=== PATIENT | female | born 1960 | race Caucasian/White ===

== ENCOUNTER → 2020-07-31 16:27 | Outpatient (CLI) | payer OTHER, SELFPAY ==
[2020-07-31 15:33] VITALS: BMI 44.4
--- NOTE | 2020-07-31 16:35 | RAD_ITS ---
INDICATION: chest pain EXAMINATION/TECHNIQUE: X-RAY - XR Chest 2 Views COMPARISON: None. FINDINGS: The lungs are clear. 2.8 cm tubular metallic density projects over the right ventricle. Heart is borderline enlarged. No pleural effusion or pneumothorax. No acute osseous abnormalities. RAD/Chest PA and Lateral IMPRESSION: No acute radiographic abnormalities. 2.8 cm tubular metallic density projects over the right ventricle and is of unknown significance. Borderline cardiomegaly. Electronically Signed: Fermin Stockton MD at 21:47 EDT Tel , Service support ,
== END ==
PROVIDERS: PCP Family Medicine; Referring Provider Physician Assistant Medical; Visit Provider Physician Assistant Medical
DX: R07.89 Other chest pain (principal)
CPT/HCPCS: 71046

== ENCOUNTER 2020-08-03 08:06 | Inpatient (IN) | payer OTHER, SELFPAY ==
[2020-07-31 15:33] VITALS: BMI 44.4
[2020-08-03] VITALS (26 sets, daily range): BP systolic 86–141; BP diastolic 69–112; PULSE 91–95; RESP 12–39; TEMP 35.5–36.8; O2SAT 70–100; BMI 43.4; BMI 41.1
--- NOTE | 2020-08-03 08:10 | EKG12_ITS ---
Test Reason : SOB Blood Pressure : / mmHG Vent. Rate : 096 BPM Atrial Rate : 141 BPM P-R Int : 000 ms QRS Dur : 176 ms QT Int : 412 ms P-R-T Axes : 074 -78 086 degrees QTc Int : 520 ms Ventricular-paced rhythm with occasional Premature ventricular complexes Abnormal ECG Confirmed by SHREIF SALGADO, FELTON ([id number]), associate entertainment editor DORYS YUAN ([id number]) on 08/07/2020 12:33:41 PM Referred By: RIGOBERTO Confirmed By:FELTON GORMAN MD
--- NOTE | 2020-08-03 08:20 | EKG12_ITS ---
Test Reason : SOB Blood Pressure : / mmHG Vent. Rate : 141 BPM Atrial Rate : 072 BPM P-R Int : 144 ms QRS Dur : 154 ms QT Int : 342 ms P-R-T Axes : 000 -88 083 degrees QTc Int : 523 ms Sinus rhythm with Premature supraventricular complexes and with frequent Premature ventricular comple xes Right bundle branch block Left anterior fascicular block Bifascicular block Abnormal ECG Confirmed by SHERIF SALGADO, FELTON ([id number]), legal editor DORYS YUAN ([id number]) on 08/07/2020 12:34:02 PM Referred By: RIGOBERTO Confirmed By:FELTON GORMAN MD
[2020-08-03 08:41] LABS: Allen Test Positive; Base Excess -17 mmol/L (-2 to +2); Bicarbonate 9.7 mmol/L (22-26); Blood Gas Specimen Type ART; FI02 100; Mode NIV; O2 Delivery Device BiPAP; PEEP 10; PO2 199 mmHG (75-100); PS 20; SITE L Radial; SO2 100 % (95-99); Total Carbon Dioxide 10 mmol/L; pCO2 21.7 mmHg (35-45); pH 7.26 (7.35-7.45)
[2020-08-03 08:45] LABS: Absolute Lymphocyte Count 4.01 X10^3/uL (0.83-4.51); Basophil# 0.11 X10^3/uL; Eosinophil# 0.26 X10^3/uL; Eosinophils% 2.2 % (0-5); Hematocrit 48.8 % (37-47); Hemoglobin 13.5 g/dL (12.0-15.0); Lymphocyte # 4.01 X10^3/ul (0.83-4.51); Lymphocyte % 34.7 % (19-41); Mean Corp Hgb Conc 27.7 g/dL (32-36); Mean Corpuscular Hgb 25.2 pg (27.0-32.0); Mean Corpuscular Volume 91.2 fL (81-99); Mean Platelet Vol. 10.6 fl (6.2-12.0); Monocyte# 1.05 X10^3/uL; Monocyte% 9.1 % (0-10); NRBC Flagged by Analyzer 0 % (0-5); Neutrophil # 6.01 X10^3/uL (2.7-7.7); Neutrophil % 51.9 % (47-70); Platelet Count 343 K/mm3 (150-450); RBC Distribution Width CV 14.7 % (11.6-14.6); RBC Distribution Width SD 49.4 fl (35.1-43.9); Red Blood Count 5.35 M/mm3 (4.2-5.4); White Blood Count 11.6 K/mm3 (4.4-11.0)
--- NOTE | 2020-08-03 08:46 | RAD_ITS ---
STUDY: X-RAY CHEST REASON FOR EXAM: Female, 59 years old. Sob TECHNIQUE: Single AP portable view of the chest. COMPARISON: Comparison is made with prior study dated 07/31/2020. FINDINGS: EKG electrodes are seen. There is evidence of vascular congestion and mild degree of CHF. Hyperinflation. There is no demonstrated pleural abnormality. There is mild cardiac enlargement. A loop recording device is seen overlying the left side of the heart. Normal mediastinum and carroll. Normal visualized pulmonary arteries. Normal visualized aortic arch and descending thoracic aorta. There are diffuse degenerative changes of the visualized thoracic spine. Normal visualized ribs, clavicles, and shoulders. There is no demonstrated abnormality of the visualized soft tissue structures of the upper abdomen. RAD/Chest 1 View (Portable) IMPRESSION: Findings in keeping with a mild degree of CHF. Cardiomegaly. Electronically Signed: Sadi Ellis MD at 9:07 EDT , Service support ,
[2020-08-03 08:55] LABS: D-Dimer Quantitative (DVT/PE) 0.29 FEU/ug/m (0.27-0.49)
[2020-08-03 08:58] LABS: ALB/GLOB Ratio 0.9 RATIO (0.9-2.4); AST(SGOT) 20 U/L (15-37); Alanine Aminotransfer ALT/SGPT 34 U/L (13-56); Albumin, Serum 3.7 g/dL (3.2-5.0); Alkaline Phosphatase 122 U/L (45-117); Anion Gap 17 (5-15); BUN 16 mg/dL (7-18); Calcium,Total 9.4 mg/dL (8.5-10.1); Chloride 101 mmol/L (98-107); Creatinine, Serum 1.46 mg/dL (0.55-1.02); EST Glomerular Filtration Rate 39 mL/min (>60); Est Glom Filt Rate - Afr Amer 47 mL/min (>60); Estimated Creatinine Clearance 36.87 ml/min; Globulin 4.1 g/dL (2.2-4.2); Glucose 336 mg/dL (74-106); Potassium 3.5 mmol/L (3.5-5.1); Protein, Total 7.8 g/dL (6.4-8.2); Sodium Level 139 mmol/L (136-145)
[2020-08-03 09:00] LABS: Lactic Acid 11.3 mmol/L (0.4-1.9)
--- NOTE | 2020-08-03 09:07 | EDS_ITS ---
HPI History of Present Illness Chief Complaint: Shortness of Breath Informant: patient and EMS Onset/Context/Timing Onset: Today Current Severity: Severe Maximum Severity: Severe Narrative Narrative: 59-year-old female brought in by EMS for respiratory distress. Patient was found in her car with shortness of breath, chest tightness, lethargy. Her pulse ox was 65% on room air. She was started on CPAP in route to the hospital. Patient was put on BiPAP on arrival to the emergency department. She is now improving and able to give history. She states that she walked into work up a hill and became short of breath. She went back to her car and became more short of breath and EMS was called. She states she was recently seen by cardiology and has a stress test ordered for tomorrow. She states her chest tightness has resolved. She states she had a pacemaker placed October 2019 for complete heart block. Prior similar symptoms: Yes Recent Illness/Hospitalization: No PFSH PFS Medical History (Updated 08/03/20 @ 10:[address] Puja Alexandre MD) Complete heart block Essential (primary) hypertension History of deep venous thrombosis (2012) Hyperlipidemia Hypothyroidism Iron deficiency anemia Obesity Obstructive sleep apnea Type 2 diabetes mellitus Home Medications atorvastatin 10 mg tablet 10 mg PO QPM 05/10/20 [History Last Taken Unknown] losartan 50 mg tablet 50 mg PO DAILY 05/10/20 [History Last Taken Unknown] metformin 500 mg tablet,extended release 24hr 1,000 mg PO BID tab 05/10/20 [History Last Taken Unknown] metoprolol succinate 25 mg tablet,extended release 24 hr 25 mg PO DAILY 05/10/20 [History Last Taken Unknown] multivitamin 1 tab PO DAILY 05/10/20 [History Last Taken Unknown] rivaroxaban 20 mg tablet 20 mg PO QPM 05/10/20 [History Last Taken Unknown] venlafaxine 75 mg capsule,extended release 24 hr 75 mg PO DAILY 05/10/20 [History Last Taken Unknown] coenzyme Q10 100 mg tablet 100 mg PO DAILY 07/31/20 [History Last Taken Unknown] levothyroxine 88 mcg tablet 88 mcg PO DAILY tab 07/31/20 [History Last Taken Unknown] Allergy/AdvReac Type Severity Reaction Status Date / Time Sulfa (Sulfonamide Allergy hives Verified 08/03/20 08:26 Antibiotics) aspirin AdvReac GI Upset Verified 08/03/20 08:26 red dye AdvReac migraine Verified 08/03/20 08:26 Family History Father Heart disease CAD (coronary artery disease) Mother Hypertension Surgical History History of permanent cardiac pacemaker placement (12/08/19) Social History Smoking Status: Never smoker alcohol intake: never substance use type: does not use caffeine: Yes Type: tea ROS ROS ED Constitutional Constitutional ED: Denies fever(s) Eyes Eyes: Denies change in vision ENT ENT ED: Denies rhinorrhea or sore throat Cardiovascular Cardiovascular: Reports chest pain; Denies palpitations Respiratory/Chest Respiratory/Chest: Reports dyspnea and dyspnea on exertion; Denies cough Gastrointestinal Gastrointestinal: Denies abdominal pain, diarrhea, nausea or vomiting Genitourinary Genitourinary ED: Denies dysuria Musculoskeletal Musculoskeletal: Denies myalgias Integumentary Denies rash Neurologic Neurologic: Denies headache(s) Psychiatric Psychiatric: Denies suicidal thoughts EXAM Physical Exam Const Vital Signs: 08/03/20 08:07 08/03/20 08:13 08/03/20 08:14 Temperature 96.7 F L 96.7 F L Temperature Source Temporal Temporal Pulse Rate 94 95 Respiratory Rate 39 H 16 Respiratory Effort Respiratory Pattern Blood Pressure 141/112 H 141/112 H Blood Pressure Mean 121 121 Pulse Ox 100 100 100 Oxygen Delivery Method Bi-pap Bi-pap Bi-pap Fraction of Inspired Oxygen (FIO2) 100 100 08/03/20 08:15 08/03/20 08:26 08/03/20 08:35 Temperature Temperature Source Pulse Rate 93 Respiratory Rate 34 H Respiratory Effort Short of Breath Labored Respiratory Pattern Grunting Blood Pressure Blood Pressure Mean Pulse Ox 100 99 Oxygen Delivery Method Bi-pap Bi-pap Fraction of Inspired Oxygen (FIO2) 100 100 60 08/03/20 09:00 08/03/20 09:30 Temperature 98.3 F Temperature Source Axillary Pulse Rate 93 91 Respiratory Rate 30 H 30 H Respiratory Effort Respiratory Pattern Blood Pressure 141/88 H 127/88 H Blood Pressure Mean 105 101 Pulse Ox 98 99 Oxygen Delivery Method Bi-pap Bi-pap Fraction of Inspired Oxygen (FIO2) 60 60 Positive well nourished and well developed General Appearance ED: well developed HEENT Reports normocephalic and head/scalp atraumatic Eyes PERRL and EOMs intact bilaterally Neck supple General: Negative for tenderness Chest Wall inspection of chest normal Resp Effort and Inspection: retractions Auscultation: rhonchi and diminished lung sounds Cardio regular rhythm Rate: tachycardic GI non-tender and non-distended Palpation: soft; Negative for guarding or rebound tenderness present no CVA tenderness Extremity General Extremety ED: Yes edema General Extremity: edema Neuro oriented x3 Sensorium / Orientation: alert Psych mental status grossly normal Skin no rashes or lesions noted MDM MDM MDM Narrative Medical decision making narrative: Patient was started on BiPAP on arrival to the ED with improvement. Patient is much improved on reevaluation. She was given Lasix IV and insulin subcutaneously. Urine culture was sent and she was given Rocephin IV. Discussed with hospitalist for admission. Lab Data Attestation: I reviewed the patient's lab results. Labs: Laboratory Results - last 24 hr 08/03/20 08/03/20 08/03/20 08:10 08:10 08:10 WBC 11.6 H RBC 5.35 Hgb 13.5 Hct 48.8 H MCV 91.2 MCH 25.2 L MCHC 27.7 L RDW Std Deviation 49.4 H RDW Coeff of Dedrick 14.7 H Plt Count 343 MPV 10.6 Immature Gran % (Auto) 1.100 H Neut % (Auto) 51.9 Lymph % (Auto) 34.7 Barber % (Auto) 9.1 Eos % (Auto) 2.2 Baso % (Auto) 1.0 Absolute Neuts (auto) 6.0 Absolute Lymphs (auto) 4.01 Nucleated RBC % 0 PT 30.0 H INR 3.0 D-Dimer Quant (PE/DVT) 0.29 Sodium 139 Potassium 3.5 Chloride 101 Carbon Dioxide 21.0 Anion Gap 17 H BUN 16 Creatinine 1.46 H Estim Creat Clear Calc 36.87 Est GFR (MDRD) Af Amer 47 L Est GFR (MDRD) Non-Af 39 L BUN/Creatinine Ratio 11.0 Glucose 336 H Lactic Acid Calcium 9.4 Total Bilirubin 0.70 AST 20 ALT 34 Alkaline Phosphatase 122 H Troponin I < 0.015 B-Natriuretic Peptide Total Protein 7.8 Albumin 3.7 Globulin 4.1 Albumin/Globulin Ratio 0.9 Urine Color Urine Clarity Urine pH Ur Specific [place] Urine Protein Urine Glucose (UA) Urine Ketones Urine Occult Blood Urine Nitrite Urine Bilirubin Urine Urobilinogen Ur Leukocyte Esterase Urine RBC Urine WBC Ur Squamous Epith Cells Urine Bacteria Urine Mucus 08/03/20 08/03/20 08/03/20 08:10 08:20 09:27 WBC RBC Hgb Hct MCV MCH MCHC RDW Std Deviation RDW Coeff of Dedrick Plt Count MPV Immature Gran % (Auto) Neut % (Auto) Lymph % (Auto) Barber % (Auto) Eos % (Auto) Baso % (Auto) Absolute Neuts (auto) Absolute Lymphs (auto) Nucleated RBC % PT INR D-Dimer Quant (PE/DVT) Sodium Potassium Chloride Carbon Dioxide Anion Gap BUN Creatinine Estim Creat Clear Calc Est GFR (MDRD) Af Amer Est GFR (MDRD) Non-Af BUN/Creatinine Ratio Glucose Lactic Acid 11.3 H* Calcium Total Bilirubin AST ALT Alkaline Phosphatase Troponin I B-Natriuretic Peptide 1620.7 H Total Protein Albumin Globulin Albumin/Globulin Ratio Urine Color Yellow Urine Clarity Sl. Cloudy Urine pH 6.0 Ur Specific [place] 1.025 Urine Protein 100 H Urine Glucose (UA) 250 H Urine Ketones Negative Urine Occult Blood 25 H Urine Nitrite Positive H Urine Bilirubin Negative Urine Urobilinogen Normal Ur Leukocyte Esterase 25 H Urine RBC 0-5 SEEN Urine WBC 0-5 SEEN Ur Squamous Epith Cells 0-5 SEEN Urine Bacteria 2+ Urine Mucus 0 SEEN ABG Data ABG results: ABG 08/03/20 08:34 Specimen Type ART Sample Site L Radial pH 7.26 L Bicarbonate Actual 9.7 L Total CO2 10 Base Excess -17 L O2 Saturation 100 H O2 % 100 ABG pCO2 21.7 L ABG pO2 199 H Ezra Test Positive O2 Delivery Device BiPAP Vent Mode NIV POC PEEP 10 POC Pressure Suppt 20 Radiography Diagnostic Testing: Radiology Impression Chest X-Ray 08/03/20 08:46 IMPRESSION: Findings in keeping with a mild degree of CHF. Cardiomegaly. Electronically Signed: Sadi Ellis MD at 9:07 EDT , Service support , EKG Initial EKG: Attestation: I personally reviewed and interpreted this EKG as follows: Interpretation: Paced Comments: Ventricular paced rhythm with PVCs, rate of 96. Critical Care Time Critical Care Time: Yes Critical care time (excluding procedures): 30-74 minutes Discharge Plan Dx/Rx/DC Orders Clinical Impression: Respiratory failure, CHF (congestive heart failure), Hypoxia Disposition Disposition: Acute Care Hospital [facility]
[2020-08-03 09:33] LABS: Mucous, Urine 0 SEEN /hpf (<or=2+)
[2020-08-03 09:41] LABS: Color, Urine Yellow (Yellow); Glucose, Dipstick 250 mg/dl (Normal); Ketone-Dipstick Negative (Negative); Leukocyte Esterase-Dipstick 25 /ul (Negative); Nitrite-Dipstick Positive (Negative); Occult Blood-Urine 25 /ul (Negative); Protein-Dipstick 100 mg/dl (Negative); Specific Gravity, Urine 1.025 (1.002-1.030); Urine Bilirubin Dipstick Negative (Negative); Urine Clarity Sl. Cloudy (Clear); Urine Urobilinogen Normal (Normal)
[2020-08-03 09:48] LABS: Red Blood Cells-Urine 0-5 SEEN /hpf (0-5); Squamous Epithelial Cells - UA 0-5 SEEN /hpf (5-10); White Blood Cells 0-5 SEEN /hpf (0-5)
[2020-08-03 09:49] LABS: Bacteria 2+ /hpf (None Seen)
[2020-08-03 09:51] LABS: BNP,B-Type NATRIURETIC PEPTIDE 1620.7 pg/mL (0-100)
--- NOTE | 2020-08-03 10:09 | HP.PCM.HOS_ITS ---
HPI - General General Date of Admission: 08/03/20 HPI Narrative The patient is a 59 y/o F w/ PMHx: Diabetes mellitus type II, Morbid Obesity, HTN, HLD, Hx DVT on coumadin, Hx complete heart block s/p pacemaker placement, Anxiety and Depression, Hypothyroidism who presents to the [facility] ED on 08/03/20 per EMS, found in her car lethargic, hypoxic with oxygenation 65% prompting EMS to place her on CPAP and bring her to the hospital with transition to BiPAP with some mental status improvement reporting that she was walking up a hill and became significantly dyspneic with associated midsternal chest tightness without radiation. 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 She notes chest pressure sensation has been occurring and had recent cardiology evaluation the day prior with planned outpatient stress testing. She noted on day of presentation this pressure like sensation was far worse 01/07. Work-up in the ED included T 96.7 temporally, heart rate 95, BP 141/112, respiratory rate 39, and a percent on CPAP per EMS transition to BiPAP with most recent vital signs T 98.3 axillary, heart rate 91, BP 127/88, respiratory rate 30, 99% on BiPAP 60% FiO2, CBC with WC 11.6, hemoglobin 13.5, platelet 343 with increased immature granulocytes otherwise no marked shift, coags with PT 30, INR 3.0 on Xarelto regimen, D-dimer 0.29, ABG with pH 7.26, bicarb 9.7, weight base excess -17, PCO2 21.7, PO2 199 on BiPAP, CMP with anion gap 17, BUN/creatinine 16/1.46, glucose 336, lactic acid 11.3, alk phos 122, BNP 1620.7, troponin less than 0.015 initially, urinalysis with specific raphe 1.025, urine protein 100, urine glucose 250, negative ketone, positive nitrite, leukocyte Estrace 25, no urine WBCs however 2+ urine bacteria, EKG with paced rhythm with no acute evidence of ischemia, chest x-ray with findings consistent with CHF, cardiomegaly, CTPA with diffuse bilateral pulmonary infiltrates worse at the bases consistent with pulmonary edema or diffuse bilateral pneumonia, urine culture pending per ED, blood culture x2 pending per ED, rapid Covid antigen negative. In the ED patient administered 10 unit insulin, Rocephin and 40 mg IV Lasix x1. Upon patient presentation given the severity of her presentation she was discussed with pulmonary/critical care who at that time had recommended CTPA prior to admission. Additionally cardiology was notified about patient status and plan admission. [facility] Medical History (Updated 08/03/20 @ 14:[address] Jaclyn Thakur MD) Complete heart block Essential (primary) hypertension History of deep venous thrombosis (2012) Hyperlipidemia Hypothyroidism Iron deficiency anemia Obesity Obstructive sleep apnea Type 2 diabetes mellitus Home Medications atorvastatin 10 mg tablet 10 mg PO QPM 05/10/20 [History Last Taken Unknown] losartan 50 mg tablet 50 mg PO DAILY 05/10/20 [History Last Taken Unknown] metformin 500 mg tablet,extended release 24hr 1,000 mg PO BID tab 05/10/20 [History Last Taken Unknown] metoprolol succinate 25 mg tablet,extended release 24 hr 25 mg PO DAILY 05/10/20 [History Last Taken Unknown] multivitamin 1 tab PO DAILY 05/10/20 [History Last Taken Unknown] rivaroxaban 20 mg tablet 20 mg PO QPM 05/10/20 [History Last Taken Unknown] venlafaxine 75 mg capsule,extended release 24 hr 75 mg PO DAILY 05/10/20 [History Last Taken Unknown] coenzyme Q10 100 mg tablet 100 mg PO DAILY 07/31/20 [History Last Taken Unknown] levothyroxine 88 mcg tablet 88 mcg PO DAILY tab 07/31/20 [History Last Taken Unknown] Allergy/AdvReac Type Severity Reaction Status Date / Time Sulfa (Sulfonamide Allergy hives Verified 08/03/20 08:26 Antibiotics) aspirin AdvReac GI Upset Verified 08/03/20 08:26 red dye AdvReac migraine Verified 08/03/20 08:26 Family History Father Heart disease CAD (coronary artery disease) Mother Hypertension Surgical History History of permanent cardiac pacemaker placement (12/08/19) unable to obtain (Patient with a surgical history of hysterectomy, right ACL repair, pacemaker placement.) Social History (Updated 08/03/20 @ 15:[address] Jaclyn Thakur MD) household members: significant other Smoking Status: Never smoker alcohol intake: never substance use type: does not use caffeine: Yes Type: tea ROS ROS Narrative Admission Review of Systems: CONSTITUTIONAL: No weight loss, fever, chills, + weakness or fatigue. HEENT: Eyes: No visual loss, blurred vision, double vision or yellow sclerae. Ears, Nose, Throat: No hearing loss, sneezing, congestion, runny nose or sore throat. SKIN: No rash or itching, lesions, wounds. CARDIOVASCULAR: + chest pain, chest pressure, edema, No palpitations, orthopnea, syncopal events. RESPIRATORY: + shortness of breath, No cough or sputum, wheezing, hemoptysis. GASTROINTESTINAL: No anorexia, nausea, vomiting or diarrhea, abdominal pain, melena, BRBPR. GENITOURINARY: No dysuria, frequency, urgency or retention. NEUROLOGICAL: No headache, dizziness, syncope, paralysis, ataxia, numbness or tingling in the extremities, focal weakness, change in bowel or bladder control, seizure. MUSCULOSKELETAL: + muscle, back pain, joint pain or stiffness. HEMATOLOGIC: No anemia, bleeding or bruising. LYMPHATICS: No enlarged nodes. No history of splenectomy. PSYCHIATRIC: No history of depression or anxiety. ENDOCRINOLOGIC: No reports of sweating, cold or heat intolerance. No polyuria or polydipsia. ALLERGIES: No history of asthma, hives, eczema or rhinitis. Vital Signs Vital Signs Vital Signs: 08/03/20 08:07 08/03/20 08:13 08/03/20 08:14 Temperature 96.7 F L 96.7 F L Temperature Source Temporal Temporal Pulse Rate 94 95 Respiratory Rate 39 H 16 Respiratory Effort Respiratory Pattern Blood Pressure 141/112 H 141/112 H Blood Pressure Mean 121 121 Pulse Ox 100 100 100 Oxygen Delivery Method Bi-pap Bi-pap Bi-pap Fraction of Inspired Oxygen (FIO2) 100 100 08/03/20 08:15 08/03/20 08:26 08/03/20 08:35 Temperature Temperature Source Pulse Rate 93 Respiratory Rate 34 H Respiratory Effort Short of Breath Labored Respiratory Pattern Grunting Blood Pressure Blood Pressure Mean Pulse Ox 100 99 Oxygen Delivery Method Bi-pap Bi-pap Fraction of Inspired Oxygen (FIO2) 100 100 60 08/03/20 09:00 08/03/20 09:30 Temperature 98.3 F Temperature Source Axillary Pulse Rate 93 91 Respiratory Rate 30 H 30 H Respiratory Effort Respiratory Pattern Blood Pressure 141/88 H 127/88 H Blood Pressure Mean 105 101 Pulse Ox 98 99 Oxygen Delivery Method Bi-pap Bi-pap Fraction of Inspired Oxygen (FIO2) 60 60 Physical Exam Narrative Physical Examination: General: Patient now awake and alert, oriented x3 but had been very encephalopathic secondary to hypoxia, remains cooperative, patient improved since initial ED presentation, currently maintained on BiPAP, still increased work of breathing and accessory muscle usage, distress is lessening and patient is less fatigued. Skin: normal color, turgor, no icterus, cyanosis. HEENT: AT/NC, EOMI, PERRLA, dry MM, BIPAP in place, no carotid bruits, + JVD but thickened neck makes examination difficult. Lungs: Diminished breath sounds, greater bases, rales bilaterally, increased work of breathing and accessory muscle usage, BiPAP in place, evident distress although improving since initial presentation, no obvious rhonchi or wheezing Heart: Tachycardic with regular rhythm; no gallop, rub audible. Abdomen: soft, morbidly obese, NTTP, ND, distant mildly hyperactive BS, unable to discern HSM secondary to morbidly obese habitus. Extremities: no cyanosis or clubbing, bilateral ankle to distal allen nonpitting edema. Neurological: Patient now awake and alert, oriented x3 but had been very encephalopathic secondary to hypoxia; cognitive function improving, nearing baseline intact; pupils equally reactive to light and accomodation; cranial nerves II-XII grossly normal, moving all 4 extremities, no focal deficits, strength severely global decrease secondary to acute presentation. Psychiatric: affect appears fatigued, still some evidence of respiratory distress but improving, no acute evidence of depressive or anxiety feelings. Lab / Micro Data Result Diagrams: 08/03/20 08:10 08/03/20 08:10 Labs: Laboratory Results - last 24 hr 08/03/20 08/03/20 08/03/20 08:10 08:10 08:10 WBC 11.6 H RBC 5.35 Hgb 13.5 Hct 48.8 H MCV 91.2 MCH 25.2 L MCHC 27.7 L RDW Std Deviation 49.4 H RDW Coeff of Dedrick 14.7 H Plt Count 343 MPV 10.6 Immature Gran % (Auto) 1.100 H Neut % (Auto) 51.9 Lymph % (Auto) 34.7 Lagrange % (Auto) 9.1 Eos % (Auto) 2.2 Baso % (Auto) 1.0 Absolute Neuts (auto) 6.0 Absolute Lymphs (auto) 4.01 Nucleated RBC % 0 PT 30.0 H INR 3.0 D-Dimer Quant (PE/DVT) 0.29 Sodium 139 Potassium 3.5 Chloride 101 Carbon Dioxide 21.0 Anion Gap 17 H BUN 16 Creatinine 1.46 H Estim Creat Clear Calc 36.87 Est GFR (MDRD) Af Amer 47 L Est GFR (MDRD) Non-Af 39 L BUN/Creatinine Ratio 11.0 Glucose 336 H Lactic Acid Calcium 9.4 Total Bilirubin 0.70 AST 20 ALT 34 Alkaline Phosphatase 122 H Troponin I < 0.015 B-Natriuretic Peptide Total Protein 7.8 Albumin 3.7 Globulin 4.1 Albumin/Globulin Ratio 0.9 Urine Color Urine Clarity Urine pH Ur Specific [place] Urine Protein Urine Glucose (UA) Urine Ketones Urine Occult Blood Urine Nitrite Urine Bilirubin Urine Urobilinogen Ur Leukocyte Esterase Urine RBC Urine WBC Ur Squamous Epith Cells Urine Bacteria Urine Mucus 08/03/20 08/03/20 08/03/20 08:10 08:20 09:27 WBC RBC Hgb Hct MCV MCH MCHC RDW Std Deviation RDW Coeff of Dedrick Plt Count MPV Immature Gran % (Auto) Neut % (Auto) Lymph % (Auto) [place] % (Auto) Eos % (Auto) Baso % (Auto) Absolute Neuts (auto) Absolute Lymphs (auto) Nucleated RBC % PT INR D-Dimer Quant (PE/DVT) Sodium Potassium Chloride Carbon Dioxide Anion Gap BUN Creatinine Estim Creat Clear Calc Est GFR (MDRD) Af Amer Est GFR (MDRD) Non-Af BUN/Creatinine Ratio Glucose Lactic Acid 11.3 H* Calcium Total Bilirubin AST ALT Alkaline Phosphatase Troponin I B-Natriuretic Peptide 1620.7 H Total Protein Albumin Globulin Albumin/Globulin Ratio Urine Color Yellow Urine Clarity Sl. Cloudy Urine pH 6.0 Ur Specific [place] 1.025 Urine Protein 100 H Urine Glucose (UA) 250 H Urine Ketones Negative Urine Occult Blood 25 H Urine Nitrite Positive H Urine Bilirubin Negative Urine Urobilinogen Normal Ur Leukocyte Esterase 25 H Urine RBC 0-5 SEEN Urine WBC 0-5 SEEN Ur Squamous Epith Cells 0-5 SEEN Urine Bacteria 2+ Urine Mucus 0 SEEN Micro: Microbiology 08/03/20 08:46 SARS-CoV-2 Antigen (Rapid) - Final Nasal Secretion ABG Data ABG results: ABG 08/03/20 08:34 Specimen Type ART Sample Site L Radial pH 7.26 L Bicarbonate Actual 9.7 L Total CO2 10 Base Excess -17 L O2 Saturation 100 H O2 % 100 ABG pCO2 21.7 L ABG pO2 199 H Ezra Test Positive O2 Delivery Device BiPAP Vent Mode NIV POC PEEP 10 POC Pressure Suppt 20 Radiology Impression Chest X-Ray 08/03/20 08:46 IMPRESSION: Findings in keeping with a mild degree of CHF. Cardiomegaly. Electronically Signed: Sadi Ellis MD at 9:07 EDT , Service support , Assessment & Plan Assessment/Plan (1) Acute respiratory failure with hypoxia: (2) CHF (congestive heart failure): (3) Chest tightness: PLAN: The patient is a 59 y/o F w/ PMHx: Diabetes mellitus type II, Morbid Obesity, HTN, HLD, Hx DVT on coumadin, Hx complete heart block s/p pacemaker placement, Anxiety and Depression, Hypothyroidism who presents to the [facility] ED on 08/03/20 per EMS, found in her car lethargic, hypoxic with oxygenation 65% prompting EMS to place her on CPAP and bring her to the hospital with transition to BiPAP with some mental status improvement reporting that she was walking up a hill and became significantly dyspneic with associated midsternal chest tightness without radiation. 1. Acute Encephalopathy secondary to Acute Hypoxic Respiratory Failure secondary to Acute Decompensated CHF, Unclear Type, Lactic acidosis secondary to significant hypoxemia, Possibly #2: CXR obtained in the ED w/ evidence overload, congestion. Patient administered IV lasix in the ED, will admit to the ICU, continue BIPAP placement, maintain on cardiac telemetry, obtain cardiac enzyme series, obtain serial EKGs, continue IV lasix diuresis, monitor I/Os, maintain on intake restriction, continue medical therapy, obtain TSH and magnesium level, obtain ECHO. Cardiology consulted, pending. PRN morphine to decrease afterload, continue oxygen supplementation, if necessary will position w/ upright position with legs off bed to decrease preload. 2. Possible Acute Urinary Tract Infection: UA upon ED evaluation mildly remarkable, pending UCx, continue IVFs, monitor I/Os, continue IV Rocephin w/ transition as able pending sensitivities and speciation. Bld cx x 2 obtained in the ED. As noted significant lactic acidosis, felt not related to possible UTI but secondary to #1 with hypoperfusion with severe hypoxia. 3. Hyperglycemia w/ Diabetes mellitus type II, Question early DKA (+AG but li jah hypoxia mediated with lactic acidosis, hyperglycemia but no ketones in urine, awaiting ED ketones): Administered 10 u IV x 1 insulin in the ED. Awaiting ketone, suspect lactic acidosis related with #1 severe hypoxia, will hold oral home regimen, once clinically improved and able to de-escalate off BiPAP will allow ADA diet, accu checks w/ ISS, nutrition consulted for education and teaching. If ongoing hyperglycemia will obtain A1c. 4. Hypertension: Will maintain on IV lasix as noted, continue home metoprolol, losartan regimen, PRN IV hydralazine. 5. Hyperlipidemia: Will continue home statin, FLP in AM. 6. Anxiety and Depression: Will continue home venlafaxine regimen. 7. History of DVT: Will hold home xarelto regimen, transition to heparin drip. 8. History of complete heart block: Status post pacemaker placement. 9. Morbid Obesity: Weight loss and lifestyle changes encouraged, nutrition consulted. 10. LUIS FELIPE: Uses CPAP q HS, currently on BIPAP, transition once improved. 11. Chronic Kidney Disease Stage III versus MARICRUZ, unclear as no comparison: Admission BUN/Cr 16/1.46, baseline renal function unknown, given presentation planning to continue diuresis, repeat CMP in AM. 12. DVT prophylaxis: SCDs, will hold xarelto, transition to therapeutic lovenox in case of intervention cardiac needs. Last dose of note xarelto 08/02/20 evening. 13. CODE status: Patient does not have healthcare packet of attorney recruiter nor living will set up. Her significant other with whom she lives is at the bedside and although they are not she specifically states that this is the individual who would be able to make her decisions for her. Discussed CODE status at length including difference between FULL code, DNR-CCA and DNR-CC status. Following discussions about the differences in these status, requested Full Code status. Advanced Care Planning Face to Face Time: 16 minutes. Visit Charges Inpatient E&M: 57045 Init Hosp L3 Procedures Hospitalists Procedures: 68566 Advncd Care Plan 30 Min
--- NOTE | 2020-08-03 10:59 | CT_ITS ---
STUDY: CTA CHEST REASON FOR EXAM: Female, 59 years old. R/o pe RADIATION DOSAGE (If Supplied By Facility): CTDIvol = ( 16.59 ) mGy, DLP = ( 497.38 ) mGycm TECHNIQUE: The examination was performed with the intravenous administration of IV 100ML ISOVUE 370. Post-processing of the angiographic images was performed, with multiplanar reformation and 3D reconstruction. Individualized dose optimization techniques were used for this CT. COMPARISON: None. FINDINGS: Normal enhancement of the main pulmonary artery and right and left pulmonary arteries. Normal enhancement of the bilateral peripheral pulmonary arteries. There is no demonstrated pulmonary embolism. Normal thoracic aorta and visualized great vessels. There is no demonstrated aortic dissection. Normal heart and pericardium. Normal mediastinum. Normal hilar regions. Normal visualized trachea and bronchi. The lungs are well expanded. There is diffuse bilateral air space disease involving both lungs more prominent at the lung bases. This is suggestive of either pulmonary edema or diffuse pulmonary infiltrates. Normal pleura. Normal chest wall structures. There are degenerative changes of thoracic spine. Normal visualized upper abdomen. CT/CTA Chest W/WO Contrast IMPRESSION: Diffuse bilateral pulmonary infiltrates worse at the lung bases. Differential diagnosis should include either pulmonary edema or diffuse bilateral pneumonia. Electronically Signed: Sadi Ellis MD at 12:10 EDT , Service support ,
[2020-08-03] MEDS: Ceftriaxone 1 GM/50 ML BAG IV (11:08)
[2020-08-03] MEDS: Insulin Lispro 100 UNIT/ML INSULN.PEN 10 UNIT SC (11:08)
[2020-08-03] MEDS: Furosemide 40 MG/4 ML Vial IV ×2 (11:08→18:10)
[2020-08-03 11:43] LABS: Lactic Acid 4.2 mmol/L (0.4-1.9)
--- NOTE | 2020-08-03 11:50 | CPS ---
Patient taken to CT scan on BiPAP and back to ED without difficulty. Upon return, FiO2 decreased to 45%, RN aware.
[2020-08-03 12:29] LABS: Reflex Lactate? Y
[2020-08-03 13:12] LABS: Magnesium 2.4 mg/dL (1.6-2.6)
--- NOTE | 2020-08-03 13:26 | ECHOCS_ITS ---
Reason For Study: CHF Procedure This was a 2D Doppler, Color Flow transthoracic echocardiogram. The study was technically difficult. Exam performed portable in ICU/CCU. Left Ventricle Normal LV size. Mild concentric left ventricular hypertrophy. The estimated ejection fraction is 30 %. Stage 3 diastolic dysfunction. There is moderate to severe global hypokinesis of the left ventricle. Right Ventricle Normal RV size. Normal systolic function. Atria Normal left atrium. Normal right atrium. Mitral Valve Normal mitral valve. Tricuspid Valve Normal tricuspid valve. Unable to estimate RV systolic pressure due to inadequate jet, pulmonary artery pressure probably normal. Aortic Valve The aortic valve is not well visualized. Pulmonic Valve Normal pulmonic valve. Great Vessels Normal aortic root. Pericardium/Pleural No pericardial effusion. Medication Diluted definity 6ml given slow IV push to enhance endocardial definition. MMode/2D Measurements & Calculations LVIDd: 4.9 cm IVSd: 1.5 cm Ao root diam: 3.4 cm LVIDs: 4.2 cm LVPWd: 1.2 cm RVDd: 4.0 cm FS: 15.5 % LAV(MOD-bp): 55.4 ml LVAd ap4: 32.8 cm2 SV(MOD-sp4): 24.8 ml LAV(MOD-bp) Indexed: 25.0 ml/m2 LVLd ap4: 7.6 cm LAV(MOD-sp2): 53.0 ml EDV(MOD-sp4): 114.6 ml LAV(MOD-sp4): 55.6 ml EDV(sp4-el): 120.1 ml LVAs ap4: 28.5 cm2 LVLs ap4: 7.5 cm ESV(MOD-sp4): 89.9 ml ESV(sp4-el): 92.2 ml EF(MOD-sp4): 21.6 % EF(sp4-el): 23.2 % SV(sp4-el): 27.9 ml LA A4 area: 19.4 cm2 LA dimension(2D): 3.9 cm RA A4 area: 15.9 cm2 Time Measurements MV dec time: 0.16 sec Doppler Measurements & Calculations MV E max marcel: 106.7 cm/sec Lat Peak E' Marcel: 4.7 cm/sec Med Peak E' Marcel: 4.0 cm/sec MV A max marcel: 45.2 cm/sec E/E' lat: 22.9 E/E' med: 26.9 MV E/A: 2.4 Ao V2 max: 125.3 cm/sec LV V1 max: 88.1 cm/sec PA V2 max: 80.4 cm/sec Ao max P.3 mmHg LV V1 max P.1 mmHg ECHO/Echo Complete W/ Contrast Interpretation Summary Normal LV size. Mild concentric left ventricular hypertrophy. The estimated ejection fraction is 30 %. There is moderate to severe global hypokinesis of the left ventricle. Stage 3 diastolic dysfunction. Contrast injection was performed. Ordering Physician: Jaclyn Thakur Referring Physician: ANDREWS WOO Performed By: Hali Barry RDCS
[2020-08-03 13:28] LABS: Procalcitonin 0.04 ng/mL (0.00-0.09)
[2020-08-03 14:35] LABS: Bedside Glucose 136 mg/dL (70-110)
[2020-08-03 15:07] LABS: Reflex Lactate? Y
--- NOTE | 2020-08-03 15:24 | PCM.CONS.C ---
Assessment & Plan Assessment/Plan (1) CHF (congestive heart failure): QUALIFIERS: Heart failure type: unspecified Heart failure chronicity: acute Qualified Code(s): I50.9 - Heart failure, unspecified PLAN: Agree with Lasix, ruling out ME with 3 sets of cardiac enzymes. Check 2D echo. Based on clinical situation tomorrow we will decide on cardiac cath versus stress testing. Apparently patient had coronary calcium score done recently which showed a calcium score of 0. Her borderline troponin elevation could be secondary to hypoxemia from her respiratory failure secondary to CHF. (2) Acute respiratory failure with hypoxia: HPI Consult Data Date of Consult: 08/03/20 HPI Narrative Reason for Consultation: CHF HPI Narrative: RUFINO MORE, is a 59 F who presents the ER for shortness of breath. Patient has history of complete heart block and had Micra pacemaker placement in November 2019 in [place]. Her settings were apparently changed couple of months later and since then she has been having shortness of breath. She saw Dr. Smtih in the office in May of this year and her pacemaker settings were adjusted. This helped her to some extent as far as her heart rate response to exercise was concerned but she continued to have shortness of breath. Today it was particularly bad and she ended up calling EMS. She was seen in the office recently and the stress test and 2D echo were ordered. Patient was found to have elevated BNP, elevated lactic acid and borderline elevated troponin levels. She was started on Lasix and her shortness of breath has significantly improved. Review of systems: All systems reviewed. All else is negative except that in HPI. COUNT INCLUDES THE [facility] Medical History (Updated 08/03/20 @ 15:[address] Erin Cage MD) Complete heart block Essential (primary) hypertension History of deep venous thrombosis (2013) Hyperlipidemia Hypothyroidism Iron deficiency anemia Obesity Obstructive sleep apnea Type 2 diabetes mellitus Home Medications atorvastatin 10 mg tablet 10 mg PO QPM 05/10/20 [History Last Taken Unknown] losartan 50 mg tablet 50 mg PO DAILY 05/10/20 [History Last Taken Unknown] metformin 500 mg tablet,extended release 24hr 1,000 mg PO BID tab 05/10/20 [History Last Taken Unknown] metoprolol succinate 25 mg tablet,extended release 24 hr 25 mg PO DAILY 05/10/20 [History Last Taken Unknown] multivitamin 1 tab PO DAILY 05/10/20 [History Last Taken Unknown] rivaroxaban 20 mg tablet 20 mg PO QPM 05/10/20 [History Last Taken Unknown] venlafaxine 75 mg capsule,extended release 24 hr 75 mg PO DAILY 05/10/20 [History Last Taken Unknown] coenzyme Q10 100 mg tablet 100 mg PO DAILY 07/31/20 [History Last Taken Unknown] levothyroxine 88 mcg tablet 88 mcg PO DAILY tab 07/31/20 [History Last Taken Unknown] Allergy/AdvReac Type Severity Reaction Status Date / Time Sulfa (Sulfonamide Allergy hives Verified 08/03/20 08:26 Antibiotics) aspirin AdvReac GI Upset Verified 08/03/20 08:26 red dye AdvReac migraine Verified 08/03/20 08:26 Family History Father Heart disease CAD (coronary artery disease) Mother Hypertension Surgical History History of permanent cardiac pacemaker placement (12/08/19) Social History (Updated 08/03/20 @ 15:[address] Jaclyn Thakur MD) household members: significant other Smoking Status: Never smoker alcohol intake: never substance use type: does not use caffeine: Yes Type: tea Physical Exam Const alert and oriented x3 Orientation / Consciousness: awake HEENT normocephalic Neck supple Chest inspection of chest normal Resp Auscultation: crackles right Cardio regular rate Extremity General Extremity: edema bilateral (Trace) Skin no rashes or lesions noted Neuro oriented x3 Psych mental status grossly normal Charges/Coding Visit Charges Inpatient E&M: 15315 Init Hosp L2
[2020-08-03] MEDS: Atorvastatin Calcium 10 MG Tablet PO (21:57)
[2020-08-03] MEDS: Enoxaparin 120 MG/0.8 ML Syringe SC (21:59)
[2020-08-03] MEDS: Pantoprazole Sodium 20 MG Tablet PO (21:59)
[2020-08-03 22:10] LABS: Bedside Glucose 69 mg/dL (70-110)
[2020-08-03 22:40] LABS: Bedside Glucose 138 mg/dL (70-110)
[2020-08-04] VITALS (28 sets, daily range): BP systolic 77–128; BP diastolic 60–96; PULSE 90–99; RESP 14–22; TEMP 35.9–36.8; O2SAT 92–100
[2020-08-04 03:25] LABS: Bedside Glucose 133 mg/dL (70-110)
[2020-08-04 04:50] LABS: Absolute Lymphocyte Count 2.12 X10^3/uL (0.83-4.51); Absolute Neutrophil Count 5.5 X10^3/uL (2.0-7.7); Basophil# 0.05 X10^3/uL; Basophil% 0.6 % (0-1); Eosinophil# 0.16 X10^3/uL; Eosinophils% 1.9 % (0-5); Hemoglobin 12.8 g/dL (12.0-15.0); Lymphocyte # 2.12 X10^3/ul (0.83-4.51); Mean Corp Hgb Conc 30.5 g/dL (32-36); Mean Corpuscular Hgb 25.4 pg (27.0-32.0); Mean Corpuscular Volume 83.3 fL (81-99); Mean Platelet Vol. 9.6 fl (6.2-12.0); Monocyte# 0.59 X10^3/uL; NRBC Flagged by Analyzer 0 % (0-5); Neutrophil # 5.53 X10^3/uL (2.7-7.7); Neutrophil % 65.3 % (47-70); Platelet Count 270 K/mm3 (150-450); RBC Distribution Width SD 45.4 fl (35.1-43.9); Red Blood Count 5.04 M/mm3 (4.2-5.4); White Blood Count 8.5 K/mm3 (4.4-11.0)
--- NOTE | 2020-08-04 05:00 | RAD_ITS ---
STUDY: X-RAY CHEST REASON FOR EXAM: Female, 59 years old. Dyspnea TECHNIQUE: Single AP portable view of the chest. COMPARISON: 08/03/2020 FINDINGS: The lungs are clear and expanded. There is no demonstrated pleural abnormality. There is borderline cardiomegaly. There is a stable implant manuscript editor. Normal mediastinum and carroll. Normal visualized pulmonary arteries. Normal visualized aortic arch and descending thoracic aorta. Normal visualized thoracic spine. Normal visualized ribs, clavicles, and shoulders. There is no demonstrated abnormality of the visualized soft tissue structures of the upper abdomen. RAD/Chest 1 View (Portable) IMPRESSION: No change or acute chest disease. Electronically Signed: Timothy Chiu MD at 20:10 EDT , Service support ,
[2020-08-04 05:06] LABS: AST(SGOT) 31 U/L (15-37); Alanine Aminotransfer ALT/SGPT 42 U/L (13-56); Albumin, Serum 3.4 g/dL (3.2-5.0); Alkaline Phosphatase 92 U/L (45-117); Anion Gap 9 (5-15); BUN 28 mg/dL (7-18); BUN/Creat Ratio 24.6 RATIO (10-20); Calcium,Total 8.9 mg/dL (8.5-10.1); Chloride 103 mmol/L (98-107); Cholesterol 113 mg/dL (200); Creatinine, Serum 1.14 mg/dL (0.55-1.02); EST Glomerular Filtration Rate 52 mL/min (>60); Est Glom Filt Rate - Afr Amer 62 mL/min (>60); Estimated Creatinine Clearance 45.32 ml/min; Globulin 3.5 g/dL (2.2-4.2); Glucose 126 mg/dL (74-106); High Density Lipoprotein 44 mg/dL; Potassium 3.5 mmol/L (3.5-5.1); Protein, Total 6.9 g/dL (6.4-8.2); Sodium Level 142 mmol/L (136-145); Triglycerides 127 mg/dL; Very Low Density Lipoprotein 25 mg/dL (5-40)
--- NOTE | 2020-08-04 05:55 | EKG12_ITS ---
Test Reason : AM EKG Blood Pressure : / mmHG Vent. Rate : 092 BPM Atrial Rate : 080 BPM P-R Int : 000 ms QRS Dur : 174 ms QT Int : 460 ms P-R-T Axes : 043 -75 102 degrees QTc Int : 568 ms Electronic Ventricular Pacemaker Confirmed by REGINA SALGADO, SUAD ([id number]), visual effects editor DORYS YUAN ([id number]) on 08/09/2020 9:15:16 AM Referred By: CIRILO Confirmed By:SUAD TAPIA MD
--- NOTE | 2020-08-04 06:20 | PCM.PN.HOSP ---
Subjective Subjective: Patient overnight with no acute events with significant improvement since initial ED presentation. Patient quickly following ICU transition transition off of BiPAP with resolved significant dyspnea and no further chest discomfort or heaviness. Given resolution of acute CHF presentation and evidence NSTEMI patient underwent a.m. cardiac catheterization with no significant coronary disease and etiology felt secondary to likely her pacer device coupled with systolic CHF presentation. Patient denies fevers, chills, nausea, emesis, abdominal pain, recurrent or worsened chest pain or dyspnea. Objective Data Objective Data Vital Signs: Vital Signs Temp Pulse Resp BP Pulse Ox 98.1 F 90 17 88/63 L 100 08/04/20 04:00 08/04/20 06:00 08/04/20 06:00 08/04/20 06:00 08/04/20 06:00 Oxygen Flow Rate (L/min) 2 Oxygen Delivery Method CPAP Weight: 243 lb 6.245 oz Body Mass Index (BMI) 41.1 Finger Stick Blood Glucose 221 Intake & Output: Intake and Output for Last 24 Hours 08/02/20 08/03/20 08/04/20 23:59 23:59 23:59 Intake Total 1150 / 1150 0 / 0 Output Total 2200 / 2200 450 / 450 Balance -1050 / -1050 -450 / -450 Lab / Micro Data Result Diagrams: 08/04/20 04:35 08/04/20 04:35 Labs: Laboratory Results - last 24 hr 08/03/20 08/03/20 08/03/20 08:10 08:10 08:10 WBC 11.6 H RBC 5.35 Hgb 13.5 Hct 48.8 H MCV 91.2 MCH 25.2 L MCHC 27.7 L RDW Std Deviation 49.4 H RDW Coeff of Dedrick 14.7 H Plt Count 343 MPV 10.6 Immature Gran % (Auto) 1.100 H Neut % (Auto) 51.9 Lymph % (Auto) 34.7 Alexander % (Auto) 9.1 Eos % (Auto) 2.2 Baso % (Auto) 1.0 Absolute Neuts (auto) 6.0 Absolute Lymphs (auto) 4.01 Nucleated RBC % 0 PT 30.0 H INR 3.0 D-Dimer Quant (PE/DVT) 0.29 Sodium 139 Potassium 3.5 Chloride 101 Carbon Dioxide 21.0 Anion Gap 17 H BUN 16 Creatinine 1.46 H Estim Creat Clear Calc 36.87 Est GFR (MDRD) Af Amer 47 L Est GFR (MDRD) Non-Af 39 L BUN/Creatinine Ratio 11.0 Glucose 336 H Lactic Acid Calcium 9.4 Magnesium Total Bilirubin 0.70 AST 20 ALT 34 Alkaline Phosphatase 122 H Troponin I < 0.015 B-Natriuretic Peptide Total Protein 7.8 Albumin 3.7 Globulin 4.1 Albumin/Globulin Ratio 0.9 Triglycerides Cholesterol LDL Cholesterol VLDL Cholesterol HDL Cholesterol Procalcitonin Urine Color Urine Clarity Urine pH Ur Specific Warren Urine Protein Urine Glucose (UA) Urine Ketones Urine Occult Blood Urine Nitrite Urine Bilirubin Urine Urobilinogen Ur Leukocyte Esterase Urine RBC Urine WBC Ur Squamous Epith Cells Urine Bacteria Urine Mucus Acetone Level POC Glucose 08/03/20 08/03/20 08/03/20 08:10 08:10 08:10 WBC RBC Hgb Hct MCV MCH MCHC RDW Std Deviation RDW Coeff of Dedrick Plt Count MPV Immature Gran % (Auto) Neut % (Auto) Lymph % (Auto) Alexander % (Auto) Eos % (Auto) Baso % (Auto) Absolute Neuts (auto) Absolute Lymphs (auto) Nucleated RBC % PT INR D-Dimer Quant (PE/DVT) Sodium Potassium Chloride Carbon Dioxide Anion Gap BUN Creatinine Estim Creat Clear Calc Est GFR (MDRD) Af Amer Est GFR (MDRD) Non-Af BUN/Creatinine Ratio Glucose Lactic Acid Calcium Magnesium 2.4 Total Bilirubin AST ALT Alkaline Phosphatase Troponin I B-Natriuretic Peptide 1620.7 H Total Protein Albumin Globulin Albumin/Globulin Ratio Triglycerides Cholesterol LDL Cholesterol VLDL Cholesterol HDL Cholesterol Procalcitonin Urine Color Urine Clarity Urine pH Ur Specific Warren Urine Protein Urine Glucose (UA) Urine Ketones Urine Occult Blood Urine Nitrite Urine Bilirubin Urine Urobilinogen Ur Leukocyte Esterase Urine RBC Urine WBC Ur Squamous Epith Cells Urine Bacteria Urine Mucus Acetone Level NEGATIVE POC Glucose 08/03/20 08/03/20 08/03/20 08:10 08:20 09:27 WBC RBC Hgb Hct MCV MCH MCHC RDW Std Deviation RDW Coeff of Dedrick Plt Count MPV Immature Gran % (Auto) Neut % (Auto) Lymph % (Auto) Alexander % (Auto) Eos % (Auto) Baso % (Auto) Absolute Neuts (auto) Absolute Lymphs (auto) Nucleated RBC % PT INR D-Dimer Quant (PE/DVT) Sodium Potassium Chloride Carbon Dioxide Anion Gap BUN Creatinine Estim Creat Clear Calc Est GFR (MDRD) Af Amer Est GFR (MDRD) Non-Af BUN/Creatinine Ratio Glucose Lactic Acid 11.3 H* Calcium Magnesium Total Bilirubin AST ALT Alkaline Phosphatase Troponin I B-Natriuretic Peptide Total Protein Albumin Globulin Albumin/Globulin Ratio Triglycerides Cholesterol LDL Cholesterol VLDL Cholesterol HDL Cholesterol Procalcitonin 0.04 Urine Color Yellow Urine Clarity Sl. Cloudy Urine pH 6.0 Ur Specific Warren 1.025 Urine Protein 100 H Urine Glucose (UA) 250 H Urine Ketones Negative Urine Occult Blood 25 H Urine Nitrite Positive H Urine Bilirubin Negative Urine Urobilinogen Normal Ur Leukocyte Esterase 25 H Urine RBC 0-5 SEEN Urine WBC 0-5 SEEN Ur Squamous Epith Cells 0-5 SEEN Urine Bacteria 2+ Urine Mucus 0 SEEN Acetone Level POC Glucose 08/03/20 08/03/20 08/03/20 11:05 13:57 14:29 WBC RBC Hgb Hct MCV MCH MCHC RDW Std Deviation RDW Coeff of Dedrick Plt Count MPV Immature Gran % (Auto) Neut % (Auto) Lymph % (Auto) Alexander % (Auto) Eos % (Auto) Baso % (Auto) Absolute Neuts (auto) Absolute Lymphs (auto) Nucleated RBC % PT INR D-Dimer Quant (PE/DVT) Sodium Potassium Chloride Carbon Dioxide Anion Gap BUN Creatinine Estim Creat Clear Calc Est GFR (MDRD) Af Amer Est GFR (MDRD) Non-Af BUN/Creatinine Ratio Glucose Lactic Acid 4.2 H* Calcium Magnesium Total Bilirubin AST ALT Alkaline Phosphatase Troponin I 0.115 H B-Natriuretic Peptide Total Protein Albumin Globulin Albumin/Globulin Ratio Triglycerides Cholesterol LDL Cholesterol VLDL Cholesterol HDL Cholesterol Procalcitonin Urine Color Urine Clarity Urine pH Ur Specific Warren Urine Protein Urine Glucose (UA) Urine Ketones Urine Occult Blood Urine Nitrite Urine Bilirubin Urine Urobilinogen Ur Leukocyte Esterase Urine RBC Urine WBC Ur Squamous Epith Cells Urine Bacteria Urine Mucus Acetone Level POC Glucose 136 H 08/03/20 08/03/20 08/03/20 17:10 20:25 21:45 WBC RBC Hgb Hct MCV MCH MCHC RDW Std Deviation RDW Coeff of Dedrick Plt Count MPV Immature Gran % (Auto) Neut % (Auto) Lymph % (Auto) Alexander % (Auto) Eos % (Auto) Baso % (Auto) Absolute Neuts (auto) Absolute Lymphs (auto) Nucleated RBC % PT INR D-Dimer Quant (PE/DVT) Sodium Potassium Chloride Carbon Dioxide Anion Gap BUN Creatinine Estim Creat Clear Calc Est GFR (MDRD) Af Amer Est GFR (MDRD) Non-Af BUN/Creatinine Ratio Glucose Lactic Acid Calcium Magnesium Total Bilirubin AST ALT Alkaline Phosphatase Troponin I 0.160 H 0.165 H B-Natriuretic Peptide Total Protein Albumin Globulin Albumin/Globulin Ratio Triglycerides Cholesterol LDL Cholesterol VLDL Cholesterol HDL Cholesterol Procalcitonin Urine Color Urine Clarity Urine pH Ur Specific Warren Urine Protein Urine Glucose (UA) Urine Ketones Urine Occult Blood Urine Nitrite Urine Bilirubin Urine Urobilinogen Ur Leukocyte Esterase Urine RBC Urine WBC Ur Squamous Epith Cells Urine Bacteria Urine Mucus Acetone Level POC Glucose 69 L 08/03/20 08/04/20 08/04/20 22:37 03:21 04:35 WBC 8.5 RBC 5.04 Hgb 12.8 Hct 42.0 MCV 83.3 D MCH 25.4 L MCHC 30.5 L D RDW Std Deviation 45.4 H RDW Coeff of Dedrick 15.0 H Plt Count 270 MPV 9.6 Immature Gran % (Auto) 0.200 Neut % (Auto) 65.3 Lymph % (Auto) 25.0 Alexander % (Auto) 7.0 Eos % (Auto) 1.9 Baso % (Auto) 0.6 Absolute Neuts (auto) 5.5 Absolute Lymphs (auto) 2.12 Nucleated RBC % 0 PT INR D-Dimer Quant (PE/DVT) Sodium Potassium Chloride Carbon Dioxide Anion Gap BUN Creatinine Estim Creat Clear Calc Est GFR (MDRD) Af Amer Est GFR (MDRD) Non-Af BUN/Creatinine Ratio Glucose Lactic Acid Calcium Magnesium Total Bilirubin AST ALT Alkaline Phosphatase Troponin I B-Natriuretic Peptide Total Protein Albumin Globulin Albumin/Globulin Ratio Triglycerides Cholesterol LDL Cholesterol VLDL Cholesterol HDL Cholesterol Procalcitonin Urine Color Urine Clarity Urine pH Ur Specific Warren Urine Protein Urine Glucose (UA) Urine Ketones Urine Occult Blood Urine Nitrite Urine Bilirubin Urine Urobilinogen Ur Leukocyte Esterase Urine RBC Urine WBC Ur Squamous Epith Cells Urine Bacteria Urine Mucus Acetone Level POC Glucose 138 H 133 H 08/04/20 04:35 WBC RBC Hgb Hct MCV MCH MCHC RDW Std Deviation RDW Coeff of Dedrick Plt Count MPV Immature Gran % (Auto) Neut % (Auto) Lymph % (Auto) Alexander % (Auto) Eos % (Auto) Baso % (Auto) Absolute Neuts (auto) Absolute Lymphs (auto) Nucleated RBC % PT INR D-Dimer Quant (PE/DVT) Sodium 142 Potassium 3.5 Chloride 103 Carbon Dioxide 30.0 Anion Gap 9 BUN 28 H Creatinine 1.14 H Estim Creat Clear Calc 45.32 Est GFR (MDRD) Af Amer 62 Est GFR (MDRD) Non-Af 52 L BUN/Creatinine Ratio 24.6 H Glucose 126 H Lactic Acid Calcium 8.9 Magnesium Total Bilirubin 0.80 AST 31 ALT 42 Alkaline Phosphatase 92 Troponin I B-Natriuretic Peptide Total Protein 6.9 Albumin 3.4 Globulin 3.5 Albumin/Globulin Ratio 1.0 Triglycerides 127 Cholesterol 113 LDL Cholesterol 44 VLDL Cholesterol 25 HDL Cholesterol 44 Procalcitonin Urine Color Urine Clarity Urine pH Ur Specific Warren Urine Protein Urine Glucose (UA) Urine Ketones Urine Occult Blood Urine Nitrite Urine Bilirubin Urine Urobilinogen Ur Leukocyte Esterase Urine RBC Urine WBC Ur Squamous Epith Cells Urine Bacteria Urine Mucus Acetone Level POC Glucose Micro: Microbiology 08/03/20 08:46 Nasal Secretion SARS-CoV-2 Antigen (Rapid) - Final ABG Data ABG results: ABG 08/03/20 08:34 Specimen Type ART Sample Site L Radial pH 7.26 L Bicarbonate Actual 9.7 L Total CO2 10 Base Excess -17 L O2 Saturation 100 H O2 % 100 ABG pCO2 21.7 L ABG pO2 199 H Ezra Test Positive O2 Delivery Device BiPAP Vent Mode NIV POC PEEP 10 POC Pressure Suppt 20 Radiography Diagnostic Testing: Radiology Impression Chest X-Ray 08/03/20 08:46 IMPRESSION: Findings in keeping with a mild degree of CHF. Cardiomegaly. Electronically Signed: Sadi Elils MD at 9:07 EDT , Service support , Chest CTA 08/03/20 10:59 IMPRESSION: Diffuse bilateral pulmonary infiltrates worse at the lung bases. Differential diagnosis should include either pulmonary edema or diffuse bilateral pneumonia. Electronically Signed: Sadi Ellis MD at 12:10 EDT , Service support , Physical Exam Narrative Physical Examination: General: Patient now awake and alert, oriented x3 but had been very encephalopathic secondary to hypoxia, remains cooperative, patient improved since initial ED presentation, currently maintained on BiPAP, still increased work of breathing and accessory muscle usage, distress is lessening and patient is less fatigued. Skin: normal color, turgor, no icterus, cyanosis. HEENT: AT/NC, EOMI, PERRLA, dry MM, BIPAP in place, no carotid bruits, + JVD but thickened neck makes examination difficult. Lungs: Diminished breath sounds, greater bases, rales bilaterally, increased work of breathing and accessory muscle usage, BiPAP in place, evident distress although improving since initial presentation, no obvious rhonchi or wheezing Heart: Tachycardic with regular rhythm; no gallop, rub audible. Abdomen: soft, morbidly obese, NTTP, ND, distant mildly hyperactive BS, unable to discern HSM secondary to morbidly obese habitus. Extremities: no cyanosis or clubbing, bilateral ankle to distal allen nonpitting edema. Neurological: Patient now awake and alert, oriented x3 but had been very encephalopathic secondary to hypoxia; cognitive function improving, nearing baseline intact; pupils equally reactive to light and accomodation; cranial nerves II-XII grossly normal, moving all 4 extremities, no focal deficits, strength severely global decrease secondary to acute presentation. Psychiatric: affect appears fatigued, still some evidence of respiratory distress but improving, no acute evidence of depressive or anxiety feelings. Assessment & Plan Assessment/Plan (1) Acute respiratory failure with hypoxia: (2) CHF (congestive heart failure): QUALIFIERS: Heart failure type: unspecified Heart failure chronicity: acute Qualified Code(s): I50.9 - Heart failure, unspecified (3) Chest tightness: PLAN: The patient is a 59 y/o F w/ PMHx: Diabetes mellitus type II, Morbid Obesity, HTN, HLD, Hx DVT on coumadin, Hx complete heart block s/p pacemaker placement, Anxiety and Depression, Hypothyroidism who presents to the [facility] ED on 08/03/20 per EMS, found in her car lethargic, hypoxic with oxygenation 65% prompting EMS to place her on CPAP and bring her to the hospital with transition to BiPAP with some mental status improvement reporting that she was walking up a hill and became significantly dyspneic with associated midsternal chest tightness without radiation. 1. Acute Encephalopathy secondary to Acute Hypoxic Respiratory Failure secondary to Acute Decompensated Systolic CHF, Severe Lactic acidosis secondary to significant hypoxemia w/ associated NSTEMI: CXR obtained in the ED w/ evidence overload, congestion. Patient administered IV lasix in the ED, admitted to the ICU, continued BIPAP placement transiently but improved quickly with quick improvement of her lactic acidosis (11.3-->4.2) with appropriate oxygenation and diuresis. Patient maintained on cardiac telemetry, cardiac enzyme series <0.015->0.115->0.160->0.165, initiated on IV lasix with 08/04/20 oral transition, ECHO w/ normal LV size, mild concentric LVH, EF 30%, moderate to severe global hypokinesis LV, stage III diastolic dysfunction, mag 2.4, TSH pending, FLP w/ total cholesterol 113, triglycerides 127, LDL 44, VLDL 25, HDL 44. Given resolution of acute CHF presentation and evidence NSTEMI patient underwent 08/04/20 cardiac catheterization with no significant coronary disease and presentation felt likely secondary to pacer device with planned discontinuation of metoprolol, transitioned to Coreg 6.25 mg twice daily, continuation of losartan, transitioning from IV Lasix to oral Lasix with plan follow-up in cardiology office in 2 weeks. If remains clinically appropriate will plan d/c 08/05/20 with transition currently to PCU. 2. Acute E. Coli Urinary Tract Infection: UA upon ED evaluation mildly remarkable, UCx currently w/ >100,000 presumed E. Coli, awaiting species and sensitivities, although oddly procalcitonin normal level. Will continue IV Rocephin w/ transition as able pending sensitivities and speciation. 3. Hyperglycemia w/ Diabetes mellitus type II,: Administered 10 u IV x 1 insulin in the ED. Negative ketone, lactic acidosis likely related to #1 severe hypoxia, holding oral home regimen, allow ADA diet, accu checks w/ ISS, nutrition consulted for education and teaching. 4. Hypertension: Will maintain on coreg, losartan, lasix oral regimen, PRN IV hydralazine. 5. Hyperlipidemia: Will continue home statin, FLP as noted. 6. Anxiety and Depression: Will continue home venlafaxine regimen. 7. History of DVT: Xarelto held for catheterization, will resume in AM, temporarily had been transitioned to heparin drip. 8. History of complete heart block: Status post pacemaker placement, likely her pacer noted to be component of presentation, plan follow-up per discussion with Cardiology in their office in 2 weeks to further adjust. 9. Morbid Obesity: Weight loss and lifestyle changes encouraged, nutrition consulted. 10. LUIS FELIPE: CPAP q HS. 11. Chronic Kidney Disease Stage III: Admission BUN/Cr 16/1.46, baseline renal function unknown, however suspect baseline CKD stage III, repeat 08/04/20 BUN/Cr 28/1.14, continue to trend. 12. DVT prophylaxis: SCDs, will hold xarelto, transition to therapeutic lovenox in case of intervention cardiac needs. Last dose of note xarelto 08/02/20 evening. 13. CODE status: Her significant other with whom she lives although they are not she specifically states that this is the individual who would be able to make her decisions for her. Full Code status. Visit Charges Inpatient E&M: 35799 Subs Hosp L3
--- NOTE | 2020-08-04 06:23 | EX.PCM.CONCC ---
Assessment & Plan Assessment/Plan (1) Acute respiratory failure with hypoxia: (2) CHF (congestive heart failure): QUALIFIERS: Heart failure chronicity: acute Heart failure type: unspecified Qualified Code(s): I50.9 - Heart failure, unspecified PLAN: RECOMMENDATIONS: 1. Wean supplemental oxygen to maintain saturations at or above 90%. 2. Await results of echocardiogram. 3. Continue IV diuretic therapy as tolerated by hemodynamics and renal function. 4. Additional work-up per cardiology recommendations. 5. Continue nocturnal CPAP therapy per home regimen. 6. Encourage incentive spirometer use and mobilize patient as tolerated. IMPRESSIONS: 1. Acute hypoxemic respiratory failure Appears to be secondary to decompensated heart failure, as the patient responded avidly to the use of BiPAP and IV diuretic therapy. At this time, she has been weaned from noninvasive positive pressure ventilatory support and is currently maintaining appropriate oxygen saturations on 2 L/min. Will defer additional work-up to cardiology, who is currently following. Continue IV diuretic therapy as tolerated by hemodynamics and renal function. Continue to wean supplemental oxygen to maintain saturations at or above 90%. Encourage incentive spirometer use and mobilize patient as tolerated. 2. History of obstructive sleep apnea Okay to transition the patient to CPAP with a pressure support of 13 cm of water, per home regimen on a nightly basis. 3. History of DVT/complete heart block status post pacemaker placement/hypothyroidism/diabetes mellitus Complicates care, management, recovery and prognosis. Continue home medications as indicated. This note was generated with [employer] dictation software. It may contain incorrect words, spelling, and punctuation that were not noted in checking the note before signing. HPI Consult Data Date of Consult: 08/04/20 HPI Narrative Reason for Consultation: Acute hypoxemic respiratory failure HPI Narrative: The patient is a 59-year-old female, with a history as outlined below, who presented to the emergency department on August 03 via EMS after being found in her car in a lethargic state. The patient was also notably hypoxemic, saturating in the 60s at the time of her discovery. She does have a history of a DVT and complete heart block status post pacemaker placement. She also reports a history of obstructive sleep apnea, for which she is currently prescribed nocturnal CPAP therapy. The patient was recently evaluated in the cardiology clinic at the beginning of the month over concerns for increasing shortness of breath. There were tentative plans for the patient to undergo a cardiac stress test. On presentation to the emergency department, the patient was noted to be afebrile and hemodynamically stable. Initial laboratory evaluation revealed a normal white blood cell count. INR was therapeutic at 3.0. Arterial blood gas obtained on BiPAP revealed a pH of 7.26 with a corresponding PCO2 of 21 and PO2 of 199. Chemistry profile was notable for a bicarbonate of 21, anion gap of 17 and creatinine of 1.46. Lactate was elevated to 4.2. BNP was elevated to 1620. Urine analysis was positive for nitrites and leukocyte esterase. 2+ urine bacteria was noted. Serum acetone level was negative. CTA chest showed no evidence for pulmonary embolism. Diffuse bilateral airspace opacities were noted. The patient was given IV Lasix. Cultures were obtained and antimicrobials initiated. The patient was subsequently admitted to the medical intensive care unit for further management. On arrival to the intensive care unit, the patient was immediately weaned from BiPAP to nasal cannula supplemental oxygen. The patient did report significant overall improvement in her breathing quality with the use of BiPAP and IV diuretic therapy. [facility] Medical History (Updated 08/03/20 @ 15:[address] Erin Cage MD) Complete heart block Essential (primary) hypertension History of deep venous thrombosis (2012) Hyperlipidemia Hypothyroidism Iron deficiency anemia Obesity Obstructive sleep apnea Type 2 diabetes mellitus Home Medications atorvastatin 10 mg tablet 10 mg PO QPM 05/10/20 [History Last Taken Unknown] losartan 50 mg tablet 50 mg PO DAILY 05/10/20 [History Last Taken Unknown] metformin 500 mg tablet,extended release 24hr 1,000 mg PO BID tab 05/10/20 [History Last Taken Unknown] metoprolol succinate 25 mg tablet,extended release 24 hr 25 mg PO DAILY 05/10/20 [History Last Taken Unknown] multivitamin 1 tab PO DAILY 05/10/20 [History Last Taken Unknown] rivaroxaban 20 mg tablet 20 mg PO QPM 05/10/20 [History Last Taken Unknown] venlafaxine 75 mg capsule,extended release 24 hr 75 mg PO DAILY 05/10/20 [History Last Taken Unknown] coenzyme Q10 100 mg tablet 100 mg PO DAILY 07/31/20 [History Last Taken Unknown] levothyroxine 88 mcg tablet 88 mcg PO DAILY tab 07/31/20 [History Last Taken Unknown] Allergy/AdvReac Type Severity Reaction Status Date / Time Sulfa (Sulfonamide Allergy hives Verified 08/03/20 08:26 Antibiotics) aspirin AdvReac GI Upset Verified 08/03/20 08:26 red dye AdvReac migraine Verified 08/03/20 08:26 Family History Father Heart disease CAD (coronary artery disease) Mother Hypertension Surgical History History of permanent cardiac pacemaker placement (12/08/19) Social History (Updated 08/03/20 @ 15:[address] aJclyn Thakur MD) household members: significant other Smoking Status: Never smoker alcohol intake: never substance use type: does not use caffeine: Yes Type: tea ROS Constitutional Constitutional: Denies chills, fatigue or fever(s) Eyes Eyes: Denies blurry vision or change in vision ENT HEENT: Denies dizziness, headache(s), hoarseness or nasal discharge Cardiovascular Cardiovascular: Reports dyspnea; Denies chest pain Respiratory/Chest Respiratory/Chest: Reports chest tightness and shortness of breath with exertion Gastrointestinal Gastrointestinal: Denies abdominal pain or diarrhea Genitourinary Genitourinary: Denies difficulty urinating or dysuria Musculoskeletal Musculoskeletal: Denies arthralgias or back pain Integumentary Integumentary: Denies lesions, rash or skin ulcer Neurologic Neurologic: Denies abnormal gait, abnormal speech or confusion Psychiatric Psychiatric: Denies anxiety or depression Endocrine Endocrinology: Denies fatigue Hematologic/Lymphatic Hematologic/Lymphatic: Denies easy bleeding or easy bruising Physical Exam Const alert, oriented x3 and no apparent distress Constitutional Narrative: Maintaining appropriate oxygen saturations on nasal cannula supplemental O2. General Appearance: cooperative HEENT normocephalic, head/scalp atraumatic and moist oral mucous membranes Eyes PERRL and EOMs intact bilaterally Neck Neck Narrative: Large neck circumference with redundant soft tissue. Resp normal respiratory effort and no use of accessory muscles Effort and Inspection: tachypneic Auscultation: rales and diminished lung sounds; Negative for rhonchi or wheezes Cardio regular rate and regular rhythm GI normal to inspection, nondistended, normoactive bowel sounds Extremity General Extremity: edema bilateral lower extremity; Negative for clubbing Skin no rashes or lesions noted Neuro oriented x3, CN's II-XII intact bilaterally and moves all extremities Psych cooperative and affect normal Lab / Micro Data Result Diagrams: 08/04/20 04:35 08/04/20 04:35 Labs: Laboratory Results - last 24 hr 08/03/20 08/03/20 08/03/20 08:10 08:10 08:10 WBC 11.6 H RBC 5.35 Hgb 13.5 Hct 48.8 H MCV 91.2 MCH 25.2 L MCHC 27.7 L RDW Std Deviation 49.4 H RDW Coeff of Dedrick 14.7 H Plt Count 343 MPV 10.6 Immature Gran % (Auto) 1.100 H Neut % (Auto) 51.9 Lymph % (Auto) 34.7 Graves % (Auto) 9.1 Eos % (Auto) 2.2 Baso % (Auto) 1.0 Absolute Neuts (auto) 6.0 Absolute Lymphs (auto) 4.01 Nucleated RBC % 0 PT 30.0 H INR 3.0 D-Dimer Quant (PE/DVT) 0.29 Sodium 139 Potassium 3.5 Chloride 101 Carbon Dioxide 21.0 Anion Gap 17 H BUN 16 Creatinine 1.46 H Estim Creat Clear Calc 36.87 Est GFR (MDRD) Af Amer 47 L Est GFR (MDRD) Non-Af 39 L BUN/Creatinine Ratio 11.0 Glucose 336 H Lactic Acid Calcium 9.4 Magnesium Total Bilirubin 0.70 AST 20 ALT 34 Alkaline Phosphatase 122 H Troponin I < 0.015 B-Natriuretic Peptide Total Protein 7.8 Albumin 3.7 Globulin 4.1 Albumin/Globulin Ratio 0.9 Triglycerides Cholesterol LDL Cholesterol VLDL Cholesterol HDL Cholesterol Procalcitonin Urine Color Urine Clarity Urine pH Ur Specific [place] Urine Protein Urine Glucose (UA) Urine Ketones Urine Occult Blood Urine Nitrite Urine Bilirubin Urine Urobilinogen Ur Leukocyte Esterase Urine RBC Urine WBC Ur Squamous Epith Cells Urine Bacteria Urine Mucus Acetone Level POC Glucose 08/03/20 08/03/20 08/03/20 08:10 08:10 08:10 WBC RBC Hgb Hct MCV MCH MCHC RDW Std Deviation RDW Coeff of [place] Plt Count MPV Immature Gran % (Auto) Neut % (Auto) Lymph % (Auto) Graves % (Auto) Eos % (Auto) Baso % (Auto) Absolute Neuts (auto) Absolute Lymphs (auto) Nucleated RBC % PT INR D-Dimer Quant (PE/DVT) Sodium Potassium Chloride Carbon Dioxide Anion Gap BUN Creatinine Estim Creat Clear Calc Est GFR (MDRD) Af Amer Est GFR (MDRD) Non-Af BUN/Creatinine Ratio Glucose Lactic Acid Calcium Magnesium 2.4 Total Bilirubin AST ALT Alkaline Phosphatase Troponin I B-Natriuretic Peptide 1620.7 H Total Protein Albumin Globulin Albumin/Globulin Ratio Triglycerides Cholesterol LDL Cholesterol VLDL Cholesterol HDL Cholesterol Procalcitonin Urine Color Urine Clarity Urine pH Ur Specific [place] Urine Protein Urine Glucose (UA) Urine Ketones Urine Occult Blood Urine Nitrite Urine Bilirubin Urine Urobilinogen Ur Leukocyte Esterase Urine RBC Urine WBC Ur Squamous Epith Cells Urine Bacteria Urine Mucus Acetone Level NEGATIVE POC Glucose 08/03/20 08/03/20 08/03/20 08:10 08:20 09:27 WBC RBC Hgb Hct MCV MCH MCHC RDW Std Deviation RDW Coeff of [place] Plt Count MPV Immature Gran % (Auto) Neut % (Auto) Lymph % (Auto) Graves % (Auto) Eos % (Auto) Baso % (Auto) Absolute Neuts (auto) Absolute Lymphs (auto) Nucleated RBC % PT INR D-Dimer Quant (PE/DVT) Sodium Potassium Chloride Carbon Dioxide Anion Gap BUN Creatinine Estim Creat Clear Calc Est GFR (MDRD) Af Amer Est GFR (MDRD) Non-Af BUN/Creatinine Ratio Glucose Lactic Acid 11.3 H* Calcium Magnesium Total Bilirubin AST ALT Alkaline Phosphatase Troponin I B-Natriuretic Peptide Total Protein Albumin Globulin Albumin/Globulin Ratio Triglycerides Cholesterol LDL Cholesterol VLDL Cholesterol HDL Cholesterol Procalcitonin 0.04 Urine Color Yellow Urine Clarity Sl. Cloudy Urine pH 6.0 Ur Specific [place] 1.025 Urine Protein 100 H Urine Glucose (UA) 250 H Urine Ketones Negative Urine Occult Blood 25 H Urine Nitrite Positive H Urine Bilirubin Negative Urine Urobilinogen Normal Ur Leukocyte Esterase 25 H Urine RBC 0-5 SEEN Urine WBC 0-5 SEEN Ur Squamous Epith Cells 0-5 SEEN Urine Bacteria 2+ Urine Mucus 0 SEEN Acetone Level POC Glucose 08/03/20 08/03/20 08/03/20 11:05 13:57 14:29 WBC RBC Hgb Hct MCV MCH MCHC RDW Std Deviation RDW Coeff of [place] Plt Count MPV Immature Gran % (Auto) Neut % (Auto) Lymph % (Auto) Graves % (Auto) Eos % (Auto) Baso % (Auto) Absolute Neuts (auto) Absolute Lymphs (auto) Nucleated RBC % PT INR D-Dimer Quant (PE/DVT) Sodium Potassium Chloride Carbon Dioxide Anion Gap BUN Creatinine Estim Creat Clear Calc Est GFR (MDRD) Af Amer Est GFR (MDRD) Non-Af BUN/Creatinine Ratio Glucose Lactic Acid 4.2 H* Calcium Magnesium Total Bilirubin AST ALT Alkaline Phosphatase Troponin I 0.115 H B-Natriuretic Peptide Total Protein Albumin Globulin Albumin/Globulin Ratio Triglycerides Cholesterol LDL Cholesterol VLDL Cholesterol HDL Cholesterol Procalcitonin Urine Color Urine Clarity Urine pH Ur Specific [place] Urine Protein Urine Glucose (UA) Urine Ketones Urine Occult Blood Urine Nitrite Urine Bilirubin Urine Urobilinogen Ur Leukocyte Esterase Urine RBC Urine WBC Ur Squamous Epith Cells Urine Bacteria Urine Mucus Acetone Level POC Glucose 136 H 08/03/20 08/03/20 08/03/20 17:10 20:25 21:45 WBC RBC Hgb Hct MCV MCH MCHC RDW Std Deviation RDW Coeff of [place] Plt Count MPV Immature Gran % (Auto) Neut % (Auto) Lymph % (Auto) Graves % (Auto) Eos % (Auto) Baso % (Auto) Absolute Neuts (auto) Absolute Lymphs (auto) Nucleated RBC % PT INR D-Dimer Quant (PE/DVT) Sodium Potassium Chloride Carbon Dioxide Anion Gap BUN Creatinine Estim Creat Clear Calc Est GFR (MDRD) Af Amer Est GFR (MDRD) Non-Af BUN/Creatinine Ratio Glucose Lactic Acid Calcium Magnesium Total Bilirubin AST ALT Alkaline Phosphatase Troponin I 0.160 H 0.165 H B-Natriuretic Peptide Total Protein Albumin Globulin Albumin/Globulin Ratio Triglycerides Cholesterol LDL Cholesterol VLDL Cholesterol HDL Cholesterol Procalcitonin Urine Color Urine Clarity Urine pH Ur Specific [place] Urine Protein Urine Glucose (UA) Urine Ketones Urine Occult Blood Urine Nitrite Urine Bilirubin Urine Urobilinogen Ur Leukocyte Esterase Urine RBC Urine WBC Ur Squamous Epith Cells Urine Bacteria Urine Mucus Acetone Level POC Glucose 69 L 08/03/20 08/04/20 08/04/20 22:37 03:21 04:35 WBC 8.5 RBC 5.04 Hgb 12.8 Hct 42.0 MCV 83.3 D MCH 25.4 L MCHC 30.5 L D RDW Std Deviation 45.4 H RDW Coeff of Dedrick 15.0 H Plt Count 270 MPV 9.6 Immature Gran % (Auto) 0.200 Neut % (Auto) 65.3 Lymph % (Auto) 25.0 Graves % (Auto) 7.0 Eos % (Auto) 1.9 Baso % (Auto) 0.6 Absolute Neuts (auto) 5.5 Absolute Lymphs (auto) 2.12 Nucleated RBC % 0 PT INR D-Dimer Quant (PE/DVT) Sodium Potassium Chloride Carbon Dioxide Anion Gap BUN Creatinine Estim Creat Clear Calc Est GFR (MDRD) Af Amer Est GFR (MDRD) Non-Af BUN/Creatinine Ratio Glucose Lactic Acid Calcium Magnesium Total Bilirubin AST ALT Alkaline Phosphatase Troponin I B-Natriuretic Peptide Total Protein Albumin Globulin Albumin/Globulin Ratio Triglycerides Cholesterol LDL Cholesterol VLDL Cholesterol HDL Cholesterol Procalcitonin Urine Color Urine Clarity Urine pH Ur Specific [place] Urine Protein Urine Glucose (UA) Urine Ketones Urine Occult Blood Urine Nitrite Urine Bilirubin Urine Urobilinogen Ur Leukocyte Esterase Urine RBC Urine WBC Ur Squamous Epith Cells Urine Bacteria Urine Mucus Acetone Level POC Glucose 138 H 133 H 08/04/20 04:35 WBC RBC Hgb Hct MCV MCH MCHC RDW Std Deviation RDW Coeff of [place] Plt Count MPV Immature Gran % (Auto) Neut % (Auto) Lymph % (Auto) Graves % (Auto) Eos % (Auto) Baso % (Auto) Absolute Neuts (auto) Absolute Lymphs (auto) Nucleated RBC % PT INR D-Dimer Quant (PE/DVT) Sodium 142 Potassium 3.5 Chloride 103 Carbon Dioxide 30.0 Anion Gap 9 BUN 28 H Creatinine 1.14 H Estim Creat Clear Calc 45.32 Est GFR (MDRD) Af Amer 62 Est GFR (MDRD) Non-Af 52 L BUN/Creatinine Ratio 24.6 H Glucose 126 H Lactic Acid Calcium 8.9 Magnesium Total Bilirubin 0.80 AST 31 ALT 42 Alkaline Phosphatase 92 Troponin I B-Natriuretic Peptide Total Protein 6.9 Albumin 3.4 Globulin 3.5 Albumin/Globulin Ratio 1.0 Triglycerides 127 Cholesterol 113 LDL Cholesterol 44 VLDL Cholesterol 25 HDL Cholesterol 44 Procalcitonin Urine Color Urine Clarity Urine pH Ur Specific [place] Urine Protein Urine Glucose (UA) Urine Ketones Urine Occult Blood Urine Nitrite Urine Bilirubin Urine Urobilinogen Ur Leukocyte Esterase Urine RBC Urine WBC Ur Squamous Epith Cells Urine Bacteria Urine Mucus Acetone Level POC Glucose Micro: Microbiology 08/03/20 08:46 SARS-CoV-2 Antigen (Rapid) - Final Nasal Secretion ABG Data ABG results: ABG 08/03/20 08:34 Specimen Type ART Sample Site L Radial pH 7.26 L Bicarbonate Actual 9.7 L Total CO2 10 Base Excess -17 L O2 Saturation 100 H O2 % 100 ABG pCO2 21.7 L ABG pO2 199 H Ezra Test Positive O2 Delivery Device BiPAP Vent Mode NIV POC PEEP 10 POC Pressure Suppt 20 Radiology Impression Chest X-Ray 08/03/20 08:46 IMPRESSION: Findings in keeping with a mild degree of CHF. Cardiomegaly. Electronically Signed: Sadi Ellis MD at 9:07 EDT , Service support , Chest CTA 08/03/20 10:59 IMPRESSION: Diffuse bilateral pulmonary infiltrates worse at the lung bases. Differential diagnosis should include either pulmonary edema or diffuse bilateral pneumonia. Electronically Signed: Sadi Ellis MD at 12:10 EDT , Service support , Charges/Coding Visit Charges Inpatient E&M: 71682 Init Hosp L3
[2020-08-04] MEDS: Insulin Lispro 100 UNIT/ML INSULN.PEN SC ×2 (06:43→17:14)
[2020-08-04 06:46] LABS: Bedside Glucose 165 mg/dL (70-110)
[2020-08-04 09:27] LABS: International Normalized Ratio 1.3; Prothrombin Time (Protime)PT. 15.5 SECONDS (11.7-14.9)
[2020-08-04] MEDS: Ceftriaxone 1 GM/50 ML BAG IV (09:37)
--- NOTE | 2020-08-04 09:45 | CASEMGMT ---
NOELLE HOBBS assessment: Face to Face with patient for initial transition planning/care coordination assessment. NOELLE HOBBS introduced self and role at [facility], pt voices understanding and consents to assessment. Pt is sitting up in bed in no distress on 2L nc. Pt is A/Ox4 and answers all questions appropriately. Care providers, pharmacy, and demographics verified. Presentation: Sternal CP w/ SOB, pulse ox 65% Admitting dx: Resp failure, CHF PCP: Radha, but pt states she is planning on switching to Dr. Burgos Specialists: Sarah, cardio Preferred Pharmacy: [facility] in [place] Insurance: [employer] Prescription Benefit: [employer] Living Will/HPOA: Pt states has LW/HPOA and is aware that it's not on file at [facility]. Pt believes that her sig other, Marilee Diallo, is HPOA. LNOK: Marilee Diallo, sig other; Meron Laguerre, daughter Living Arrangements: Pt lives with sig other in mobile home with 2 steps in and states no concerns at home. Pt states is independent with ADL's. Transportation: Pt states drives self and states no transportation concerns. DME/HHC: Pt states has a cpap thru [facility] but buys all supplies on her own as she no longer follows with pulm in [place]. Pt states no need for any further DME but if she would need oxygen at discharge would like it thru [facility]. Pt states no hx of HHC or SNF in the past. Pt states no concerns with going home at time of discharge. Pt works information clerk. Pt states does not smoke cigarettes and rarely drinks ETOH. Pt states no further concerns/needs. CM to follow for any further discharge planning/needs. Advised pt to ask for CM if any further questions/concerns/needs arise, voices understanding. Pt Goal: Home Plan[place] NOELLE HOBBS
[2020-08-04] MEDS: Aspirin 81 MG TAB.CHEW PO (11:35)
[2020-08-04] MEDS: Venlafaxine XR 75 MG Capsule PO (11:35)
[2020-08-04] MEDS: Levothyroxine 88 MCG Tablet PO (11:35)
[2020-08-04] MEDS: Pantoprazole Sodium 20 MG Tablet PO ×2 (11:35→21:08)
[2020-08-04] MEDS: Losartan Potassium 50 MG Tablet PO (11:35)
[2020-08-04] MEDS: Metoprolol(XL)Succ 25 MG Tablet PO (11:36)
[2020-08-04 11:46] LABS: Bedside Glucose 137 mg/dL (70-110)
--- NOTE | 2020-08-04 11:58 | CASEMGMT ---
According to the [facility] website, the following are in-network tertiary facilities: [facility], [place], [facility], [facility], and . Omaira DRAKE CM
--- NOTE | 2020-08-04 13:34 | PCM.PN.CARD ---
Subjective Subjective: Patient seen and evaluated. Appears to be doing better at this time. Underwent cardiac catheterization today Objective Data Vital Signs: Vital Signs Temp Pulse Resp BP Pulse Ox 96.6 F L 94 14 103/79 97 08/04/20 08:00 08/04/20 11:36 08/04/20 10:00 08/04/20 11:36 08/04/20 10:00 Oxygen Flow Rate (L/min) 2 Oxygen Delivery Method Room Air Weight: 243 lb 6.245 oz Body Mass Index (BMI) 41.1 Finger Stick Blood Glucose 221 Intake & Output: Intake and Output for Last 24 Hours 08/02/20 08/03/20 08/04/20 23:59 23:59 23:59 Intake Total 1150 / 1150 50 / 50 Output Total 2200 / 2200 750 / 750 Balance -1050 / -1050 -700 / -700 Lab / Micro Data Result Diagrams: 08/04/20 04:35 08/04/20 04:35 Labs: Laboratory Results - last 24 hr 08/03/20 08/03/20 08/03/20 13:57 14:29 17:10 WBC RBC Hgb Hct MCV MCH MCHC RDW Std Deviation RDW Coeff of [place] Plt Count MPV Immature Gran % (Auto) Neut % (Auto) Lymph % (Auto) [place] % (Auto) Eos % (Auto) Baso % (Auto) Absolute Neuts (auto) Absolute Lymphs (auto) Nucleated RBC % PT INR Sodium Potassium Chloride Carbon Dioxide Anion Gap BUN Creatinine Estim Creat Clear Calc Est GFR (MDRD) Af Amer Est GFR (MDRD) Non-Af BUN/Creatinine Ratio Glucose Calcium Total Bilirubin AST ALT Alkaline Phosphatase Troponin I 0.115 H 0.160 H Total Protein Albumin Globulin Albumin/Globulin Ratio Triglycerides Cholesterol LDL Cholesterol VLDL Cholesterol HDL Cholesterol POC Glucose 136 H 08/03/20 08/03/20 08/03/20 20:25 21:45 22:37 WBC RBC Hgb Hct MCV MCH MCHC RDW Std Deviation RDW Coeff of [place] Plt Count MPV Immature Gran % (Auto) Neut % (Auto) Lymph % (Auto) [place] % (Auto) Eos % (Auto) Baso % (Auto) Absolute Neuts (auto) Absolute Lymphs (auto) Nucleated RBC % PT INR Sodium Potassium Chloride Carbon Dioxide Anion Gap BUN Creatinine Estim Creat Clear Calc Est GFR (MDRD) Af Amer Est GFR (MDRD) Non-Af BUN/Creatinine Ratio Glucose Calcium Total Bilirubin AST ALT Alkaline Phosphatase Troponin I 0.165 H Total Protein Albumin Globulin Albumin/Globulin Ratio Triglycerides Cholesterol LDL Cholesterol VLDL Cholesterol HDL Cholesterol POC Glucose 69 L 138 H 08/04/20 08/04/20 08/04/20 03:21 04:35 04:35 WBC 8.5 RBC 5.04 Hgb 12.8 Hct 42.0 MCV 83.3 D MCH 25.4 L MCHC 30.5 L D RDW Std Deviation 45.4 H RDW Coeff of [place]rick 15.0 H Plt Count 270 MPV 9.6 Immature Gran % (Auto) 0.200 Neut % (Auto) 65.3 Lymph % (Auto) 25.0 [place] % (Auto) 7.0 Eos % (Auto) 1.9 Baso % (Auto) 0.6 Absolute Neuts (auto) 5.5 Absolute Lymphs (auto) 2.12 Nucleated RBC % 0 PT INR Sodium 142 Potassium 3.5 Chloride 103 Carbon Dioxide 30.0 Anion Gap 9 BUN 28 H Creatinine 1.14 H Estim Creat Clear Calc 45.32 Est GFR (MDRD) Af Amer 62 Est GFR (MDRD) Non-Af 52 L BUN/Creatinine Ratio 24.6 H Glucose 126 H Calcium 8.9 Total Bilirubin 0.80 AST 31 ALT 42 Alkaline Phosphatase 92 Troponin I Total Protein 6.9 Albumin 3.4 Globulin 3.5 Albumin/Globulin Ratio 1.0 Triglycerides 127 Cholesterol 113 LDL Cholesterol 44 VLDL Cholesterol 25 HDL Cholesterol 44 POC Glucose 133 H 08/04/20 08/04/20 08/04/20 06:39 09:10 11:40 WBC RBC Hgb Hct MCV MCH MCHC RDW Std Deviation RDW Coeff of [place] Plt Count MPV Immature Gran % (Auto) Neut % (Auto) Lymph % (Auto) [place] % (Auto) Eos % (Auto) Baso % (Auto) Absolute Neuts (auto) Absolute Lymphs (auto) Nucleated RBC % PT 15.5 H INR 1.3 Sodium Potassium Chloride Carbon Dioxide Anion Gap BUN Creatinine Estim Creat Clear Calc Est GFR (MDRD) Af Amer Est GFR (MDRD) Non-Af BUN/Creatinine Ratio Glucose Calcium Total Bilirubin AST ALT Alkaline Phosphatase Troponin I Total Protein Albumin Globulin Albumin/Globulin Ratio Triglycerides Cholesterol LDL Cholesterol VLDL Cholesterol HDL Cholesterol POC Glucose 165 H 137 H Micro: Microbiology 08/03/20 09:27 Urine, Clean Catch Urine Culture - Preliminary Presumptive E. coli 08/03/20 08:46 Nasal Secretion SARS-CoV-2 Antigen (Rapid) - Final Cardiology Labs/Tests 08/03/20 13:57: Troponin I 0.115 H 08/03/20 17:10: Troponin I 0.160 H 08/03/20 20:25: Troponin I 0.165 H 08/04/20 04:35: WBC 8.5, RBC 5.04, Hgb 12.8, Hct 42.0, MCV 83.3 D, MCH 25.4 L, MCHC 30.5 L D, Plt Count 270, MPV 9.6, Immature Gran % (Auto) 0.200, Neut % (Auto) 65.3, Lymph % (Auto) 25.0, [place] % (Auto) 7.0, Eos % (Auto) 1.9, Baso % (Auto) 0.6, Absolute Neuts (auto) 5.5, Nucleated RBC % 0 08/04/20 04:35: Sodium 142, Potassium 3.5, Chloride 103, Carbon Dioxide 30.0, Anion Gap 9, BUN 28 H, Creatinine 1.14 H, Est GFR (MDRD) Af Amer 62, Est GFR (MDRD) Non-Af 52 L, BUN/Creatinine Ratio 24.6 H, Glucose 126 H, Calcium 8.9, Total Bilirubin 0.80, Triglycerides 127, Cholesterol 113, LDL Cholesterol 44, VLDL Cholesterol 25, HDL Cholesterol 44 08/04/20 09:10: PT 15.5 H, INR 1.3 Rhythm: EKG: ECHO: Stress Test: Cardiac Cath: PCI: CT Surgery: Holter monitor: EPS: PPM: CXR: Chest CT Scan: Radiography Diagnostic Testing: Radiology Impression Echocardiogram 08/03/20 13:26 Interpretation Summary Normal LV size. Mild concentric left ventricular hypertrophy. The estimated ejection fraction is 30 %. There is moderate to severe global hypokinesis of the left ventricle. Stage 3 diastolic dysfunction. Contrast injection was performed. Ordering Physician: Jaclyn Thakur Referring Physician: ANDREWS WOO Performed By: Hali Barry RDCS Physical Exam Const oriented x3 and healthy appearing Orientation / Consciousness: awake HEENT normocephalic Eyes PERRL and conjunctivae normal Neck supple, no JVD and no carotid bruits Chest inspection of chest normal Resp normal respiratory effort and clear to auscultation bilaterally Cardio Palpation: normal PMI Rate: regular rate Rhythm: regular rhythm Heart Sounds: S1 normal and S2 normal Peripheral Pulses: pulses 2+ throughout GI normal to inspection, nondistended, normoactive bowel sounds Extremity normal to inspection and no clubbing, cyanosis or edema Psych mental status grossly normal Assessment & Plan Assessment/Plan (1) CHF (congestive heart failure): QUALIFIERS: Heart failure type: unspecified Heart failure chronicity: acute Qualified Code(s): I50.9 - Heart failure, unspecified PLAN: She appears to have congestive heart failure which is systolic. This is confirmed by her echocardiogram. Would recommend continuing diuresis with IV Lasix and switching over to p.o. Lasix Continue losartan Discontinue metoprolol and start carvedilol 6.25 mg twice a day (2) History of permanent cardiac pacemaker placement: PLAN: She is status post permanent pacemaker implantation with a Micra AV device. I would recommend that she be seen in the office within 2 weeks and have her Micra device optimized. (3) Essential (primary) hypertension: PLAN: Continue beta-neftali and ARB at this time. Would recommend discharge in a.m.
--- NOTE | 2020-08-04 13:40 | CL.D_ITS ---
Patient Name: RUFINO MORE Study Date: 08/04/2020 Performing: Tyrese Smith MD Ht: 65 inches 165 cm : 1960 Wt: 242.8 lbs 110 kg Age: 59 Gender: female BSA: 2.15 PROCEDURE(S) PERFORMED [id number]/LV CLINICAL PROFILE AND INDICATIONS Indications: Cardiomyopathy Heart Failure: NYHA Class: 3, Newly Diagnosed: Yes, Heart Failure Type: Systolic Stress/Imaging Stress/Image Study Performed: No CAD Presentations: Other: SOB CONCLUSIONS Non obstructive coronary arteries Cardiomyopathy: Dilated idiopathic RECOMMENDATIONS Medical therapy DESCRIPTION OF PROCEDURE The patient arrived to the procedure lab. The risks and benefits of the procedure as well as a full d escription of our services here and current unavailability of surgical backup were fully explained to the patient and/or their significant other prior to the catheterization. The Timeout was completed, verifying the correct patient and procedure. The patient's procedural site was prepped and draped in the usual fashion. Local anesthetic was given subcutaneously to right radial region with Lidocaine 2% . Using a modified Seldinger technique, arterial access was obtained via the right radial artery, a 6 Fr sheath was inserted. Left Coronary Artery selective angiography was performed in multiple views u sing a 5 Fr. 4.0 [place] catheter. Right Coronary Artery selective angiography was then performed in mu ltiple views using a 5 Fr. 4.0 [place] catheter. Left Ventriculography was performed in RAMIREZ projection using a 5 Fr. [place] catheter. LV to AO pullback pressures were then recorded.The arterial sheath was pulled and a TR Band was applied for hemostasis CORONARY ANGIOGRAPHY DOMINANCE: Right Dominant LEFT HEART ASSESSMENT Left Ventricular Ejection Fraction: by LV Gram 30 % Global Hypokinesis - Moderate Depressed Left Ventricular systolic function LEFT MAIN: Angiographically normal LEFT ANTERIOR DESCENDING ARTERY: No significant disease noted CIRCUMFLEX ARTERY: No significant disease noted RIGHT CORONARY ARTERY: Mild luminal irregularities less than 30% COMPLICATIONS No Complications PROCEDURE MEDICATIONS Versed 1 mg IV Fentanyl 50 mcg IV Versed 1 mg IV Versed 1 mg IV Oxygen: 2 L/min via nasal cannula Heparin given IA 08/04/2020 13:16:54 Verapamil 2.5mg, Ntg 100mcgs, 2000 units of Heparin given IA 08/04/2020 13:16:54 SUMMARY OF HEMODYNAMIC DATA Time AIR REST ECG 12:56:11 AO 104/85 (94) SA 13:18:46 LV 123/26, 30 13:24:38 LV 125/29, 35 13:24:45 LV 106/25, 28 13:26:02 LV 115/28, 31 13:26:09 LVp 127/98, 104 13:26:37 AOp 108/-6 (37) 13:26:42 Signed By Tyrese Smith MD On 08/04/2020 1:39:46 PM Tyrese Smith MD
[2020-08-04] MEDS: Furosemide 40 MG/4 ML Vial IV ×2 (14:05→18:54)
[2020-08-04 14:37] LABS: Thyroid Stim Hormone (TSH) 2.43 uIU/mL (0.358-3.74)
[2020-08-04 17:21] LABS: Bedside Glucose 200 mg/dL (70-110)
[2020-08-04] MEDS: 0.9% Saline Lock 10 ML Syringe IV ×2 (18:55→21:09)
[2020-08-04] MEDS: Enoxaparin 120 MG/0.8 ML Syringe SC (21:08)
[2020-08-04] MEDS: Carvedilol 6.25 MG Tablet PO (21:08)
[2020-08-04] MEDS: Atorvastatin Calcium 10 MG Tablet PO (21:08)
[2020-08-04 22:40] LABS: Bedside Glucose 143 mg/dL (70-110)
[2020-08-05] VITALS (7 sets, daily range): BP systolic 72–121; BP diastolic 53–88; PULSE 85–96; RESP 15–16; TEMP 36.4–36.9; O2SAT 94–96
[2020-08-05] MEDS: Insulin Lispro 100 UNIT/ML INSULN.PEN SC (06:31)
[2020-08-05 07:01] LABS: Bedside Glucose 158 mg/dL (70-110)
[2020-08-05 08:03] LABS: Absolute Lymphocyte Count 1.81 X10^3/uL (0.83-4.51); Absolute Neutrophil Count 3.9 X10^3/uL (2.0-7.7); Basophil# 0.07 X10^3/uL; Eosinophil# 0.34 X10^3/uL; Eosinophils% 5.1 % (0-5); Hematocrit 40.4 % (37-47); Hemoglobin 12.3 g/dL (12.0-15.0); Lymphocyte # 1.81 X10^3/ul (0.83-4.51); Lymphocyte % 26.9 % (19-41); Mean Corp Hgb Conc 30.4 g/dL (32-36); Mean Corpuscular Hgb 24.9 pg (27.0-32.0); Mean Corpuscular Volume 81.8 fL (81-99); Mean Platelet Vol. 9.7 fl (6.2-12.0); Monocyte# 0.58 X10^3/uL; Monocyte% 8.6 % (0-10); NRBC Flagged by Analyzer 0 % (0-5); Neutrophil % 58.1 % (47-70); Platelet Count 263 K/mm3 (150-450); RBC Distribution Width SD 44.9 fl (35.1-43.9); Red Blood Count 4.94 M/mm3 (4.2-5.4); White Blood Count 6.7 K/mm3 (4.4-11.0)
[2020-08-05 08:15] LABS: ALB/GLOB Ratio 0.9 RATIO (0.9-2.4); AST(SGOT) 33 U/L (15-37); Alanine Aminotransfer ALT/SGPT 47 U/L (13-56); Albumin, Serum 3.6 g/dL (3.2-5.0); Alkaline Phosphatase 89 U/L (45-117); Anion Gap 7 (5-15); BUN 37 mg/dL (7-18); BUN/Creat Ratio 30.3 RATIO (10-20); Calcium,Total 9.8 mg/dL (8.5-10.1); Chloride 102 mmol/L (98-107); Creatinine, Serum 1.22 mg/dL (0.55-1.02); EST Glomerular Filtration Rate 48 mL/min (>60); Est Glom Filt Rate - Afr Amer 58 mL/min (>60); Estimated Creatinine Clearance 42.35 ml/min; Globulin 3.8 g/dL (2.2-4.2); Glucose 161 mg/dL (74-106); Potassium 3.5 mmol/L (3.5-5.1); Protein, Total 7.4 g/dL (6.4-8.2); Sodium Level 138 mmol/L (136-145)
[2020-08-05] MEDS: Furosemide 40 MG/4 ML Vial IV (08:41)
[2020-08-05] MEDS: Venlafaxine XR 75 MG Capsule PO (08:41)
[2020-08-05] MEDS: Aspirin 81 MG TAB.CHEW PO (08:41)
[2020-08-05] MEDS: Carvedilol 6.25 MG Tablet PO (08:41)
[2020-08-05] MEDS: Enoxaparin 120 MG/0.8 ML Syringe SC (08:42)
[2020-08-05] MEDS: Levothyroxine 88 MCG Tablet PO (08:43)
[2020-08-05] MEDS: Pantoprazole Sodium 20 MG Tablet PO (08:43)
[2020-08-05] MEDS: 0.9% Saline Lock 10 ML Syringe IV (08:44)
--- NOTE | 2020-08-05 09:08 | PCM.DC ---
Discharge Instructions Diet Discharge Diet: 1800 Calorie Control Diet (ADA 1800/cardiac diet.) Activity Discharge Activity: Return to Normal Activity May resume sexual activity in: No Restrictions Dressing / Incision Call your doctor if your incision/area has: Continuous Slow Oozing, Sudden Increased Bleeding, Increased Pain/ Swelling, Increased Redness, Foul Smelling Discharge and Swelling at the incision site Call your doctor if you observe: Fever of 101 or Higher, Shortness of breath, Dizziness, Fainting spells, Chest pain and Increased palpitations (irregular heartbeat) Follow Up Care Test Results: Test results from this visit will be discussed in further detail at your follow-up appointment, if applicable. Discharge Plan Admission Admit Date/Time: 08/03/20 12:15 Primary Reason for Your Visit: Respiratory Failure, Systolic CHF Exac/Cardiomyopathy, NSTEMI, UTI Attending Provider: Jaclyn Thakur Primary Care Provider: Andrae Burgos Consulting Providers: Erin Cage ; Felix Salazar ; Tyrese Smith Instructions Patient Instructions: Heart Failure: Warning Signs of a Flare-Up, Heart Failure: Tracking Your Weight, Heart Failure: Medications to Help Your Heart, Heart Attack, ED Bladder Infection, Female (Adult) Discharge Orders/Prescriptions Prescriptions: New furosemide 40 mg Tablet 40 mg PO DAILY 30 Days Qty: 30 RF: 0 carvedilol 6.25 mg Tablet 6.25 mg PO BID 30 Days Qty: 60 RF: 0 losartan 25 mg Tablet 25 mg PO DAILY 30 Days Qty: 30 RF: 0 aspirin 81 mg Tablet,Chewable 81 mg PO DAILY@0800 30 Days RF: 0 coenzyme Q10 [Co Q-10] 100 mg capsule 100 mg PO DAILY Qty: 30 RF: 0 cephalexin 500 mg capsule 500 mg PO Q8H 4 Days Qty: 12 RF: 0 Continued Xarelto 20 mg tablet 20 mg PO QPM RF: 0 venlafaxine 75 mg capsule,extended release 24hr 75 mg PO DAILY RF: 0 atorvastatin 10 mg tablet 10 mg PO QPM RF: 0 multivitamin Tablet 1 tab PO DAILY RF: 0 levothyroxine 88 mcg tablet 88 mcg PO DAILY RF: 0 Held metformin 500 mg tablet extended release 24hr 1,000 mg PO BID RF: 0 Hold Instructions: Resume on 08/07/20. Please hold your metformin until friday given recent cardiac catheterization and usage of contrast. May resume at that time. Discontinued metoprolol succinate 25 mg tablet extended release 24 hr 25 mg PO DAILY RF: 0 losartan 50 mg tablet 50 mg PO DAILY RF: 0 coenzyme Q10 100 mg tablet 100 mg PO DAILY RF: 0 Referrals / Follow Up: Tyrese Smith MD [STAFF PHYSICIAN] - (Please follow-up with Dr. Smith per his request in 2 weeks.) Andrae Burgos MD [Primary Care Provider] - (Please establish and follow-up with Dr. Burgos in 3-5 days to review admission. Please bring blood pressure log with you to your visit.) Disposition Disposition (needs filled in before D/C Order can be placed): Home, self care
--- NOTE | 2020-08-05 09:45 | PCM.DC.SUM ---
Providers Date of Admission: 08/03/20 Primary Care Physician: Dr. Andrae Burgos MD Consultations 08/03/20 13:26 Consult: Cardiology Routine Consulting Provider: Erin Cage Reason for Consult: Resp failure, on BIPAP, CHF new onset, exertional dyspnea/anginal equivalen EMERGENT Consult: No Notified: Yes Date Notified:: 08/03/20 Time Notified: 12:36 Method of Notification: Text Consult: Valance Cutter / Pulmonary Medicine Routine Consulting Provider: Felix Salazar Reason for Consult: Resp failure, BIPAP, CHF exac EMERGENT Consult: No Notified: Yes Date Notified:: 08/03/20 Time Notified: 12:35 Method of Notification: Verbal Method of Consult:: In-Person Reason For Visit: RESPIRATORY FAILURE, CHF Diagnosis Discharge Diagnosis (1) Acute respiratory failure with hypoxia: Status: Acute Code(s): J96.01 - Acute respiratory failure with hypoxia (2) CHF (congestive heart failure): Status: Acute Code(s): I50.9 - Heart failure, unspecified Qualifiers: Heart failure chronicity: acute Heart failure type: unspecified Qualified Code(s): I50.9 - Heart failure, unspecified (3) Chest tightness: Status: Acute Code(s): R07.89 - Other chest pain Plan: ADMISSION DIAGNOSES: 1. Acute Encephalopathy secondary to Acute Hypoxic Respiratory Failure secondary to Acute Decompensated Systolic CHF and Non-ischemic Cardiomyopathy, #2, #3 2. Severe Lactic acidosis secondary to significant hypoxemia secondary to #1 3. NSTEMI with non-obstructive coronaries with medical management decision, secondary to demand component likely #1 4. Acute Complicated E. Coli Urinary Tract Infection 5. Hyperglycemia w/ Diabetes mellitus type II 6. Hypertension 7. Hyperlipidemia 8. Anxiety and Depression: 9. History of DVT on xarelto 10. History of complete heart block, status post pacemaker placement 11. Morbid Obesity 12. LUIS FELIPE 13. Chronic Kidney Disease Stage III Medications at Discharge Home Medications atorvastatin 10 mg tablet 10 mg PO QPM 05/10/20 metformin 500 mg tablet,extended release 24hr 1,000 mg PO BID tab 05/10/20 multivitamin 1 tab PO DAILY 05/10/20 rivaroxaban 20 mg tablet 20 mg PO QPM 05/10/20 venlafaxine 75 mg capsule,extended release 24 hr 75 mg PO DAILY 05/10/20 levothyroxine 88 mcg tablet 88 mcg PO DAILY tab 07/31/20 aspirin 81 mg PO DAILY@0800 30 Days tab 08/05/20 carvedilol 6.25 mg PO BID 30 Days #60 tab 08/05/20 cephalexin 500 mg PO Q8H 4 Days #12 cap 08/05/20 coenzyme Q10 [Co Q-10] 100 mg PO DAILY #30 cap 08/05/20 furosemide 40 mg PO DAILY 30 Days #30 tab 08/05/20 losartan 25 mg PO DAILY 30 Days #30 tab 08/05/20 Hospital Course Operations None Procedures 2-D Echocardiogram, Cardiac catheterization, EKG and - (BIPAP placement with ICU admission initially.) Summary of Care Provided Minutes Spent on Discharge: 35 Hospital Course: The patient is a 59 y/o F w/ PMHx: Diabetes mellitus type II, Morbid Obesity, HTN, HLD, Hx DVT on coumadin, Hx complete heart block s/p pacemaker placement, Anxiety and Depression, Hypothyroidism who presented to the [facility] ED on 08/03/20 per EMS, found in her car lethargic, hypoxic with oxygenation 65% prompting EMS to place her on CPAP and bring her to the hospital with transition to BiPAP with some mental status improvement reporting that she was walking up a hill and became significantly dyspneic with associated midsternal chest tightness without radiation. CXR obtained in the ED w/ evidence overload, congestion. Patient administered IV lasix in the ED, admitted to the ICU initially and transitioned given improvement to PCU 08/04/20 without issue, initially required BIPAP placement but improved quickly with quick improvement of her lactic acidosis (11.3-->4.2) with appropriate oxygenation and diuresis. Patient maintained on cardiac telemetry, cardiac enzyme series <0.015->0.115->0.160->0.165, initiated on IV lasix with 08/04/20 oral transition, ECHO w/ normal LV size, mild concentric LVH, EF 30%, moderate to severe global hypokinesis LV, stage III diastolic dysfunction, mag 2.4, TSH pending, FLP w/ total cholesterol 113, triglycerides 127, LDL 44, VLDL 25, HDL 44. Given resolution of acute CHF presentation and evidence NSTEMI patient underwent 08/04/20 cardiac catheterization with no significant coronary disease and presentation felt likely secondary to pacer device with planned discontinuation of metoprolol, transitioned to Coreg 6.25 mg twice daily, continuation of losartan although given lower BP decreased to 25 mg daily, transitioning from IV Lasix to oral Lasix 40 mg daily only with plan follow-up in cardiology office in 2 weeks. UA upon ED evaluation mildly remarkable, UCx w/ >100,000 presumed E. Coli, transitioned to oral keflex at discharge. Given patient improvement clinically and clearance per Cardiology, discharged to home with PCP close early follow-up, Cardiology visit in 2 weeks with medication changes as noted. Patient with continued planned pacer assessment and intervention at follow-up as felt associated with her presentation. DAY OF DISCHARGE PROGRESS NOTE: Subjective: Patient without acute event overnight per self and nursing report. She denies any recurrent chest heaviness or dyspnea. Patient denies fever, chills, nausea, emesis, abdominal pain. Patient agreeable to discharge to home given improvement. Patient will be discharged with follow-up with primary care physician within 3-5 days in addition to Cardiology follow-up in 2 weeks. Prior to patient discharge patient's hypertensive regimen was adjusted and decreased given low BPs through the night although patient had remained asymptomatic. Objective: T 97.5, heart rate 93, BP 99/76, respiratory rate 16, 95% on room air. Physical Examination: General: Patient awake and alert, oriented x3, seated upright in the PCU bedside chair, NAD, eager for discharge. Skin: normal color, turgor, no icterus, cyanosis. HEENT: AT/NC, EOMI, PERRLA, MMM. Lungs: Improved, still mildly diminished bases, resolved rales, no evidence of distress, on room air, no obvious rhonchi or wheezing Heart: Regular rate and regular rhythm; no gallop, rub audible. Abdomen: soft, morbidly obese, NTTP, ND, noralized BS. Extremities: no cyanosis or clubbing, resolved edema BL LE. Neurological: Patient now awake and alert, oriented x3, cognitive function resolved, now baseline intact; pupils equally reactive to light and accomodation; cranial nerves II-XII grossly normal, moving all 4 extremities, no focal deficits, strength resolved, preserved. Psychiatric: affect appears improved, normal, no acute evidence of depressive or anxiety feelings. Assessment and Plan: Please see hospital summary above. ABG / Lab / Microbiology Data Result Diagrams: 08/05/20 07:39 08/05/20 07:39 Laboratory: Laboratory Results - last 24 hr 08/04/20 08/04/20 08/04/20 04:35 11:40 17:12 WBC RBC Hgb Hct MCV MCH MCHC RDW Std Deviation RDW Coeff of Dedrick Plt Count MPV Immature Gran % (Auto) Neut % (Auto) Lymph % (Auto) Evangeline % (Auto) Eos % (Auto) Baso % (Auto) Absolute Neuts (auto) Absolute Lymphs (auto) Nucleated RBC % Sodium Potassium Chloride Carbon Dioxide Anion Gap BUN Creatinine Estim Creat Clear Calc Est GFR (MDRD) Af Amer Est GFR (MDRD) Non-Af BUN/Creatinine Ratio Glucose Calcium Total Bilirubin AST ALT Alkaline Phosphatase Total Protein Albumin Globulin Albumin/Globulin Ratio TSH 2.43 POC Glucose 137 H 200 H 08/04/20 08/05/20 08/05/20 21:05 06:27 07:39 WBC 6.7 RBC 4.94 Hgb 12.3 Hct 40.4 MCV 81.8 MCH 24.9 L MCHC 30.4 L RDW Std Deviation 44.9 H RDW Coeff of Dedrick 15.0 H Plt Count 263 MPV 9.7 Immature Gran % (Auto) 0.300 Neut % (Auto) 58.1 Lymph % (Auto) 26.9 Evangeline % (Auto) 8.6 Eos % (Auto) 5.1 H Baso % (Auto) 1.0 Absolute Neuts (auto) 3.9 Absolute Lymphs (auto) 1.81 Nucleated RBC % 0 Sodium Potassium Chloride Carbon Dioxide Anion Gap BUN Creatinine Estim Creat Clear Calc Est GFR (MDRD) Af Amer Est GFR (MDRD) Non-Af BUN/Creatinine Ratio Glucose Calcium Total Bilirubin AST ALT Alkaline Phosphatase Total Protein Albumin Globulin Albumin/Globulin Ratio TSH POC Glucose 143 H 158 H 08/05/20 07:39 WBC RBC Hgb Hct MCV MCH MCHC RDW Std Deviation RDW Coeff of Dedrick Plt Count MPV Immature Gran % (Auto) Neut % (Auto) Lymph % (Auto) Evangeline % (Auto) Eos % (Auto) Baso % (Auto) Absolute Neuts (auto) Absolute Lymphs (auto) Nucleated RBC % Sodium 138 Potassium 3.5 Chloride 102 Carbon Dioxide 29.0 Anion Gap 7 BUN 37 H Creatinine 1.22 H Estim Creat Clear Calc 42.35 Est GFR (MDRD) Af Amer 58 L Est GFR (MDRD) Non-Af 48 L BUN/Creatinine Ratio 30.3 H Glucose 161 H Calcium 9.8 Total Bilirubin 1.10 H AST 33 ALT 47 Alkaline Phosphatase 89 Total Protein 7.4 Albumin 3.6 Globulin 3.8 Albumin/Globulin Ratio 0.9 TSH POC Glucose Microbiology: Microbiology 08/03/20 08:34 Blood Culture - Preliminary Blood Culture (Wb) - Anticubital Left No growth in 48 hours. 08/03/20 08:20 Blood Culture - Preliminary Blood Culture (Wb) - Anticubital Right No growth in 48 hours. 08/03/20 09:27 Urine Culture - Final Urine, Clean Catch Presumptive E. coli Microbiology 08/03/20 08:34 Blood Culture (Wb) - Anticubital Left Blood Culture - Preliminary No growth in 48 hours. 08/03/20 08:20 Blood Culture (Wb) - Anticubital Right Blood Culture - Preliminary No growth in 48 hours. 08/03/20 09:27 Urine, Clean Catch Urine Culture - Final Presumptive E. coli 08/03/20 08:46 Nasal Secretion SARS-CoV-2 Antigen (Rapid) - Final Radiography Diagnostic Testing: Radiology Impression Chest X-Ray 08/04/20 05:00 IMPRESSION: No change or acute chest disease. Electronically Signed: Timothy Chiu MD at 20:10 EDT , Service support , D/C Instructions Discharge Diet: 1800 Calorie Control Diet (ADA 1800/cardiac diet.) Discharge Activity: Return to Normal Activity May resume sexual activity in: No Restrictions Call your doctor if your incision/area has: Continuous Slow Oozing, Sudden Increased Bleeding, Increased Pain/ Swelling, Increased Redness, Foul Smelling Discharge and Swelling at the incision site Call your doctor if you observe: Fever of 101 or Higher, Shortness of breath, Dizziness, Fainting spells, Chest pain and Increased palpitations (irregular heartbeat) Meaningful Use Info Meaningful Use Diagnoses (Choose all that apply): AMI and CHF AMI/Post PCI/Angioplasty Aspirin given w/in 24hrs of arrival?: Yes ASA at discharge?: Yes Antiplatelet Therapy at Discharge:: No Reason Antiplatelet Therapy not ordered:: Only ASA Statins at discharge?: Yes Pedro/ARB at discharge?: Yes Beta Edward at discharge?: Yes Done w/ Acute MT measure.: Yes Documented LVEF (%): 30 CHF PEDRO/ARB ordered at discharge?: Yes Documented LVEF (%): 30 Discharge Plan Admission Admit Date/Time: 08/03/20 12:15 Primary Reason for Your Visit: Respiratory Failure, Systolic CHF Exac/Cardiomyopathy, NSTEMI, UTI Attending Provider: Jaclyn Thakur Primary Care Provider: Andrae Burgos Consulting Providers: Erin Cage ; Felix Salazar ; Tyrese Smith Instructions Patient Instructions: Heart Failure: Warning Signs of a Flare-Up, Heart Failure: Tracking Your Weight, Heart Failure: Medications to Help Your Heart, Heart Attack, ED Bladder Infection, Female (Adult) Discharge Orders/Prescriptions Prescriptions: New furosemide 40 mg Tablet 40 mg PO DAILY 30 Days Qty: 30 RF: 0 carvedilol 6.25 mg Tablet 6.25 mg PO BID 30 Days Qty: 60 RF: 0 losartan 25 mg Tablet 25 mg PO DAILY 30 Days Qty: 30 RF: 0 aspirin 81 mg Tablet,Chewable 81 mg PO DAILY@0800 30 Days RF: 0 coenzyme Q10 [Co Q-10] 100 mg capsule 100 mg PO DAILY Qty: 30 RF: 0 cephalexin 500 mg capsule 500 mg PO Q8H 4 Days Qty: 12 RF: 0 Continued Xarelto 20 mg tablet 20 mg PO QPM RF: 0 venlafaxine 75 mg capsule,extended release 24hr 75 mg PO DAILY RF: 0 atorvastatin 10 mg tablet 10 mg PO QPM RF: 0 multivitamin Tablet 1 tab PO DAILY RF: 0 levothyroxine 88 mcg tablet 88 mcg PO DAILY RF: 0 Held metformin 500 mg tablet extended release 24hr 1,000 mg PO BID RF: 0 Hold Instructions: Resume on 08/07/20. Please hold your metformin until friday given recent cardiac catheterization and usage of contrast. May resume at that time. Discontinued metoprolol succinate 25 mg tablet extended release 24 hr 25 mg PO DAILY RF: 0 losartan 50 mg tablet 50 mg PO DAILY RF: 0 coenzyme Q10 100 mg tablet 100 mg PO DAILY RF: 0 Referrals / Follow Up: Tyrese Smith MD [STAFF PHYSICIAN] - (Please follow-up with Dr. Smith per his request in 2 weeks.) Andrae Burgos MD [Primary Care Provider] - (Please establish and follow-up with Dr. Burgos in 3-5 days to review admission. Please bring blood pressure log with you to your visit.) Disposition Disposition (needs filled in before D/C Order can be placed): Home, self care Visit Charges Inpatient E&M: 90281 Disch Hosp
== END 2020-08-05 12:17 | disposition home or self-care (01) | DRG 280 ==
LOC: ED 11:07 → ICU 12:18 → PCU 08-04 15:08
PROVIDERS: Internal Medicine Cardiovascular Disease; Admitting Provider Family Medicine; Emergency Provider Emergency Medicine; PCP Internal Medicine; Visit Provider Family Medicine
DX: I13.0 Hypertensive heart and chronic kidney disease with heart failure and stage 1 through stage 4 chronic kidney disease, or unspecified chronic kidney disease (principal); J96.01 Acute respiratory failure with hypoxia; I21.4 Non-ST elevation (NSTEMI) myocardial infarction; I50.21 Acute systolic (congestive) heart failure; E87.2 Acidosis; N39.0 Urinary tract infection, site not specified; Z68.41 Body mass index [BMI] 40.0-44.9, adult; I44.2 Atrioventricular block, complete; G93.49 Other encephalopathy; I42.0 Dilated cardiomyopathy; E11.22 Type 2 diabetes mellitus with diabetic chronic kidney disease; N18.31 Chronic kidney disease, stage 3a; I25.10 Atherosclerotic heart disease of native coronary artery without angina pectoris; I25.2 Old myocardial infarction; B96.20 Unspecified Escherichia coli [E. coli] as the cause of diseases classified elsewhere; E78.5 Hyperlipidemia, unspecified; E03.9 Hypothyroidism, unspecified; E11.65 Type 2 diabetes mellitus with hyperglycemia; F32.9 Major depressive disorder, single episode, unspecified; F41.9 Anxiety disorder, unspecified; E66.01 Morbid (severe) obesity due to excess calories; G47.33 Obstructive sleep apnea (adult) (pediatric); Z95.0 Presence of cardiac pacemaker; Z79.01 Long term (current) use of anticoagulants; Z79.84 Long term (current) use of oral hypoglycemic drugs; Z79.899 Other long term (current) drug therapy; Z86.718 Personal history of other venous thrombosis and embolism
CPT/HCPCS: 36415; 36600; 71045; 71275; 80053; 80061; 81001; 82009; 82803; 82962; 83605; 83735; 83880; 84145; 84443; 84484; 85025; 85379; 85610; 87040; 87086; 87088; 87186; 87426; 93005; 93306; 93458; 94002; 94003; 94660; 97802; 99152; 99153; 99251; 99285; J7050; Q9957; Q9967; A4216; C1769; C1894; C8929; G0463; J1940

== ENCOUNTER → 2020-08-22 10:45 | Outpatient (CLI) | payer OTHER, SELFPAY ==
[2020-08-22 10:07] VITALS: BMI 44.4
[2020-08-22 12:17] LABS: Anion Gap 7 (5-15); BUN 22 mg/dL (7-18); BUN/Creat Ratio 20.4 RATIO (10-20); Calcium,Total 9.8 mg/dL (8.5-10.1); Chloride 101 mmol/L (98-107); Creatinine, Serum 1.08 mg/dL (0.55-1.02); EST Glomerular Filtration Rate 55 mL/min (>60); Est Glom Filt Rate - Afr Amer 66 mL/min (>60); Glucose 108 mg/dL (74-106); Potassium 4.3 mmol/L (3.5-5.1); Sodium Level 141 mmol/L (136-145)
== END ==
PROVIDERS: PCP Internal Medicine; Referring Provider Internal Medicine; Visit Provider Internal Medicine
DX: I50.9 Heart failure, unspecified (principal)
CPT/HCPCS: 36415; 80048

== ENCOUNTER → 2020-11-24 15:43 | Outpatient (CLI) | payer OTHER, SELFPAY ==
[2020-11-24 17:19] LABS: Anion Gap 7 (5-15); BUN 24 mg/dL (7-18); Calcium,Total 9.3 mg/dL (8.5-10.1); Chloride 102 mmol/L (98-107); Creatinine, Serum 0.89 mg/dL (0.55-1.02); EST Glomerular Filtration Rate 69 mL/min (>60); Est Glom Filt Rate - Afr Amer 83 mL/min (>60); Glucose 86 mg/dL (74-106); Potassium 3.8 mmol/L (3.5-5.1); Sodium Level 139 mmol/L (136-145)
== END ==
PROVIDERS: PCP Internal Medicine; Referring Provider Internal Medicine; Visit Provider Internal Medicine
DX: I50.9 Heart failure, unspecified (principal)
CPT/HCPCS: 36415; 80048

== ENCOUNTER 2021-05-28 15:23 | Outpatient (CLI) | payer OTHER, SELFPAY ==
[2021-05-28 16:38] LABS: Hematocrit 37.9 % (37-47); Hemoglobin 11.9 g/dL (12.0-15.0); Red Blood Count 4.57 M/mm3 (4.2-5.4); White Blood Count 7.9 K/mm3 (4.4-11.0)
[2021-05-28 16:39] LABS: Absolute Lymphocyte Count 1.86 X10^3/uL (0.83-4.51); Basophil# 0.07 X10^3/uL; Basophil% 0.9 % (0-1); Eosinophils% 5.1 % (0-5); Lymphocyte # 1.86 X10^3/ul (0.83-4.51); Lymphocyte % 23.6 % (19-41); Mean Corp Hgb Conc 31.4 g/dL (32-36); Mean Corpuscular Volume 82.9 fL (81-99); Mean Platelet Vol. 9.7 fl (6.2-12.0); Monocyte# 0.51 X10^3/uL; Monocyte% 6.5 % (0-10); NRBC Flagged by Analyzer 0 % (0-5); Neutrophil # 5.01 X10^3/uL (2.7-7.7); Neutrophil % 63.4 % (47-70); Platelet Count 286 K/mm3 (150-450); RBC Distribution Width CV 15.1 % (11.6-14.6)
[2021-05-28 17:19] LABS: AST(SGOT) 16 U/L (15-37); Alanine Aminotransfer ALT/SGPT 29 U/L (13-56); Albumin, Serum 3.8 g/dL (3.2-5.0); Alkaline Phosphatase 96 U/L (45-117); Anion Gap 8 (5-15); BUN 27 mg/dL (7-18); BUN/Creat Ratio 26.7 RATIO (10-20); Calcium,Total 9.4 mg/dL (8.5-10.1); Chloride 103 mmol/L (98-107); Cholesterol 130 mg/dL (200); Creatinine, Serum 1.01 mg/dL (0.55-1.02); EST Glomerular Filtration Rate 59 mL/min (>60); Est Glom Filt Rate - Afr Amer 72 mL/min (>60); Glucose 118 mg/dL (74-106); High Density Lipoprotein 46 mg/dL; Potassium 3.7 mmol/L (3.5-5.1); Protein, Total 7.8 g/dL (6.4-8.2); Sodium Level 140 mmol/L (136-145); Triglycerides 176 mg/dL; Very Low Density Lipoprotein 35 mg/dL (5-40)
== END 2021-05-28 23:59 | disposition home or self-care (01) ==
LOC: BIMLAB 15:24
PROVIDERS: PCP Internal Medicine; Visit Provider Internal Medicine
DX: E11.9 Type 2 diabetes mellitus without complications (principal)
CPT/HCPCS: 36415; 80053; 80061; 85025

== ENCOUNTER 2021-07-18 14:50 | Outpatient (CLI) | payer OTHER, SELFPAY ==
--- NOTE | 2021-07-18 14:52 | BI_ITS ---
MAMMOGRAPHY - BILATERAL SCREENING 3-D TOMOSYNTHESIS REASON FOR EXAM: Female, 60 years old. Breast cancer screening PERTINENT HISTORY: No significant family history. TECHNIQUE: 2-D mammograms and 3-D Tomosynthesis of the breast (s) were performed. CAD was performed. COMPARISON: 09/04/2020 FINDINGS: The breast composition is heterogeneously dense that can obscure small breast masses. Scattered benign calcifications are seen. No dense spiculated masses or suspicious microcalcifications are identified. No architectural distortion is identified. There is no skin thickening or retraction. There has been no significant change since the prior study. Bilateral benign rodlike calcifications. BI/SCRN MAMM (CAD)W/CORY BILAT IMPRESSION: No mammographic signs of malignancy. Routine yearly mammograms recommended. ASSESSMENT CATEGORY: BIRADS Category 2: Benign. A letter regarding these results will be sent to the patient by the facility within 30 days. FOLLOW UP RECOMMENDATION: Yearly follow up mammogram recommended. (A) Approximately 10% of breast cancers are not detected by mammography. A normal mammogram should not delay biopsy of a clinically suspicious abnormality. Electronically Signed: Tyrone Jewell MD at 15:41 EDT ,
== END 2021-07-18 23:59 | disposition home or self-care (01) ==
LOC: OPBI 14:51
PROVIDERS: PCP Internal Medicine; Visit Provider Internal Medicine
DX: Z12.31 Encounter for screening mammogram for malignant neoplasm of breast (principal)
CPT/HCPCS: 77063; 77067

== ENCOUNTER → 2021-08-09 | Outpatient (CLI) | payer OTHER, SELFPAY ==
--- NOTE | 2021-08-09 15:43 | ECHOCS_ITS ---
Reason For Study: DYSPNEA/SOB Procedure This was a 2D Doppler, Color Flow transthoracic echocardiogram. The study was technically difficult. Exam performed in department. Left Ventricle Normal LV size. The estimated ejection fraction is 25 %. Moderately severe global left ventricular systolic dysfunction. There is moderate to severe global hypokinesis of the left ventricle. Right Ventricle Normal RV size. Normal systolic function. Atria Normal left atrium. Normal right atrium. Mitral Valve Bileaflet diffuse mitral valve thickening. Mild (1+) eccentric mitral valve insufficiency. Tricuspid Valve Normal tricuspid valve. Mild (1+) tricuspid valve insufficiency. Pulmonary artery systolic pressure is 37 mmHg. Aortic Valve Trisinus/trileaflet aortic valve. Pulmonic Valve Normal pulmonic valve. Great Vessels Normal aortic root. The pulmonary artery is normal size. Normal inferior vena cava. Pericardium/Pleural No pericardial effusion. Medication 22 gauge I.V. with prn adaptor inserted into right arm. Diluted definity 4ml given slow IV push to enhance endocardial definition. MMode/2D Measurements & Calculations LVIDd: 5.7 cm IVSd: 1.0 cm Ao root diam: 3.3 cm LVIDs: 4.6 cm LVPWd: 1.1 cm RVDd: 3.7 cm FS: 19.9 % LAV(MOD-bp): 54.4 ml LVAd ap4: 37.5 cm2 SV(MOD-sp4): 49.9 ml LAV(MOD-bp) Indexed: 26.2 ml/m2 LVLd ap4: 7.5 cm LAV(MOD-sp2): 50.7 ml EDV(MOD-sp4): 152.9 ml LAV(MOD-sp4): 52.3 ml EDV(sp4-el): 159.9 ml LVAs ap4: 31.4 cm2 LVLs ap4: 7.7 cm ESV(MOD-sp4): 103.0 ml ESV(sp4-el): 108.0 ml EF(MOD-sp4): 32.6 % EF(sp4-el): 32.5 % SV(sp4-el): 51.9 ml LA A4 area: 18.0 cm2 LA dimension(2D): 3.8 cm RA A4 area: 14.8 cm2 Doppler Measurements & Calculations MV E max ai: 110.9 cm/sec Ao V2 max: 146.2 cm/sec LV V1 max: 108.9 cm/sec Ao max P.6 mmHg LV V1 max P.8 mmHg PA V2 max: 98.6 cm/sec TR max ai: 286.1 cm/sec TR max P.7 mmHg ECHO/Echo Complete W/ Contrast Interpretation Summary Normal LV size. The estimated ejection fraction is 25 %. Moderately severe global left ventricular systolic dysfunction. There is moderate to severe global hypokinesis of the left ventricle. Pulmonary artery systolic pressure is 37 mmHg. Contrast injection was performed. Compared to previous study, the left ventricu lar systolic function has worsened.. Ordering Physician: Tyrese Smith Referring Physician: REESE HARGROVE Performed By: Hali Barry RDCS
== END | disposition home or self-care (01) ==
PROVIDERS: PCP Internal Medicine; Visit Provider Internal Medicine Cardiovascular Disease
DX: I50.9 Heart failure, unspecified (principal); R06.02 Shortness of breath
CPT/HCPCS: 93306; Q9957; A4216; C8929

== ENCOUNTER → 2021-10-02 | Outpatient (CLI) | payer OTHER, SELFPAY ==
--- NOTE | 2021-10-02 15:31 | CT_ITS ---
STUDY: CT RIGHT EXTREMITY WITHOUT CONTRAST REASON FOR EXAM: Right knee osteoarthritis, surgical planning. TECHNIQUE: Transaxial CT imaging of the lower extremity was performed. Coronal and sagittal images were reformatted. Individualized dose optimization techniques were used for this CT. COMPARISON: Radiographs 09/13/2021. FINDINGS: Knee: There are postoperative changes of the distal femur and proximal tibia from anterior cruciate ligament reconstruction. There are marginal osteophytes with preservation of joint space of the medial femorotibial compartment. There is arthrosis of the lateral femorotibial compartment with marginal osteophytes and joint space narrowing (coronal reconstruction 33). There is patellofemoral arthrosis with marginal osteophytes and chondral thinning (axial image 299). There are intra-articular bodies at the posterior lateral aspect of the knee (axial images 289-304). There is chondrocalcinosis in the menisc[place]. Hip: There are small marginal osteophytes of the acetabulum with preservation of joint space. Ankle: There is arthrosis with joint space narrowing of the posterior subtalar articulation (sagittal reconstruction 52). There is preservation of joint space of the tibiotalar and talonavicular articulations. There is thickening of the Achilles tendon with intratendinous ossifications (sagittal reconstructions 54-57) consistent with chronic tendinosis. CT/Extremity Lower without Contra IMPRESSION: Right knee osteoarthritis. Electronically Signed: Trav Burton MD at 14:55 EDT ,
== END | disposition home or self-care (01) ==
LOC: CT 15:30
PROVIDERS: PCP Internal Medicine; Referring Provider Orthopaedic Surgery; Visit Provider Orthopaedic Surgery
DX: M17.11 Unilateral primary osteoarthritis, right knee (principal)
CPT/HCPCS: 73700

== ENCOUNTER 2021-10-09 08:11 | Inpatient (IN) | payer OTHER, SELFPAY ==
--- NOTE | 2021-09-26 12:14 | EKG12_ITS ---
Test Reason : PREOP Blood Pressure : / mmHG Vent. Rate : 092 BPM Atrial Rate : 063 BPM P-R Int : 000 ms QRS Dur : 176 ms QT Int : 442 ms P-R-T Axes : 000 -72 070 degrees QTc Int : 546 ms Ventricular-paced rhythm Abnormal ECG Confirmed by REGINA SALGADO, SUAD ([id number]), editor in chief DORYS YUAN ([id number]) on 09/27/2021 11:07:16 AM Referred By: Steffen Almanzar Confirmed By:SUAD TAPIA MD
[2021-09-26 12:52] LABS: Absolute Lymphocyte Count 1.28 X10^3/uL (0.83-4.51); Basophil# 0.04 X10^3/uL; Basophil% 0.8 % (0-1); Eosinophil# 0.29 X10^3/uL; Eosinophils% 5.9 % (0-5); Hematocrit 36.6 % (37-47); Hemoglobin 11.2 g/dL (12.0-15.0); Lymphocyte # 1.28 X10^3/ul (0.83-4.51); Lymphocyte % 25.9 % (19-41); Mean Corp Hgb Conc 30.6 g/dL (32-36); Mean Corpuscular Hgb 25.6 pg (27.0-32.0); Mean Corpuscular Volume 83.6 fL (81-99); Mean Platelet Vol. 9.5 fl (6.2-12.0); Monocyte# 0.28 X10^3/uL; Monocyte% 5.7 % (0-10); NRBC Flagged by Analyzer 0 % (0-5); Neutrophil # 3.03 X10^3/uL (2.7-7.7); Neutrophil % 61.3 % (47-70); Platelet Count 221 K/mm3 (150-450); RBC Distribution Width CV 15.3 % (11.6-14.6); RBC Distribution Width SD 46.6 fl (35.1-43.9); Red Blood Count 4.38 M/mm3 (4.2-5.4); White Blood Count 4.9 K/mm3 (4.4-11.0)
[2021-09-26 12:56] LABS: International Normalized Ratio 2.2; Partial Thromboplast Time 40.1 Seconds (24.1-36.2); Prothrombin Time (Protime)PT. 23.9 SECONDS (11.7-14.9)
[2021-09-26 13:08] LABS: Hemoglobin A1c 6.2 % (3.8-5.6)
[2021-09-26 13:23] LABS: Anion Gap 7 (5-15); BUN 21 mg/dL (7-18); BUN/Creat Ratio 20.8 RATIO (10-20); Calcium,Total 9.1 mg/dL (8.5-10.1); Chloride 105 mmol/L (98-107); Creatinine, Serum 1.01 mg/dL (0.55-1.02); EST Glomerular Filtration Rate 59 mL/min (>60); Est Glom Filt Rate - Afr Amer 71 mL/min (>60); Glucose 152 mg/dL (74-106); Potassium 3.9 mmol/L (3.5-5.1); Sodium Level 141 mmol/L (136-145)
[2021-09-26 13:39] LABS: Magnesium 1.8 mg/dL (1.6-2.6); Thyroid Stim Hormone (TSH) 1.95 uIU/mL (0.358-3.74)
[2021-09-27 11:23] LABS: Fructosamine 222 umol/L (0-285)
[2021-10-09] VITALS (12 sets, daily range): BP systolic 96–126; BP diastolic 54–89; PULSE 61–92; RESP 16–20; TEMP 36.5–37; O2SAT 93–100; BMI 40.6
--- NOTE | 2021-10-09 07:52 | PCM.HP.BLA ---
History and Physical Date of Admission: 10/09/21 [facility] [address] [place] [address] OFFICE VISIT Date of Service:? 09/26/21 MR#: [id number] Acct: [id number] Name:RUFINO MA Rep #: [id number] : 1960 ? ? Provider: Dr. Steffen Almanzar, DO Age/Sex:? 61/F ? ? Location: [facility] Status: Signed Intake Intake Visit Reasons:?right knee Chief Complaint: 3 month f/u Allergies Sulfa (Sulfonamide Antibiotics) Allergy (Verified 09/21/21 14:47) hivesaspirin Adverse Reaction (Verified 09/21/21 14:47) GI Upsetred dye Adverse Reaction (Verified 09/21/21 14:47) migraine Medications multivitamin 1 tab PO DAILY SUPPLEMENT 05/10/20 [History Confirmed 09/26/21] aspirin 81 mg chewable tablet 81 mg PO DAILY@0800 HEART HEALTH 09/21/21 [History Confirmed 09/26/21] atorvastatin 10 mg tablet 10 mg PO QPM CHOLESTEROL 09/21/21 [History Confirmed 09/26/21] carvedilol 25 mg tablet (Coreg) 25 mg PO BID HEART 09/21/21 [History Confirmed 09/26/21] coenzyme Q10 100 mg capsule (Co Q-10) 100 mg PO DAILY SUPPLEMENT 09/21/21 [History Confirmed 09/26/21] furosemide 40 mg tablet 40 mg PO DAILY WATER PILL 09/21/21 [History Confirmed 09/26/21] glipizide 5 mg tablet, extended release 24 hr 5 mg PO DAILY DIABETES 09/21/21 [History Confirmed 09/26/21] levothyroxine 88 mcg tablet 88 mcg PO DAILY THYROID 09/21/21 [History Confirmed 09/26/21] losartan 25 mg tablet 25 mg PO DAILY BP 09/21/21 [History Confirmed 09/26/21] metformin 500 mg tablet,extended release 24hr 1,000 mg PO BID DIABETES 09/21/21 [History Confirmed 09/26/21] rivaroxaban 20 mg tablet (Xarelto) 20 mg PO QPM BLOOD THINNER 09/21/21 [History Confirmed 09/26/21] venlafaxine 75 mg capsule,extended release 24 hr 75 mg PO DAILY DEPRESSION 09/21/21 [History Confirmed 09/26/21] PFSH Medical History?(Updated 09/26/21 @ 15:[address] Steffen Almanzar DO) Acute respiratory failure with hypoxia (08/03/20) Anemia Anxiety and depression Back pain Bilateral lower extremity edema Cardiology follow-up encounter CHF (congestive heart failure), NYHA class III Chronic combined systolic and diastolic CHF (congestive heart failure) Complete heart block CPAP (continuous positive airway pressure) dependence Diabetes Dietary restriction Edema Essential (primary) hypertension Headache, migraine Health care maintenance History of deep venous thrombosis (2012) History of non-ST elevation myocardial infarction (NSTEMI) (08/03/20) Hx of echocardiogram Hyperlipidemia Hypertension Hypothyroidism Left hip pain Leg cramps Non-ischemic cardiomyopathy Non-smoker Obesity LUIS FELIPE (obstructive sleep apnea) Osteoarthritis Pain aggravated by walking Scratch Seasonal allergies Type 2 diabetes mellitus Wears glasses Surgical History?(Updated 09/21/21 @ 15:12 by Debora Conrad) History of hysterectomy History of left heart catheterization (08/04/20) History of permanent cardiac pacemaker placement (12/08/19) History of right knee surgery Hx of arthroscopy of right knee Hx of colonoscopy Family History? Father Heart disease CAD (coronary artery disease) Alcoholism Angina pectoris Myocardial infarctionMother Hypertension Alcoholism Melanoma COPD (chronic obstructive pulmonary disease)Brother Alcoholism Anxiety Depression Diabetes Hyperlipidemia Bipolar disorderGrandfather Alcoholism Melanoma COPD (chronic obstructive pulmonary disease) Social History? household members:? significant other Smoking Status:? Never smoker alcohol intake:? current alcohol intake frequency: holidays/special occasions only substance use type:? does not use caffeine:? Yes Type: tea what type of physical activity do you participate in:? bicycling and swimming HPI right knee Details: Parts of this documentation were recorded by a scribe, this documentation accurately reflects the service provided and the decisions made by , Dr. Steffen Almanzar DO 09/26/21 0802. RUFINO MORE is a 61 year old F here today for? right knee IOVERA treatment. SHe is scheduled for a right TKA on 10/09/21. She continues to have the right knee pain. Denies numbness, tingling or other associated symptoms. Denies any changes in medications or health hx. She states that she had her PAT labs and EKG today. Ortho Exam General General: Yes no acute distress Neurologic: Yes alert Psychologic: Yes reasonable and appropriate Right Knee Skin/Wound: No erythema, No ecchymosis and Yes swelling Knee ROM: No ROM-Extension -20 to 0 (lacking 14 ) and No ROM-Flexion 0-140 (70) Examination: Yes Med jt line tenderness and Yes Lat jt line tenderness Stability: NML: Anterior Drawer, NML: Posterior Drawer, NML: Valgus 0, NML: Valgus 30, NML: Varus 0 and NML: Varus 30 KNEE: prominent varicose veins fixed valgus deformity sensation intact to lower extremity early ronny stasis dermatitis She does have edema present in the legPalpable pedal pulses faint symmetrically Significant flexion contracture and valgus deformity Office Procedures Iovera Procedure Details:: Preoperative diagnosis : right knee pain Postoperative diagnosis: Same Procedure: Cryotherapy with Iovera device to anterior femoral cutaneous nerve and 2 branches of the infrapatellar saphenous nerve III nerves in total Description of procedure: Patient was brought back to the procedure room the operative extremity was identified by both patient and physician.? The PIP flexion crease was measured to the midpoint of the patella and this distance was divided in 3 resulting in 10 cm location proximal to the midpoint of the patella.? This line was extended medial and lateral to the extent of the edges of the patella.? This was our treatment line for the anterior femoral cutaneous nerve.? A second treatment line was made 5 cm medial to the inferior pole of the patella and 5 cm distally.? The leg was prepped with alcohol and Betadine.? Lidocaine with epi was used along the treatment lines.? Using the Iovera device treatment lines were treated with 1 minute cycles.? Reproduction of paresthesias was monitored in the area of nerve distribution.? Once all 3 nerves were treated across the 2 treatment lines patient was cleaned and a light dressing with 4 x 4 and Pedro wrap was applied.? Patient tolerated the procedure without complication. Supplemental Info 09/12/2021 x-ray right knee:Advanced knee arthrosis worse in the lateral compartment on flexion view there isRetained hardware from her previous ACL reconstruction Coding Level of Care Code Off vis,est,level 3 Diagnoses Right knee pain? M25.561 Assessment and Plan Assessment and Plan (1) Right knee pain: ?Status:?Acute ? ? ? Orders: Orders Iovera Today M25.569 - Pain in unspecified knee ? Plan Details Additional Comments: Patient aware of the risks and benefits of the IOVERA treatment and she wishes to proceed with the treatment today. We will need the patient to stop the Xarelto prior to surgery last dose before surgery. which we have already sent the clearance to Dr. Smith, awaiting on response. Follow up 2 weeks post op or sooner if pain, swelling, numbness or associated symptoms, or concerns develop.? All questions answered. Patient in agreement of plan. 09/26/21 1501 <Electronically signed by Steffen Almanzar DO> Date Steffen Almanzar DO Cosigner Signature: Date (if applicable) ?I have re-examined the patient. There are no clinical changes since date of exam
[2021-10-09] MEDS: Lactated Ringers 1,000 ML 125 ML IV ×2 (08:30→13:41)
[2021-10-09] MEDS: Gabapentin 600 MG Tablet PO (09:44)
[2021-10-09] MEDS: Magnesium 2 GM IV (09:44)
[2021-10-09] MEDS: Scopolamine 1mg/72hr Patch 1 PATCH TD (09:45)
[2021-10-09] MEDS: Acetaminophen 500 MG Tablet 1000 MG PO ×2 (09:45→21:30)
[2021-10-09] MEDS: Cefazolin 2 GM in 0.9% Normal Saline 100 ML IV (09:49)
[2021-10-09] MEDS: TXA 1000mg in NS100 100ml (IVPB at Incision) 660 MG IV (10:00)
[2021-10-09] MEDS: dexAMETHasone 10 MG/ML Vial IV (10:04)
[2021-10-09 10:10] LABS: Bedside Glucose 159 mg/dL (74-106)
--- NOTE | 2021-10-09 10:45 | KNEE_PTH ---
PATIENT: RUFINO MORE LOC: MS3 U#:[id number] AGE/SX: 61/F ROOM: MS319 RE10/09/[address]: Dr. Steffen Almanzar DO : 1960 BED: 1 DIS: 10/10/2021 SPEC #: [id number] RECD: 10/09/21 13:05 STATUS: ALENA CASEY #: [id number] ZULEIKA: 10/09/21 10:[address]: Steffen Almanzar DEPT: SURGICAL PATHOLOGY RECD BY: Columba Villavicencio ENTERED: 10/10/21 08:40 SP TYPE: TOTAL KNEE OTHR DR: Dr. Andrae Burgos MD Tissues: Knee, NOS Procedures: Decalcification bone/plaque Surgery Specimen Level IV HEADER OPERATION: Right knee removal of hardware and ERAS, total knee replacement PRE-OP DIAGNOSIS: Right knee pain TISSUE SUBMITTED: Right knee bone and tissue MICROSCOPIC DIAGNOSIS Bone and tissue of right knee, total knee replacement: Consistent with severe degenerative joint disease. Polarizable crystals consistent with pseudogout. AM:joaquina 10/12/2021 MICROSCOPIC DESCRIPTION Slides are reviewed. GROSS DESCRIPTION Received is one container designated bone and soft tissue right knee. The specimen consists of multiple fragments of zavala-yellow bone measuring in aggregate 11 x 9 x 3 cm. Also in the specimen container are multiple fragments of cartilaginous tissue measuring in aggregate 8 x 1.5 x 0.7 cm. A number of bony fragments contain articular surfaces consistent with tibial plateau and femoral condyle and displaying prominent osteophyte formation, eburnation, and bone erosion. Carrier Washer sections are submitted in two cassettes as follows: 1 - soft tissue, 2 - bone after decalcification. / SJ:joaquina 10/10/2021 TC:5 [facility]: [id number], [id number]
--- NOTE | 2021-10-09 10:50 | RAD_ITS ---
STUDY: X-RAY - RIGHT KNEE REASON FOR EXAM: Female, 61 years old. HARDWARE REMOVAL, ETC TECHNIQUE: 2 view(s) of the knee. COMPARISON: None. FINDINGS: Intraoperative imaging provided for hardware removal. RAD/Knee 1 or 2 Views IMPRESSION: Intraoperative imaging provided for hardware removal. Electronically Signed: Sadi Ellis MD at 13:20 EDT ,
[2021-10-09] MEDS: TXA 1000mg in NS100 100ml (IVPB at Closure) 660 MG IV (12:19)
[2021-10-09] MEDS: Betamethasone/Betamethasone 30 MG/5 ML Vial (12:20)
[2021-10-09] MEDS: 0.9% Normal Saline (Pres. free 10 ML Vial (12:20)
[2021-10-09] MEDS: Epinephrine (1 mg/ml) 1 MG/ML VIAL (12:20)
--- NOTE | 2021-10-09 12:52 | OP.PCM_ITS ---
Operative Report Date of Procedure: 10/09/21 Preoperative diagnosis: Right knee DJD history of ACL reconstruction bone tendon bone with retained hardware, flexion contracture and stiff knee Postoperative diagnosis: Same Procedure: Right total knee arthroplasty CT guided Robotic Assisted , with removal of hardware Implant: Charli triathlon cemented, femoral component size2, tibial baseplate size 3, asymmetric patella size 32, polyethylene X3 size 9 CS Anesthesia: General with adductor canal block Tourniquet time: 50 minutes at 300 mmHg total time divided between 2 sessions Physician assistant restaurant general manager Milton Kay and Hyacinth cadet. My physician assistant restaurant general manager was a vital part of this case. He was important in appropriate retraction during the case, and protection of soft tissues during procedure. His intimate knowledge of the case and my steps aided in safe and expedient completion of the procedure as well as appropriate position of the extremity during the case. He was also vital in assisting with closure under my direct supervision. Complications: None Condition: Stable to PACU Estimated blood loss: 150 cc Indication for procedure: This is a 61-year-old female with long standing degenerative joint disease of the knee who has had prior ACL reconstruction with retained metallic screws who has failed conservative treatment and wished to proceed with elective total knee arthroplasty and removal of hardware. Risk benefits and alternatives were reviewed including; risk of bleeding, infection, nerve artery and tissue damage, continued pain, postoperative stiffness, venous thromboembolism, need for postoperative rehabilitation, mechanical feel to the knee, and expected postoperative course. The pre- operative CT and templating was performed with component sizing. Procedure: The patient was met in the preoperative holding area. The operative extremity was identified by both patient and physician and was marked. Patient was met by anesthesia. An adductor canal block was placed by anesthesia postoperatively the patient was brought back to the operating room on a wheeled cart and transferred to the operating table in the supine position. Anesthesia was started. A well-padded tourniquet was placed on the operative extremity. The patient was prepped and draped in the usual sterile fashion. A timeout was called to ensure the proper patient procedure and extremity were being contemplated. An esmarch was used to exsanguinate the extremity. The tourniquet was inflated. A 10 blade scalpel was used to make a midline incision down through the skin and subcutaneous tissue. Skin retractors placed. Bovie and Aquamantis were used to perform meticulous hemostasis. full-thickness flaps were elevated medial and lateral along the joint capsule. A deep blade scalpel was used to perform a medial parapatellar arthrotomy. Due to the previous surgery and significant stiffness of the knee quadriceps snip was performed, the knee was brought to full extension. A bovie was used to release the soft tissues off the most proximal aspect of the medial tibial plateau, a three- quarter inch curved osteotome was also used in this process. The infrapatellar fat pad was excised. The suprapatellar fat pad was excised partially anteriorolateraly and portion the anterioromedial pad was elevated from the fem ur. The femoral ACL screw was able to be palpated and was removed with ease, the tibial screw however was not easily identified as it was buried beneath the cortex, this did require the use of fluoroscopy to ensure screw location we did have to use a rongeur and a curette to remove the cortex to get to the screw which was intramedullary. at this point our intra-articular femoral array was placed at a 45 degree angle proximal and posterior to the medial epicondyle. femoral checkpoint was placed at this time. Our tibial array was placed greater than 1 hands breath below the incision at a 20 degree angle stab incisions were made with a 15 blade scalpel and pins were placed and attached to the tibial array , tibial checkpoint was placed in the proximal tibial metaphysis. Tourniquet was let down. At this point registration seaman were taken throughout the knee . Once the knee was registered we then tensioned the medial and lateral ligaments in extension and 90 degrees of flexion. The knee did have a significant valgus deformity and flexion contracture of 18 degrees we then used these numbers to adjust our components within parameters to balance the knee in both flexion and extension once this was done on our monitor we then proceeded with using the robotic arm to make our tibial plateau cut, anterior and posterior chamfer and distal femur cuts. we removed the cut fragments with the use of a bovie and More, we did use a lamina oxygen furnace operator to insure we visualized and removed all posterior osteophytes and at this time also used the Aquamantis on the posterior joint capsule. we then trialed and achieved the desired plan with a well-balanced knee. we used the green probe to beatrice the corresponding tibial rotation based on our CT template. Lug holes were drilled in the femur the tibia preparation was completed with the appropriate sized base plate pinned based on previous rotation beatrice. An appropriate sized fin punch was used on the tibia and the patella was prepared by first using a caliper to ensure sufficient bone stock and a patellar reamer to remove the desired amount of bone. lug holes drilled for an asymmetric poly. We then brought the knee through range of motion with excellent patellar tracking. We thoroughly irrigated the knee. Trial components were removed a posterior capsular injection was preformed with our standard cocktail. In addition the aqua Mantis was also used to aid in hemostasis. Betadine rinse was allowed to sit and washed out completely. Components were cemented into place excess cement was removed removed with a curette and Snyder. Aricept rinse was then used followed by several more liters of irrigation after it was allowed to sit. The joint capsule was closed with #2 FiberWire [id number] followed by Vicryl in the subcutaneous tissues with darlene in the skin. Arrays and checkpoints were removed prior to closure all counts were correct stab incisions were closed with a staple standard dressing in the form of Mepilex AG for the main incision and a small Mepilex over the pin holes. Thigh-high VU hose applied over top of dressing. Patient tolerated the procedure well and was directed to PACU in stable condition . There were no intraoperative complications.
--- NOTE | 2021-10-09 13:37 | RAD_ITS ---
STUDY: X-RAY - RIGHT KNEE REASON FOR EXAM: Female, 61 years old. Post op -- AP and Lateral xray of operative knee in PACU TECHNIQUE: 2 view(s) of the knee. COMPARISON: Comparison is made with prior examination dated 09/12/2021. FINDINGS: Normal visualized distal femur. Normal visualized proximal tibia and fibula. Normal proximal tibiofibular articulation. The patient is status post total knee replacement. There is good alignment. Postoperative soft tissue changes. RAD/Knee 1 or 2 Views IMPRESSION: Status post total knee replacement. There is good alignment. Postoperative soft tissue changes. Electronically Signed: Sadi Ellis MD at 14:02 EDT ,
[2021-10-09] MEDS: Insulin Lispro 100 UNIT/ML INSULN.PEN SC (13:51)
[2021-10-09 13:55] LABS: Bedside Glucose 216 mg/dL (74-106)
[2021-10-09] MEDS: Cefazolin 1 GM/50 ML BAG IV ×2 (13:55→21:35)
[2021-10-09] MEDS: metFORMIN (XR) 500 MG Tablet 1000 MG PO (17:10)
[2021-10-09 17:35] LABS: Bedside Glucose 187 mg/dL (74-106)
[2021-10-09] MEDS: oxyCODONE 5 MG Tablet PO ×2 (18:24→22:23)
[2021-10-09] MEDS: Senna/Docusate Sodium 1 Tablet 2 TABLET PO (21:30)
[2021-10-09] MEDS: Atorvastatin Calcium 10 MG Tablet PO (21:30)
[2021-10-09] MEDS: Carvedilol 25 MG Tablet PO (21:30)
[2021-10-09 22:06] LABS: Bedside Glucose 203 mg/dL (74-106)
[2021-10-09] MEDS: Lactated Ringers 1,000 ML 15 ML IV (22:23)
[2021-10-10 02:25] VITALS: BP 98/69; PULSE 86; RESP 16; TEMP 37; O2SAT 96
[2021-10-10 05:22] LABS: Hematocrit 29.9 % (37-47); Hemoglobin 9.2 g/dL (12.0-15.0); Mean Corp Hgb Conc 30.8 g/dL (32-36); Mean Corpuscular Hgb 25.8 pg (27.0-32.0); Mean Platelet Vol. 9.7 fl (6.2-12.0); Platelet Count 182 K/mm3 (150-450); RBC Distribution Width CV 15.2 % (11.6-14.6); RBC Distribution Width SD 46.5 fl (35.1-43.9); Red Blood Count 3.56 M/mm3 (4.2-5.4); White Blood Count 8.2 K/mm3 (4.4-11.0)
[2021-10-10 05:42] LABS: Anion Gap 6 (5-15); BUN 22 mg/dL (7-18); BUN/Creat Ratio 21.6 RATIO (10-20); Calcium,Total 8.5 mg/dL (8.5-10.1); Chloride 103 mmol/L (98-107); Creatinine, Serum 1.02 mg/dL (0.55-1.02); EST Glomerular Filtration Rate 58 mL/min (>60); Est Glom Filt Rate - Afr Amer 71 mL/min (>60); Estimated Creatinine Clearance 47.31 ml/min; Glucose 173 mg/dL (74-106); Potassium 4.5 mmol/L (3.5-5.1); Sodium Level 137 mmol/L (136-145)
[2021-10-10] MEDS: Acetaminophen 500 MG Tablet 1000 MG PO ×2 (06:11→13:03)
[2021-10-10] MEDS: Levothyroxine 88 MCG Tablet PO (06:11)
[2021-10-10] MEDS: Cefazolin 1 GM/50 ML BAG IV (06:11)
[2021-10-10] MEDS: Rivaroxaban 10 MG Tablet PO (06:11)
[2021-10-10] MEDS: oxyCODONE 5 MG Tablet PO (06:11)
[2021-10-10 06:25] VITALS: BP 103/70; PULSE 94; RESP 16; TEMP 37; O2SAT 96
[2021-10-10 06:45] LABS: Bedside Glucose 190 mg/dL (74-106)
[2021-10-10 08:00] VITALS: O2SAT 100
[2021-10-10] MEDS: metFORMIN (XR) 500 MG Tablet 1000 MG PO (08:53)
[2021-10-10] MEDS: Multivitamins,Therapeutic Tablet 1 TABLET PO (08:54)
[2021-10-10] MEDS: glipiZIDE XL 5 MG Tablet PO (08:54)
[2021-10-10] MEDS: Carvedilol 25 MG Tablet PO (08:55)
[2021-10-10] MEDS: Losartan Potassium 25 MG Tablet PO (08:55)
[2021-10-10] MEDS: Venlafaxine XR 75 MG Capsule PO (08:55)
[2021-10-10] MEDS: Furosemide 40 MG Tablet PO (08:55)
[2021-10-10] MEDS: Senna/Docusate Sodium 1 Tablet 2 TABLET PO (08:56)
[2021-10-10 09:56] VITALS: BP 110/71; PULSE 93; RESP 18; TEMP 36.6; O2SAT 100
--- NOTE | 2021-10-10 10:10 | CASEMGMT ---
RN FABY Face to Face with patient for initial transition planning/care coordination assessment. RN CM introduced self and role at [facility]. Patient sitting in chair, alert and oriented. Patient willing to participate in assessment and is able to answer all questions appropriately. Care providers, pharmacy, and demographics verified. Patient wishes to discharge home and is setup for outpatient therapy at [facility]. Patient states she has no further needs or concerns at this time. CM to follow for discharge planning needs that may arise. PCP: Loretta Specialists: Victoria Henson [place]; per Almanzar Preferred Pharmacy: [facility] Prescription Benefit: yes Living Will/HPOA: yes, significant other Marilee Diallo LNOK: significant other, daughter Living Arrangements: Patient lives with significant other in a mobile home with 3 steps and railing to enter the home. Patient states she was independent prior to surgery Transportation: self, Marilee DME/HHC: Patient states she has shower chair, BSC, grab bars, walker, Cpap, and pulse ox at home. Patient is scheduled for outpatient therapy at [facility] starting 10/12/21 at 12noon. No previous HHC or SNF Disposition Plan: Patient to discharge home with outpatient therapy, family support, and follow-up plans in place. Kajal WOODS, RN, CM
--- NOTE | 2021-10-10 12:05 | PN.ORTHO_ITS ---
Subjective Subjective Seen and examined.Doing well pain controlled no nausea vomiting shortness of breath or chest pain. She wishes to be discharged home today Objective Data Objective Data Vital Signs: Vital Signs Temp Pulse Resp BP Pulse Ox O2 Del Method O2 Flow Rate 97.8 F 93 18 110/71 100 Room Air 2 10/10/21 09:56 10/10/21 09:56 10/10/21 09:56 10/10/21 09:56 10/10/21 09:56 10/10/21 09:56 10/10/21 06:25 Oxygen Flow Rate (L/min) 2 Oxygen Delivery Method Room Air Weight: 232 lb 12.93 oz Body Mass Index (BMI) 40.6 Intake & Output: Intake and Output for Last 24 Hours 10/08/21 10/09/21 10/10/21 23:59 23:59 23:59 Intake Total 4034 / 4034 776.25 / 776.25 Balance 4034 / 4034 776.25 / 776.25 Lab / Micro Data Result Diagrams: 10/10/21 04:46 10/10/21 04:46 Labs: Laboratory Results - last 24 hr 10/09/21 13:30: POC Glucose 216 H 10/09/21 17:00: POC Glucose 187 H 10/09/21 21:35: POC Glucose 203 H 10/10/21 04:46: WBC 8.2, RBC 3.56 L, Hgb 9.2 L, Hct 29.9 L, MCV 84.0, MCH 25.8 L , MCHC 30.8 L, RDW Std Deviation 46.5 H, RDW Coeff of Dedrick 15.2 H, Plt Count 182, MPV 9.7 10/10/21 04:46: Sodium 137, Potassium 4.5, Chloride 103, Carbon Dioxide 28.0, Anion Gap 6, BUN 22 H, Creatinine 1.02, Estim Creat Clear Calc 47.31, Est GFR (MDRD) Af Amer 71, Est GFR (MDRD) Non-Af 58 L, BUN/Creatinine Ratio 21.6 H, Glu cose 173 H, Calcium 8.5 10/10/21 06:17: POC Glucose 190 H Micro: Microbiology 09/26/21 12:29 Swab (Method) Nasal Screen MRSA/MSSA - Final Radiography Diagnostic Testing: Radiology Impression Knee X-Ray 10/09/21 10:50 IMPRESSION: Intraoperative imaging provided for hardware removal. Electronically Signed: Sadi Ellis MD at 13:20 EDT , Knee X-Ray 10/09/21 13:37 IMPRESSION: Status post total knee replacement. There is good alignment. Postoperative soft tissue changes. Electronically Signed: Sadi Ellis MD at 14:02 EDT , Physical Exam Const alert, oriented x3 and no apparent distress Extremity Extremity Narrative: Dressing clean dry and intact compartments soft neurovascular intact EHL tibialis anterior gastrocsoleus intact sensation light touch palpable pedal pulses Assessment & Plan Assessment/Plan (1) Right knee DJD: PLAN: Plan Postop day #1 right total knee arthroplasty doing well PT OT weightbearing as tolerated she has been up with physical therapy and has done well DVT prophylaxis Eliquis 2.5 mg twice daily for 2 weeks VU cuellar Patient wishes to be discharged home today, We will do so after she works with her physical therapist this afternoon and does stairs Start outpatient physical therapy immediately Follow-up in the office 2 weeks
--- NOTE | 2021-10-10 12:08 | DCINST_ITS ---
Discharge Instructions Diet Discharge Diet: Carb Control Diet (High blood sugars increased risk of infection avoid sweets) Activity Weight Bearing Status: Weight bearing as tolerated Keep extremity elevated above heart level: Operative Extremity Dressing / Incision Call your doctor if you observe: Shortness of breath and Chest pain Additional Dressing/Incision Instructions:: Ice and elevate lower extremities 2 weeks while not ambulating. Ambulation is encouraged. Weight bearing as tolerated. Use assistive devise for stability. Encourage FULL knee extension and flexion 1 time EVERY time you get up and down and MULTIPLE times per day. No showering 72 hours after surgery. Begin showering postop day #3. Remove the dressing prior to shower and gently wash with warm water and antibacterial soap then pat dry and place abdominal pad (or plain gauze) and VU hose over top. This is to be done daily. Do not submerge for 3 weeks. If not showering daily after the initial 72 hours then you must clean incision and change dressing daily. Do not allow animals near the incision area. Keep clean. Follow anti- coagulation recommendations as prescribed. May resume home dose of Xarelto. Do not take any NSAIDs while on blood thinner. Do not take any additional narcotic pain medication other than what was prescribed on your surgery day without discussing with physician. Narcotic medication can be addictive. Do not drink alcohol while taking narcotics. Supplement narcotic prescription with acetaminophen 1000 mg 4 times a day. Start physical therapy. If you are not c urrently scheduled for physical therapy or you are unsure of appointment time please call office [facility] to arrange. Call Dr. Almanzar with any concerns. Follow Up Care Please Follow Up With: Steffen Almanzar DO When: 2 weeks Test Results: Test results from this visit will be discussed in further detail at your follow- up appointment, if applicable. Discharge Plan Admission Admit Date/Time: 10/09/21 08:11 Attending Provider: Steffen Almanzar Primary Care Provider: Andrae Burgos Discharge Orders/Prescriptions Prescriptions: New oxycodone 5 mg tablet 5 mg PO Q4H PRN (Reason: pain) 7 Days Qty: 60 0RF Continued multivitamin Tablet 1 tab PO DAILY furosemide 40 mg tablet 40 mg PO DAILY carvedilol [Coreg] 25 mg tablet 25 mg PO BID Rx Instructions: must administer with a meal/food venlafaxine 75 mg capsule,extended release 24hr 75 mg PO DAILY atorvastatin 10 mg tablet 10 mg PO QPM glipizide 5 mg tablet extended release 24hr 5 mg PO DAILY levothyroxine 88 mcg tablet 88 mcg PO DAILY losartan 25 mg tablet 25 mg PO DAILY coenzyme Q10 [Co Q-10] 100 mg capsule 100 mg PO DAILY metformin 500 mg tablet extended release 24hr 1,000 mg PO BID Xarelto 20 mg tablet 20 mg PO QPM Rx Instructions: must administer with evening meal Discontinued aspirin 81 mg tablet,chewable 81 mg PO DAILY@0800 oxycodone 5 mg tablet 5 - 10 mg PO Q4H PRN (Reason: Pain Score 6-10/10) 7 Days Qty: 60 0RF oxycodone 5 mg tablet 5 - 10 mg PO Q4H PRN (Reason: Pain Score 6-10/10) 7 Days Qty: 60 0RF Referrals / Follow Up: Andrae Burgos MD [Primary Care Provider] -
[2021-10-10 12:15] LABS: Bedside Glucose 229 mg/dL (74-106)
--- NOTE | 2021-10-10 12:29 | DS.PCM_ITS ---
Providers Date of Admission: 10/09/21 Primary Care Physician: Dr. Andrae Burgos MD Reason For Visit: RT KNEE REMOVAL HARDWARE,RT TOTAL ROBOTIC KNEE Diagnosis Discharge Diagnosis (1) Right knee DJD: Status: Acute Code(s): M17.11 - Unilateral primary osteoarthritis, right knee Plan Postop day #1 right total knee arthroplasty doing well PT OT weightbearing as tolerated she has been up with physical therapy and has done well DVT prophylaxis Eliquis 2.5 mg twice daily for 2 weeks VU polo Patient wishes to be discharged home today, We will do so after she works with her physical therapist this afternoon and does stairs Start outpatient physical therapy immediately Follow-up in the office 2 weeks Medications at Discharge Home Medications multivitamin 1 tab PO DAILY SUPPLEMENT 05/10/20 atorvastatin 10 mg tablet 10 mg PO QPM CHOLESTEROL 09/21/21 carvedilol 25 mg tablet (Coreg) 25 mg PO BID HEART 09/21/21 coenzyme Q10 100 mg capsule (Co Q-10) 100 mg PO DAILY SUPPLEMENT 09/21/21 furosemide 40 mg tablet 40 mg PO DAILY WATER PILL 09/21/21 glipizide 5 mg tablet, extended release 24 hr 5 mg PO DAILY DIABETES 09/21/21 levothyroxine 88 mcg tablet 88 mcg PO DAILY THYROID 09/21/21 losartan 25 mg tablet 25 mg PO DAILY BP 09/21/21 metformin 500 mg tablet,extended release 24hr 1,000 mg PO BID DIABETES 09/21/21 rivaroxaban 20 mg tablet (Xarelto) 20 mg PO QPM BLOOD THINNER 09/21/21 venlafaxine 75 mg capsule,extended release 24 hr 75 mg PO DAILY DEPRESSION 09/21/21 oxycodone 5 mg tablet 5 mg PO Q4H PRN pain 7 days #60 tabs 10/10/21 Hospital Course Summary of Care Provided Hospital Course: 61-year-old femaleWho has long history of degenerative joint disease to the knee who has failed conservative treatment and wished to undergo elective total knee arthroplasty. Patient did have a prior ACL reconstruction with retained hardware. Patient underwentRemoval of hardware and total knee arthroplasty right knee on the admission date without any intraoperative complications. Patient did receive pre-and postoperative antibiotics which were discontinued within 23 hours postoperatively. Patient did receive [spinal anesthesia as well as an adductor canal block postoperatively]. pain was controlled with IV and transition to p.o. pain medication Patient will be discharged home with oxycodone and will continue Tylenol as well. Patient had minimal intraoperative blood loss and 2gm tranexamic acid was administered there was no need for postoperative blood transfusion Patients vital signs remained stable. Patient was started on both mechanical and chemical DVT per prophylaxis postoperatively in the form of SCDs VU hose and [Eliquis 2.5 mg twice daily for which she will continue for 2 additional weeks post hospital discharge]. thigh high vu hose placed over top of the meplix silver dressing. This should be removed 72 hrs post operatively and showering begun daily at that time with warm water and antibacterial soap. not to submerge for 3 weeks. To change dressing daily after first dressing change. Patient will follow-up in the office in 2 weeks. No intrahospital complications. Weight / BMI Weight Weight: 232 lb 12.93 oz Body Mass Index (BMI) 40.6 ABG / Lab / Microbiology Data Result Diagrams: 10/10/21 04:46 10/10/21 04:46 Laboratory: Laboratory Results - last 24 hr 10/09/21 13:30: POC Glucose 216 H 10/09/21 17:00: POC Glucose 187 H 10/09/21 21:35: POC Glucose 203 H 10/10/21 04:46: WBC 8.2, RBC 3.56 L, Hgb 9.2 L, Hct 29.9 L, MCV 84.0, MCH 25.8 L , MCHC 30.8 L, RDW Std Deviation 46.5 H, RDW Coeff of Dedrick 15.2 H, Plt Count 182, MPV 9.7 10/10/21 04:46: Sodium 137, Potassium 4.5, Chloride 103, Carbon Dioxide 28.0, An ion Gap 6, BUN 22 H, Creatinine 1.02, Estim Creat Clear Calc 47.31, Est GFR ( MDRD) Af Amer 71, Est GFR (MDRD) Non-Af 58 L, BUN/Creatinine Ratio 21.6 H, Glucose 173 H, Calcium 8.5 10/10/21 06:17: POC Glucose 190 H 10/10/21 11:53: POC Glucose 229 H Microbiology: Microbiology 09/26/21 12:29 Swab (Method) Nasal Screen MRSA/MSSA - Final Radiography Diagnostic Testing: Radiology Impression Knee X-Ray 10/09/21 10:50 IMPRESSION: Intraoperative imaging provided for hardware removal. Electronically Signed: Sadi Ellis MD at 13:20 EDT , Knee X-Ray 10/09/21 13:37 IMPRESSION: Status post total knee replacement. There is good alignment. Postoperative soft tissue changes. Electronically Signed: Sadi Ellis MD at 14:02 EDT , D/C Instructions Discharge Diet: Carb Control Diet (High blood sugars increased risk of infection avoid sweets) Weight Bearing Status: Weight bearing as tolerated Keep extremity elevated above heart level: Operative Extremity Call your doctor if you observe: Shortness of breath and Chest pain Additional Dressing/Incision Instructions: Ice and elevate lower extremities 2 weeks while not ambulating. Ambulation is encouraged. Weight bearing as tolerated. Use assistive devise for stability. Encourage FULL knee extension and flexion 1 time EVERY time you get up and down and MULTIPLE times per day. No showering 72 hours after surgery. Begin showering postop day #3. Remove the dressing prior to shower and gently wash with warm water and antibacterial soap then pat dry and place abdominal pad (or plain gauze) and VU hose over top. Th is is to be done daily. Do not submerge for 3 weeks. If not showering daily after the initial 72 hours then you must clean incision and change dressing daily. Do not allow animals near the incision area. Keep clean. Follow anti- coagulation recommendations as prescribed. May resume home dose of Xarelto. Do not take any NSAIDs while on blood thinner. Do not take any additional narcotic pain medication other than what was prescribed on your surgery day without discussing with physician. Narcotic medication can be addictive. Do not drink alcohol while taking narcotics. Supplement narcotic prescription with acetaminophen 1000 mg 4 times a day. Start physical therapy. If you are not currently scheduled for physical therapy or you are unsure of appointment time please call office [facility] to arrange. Call Dr. Almanzar with any concerns. Please Follow Up With: Steffen Almanzar DO When: 2 weeks Meaningful Use Info Meaningful Use Diagnoses (Choose all that apply): None applicable Discharge Plan Admission Admit Date/Time: 10/09/21 08:11 Attending Provider: Steffen Almanzar Primary Care Provider: Andrae Brugos Discharge Orders/Prescriptions Prescriptions: New oxycodone 5 mg tablet 5 mg PO Q4H PRN (Reason: pain) 7 Days Qty: 60 0RF Continued multivitamin Tablet 1 tab PO DAILY furosemide 40 mg tablet 40 mg PO DAILY carvedilol [Coreg] 25 mg tablet 25 mg PO BID Rx Instructions: must administer with a meal/food venlafaxine 75 mg capsule,extended release 24hr 75 mg PO DAILY atorvastatin 10 mg tablet 10 mg PO QPM glipizide 5 mg tablet extended release 24hr 5 mg PO DAILY levothyroxine 88 mcg tablet 88 mcg PO DAILY losartan 25 mg tablet 25 mg PO DAILY coenzyme Q10 [Co Q-10] 100 mg capsule 100 mg PO DAILY metformin 500 mg tablet extended release 24hr 1,000 mg PO BID Xarelto 20 mg tablet 20 mg PO QPM Rx Instructions: must administer with evening meal Discontinued aspirin 81 mg tablet,chewable 81 mg PO DAILY@0800 oxycodone 5 mg tablet 5 - 10 mg PO Q4H PRN (Reason: Pain Score 6-10/10) 7 Days Qty: 60 0RF oxycodone 5 mg tablet 5 - 10 mg PO Q4H PRN (Reason: Pain Score 6-10/10) 7 Days Qty: 60 0RF Referrals / Follow Up: Andrae Burgos MD [Primary Care Provider] -
[2021-10-10 13:32] VITALS: BP 123/68; PULSE 92; RESP 18; TEMP 36.6; O2SAT 18
== END 2021-10-10 14:42 | disposition home or self-care (01) | DRG 470 ==
LOC: ACINP 08:13 → MS3 13:47
PROVIDERS: Anesthesiology; Admitting Provider Orthopaedic Surgery; PCP Internal Medicine; Referring Provider Orthopaedic Surgery; Visit Provider Orthopaedic Surgery
PROC: 0SRC0JZ Replacement of Right Knee Joint with Synthetic Substitute, Open Approach (ICD-10-PCS; CPT 27447; principal; 2021-10-09 10:15)
DX: M17.11 Unilateral primary osteoarthritis, right knee (principal); I44.2 Atrioventricular block, complete; I50.42 Chronic combined systolic (congestive) and diastolic (congestive) heart failure; I42.8 Other cardiomyopathies; M24.561 Contracture, right knee; I11.0 Hypertensive heart disease with heart failure; E11.9 Type 2 diabetes mellitus without complications; G47.33 Obstructive sleep apnea (adult) (pediatric); E78.5 Hyperlipidemia, unspecified; E03.9 Hypothyroidism, unspecified; I25.2 Old myocardial infarction; F41.9 Anxiety disorder, unspecified; F32.A Depression, unspecified; Z95.0 Presence of cardiac pacemaker; Z79.01 Long term (current) use of anticoagulants; Z79.82 Long term (current) use of aspirin; Z79.84 Long term (current) use of oral hypoglycemic drugs; Z79.899 Other long term (current) drug therapy; Z86.718 Personal history of other venous thrombosis and embolism
CPT/HCPCS: 36415; 73560; 76000; 80048; 82962; 82985; 83036; 83735; 84443; 85025; 85027; 85610; 85730; 86850; 86900; 86901; 87081; 88305; 88311; 93005; 97110; 97116; 97162; 97166; 99251; C1776; J7120; G0463; J0702; J2405; J3490

== ENCOUNTER 2021-12-11 15:00 | Outpatient (RCR) | payer OTHER, SELFPAY ==
--- NOTE | 2021-10-12 12:50 | HP.PTEVAL_ITS ---
Patient's Visit Information RUFINO MORE is a 61 year old F referred to Physical Therapy by Dr. Steffen Almanzar DO with a diagnosis of R TKA. Date of Evaluation: 10/12/21 Physical Therapist: Shukri Kirby PT, ATC - Visit Plan Frequency: 2-3x /Week Duration: 4-6 Weeks Plan: R knee PROM/mobs, stretching and strengthening, balance and proprio, core stab ex's, nustep, and HEP - Subjective DOS: 10/09/21. Pt had a R TKA performed at that time. Pt notes she has had a history of R knee complications since 1987 when she had a knee revision surgery performed secondary to tearing her ACL. Pt notes she was scheduled to have this surgery 3 years ago, but then COVID came about and she had to wait until now. Pt notes she had to have hardware extracted out of her R knee prior to having this surgery performed. Pt reports she is still in a lot of pain today. Pt does note that she has a lot better ROM than prior to her surgery. Pt reports she has sleep difficulty secondary to pain. Pt works as a teacher at the [employer] where she notes she walks a lot, and even has to ascend and descend inclines. Pt reports occasional tingling and numbness in her R LE. Pt reports she has 3 stairs to get into her house that she must negotiate one at a time. Pt uses a WW currently, but notes no AD prior to surgery. 2/10 pain at rest, 10/10 at worst (trying to lift her leg into bed) - Pain R knee Pain Intensity (Out of 10): 2 Pain Intensity Range: 10 - Objective Neuro: B LE sensation is WNL to light touch. Girth at joint line: R knee 50cm, L knee 54 cm. ROM: L knee 0-125, R knee 0-18-60. MMT: R knee flex= 11, ext= 0; L knee flex= 20, ext= 27. Gait: Pt is able to ambulate 140 feet until feeling fatigued and requesting a break - Balance/Special Test Scores Lower Extremity Functional Score: 9 - Goals Goal 1:: Decrease R knee pain x 50% to aid with sleep Goal Time Frame: 4-6 Weeks Goal 2:: Increase R knee ROM x 40 degrees to aid with restoring a more normalized gait pattern Goal Time Frame: 4-6 Weeks Goal 3:: Increase R knee strength x 5-10 #F to aid with return to work without limitation Goal Time Frame: 4-6 Weeks Goal 4:: I with HEP Goal Time Frame: 4-6 Weeks - Rehabilitation Potential Physical Therapy Diagnosis: Pt has R knee pain, weakness, and limited ROM secondary to having a R TKA Rehabilitation Potential: Good - Anticipated Interventions Patient/Client Instruction: Educate patient on: Condition, Plan of Care For the Purpose of:: To improve self management Therapeutic Exercise to Include: Strength training, Endurance training, Balance training, Gait and locomotor training, Passive ROM, Active ROM, Dynamic Lumbar Stabilization For the Purpose of:: To decrease pain, To increase ROM, To improve muscle performance and motor function Cryotherapy (ice pack, ice massage): Yes For the Purpose of:: To decrease pain Thank you for the opportunity to evaluate your patient. For Medicare and Medicare HMO plans, please review the plan of care and approve it. It will need to be FAXED BACK to us at [phone] for Medicare purposes. For Medicare only, by signing this I certify the plan of care. Please let me know if there are questions or concerns regarding this plan of care. Physician Signature: Date:
--- NOTE | 2021-12-11 15:48 | HP.PTDCSUM ---
It has been my pleasure to treat RUFINO MORE referred by Dr. Steffen Almanzar DO, with the diagnosis of R TKA 10/09/21 for a total of 14 visit(s). Discharge Date: Please see the following information for a summary of their discharge status. Subjective: I am ready for discharge R knee Pain Intensity (Out of 10): 0 % Improvement: 90 Objective/Function: R knee pain 0/10. Tu.5 sec. R knee ROM: 0-8-100. R knee MMT: flex= 29, ext= 37 #F. Pt is I with HEP Goal 1:: Decrease R knee pain x 50% to aid with sleep Goal Progress: Goal Met Goal 2:: Increase R knee ROM x 40 degrees to aid with restoring a more normalized gait pattern Goal Progress: Goal Met Goal 3:: Increase R knee strength x 5-10 #F to aid with return to work without limitation Goal Progress: Goal Met Goal 4:: I with HEP Goal Progress: Goal Met Plan: Discharge to HEP If there are questions or concerns regarding this patient's physical therapy, please feel free to call me at [phone]. Thank you for the referral of this patient. Sincerely, Shukri Kirby, PT, ATC Balance/Gait/Functional tests - Balance/Special Test Scores Lower Extremity Functional Score: 51
== END 2021-12-11 19:00 | disposition home or self-care (01) ==
LOC: PT 15:00
PROVIDERS: PCP Internal Medicine; Referring Provider Orthopaedic Surgery; Visit Provider Orthopaedic Surgery
DX: Z47.1 Aftercare following joint replacement surgery (principal); Z96.651 Presence of right artificial knee joint
CPT/HCPCS: 97110; 97161; 97164

== ENCOUNTER → 2022-01-23 | Outpatient (CLI) | payer OTHER, SELFPAY ==
--- NOTE | 2022-01-23 14:49 | ECHOLC_ITS ---
Reason For Study: CARDIOMYOPATHY (NON ISCHEMIC) Procedure This was a limited 2D transthoracic echocardiogram. The study was technically difficult. Contrast injection was performed. Exam performed in department. Left Ventricle Normal LV size. The estimated ejection fraction is 35 %. No regional wall motion abnormalities noted. Right Ventricle Normal RV size. ICD or pacer leads identified within the right ventricle. Normal systolic function. Atria Normal left atrium. Normal right atrium. Mitral Valve Mitral valve not well visualized. Tricuspid Valve The tricuspid valve is not well visualized. Aortic Valve Trisinus/trileaflet aortic valve. Mild focal aortic valve calcification. Pulmonic Valve The pulmonic valve is not well visualized. Great Vessels Normal aortic root. The pulmonary artery is normal size. Normal inferior vena cava. Pericardium/Pleural No pericardial effusion. Medication 22 gauge I.V. with prn adaptor inserted into right arm. Diluted definity 3.5ml given slow IV push to enhance endocardial definition. MMode/2D Measurements & Calculations LVIDd: 5.4 cm IVSd: 1.2 cm Ao root diam: 3.4 cm LVIDs: 4.5 cm LVPWd: 1.2 cm RVDd: 3.6 cm FS: 16.8 % LAV(MOD-bp): 61.6 ml LVAd ap4: 39.6 cm2 SV(MOD-sp4): 29.8 ml LAV(MOD-bp) Indexed: 30.0 ml/m2 LVLd ap4: 9.1 cm LAV(MOD-sp2): 62.0 ml EDV(MOD-sp4): 140.4 ml LAV(MOD-sp4): 62.5 ml EDV(sp4-el): 147.0 ml LVAs ap4: 34.8 cm2 LVLs ap4: 8.8 cm ESV(MOD-sp4): 110.6 ml ESV(sp4-el): 116.1 ml EF(MOD-sp4): 21.2 % EF(sp4-el): 21.0 % SV(sp4-el): 30.9 ml LA A4 area: 20.2 cm2 LA dimension(2D): 3.9 cm RA A4 area: 14.8 cm2 ECHO/Echo Limited w/Contrast Interpretation Summary Normal LV size. The estimated ejection fraction is 35 %. No regional wall motion abnormalities noted. Contrast injection was performed. Ordering Physician: Jenn Charles Referring Physician: Andrae Burgos Performed By: Lana Barrios RDCS, RVT
== END | disposition home or self-care (01) ==
PROVIDERS: PCP Internal Medicine; Visit Provider Nurse Practitioner Gerontology
DX: I42.8 Other cardiomyopathies (principal)
CPT/HCPCS: 93308; Q9957; A4216; C8924

== ENCOUNTER → 2022-02-28 | Outpatient (CLI) | payer OTHER, SELFPAY ==
[2022-02-28 16:53] LABS: Absolute Lymphocyte Count 1.52 X10^3/uL (0.83-4.51); Absolute Neutrophil Count 4.8 X10^3/uL (2.0-7.7); Basophil# 0.06 X10^3/uL; Basophil% 0.8 % (0-1); Eosinophil# 0.36 X10^3/uL; Eosinophils% 4.9 % (0-5); Hematocrit 37.3 % (37-47); Lymphocyte # 1.52 X10^3/ul (0.83-4.51); Lymphocyte % 20.7 % (19-41); Mean Corp Hgb Conc 29.5 g/dL (32-36); Mean Corpuscular Hgb 23.4 pg (27.0-32.0); Mean Corpuscular Volume 79.2 fL (81-99); Monocyte# 0.56 X10^3/uL; Monocyte% 7.6 % (0-10); NRBC Flagged by Analyzer 0 % (0-5); Neutrophil # 4.82 X10^3/uL (2.7-7.7); Neutrophil % 65.5 % (47-70); Platelet Count 317 K/mm3 (150-450); RBC Distribution Width CV 16.3 % (11.6-14.6); RBC Distribution Width SD 47.3 fl (35.1-43.9); Red Blood Count 4.71 M/mm3 (4.2-5.4); White Blood Count 7.4 K/mm3 (4.4-11.0)
[2022-02-28 17:34] LABS: ALB/GLOB Ratio 0.9 RATIO (0.9-2.4); AST(SGOT) 14 U/L (15-37); Alanine Aminotransfer ALT/SGPT 27 U/L (13-56); Albumin, Serum 3.6 g/dL (3.2-5.0); Alkaline Phosphatase 88 U/L (45-117); Anion Gap 7 (5-15); BUN 27 mg/dL (7-18); BUN/Creat Ratio 24.8 RATIO (10-20); Calcium,Total 9.9 mg/dL (8.5-10.1); Chloride 103 mmol/L (98-107); Creatinine, Serum 1.09 mg/dL (0.55-1.02); EST Glomerular Filtration Rate 54 mL/min (>60); Est Glom Filt Rate - Afr Amer 65 mL/min (>60); Globulin 4.1 g/dL (2.2-4.2); Glucose 105 mg/dL (74-106); Potassium 3.7 mmol/L (3.5-5.1); Protein, Total 7.7 g/dL (6.4-8.2); Sodium Level 138 mmol/L (136-145)
== END | disposition home or self-care (01) ==
LOC: BIMLAB 15:51
PROVIDERS: PCP Internal Medicine; Referring Provider Internal Medicine; Visit Provider Internal Medicine
DX: E11.9 Type 2 diabetes mellitus without complications (principal); I10 Essential (primary) hypertension
CPT/HCPCS: 36415; 80053; 85025

== ENCOUNTER → 2022-06-13 | Outpatient (CLI) | payer OTHER, SELFPAY ==
--- NOTE | 2022-06-13 15:25 | ECHOL_ITS ---
Reason For Study: CMP Procedure This was a limited 2D transthoracic echocardiogram. Exam performed in department. Left Ventricle Normal LV size. Moderately severe global left ventricular systolic dysfunction. The left ventricular ejection fraction is 35 %. There are regional wall motion abnormalities as specified. Right Ventricle Normal RV size. ICD or pacer leads identified within the right ventricle. Normal systolic function. Atria Normal left atrium. Normal right atrium. Mitral Valve Normal mitral valve. Tricuspid Valve Normal tricuspid valve. Aortic Valve Normal aortic valve. Trisinus/trileaflet aortic valve. Pulmonic Valve Normal pulmonic valve. Pericardium/Pleural No pericardial effusion. MMode/2D Measurements & Calculations LVIDd: 6.4 cm IVSd: 1.1 cm Ao root diam: 3.2 cm LVIDs: 5.0 cm LVPWd: 1.0 cm FS: 21.4 % LAV(MOD-bp): 70.3 ml LVAd ap4: 33.0 cm2 SV(MOD-sp4): 43.9 ml LAV(MOD-bp) Indexed: 34.5 ml/m2 LVLd ap4: 7.5 cm LAV(MOD-sp2): 82.9 ml EDV(MOD-sp4): 115.7 ml LAV(MOD-sp4): 58.1 ml EDV(sp4-el): 122.7 ml LVAs ap4: 26.0 cm2 LVLs ap4: 7.5 cm ESV(MOD-sp4): 71.9 ml ESV(sp4-el): 76.5 ml EF(MOD-sp4): 37.9 % EF(sp4-el): 37.7 % SV(sp4-el): 46.2 ml LA dimension(2D): 4.1 cm LA A4 area: 19.8 cm2 RA A4 area: 15.0 cm2 ECHO/Echo, Limited Study Interpretation Summary Moderately severe global left ventricular systolic dysfunction. The left ventricular ejection fraction is 35 %. ICD or pacer leads identified within the right ventricle. Compared to previous study, the left ventricular systolic function is the same. . Ordering Physician: Jenn Charles Referring Physician: Jenn Charles Performed By: Rosemarie Grace RCS
== END | disposition home or self-care (01) ==
LOC: CVS 15:24
PROVIDERS: PCP Internal Medicine; Referring Provider Nurse Practitioner Gerontology; Visit Provider Nurse Practitioner Gerontology
DX: I42.8 Other cardiomyopathies (principal)
CPT/HCPCS: 93308

== ENCOUNTER → 2022-09-19 | Outpatient (CLI) | payer OTHER, SELFPAY ==
[2022-09-19 16:34] LABS: Absolute Lymphocyte Count 1.33 X10^3/uL (0.83-4.51); Absolute Neutrophil Count 6.2 X10^3/uL (2.0-7.7); Basophil# 0.05 X10^3/uL; Basophil% 0.6 % (0-1); Eosinophil# 0.32 X10^3/uL; Eosinophils% 3.8 % (0-5); Hematocrit 41.2 % (37-47); Hemoglobin 12.5 g/dL (12.0-15.0); Lymphocyte # 1.33 X10^3/ul (0.83-4.51); Lymphocyte % 15.6 % (19-41); Mean Corp Hgb Conc 30.3 g/dL (32-36); Mean Corpuscular Hgb 24.2 pg (27.0-32.0); Mean Corpuscular Volume 79.7 fL (81-99); Mean Platelet Vol. 9.4 fl (6.2-12.0); Monocyte# 0.57 X10^3/uL; Monocyte% 6.7 % (0-10); NRBC Flagged by Analyzer 0 % (0-5); Neutrophil % 72.9 % (47-70); Platelet Count 300 K/mm3 (150-450); RBC Distribution Width CV 17.4 % (11.6-14.6); RBC Distribution Width SD 50.7 fl (35.1-43.9); Red Blood Count 5.17 M/mm3 (4.2-5.4); White Blood Count 8.5 K/mm3 (4.4-11.0)
[2022-09-19 17:12] LABS: Anion Gap 5 (5-15); BUN 19 mg/dL (7-18); BUN/Creat Ratio 18.8 RATIO (10-20); Calcium,Total 9.7 mg/dL (8.5-10.1); Chloride 104 mmol/L (98-107); Creatinine, Serum 1.01 mg/dL (0.55-1.02); EST Glomerular Filtration Rate 59 mL/min (>60); Est Glom Filt Rate - Afr Amer 71 mL/min (>60); Glucose 93 mg/dL (74-106); Potassium 3.4 mmol/L (3.5-5.1); Sodium Level 140 mmol/L (136-145)
== END | disposition home or self-care (01) ==
LOC: BIMLAB 16:05
PROVIDERS: PCP Internal Medicine; Referring Provider Internal Medicine; Visit Provider Internal Medicine
DX: E11.9 Type 2 diabetes mellitus without complications (principal)
CPT/HCPCS: 36415; 80048; 85025

== ENCOUNTER → 2023-01-08 | Outpatient (CLI) | payer OTHER, SELFPAY ==
[2023-01-08 16:57] LABS: Anion Gap 3 (5-15); BUN 21 mg/dL (7-18); BUN/Creat Ratio 18.9 RATIO (10-20); Chloride 104 mmol/L (98-107); Creatinine, Serum 1.11 mg/dL (0.55-1.02); EST Glomerular Filtration Rate 53 mL/min (>60); Est Glom Filt Rate - Afr Amer 64 mL/min (>60); Glucose 108 mg/dL (74-106); Sodium Level 140 mmol/L (136-145); Thyroid Stim Hormone (TSH) 0.97 uIU/mL (0.358-3.74)
== END | disposition home or self-care (01) ==
LOC: BIMLAB 14:53
PROVIDERS: PCP Internal Medicine; Visit Provider Internal Medicine
DX: E11.9 Type 2 diabetes mellitus without complications (principal); I42.8 Other cardiomyopathies; E03.9 Hypothyroidism, unspecified
CPT/HCPCS: 36415; 80048; 84443

== ENCOUNTER 2023-01-10 23:25 | Inpatient (IN) | payer OTHER, SELFPAY ==
[2023-01-10 23:26] VITALS: BP 156/126; PULSE 109; RESP 35; TEMP 36.8; O2SAT 84; BMI 42.1
[2023-01-10 23:30] VITALS: PULSE 98; RESP 12; RESP 44; O2SAT 99
[2023-01-10 23:32] VITALS: O2SAT 84
--- NOTE | 2023-01-10 23:32 | EKG12_ITS ---
Test Reason : DYSRHYTHMIA Blood Pressure : / mmHG Vent. Rate : 091 BPM Atrial Rate : 091 BPM P-R Int : 328 ms QRS Dur : 086 ms QT Int : 348 ms P-R-T Axes : 057 -36 258 degrees QTc Int : 428 ms Sinus rhythm with sinus arrhythmia with 1st degree A-V block Left axis deviation T-wave inversion from probable pacemaker Abnormal ECG Confirmed by SHERIF SALGADO, FELTON ([id number]), publishing editor ANA STEVENSON ([id number]) on 01/14/2023 7:51:24 AM Referred By: Confirmed By:FELTON GORMAN MD
[2023-01-10 23:45] LABS: Absolute Lymphocyte Count 1.99 X10^3/uL (0.83-4.51); Absolute Neutrophil Count 7.2 X10^3/uL (2.0-7.7); Basophil# 0.05 X10^3/uL; Basophil% 0.5 % (0-1); Eosinophil# 0.07 X10^3/uL; Eosinophils% 0.7 % (0-5); Hematocrit 41.9 % (37-47); Hemoglobin 11.6 g/dL (12.0-15.0); Lymphocyte # 1.99 X10^3/ul (0.83-4.51); Mean Corp Hgb Conc 27.7 g/dL (32-36); Mean Corpuscular Hgb 24.4 pg (27.0-32.0); Mean Platelet Vol. 9.8 fl (6.2-12.0); Monocyte# 0.64 X10^3/uL; Monocyte% 6.4 % (0-10); NRBC Flagged by Analyzer 0 % (0-5); Neutrophil # 7.15 X10^3/uL (2.7-7.7); Platelet Count 250 K/mm3 (150-450); RBC Distribution Width CV 17.1 % (11.6-14.6); RBC Distribution Width SD 55.4 fl (35.1-43.9); Red Blood Count 4.76 M/mm3 (4.2-5.4); White Blood Count 9.9 K/mm3 (4.4-11.0)
--- NOTE | 2023-01-10 23:55 | RAD_ITS ---
INDICATION: dyspnea EXAMINATION/TECHNIQUE: X-RAY - XR Chest 1 View AP portable. 11:56 PM COMPARISON: 08/04/2020 FINDINGS: LINES/DEVICES: None. LUNGS: Alveolar infiltrates bilaterally, predominantly perihilar and basilar. No consolidation. No pneumothorax. MEDIASTINUM: Unremarkable. CARDIAC SILHOUETTE: Not enlarged. BONES AND SOFT TISSUES: No acute abnormalities. RAD/Chest 1 View (Portable) IMPRESSION: Bilateral airspace disease pulmonary edema versus pneumonia. Electronically Signed: Magalis Stanton MD at 0:27 EDT ,
[2023-01-11] VITALS (34 sets, daily range): BP systolic 71–162; BP diastolic 38–113; PULSE 76–107; RESP 12–33; TEMP 36.6–38.3; O2SAT 92–100; BMI 41.1
[2023-01-11 00:06] LABS: Anion Gap 11 (5-15); BUN 20 mg/dL (7-18); Calcium,Total 8.6 mg/dL (8.5-10.1); Chloride 99 mmol/L (98-107); Creatinine, Serum 1.67 mg/dL (0.55-1.02); EST Glomerular Filtration Rate 33 mL/min (>60); Est Glom Filt Rate - Afr Amer 40 mL/min (>60); Estimated Creatinine Clearance 28.52 ml/min; Glucose 391 mg/dL (74-106); Magnesium 2.1 mg/dL (1.6-2.6); Potassium 5.2 mmol/L (3.5-5.1); Sodium Level 133 mmol/L (136-145); Troponin-I HS 18 pg/mL (3.0-54.0)
[2023-01-11] MEDS: Captopril 12.5 MG Tablet PO (00:21)
[2023-01-11 00:47] LABS: Color, Urine Yellow (Yellow); Glucose, Dipstick 50 mg/dl (Normal); Ketone-Dipstick Negative (Negative); Leukocyte Esterase-Dipstick 25 /ul (Negative); Nitrite-Dipstick Negative (Negative); Occult Blood-Urine 50 /ul (Negative); Protein-Dipstick 100 mg/dl (Negative); Specific Gravity, Urine 1.015 (1.002-1.030); Urine Bilirubin Dipstick Negative (Negative); Urine Clarity Clear (Clear); Urine Urobilinogen Normal (Normal)
[2023-01-11 00:48] LABS: Bacteria 0 SEEN /hpf (None Seen); Mucous, Urine 0 SEEN /hpf (<or=2+); Red Blood Cells-Urine 0 SEEN /hpf (0-5)
[2023-01-11 00:56] LABS: Squamous Epithelial Cells - UA 0-5 SEEN /hpf (5-10); White Blood Cells 0-5 SEEN /hpf (0-5)
--- NOTE | 2023-01-11 01:07 | EDS_ITS ---
HPI History of Present Illness Chief Complaint: Shortness of Breath Informant: patient, family and EMS Narrative Narrative: Patient is a 62-year-old female with past medical history of type 2 diabetes hypothyroidism complete heart block requiring pacemaker and congestive heart failure. She states she has felt under the weather/sick for the last 2 or 3 days and this evening began with increasing shortness of breath. She states that she does not smoke or have history of COPD and does wear a CPAP at night because obstructive sleep apnea but not any need for supplemental oxygen during the day. Secondary to her worsening shortness of breath EMS was called. EMS reported that the patient's pulse ox room air was in the 70s and therefore she is placed on CPAP and brought to the hospital for further evaluation [facility] Medical History Anemia Anxiety and depression Back pain Bilateral lower extremity edema CHF (congestive heart failure), NYHA class III Chronic combined systolic and diastolic CHF (congestive heart failure) Complete heart block CPAP (continuous positive airway pressure) dependence Diabetes Dietary restriction Edema Essential (primary) hypertension Flu vaccine need Folliculitis Headache, migraine History of deep venous thrombosis (2012) History of non-ST elevation myocardial infarction (NSTEMI) (08/03/20) Hx of echocardiogram Hyperlipidemia Hypothyroidism Left hip pain Leg cramps Non-ischemic cardiomyopathy Non-smoker Obesity LUIS FELIPE (obstructive sleep apnea) Osteoarthritis Pacemaker Pain aggravated by walking Preoperative evaluation to rule out surgical contraindication Scratch Seasonal allergies Type 2 diabetes mellitus Wears glasses Home Medications multivitamin 1 tab PO DAILY SUPPLEMENT 05/10/20 [History Last Taken Unknown] carvedilol 25 mg tablet See Rx Instructions .Route .COMPLEX #180 TABLETS 06/10/22 [Rx Last Taken Unknown] levothyroxine 88 mcg tablet See Rx Instructions .Route .COMPLEX #90 TABLETS 06/10/22 [Rx Last Taken Unknown] aspirin 81 mg tablet,delayed release (Adult Low Dose Aspirin) 81 mg PO DAILY 08/01/22 [History Last Taken Unknown] furosemide 40 mg tablet 40 mg PO DAILY WATER PILL #90 tabs 08/05/22 [Rx Last Taken Unknown] rivaroxaban 20 mg tablet (Xarelto) 20 mg PO QPM BLOOD THINNER #90 tabs 09/05/22 [Rx Last Taken Unknown] sacubitril 24 mg-valsartan 26 mg tablet (Entresto) 1 tab PO BID #60 tabs 09/13/22 [Rx Last Taken Unknown] venlafaxine 75 mg capsule,extended release 24 hr 75 mg PO DAILY DEPRESSION #90 caps 10/23/22 [Rx Last Taken Unknown] atorvastatin 10 mg tablet See Rx Instructions .Route .COMPLEX #90 tabs 12/17/22 [Rx Last Taken Unknown] krill oil 500 mg capsule 500 mg PO 12/25/22 [History Last Taken Unknown] glipizide 10 mg tablet, extended release 24 hr 10 mg PO DAILY DIABETES 3 months #90 tabs 01/07/23 [Rx Last Taken Unknown] Allergy/AdvReac Type Severity Reaction Status Date / Time Sulfa (Sulfonamide Allergy hives Verified 01/10/23 23:34 Antibiotics) aspirin AdvReac GI Upset Verified 01/10/23 23:34 red dye AdvReac migraine Verified 01/10/23 23:34 Family History Father Heart disease CAD (coronary artery disease) Alcoholism Angina pectoris Myocardial infarction Mother Hypertension Alcoholism Melanoma COPD (chronic obstructive pulmonary disease) Brother Alcoholism Anxiety Depression Diabetes Hyperlipidemia Bipolar disorder Grandfather Alcoholism Melanoma COPD (chronic obstructive pulmonary disease) Surgical History H/O cataract removal with insertion of prosthetic lens History of hysterectomy History of left heart catheterization (08/04/20) History of permanent cardiac pacemaker placement (12/08/19) History of right knee surgery Hx of arthroscopy of right knee Hx of colonoscopy Social History household members: significant other Smoking Status: Never smoker alcohol intake: current alcohol intake frequency: holidays/special occasions only substance use type: does not use caffeine: Yes Type: tea what type of physical activity do you participate in: bicycling and swimming ROS ROS ED Constitutional Constitutional ED: Denies chills or fever(s) ENT ENT ED: Denies sore throat Cardiovascular Cardiovascular: Denies chest pain Respiratory/Chest Respiratory/Chest: Reports dyspnea; Denies cough Gastrointestinal Gastrointestinal: Denies abdominal pain, diarrhea, nausea or vomiting Genitourinary Genitourinary ED: Reports dysuria Musculoskeletal Musculoskeletal: Reports myalgias Integumentary Denies rash Neurologic Neurologic: Reports headache(s) Hematologic/Lymphatic Hematologic/Lymphatic: Denies easy bleeding or easy bruising EXAM Physical Exam Const Vital Signs: 01/10/23 23:26 01/10/23 23:32 01/10/23 23:30 Temperature 98.2 F Temperature Source Axillary Pulse Rate 109 H 98 Respiratory Rate 35 H 44 H Respiratory Effort Short of Breath Labored Respiratory Pattern Tachypnea Tachypnea Blood Pressure 156/126 H Blood Pressure Mean 136 Pulse Ox 84 99 Oxygen Delivery Method CPAP CPAP Fraction of Inspired Oxygen (FIO2) 100 01/11/23 00:25 01/11/23 01:00 01/11/23 01:32 Temperature Temperature Source Pulse Rate 86 76 87 Respiratory Rate 32 H 33 H 29 H Respiratory Effort Respiratory Pattern Blood Pressure 162/113 H 101/81 H 105/65 Blood Pressure Mean 129 87 78 Pulse Ox 92 96 97 Oxygen Delivery Method Bi-pap Bi-pap Bi-pap Fraction of Inspired Oxygen (FIO2) 01/11/23 01:52 01/11/23 02:00 01/11/23 02:23 Temperature Temperature Source Pulse Rate 102 H 89 94 Respiratory Rate 16 21 H 25 H Respiratory Effort Respiratory Pattern Blood Pressure 83/62 L 73/45 L 83/73 L Blood Pressure Mean 69 54 76 Pulse Ox 96 98 98 Oxygen Delivery Method Room Air Bi-pap Room Air Fraction of Inspired Oxygen (FIO2) 01/11/23 02:32 01/11/23 02:37 01/11/23 02:47 Temperature Temperature Source Pulse Rate 87 96 93 Respiratory Rate 25 H 21 H 23 H Respiratory Effort Respiratory Pattern Blood Pressure 74/55 L 76/46 L 86/38 L Blood Pressure Mean 61 56 54 Pulse Ox 97 97 97 Oxygen Delivery Method Bi-pap Bi-pap Bi-pap Fraction of Inspired Oxygen (FIO2) 01/11/23 03:00 01/11/23 03:16 01/11/23 03:20 Temperature Temperature Source Pulse Rate 82 84 93 Respiratory Rate 21 H 23 H 25 H Respiratory Effort Respiratory Pattern Blood Pressure 95/81 H 71/57 L 87/52 L Blood Pressure Mean 85 61 63 Pulse Ox 98 96 98 Oxygen Delivery Method Bi-pap Bi-pap Bi-pap Fraction of Inspired Oxygen (FIO2) 01/11/23 02:24 Temperature Temperature Source Pulse Rate 100 Respiratory Rate 28 H Respiratory Effort Respiratory Pattern Tachypnea Blood Pressure Blood Pressure Mean Pulse Ox 97 Oxygen Delivery Method Fraction of Inspired Oxygen (FIO2) 40 Positive well nourished, well developed and obese General Appearance ED: well developed; Negative for pallor Nutritional Appearance: obese HEENT Reports dry mucous membranes HEENT Narrative: No tongue or lip swelling no oral lesions no airway edema or compromise Mouth ED: Yes dry mucous membranes Mouth: dry mucous membranes Eyes PERRL and EOMs intact bilaterally General Eye ED: Negative for pale conjunctiva or scleral icterus Neck supple Neck Narrative: No nuchal rigidity or meningeal signs Positive JVD noted Chest Wall palpation of chest normal Resp Resp Narrative: Patient is tachypneic with accessory muscle use. Breath sounds are diminished throughout with crackles noted in the bilateral bases. Cardio regular rate and regular rhythm Rate: other Other Details: Radial and carotid pulses are equal and symmetric GI normal to inspection, nondistended, normoactive bowel sounds, non-tender, non- distended and no masses GI Narrative: No voluntary guarding or rigidity. No pulsatile mass or fluid wave Auscultation: normoactive bowel sounds Palpation: soft Extremity Extremity Narrative: +1-2 pitting edema to the bilateral lower extremities that is equal and symmetric Negative Homans' sign bilaterally Neuro oriented x3 and CN's II-XII intact bilaterally Sensorium / Orientation: alert Psych Psych Narrative: Patient has a nervous/anxious affect Skin no rashes or lesions noted General Skin Exam: Negative for jaundice or pallor MDM MDM MDM Narrative Medical decision making narrative: Patient presented to the ER in acute respiratory distress with tachypnea and accessory muscle use and hypoxia. Differential diagnosis is for acute blood loss anemia versus pneumonia versus pneumothorax versus congestive heart failure exacerbation versus acute coronary syndrome. The patient had JVD on exam as well as pitting edema to her lower extremities and crackles in the bases most consistent with acute CHF. Secondary to this she was placed on BiPAP. Patient had already been given sublingual nitro by EMS for preload reduction and as physical exam was indicating patient was in heart failure she was given 12.5 mg of oral captopril for afterload reduction. 40 mg of IV Lasix was then given for diuresis. Patient's chest x-ray did show changes consistent with pulmonary edema and as she does not have a fever or white count I do not feel this is pneumonia but her history and exam correlates with CHF. Her troponin was in itially 18 but then did elevate to 107 and her EKG had persistent T wave inversions but despite this patient does not complain of any type of chest pain. The patient was discussed with cardiology on-call Dr. Smith and he feels that the T wave inversions and elevation to the patient's troponin are related to the congestive heart failure exacerbation and hypoxia and as she is not having chest pain does not recommend persistent nitro or IV heparin and patient can stay on her Xarelto. Prior to admission the patient's blood pressure then went from hypertensive to hypo; most likely as result of the captopril Lasix and Ativan that were given. She was given a small 250 mL IV fluid bolus of normal saline which did help improve blood pressure however did remain on the lower side. Despite this the patient was awake and alert and responding appropriately. She was watched in the ER until blood pressure improved with a systolic of approximately 90 and therefore was then transferred to the floor for further care History & Record Review Discussion w/independent historian: Patient Lab Data Attestation: I reviewed the patient's lab results. Labs: Laboratory Results - last 24 hr 01/10/23 01/11/23 01/11/23 23:30 00:30 01:25 WBC 9.9 RBC 4.76 Hgb 11.6 L Hct 41.9 MCV 88.0 MCH 24.4 L MCHC 27.7 L RDW Std Deviation 55.4 H RDW Coeff of [place]rick 17.1 H Plt Count 250 MPV 9.8 Immature Gran % (Auto) 0.400 Neut % (Auto) 72.0 H Lymph % (Auto) 20.0 [place] % (Auto) 6.4 Eos % (Auto) 0.7 Baso % (Auto) 0.5 Absolute Neuts (auto) 7.2 Absolute Lymphs (auto) 1.99 Nucleated RBC % 0 PT 36.9 H INR 3.7 APTT 56.3 H Sodium 133 L Potassium 5.2 H Chloride 99 Carbon Dioxide 23.0 Anion Gap 11 BUN 20 H Creatinine 1.67 H Estim Creat Clear Calc 28.52 Est GFR (MDRD) Af Amer 40 L Est GFR (MDRD) Non-Af 33 L BUN/Creatinine Ratio 12.0 Glucose 391 H Calcium 8.6 Magnesium 2.1 Troponin I High Sens 18 107 H B-Natriuretic Peptide 824.7 H Urine Color Yellow Urine Clarity Clear Urine pH 6.0 Ur Specific [place] 1.015 Urine Protein 100 H Urine Glucose (UA) 50 H Urine Ketones Negative Urine Occult Blood 50 H Urine Nitrite Negative Urine Bilirubin Negative Urine Urobilinogen Normal Ur Leukocyte Esterase 25 H Urine RBC 0 SEEN Urine WBC 0-5 SEEN Ur Squamous Epith Cells 0-5 SEEN Urine Bacteria 0 SEEN Urine Mucus 0 SEEN Radiography Diagnostic Testing: Clinical Impression(s) from Imaging Studies Chest X-Ray 01/10/23 23:55 IMPRESSION: Bilateral airspace disease pulmonary edema versus pneumonia. Electronically Signed: Magalis Stanton MD at 0:27 EDT , Chest x-ray as interpreted by the emergency medicine physician reveals bilateral pulmonary edema Management Discussion w/another healthcare provider: Hospitalist Critical Care Time Critical Care Time: Yes Critical care time (excluding procedures): Discussing w/Patient &/or Family/Commercial Fishing Vessel Operator, Discussing w/Consultants and - (Please note critical care time of 33 minutes) Discharge Plan Dx/Rx/DC Orders Clinical Impression: Acute exacerbation of CHF (congestive heart failure), Acute and chronic respiratory failure with hypoxia, History of permanent cardiac pacemaker placement, Type 2 diabetes mellitus, Elevated troponin Disposition Disposition: Acute Care Hospital [facility]
[2023-01-11 01:12] LABS: BNP,B-Type NATRIURETIC PEPTIDE 824.7 pg/mL (0-100)
--- NOTE | 2023-01-11 01:22 | HP.PCM.HOS_ITS ---
[facility] - General General Date of Admission: 01/11/23 Date of Service: 01/11/23 Chief Complaint: Shortness of breath [facility] Narrative RUFINO MORE, is a 62 F with a significant history of heart failure with reduced ejection fraction who presents to the emergency department with progressive worsening shortness of breath that started on the same day of presentation. Associated with symptoms is orthopnea. She denies paroxysmal nocturnal dyspnea. She denies increasing swelling above her baseline. At the emergency department patient was severely dyspneic and she had to be placed on the BiPAP. She was given Lasix 40 mg IV push and Cardizem for A-fib with RVR. However her blood pressure subsequently dropped. She reports 2 episodes of incontinence a day before presentation and on the day of presentation. [facility] Medical History Anemia Anxiety and depression Back pain Bilateral lower extremity edema CHF (congestive heart failure), NYHA class III Chronic combined systolic and diastolic CHF (congestive heart failure) Complete heart block CPAP (continuous positive airway pressure) dependence Diabetes Dietary restriction Edema Essential (primary) hypertension Flu vaccine need Folliculitis Headache, migraine History of deep venous thrombosis (2012) History of non-ST elevation myocardial infarction (NSTEMI) (08/03/20) Hx of echocardiogram Hyperlipidemia Hypothyroidism Left hip pain Leg cramps Non-ischemic cardiomyopathy Non-smoker Obesity LUIS FELIPE (obstructive sleep apnea) Osteoarthritis Pacemaker Pain aggravated by walking Preoperative evaluation to rule out surgical contraindication Scratch Seasonal allergies Type 2 diabetes mellitus Wears glasses Home Medications multivitamin 1 tab PO DAILY SUPPLEMENT 05/10/20 [History Last Taken Unknown] carvedilol 25 mg tablet See Rx Instructions .Route .COMPLEX #180 TABLETS 06/10/22 [Rx Last Taken Unknown] levothyroxine 88 mcg tablet See Rx Instructions .Route .COMPLEX #90 TABLETS 06/10/22 [Rx Last Taken Unknown] aspirin 81 mg tablet,delayed release (Adult Low Dose Aspirin) 81 mg PO DAILY 08/01/22 [History Last Taken Unknown] furosemide 40 mg tablet 40 mg PO DAILY WATER PILL #90 tabs 08/05/22 [Rx Last Taken Unknown] rivaroxaban 20 mg tablet (Xarelto) 20 mg PO QPM BLOOD THINNER #90 tabs 09/05/22 [Rx Last Taken Unknown] sacubitril 24 mg-valsartan 26 mg tablet (Entresto) 1 tab PO BID #60 tabs 09/13/22 [Rx Last Taken Unknown] venlafaxine 75 mg capsule,extended release 24 hr 75 mg PO DAILY DEPRESSION #90 caps 10/23/22 [Rx Last Taken Unknown] atorvastatin 10 mg tablet See Rx Instructions .Route .COMPLEX #90 tabs 12/17/22 [Rx Last Taken Unknown] krill oil 500 mg capsule 500 mg PO BID unknown 12/25/22 [History Last Taken Unknown] glipizide 10 mg tablet, extended release 24 hr 10 mg PO DAILY DIABETES 3 months #90 tabs 01/07/23 [Rx Last Taken Unknown] Allergy/AdvReac Type Severity Reaction Status Date / Time Sulfa (Sulfonamide Allergy hives Verified 01/10/23 23:34 Antibiotics) aspirin AdvReac GI Upset Verified 01/10/23 23:34 red dye AdvReac migraine Verified 01/10/23 23:34 Family History Father Heart disease CAD (coronary artery disease) Alcoholism Angina pectoris Myocardial infarction Mother Hypertension Alcoholism Melanoma COPD (chronic obstructive pulmonary disease) Brother Alcoholism Anxiety Depression Diabetes Hyperlipidemia Bipolar disorder Grandfather Alcoholism Melanoma COPD (chronic obstructive pulmonary disease) Surgical History H/O cataract removal with insertion of prosthetic lens History of hysterectomy History of left heart catheterization (08/04/20) History of permanent cardiac pacemaker placement (12/08/19) History of right knee surgery Hx of arthroscopy of right knee Hx of colonoscopy Social History household members: significant other Smoking Status: Never smoker alcohol intake: current alcohol intake frequency: holidays/special occasions only substance use type: does not use caffeine: Yes Type: tea what type of physical activity do you participate in: bicycling and swimming ROS ROS Narrative Pertinent positives and pertinent negatives as noted in HPI. All other systems were reviewed and are negative Vital Signs Vital Signs Vital Signs: 01/10/23 23:26 01/10/23 23:32 01/10/23 23:30 Temperature 98.2 F Temperature Source Axillary Pulse Rate 109 H 98 Respiratory Rate 35 H 44 H Respiratory Effort Short of Breath Labored Respiratory Pattern Tachypnea Tachypnea Blood Pressure 156/126 H Blood Pressure Mean 136 Pulse Ox 84 99 Oxygen Delivery Method CPAP CPAP Fraction of Inspired Oxygen (FIO2) 100 01/11/23 00:25 Temperature Temperature Source Pulse Rate 86 Respiratory Rate 32 H Respiratory Effort Respiratory Pattern Blood Pressure 162/113 H Blood Pressure Mean 129 Pulse Ox 92 Oxygen Delivery Method Bi-pap Fraction of Inspired Oxygen (FIO2) Weight Weight: 108 kg Body Mass Index (BMI) 42.1 Physical Exam Narrative Physical exam: General: Morbidly Obese Head: Normocephalic, atraumatic, no tenderness Eyes: Vision is grossly intact. EOMI ENT, no trauma, moist mucous membranes, no rhinorrhea Neck: Nontender, No thyromegaly. CVS: Regular rate and rhythm. S1-S2 present. No murmur, gallop or rub. Respiratory : On BiPAP. Diminished. Clear to auscultation bilaterally, chest wall nontender Abdomen: Soft, nontender, nondistended, normal bowel sounds, no masses : Deferred Back: Nontender, no CVA tenderness, no midline spinal tenderness, deformities, step-offs Extremities: Nontender full range of motion, no trauma Skin: Normal color, no trauma, abrasions Neuro: Alert, oriented, cranial nerves II through XII grossly intact. Psychiatry: Normal mood. Normal affect. Not depressed. Not anxious. Results Lab / Micro Data 01/10/23 23:30 01/10/23 23:30 Labs: Laboratory Results - last 24 hr 01/10/23 23:30: WBC 9.9, RBC 4.76, Hgb 11.6 L, Hct 41.9, MCV 88.0, MCH 24.4 L, MCHC 27.7 L, RDW Std Deviation 55.4 H, RDW Coeff of Dedrick 17.1 H, Plt Count 250, MPV 9.8, Immature Gran % (Auto) 0.400, Neut % (Auto) 72.0 H, Lymph % (Auto) 20.0, [place] % (Auto) 6.4, Eos % (Auto) 0.7, Baso % (Auto) 0.5, Absolute Neuts (auto) 7.2, Absolute Lymphs (auto) 1.99, Nucleated RBC % 0, Sodium 133 L, Potassium 5.2 H, Chloride 99, Carbon Dioxide 23.0, Anion Gap 11, BUN 20 H, Creatinine 1.67 H, Estim Creat Clear Calc 28.52, Est GFR (MDRD) Af Amer 40 L, Est GFR (MDRD) Non-Af 33 L, BUN/Creatinine Ratio 12.0, Glucose 391 H, Calcium 8.6, Magnesium 2.1, Troponin I High Sens 18, B-Natriuretic Peptide 824.7 H 01/11/23 00:30: Urine Color Yellow, Urine Clarity Clear, Urine pH 6.0, Ur Spec ific [place] 1.015, Urine Protein 100 H, Urine Glucose (UA) 50 H, Urine Ketones Negative, Urine Occult Blood 50 H, Urine Nitrite Negative, Urine Bilirubin Negative, Urine Urobilinogen Normal, Ur Leukocyte Esterase 25 H, Urine RBC 0 SEEN, Urine WBC 0-5 SEEN, Ur Squamous Epith Cells 0-5 SEEN, Urine Bacteria 0 SEEN, Urine Mucus 0 SEEN Micro: Microbiology 01/10/23 23:50 Nasal Secretion SARS-CoV-2 & FLU Antigen (Rapid) - Final Radiology Impression Chest X-Ray 01/10/23 23:55 IMPRESSION: Bilateral airspace disease pulmonary edema versus pneumonia. Electronically Signed: Magalis Stanton MD at 0:27 EDT , Assessment & Plan Assessment/Plan (1) Acute and chronic respiratory failure with hypoxia: (2) Acute exacerbation of CHF (congestive heart failure): QUALIFIERS: Heart failure type: systolic Qualified Code(s): I50.23 - Acute on chronic systolic (congestive) heart failure PLAN: Plan Acute on chronic respiratory failure with hypoxia secondary to acute exhibition of heart failure with reduced ejection fraction Place on monitored bed on stepdown status initially at the PCU. Weight on admission to the floor; and then daily Strict I&O's CXR independently reviewed confirms: Bilateral airspace disease pulmonary edema versus pneumonia. I agree with radiology interpretation above. There is no leukocytosis or fever. Most likely patient has heart failure. BNP was 824.7. Review of records shows that patient BNP on 08/03/2020 was 1620.7 Received Lasix 40 mg IV push at the emergency department in which unfortunately dropped her blood pressure and patient had to be given normal saline 250 p.o. at the ED. We will hold off further Lasix at this time. Hold off home blood pressure medications until patient blood pressure stabilizes. Placed on BiPAP at the emergency department and continued. Last Echocardiogram on file was on 06/13/22: Echocardiogram at the time showed estimate ejection fraction of 35%. No regional wall motion abnormalities noted. Transthoracic echocardiogram to evaluate left ventricular wall motion and systolic function. Fluid restriction of 1500 mls daily 2 g cardiac diet Hypotension Likely secondary to BiPAP use and this. Hold further Lasix. Hold home blood pressure medications until the blood pressure is stable. Trend blood pressures. Elevated troponin initially mildly elevated and trended. EKG did not show ST or T wave DVT prophylaxis Subcutaneous Lovenox ordered. Time spent in the patient's overall evaluation,decision-making process, review of diagnostic data, adjustment of management, discussion with other providers, nursing nursing and ancillary staff involved in patient's care documentation, 70 minutes. Charges/Coding Visit Charges Inpatient E&M: 33216 Init Hosp L3
[2023-01-11] MEDS: Furosemide 40 MG/4 ML Vial IV ×2 (01:23→09:12)
[2023-01-11] MEDS: LORazepam 2 MG/ML Syringe 0.5 MG IV (01:30)
[2023-01-11 01:53] LABS: Troponin-I HS 107 pg/mL (3.0-54.0)
--- NOTE | 2023-01-11 02:05 | EKG12_ITS ---
Test Reason : DYSRHYTHMIA Blood Pressure : / mmHG Vent. Rate : 081 BPM Atrial Rate : 081 BPM P-R Int : 224 ms QRS Dur : 094 ms QT Int : 420 ms P-R-T Axes : 060 004 270 degrees QTc Int : 487 ms Sinus rhythm with sinus arrhythmia with 1st degree A-V block with frequent ventricular-paced complexe s ST & Marked T wave abnormality, consider anterolateral ischemia Prolonged QT Abnormal ECG Confirmed by SHERIF SALGADO, FELTON ([id number]), brands editor ANA STEVENSON ([id number]) on 01/14/2023 7:51:46 AM Referred By: MARKY Confirmed By:FELTON GORMAN MD
[2023-01-11] MEDS: 0.9% Normal Saline (250mL Bag) 250 ML 999 ML IV (02:13)
[2023-01-11 02:37] LABS: International Normalized Ratio 3.7; Prothrombin Time (Protime)PT. 36.9 SECONDS (11.7-14.9)
[2023-01-11 02:38] LABS: Partial Thromboplast Time 56.3 Seconds (24.1-36.2)
[2023-01-11] MEDS: Levothyroxine 88 MCG Tablet PO (06:32)
[2023-01-11 07:07] LABS: Absolute Lymphocyte Count 0.78 X10^3/uL (0.83-4.51); Absolute Neutrophil Count 5.8 X10^3/uL (2.0-7.7); Basophil# 0.01 X10^3/uL; Basophil% 0.1 % (0-1); Hematocrit 37.8 % (37-47); Hemoglobin 11.4 g/dL (12.0-15.0); Lymphocyte # 0.78 X10^3/ul (0.83-4.51); Lymphocyte % 11.3 % (19-41); Mean Corp Hgb Conc 30.2 g/dL (32-36); Mean Corpuscular Hgb 25.3 pg (27.0-32.0); Mean Platelet Vol. 10.1 fl (6.2-12.0); Monocyte# 0.36 X10^3/uL; Monocyte% 5.2 % (0-10); NRBC Flagged by Analyzer 0 % (0-5); Neutrophil # 5.75 X10^3/uL (2.7-7.7); Neutrophil % 83.1 % (47-70); Platelet Count 140 K/mm3 (150-450); RBC Distribution Width SD 52.5 fl (35.1-43.9); White Blood Count 6.9 K/mm3 (4.4-11.0)
[2023-01-11 07:29] LABS: Anion Gap 7 (5-15); BUN 26 mg/dL (7-18); BUN/Creat Ratio 17.6 RATIO (10-20); Calcium,Total 8.3 mg/dL (8.5-10.1); Chloride 107 mmol/L (98-107); Creatinine, Serum 1.48 mg/dL (0.55-1.02); EST Glomerular Filtration Rate 38 mL/min (>60); Est Glom Filt Rate - Afr Amer 46 mL/min (>60); Estimated Creatinine Clearance 32.18 ml/min; Glucose 159 mg/dL (74-106); Potassium 4.3 mmol/L (3.5-5.1); Sodium Level 139 mmol/L (136-145)
[2023-01-11 07:32] LABS: Troponin-I HS 330 pg/mL (3.0-54.0)
--- NOTE | 2023-01-11 07:50 | ECHOCS_ITS ---
Reason For Study: Dyspnea/SOB Procedure This was a 2D Doppler, Color Flow transthoracic echocardiogram. Contrast injection was performed. Exam performed portable in patient room. Left Ventricle Normal LV size. Mild concentric left ventricular hypertrophy. The estimated ejection fraction is 25 %. Stage 1 diastolic dysfunction. There is severe global hypokinesis of the left ventricle. Right Ventricle Normal RV size. Normal systolic function. Atria Normal left atrium. Normal right atrium. Mitral Valve Bileaflet diffuse mitral valve thickening. Mild-Moderate (1-2+) eccentric mitral valve insufficiency. Tricuspid Valve Normal tricuspid valve. Mild tricuspid valve insufficiency. Pulmonary artery systolic pressure is 24 mmHg. Aortic Valve Trisinus/trileaflet aortic valve. Pulmonic Valve The pulmonic valve is not well visualized. Great Vessels Normal aortic root. The pulmonary artery is normal size. Normal inferior vena cava. Pericardium/Pleural No pericardial effusion. Medication Diluted definity 2.5ml given slow IV push to enhance endocardial definition. MMode/2D Measurements & Calculations LVIDd: 5.6 cm IVSd: 1.2 cm Ao root diam: 3.4 cm LVIDs: 4.7 cm LVPWd: 1.2 cm RVDd: 3.7 cm FS: 16.1 % LAV(MOD-bp): 54.6 ml LVAd ap4: 42.0 cm2 SV(MOD-sp4): 39.9 ml LAV(MOD-bp) Indexed: 26.6 ml/m2 LVLd ap4: 8.4 cm LAV(MOD-sp2): 53.9 ml EDV(MOD-sp4): 170.5 ml LAV(MOD-sp4): 51.7 ml EDV(sp4-el): 178.7 ml LVAs ap4: 35.3 cm2 LVLs ap4: 7.9 cm ESV(MOD-sp4): 130.6 ml ESV(sp4-el): 133.8 ml EF(MOD-sp4): 23.4 % EF(sp4-el): 25.1 % SV(sp4-el): 44.9 ml LA A4 area: 18.4 cm2 LA dimension(2D): 4.0 cm RA A4 area: 9.9 cm2 TAPSE: 2.2 cm Time Measurements MV dec time: 0.15 sec Doppler Measurements & Calculations MV E max marcel: 83.2 cm/sec Lat Peak E' Marcel: 6.7 cm/sec Med Peak E' Marcel: 3.9 cm/sec MV A max marcel: 112.1 cm/sec E/E' lat: 12.4 E/E' med: 21.6 MV E/A: 0.74 MV dec slope: 556.7 cm/sec2 Ao V2 max: 121.5 cm/sec LV V1 max: 95.6 cm/sec Ao max P.9 mmHg LV V1 max P.7 mmHg Ao V2 mean: 85.0 cm/sec LV V1 mean P.9 mmHg Ao mean P.2 mmHg LV V1 mean: 64.2 cm/sec Ao V2 VTI: 18.6 cm LV V1 VTI: 16.4 cm AV (velocity ratio): 0.88 PA V2 max: 62.0 cm/sec TR max marcel: 228.2 cm/sec TR max P.8 mmHg ECHO/Echo Complete W/ Contrast Interpretation Summary Normal LV size. The estimated ejection fraction is 25 %. Stage 1 diastolic dysfunction. Mild concentric left ventricular hypertrophy. Mild-Moderate (1-2+) eccentric mitral valve insufficiency. Ordering Physician: Steffen Torres Referring Physician: Andrae Burgos Performed By: Archana Hastings, YUE, RVT
[2023-01-11] MEDS: Venlafaxine XR 75 MG Capsule PO (09:11)
[2023-01-11] MEDS: Multivitamins,Therapeutic Tablet 1 TABLET PO (09:11)
[2023-01-11] MEDS: Aspirin E.C. 81 MG Tablet PO (09:11)
[2023-01-11] MEDS: 0.9% Saline Lock 10 ML Syringe IV ×2 (09:11→13:57)
--- NOTE | 2023-01-11 10:10 | CASEMGMT ---
NOELLE HOBBS Assessment: Face to Face with pt for initial transition planning/care coordination assessment. NOELLE HOBBS introduced self and role at [facility], pt voices understanding and consents to assessment. Pt is A&O x4 and answers all questions appropriately at this time. Pt sitting up in bed with oxygen on in no distress. Care providers, pharmacy, and demographics verified/updated. Admitting Dx: acute on chronic CHF PCP:Loretta Specialists:vel Menard; Sarah cardio [facility] Insurance: [employer] Prescription Benefit: yes LNOK: Marilee Diallo, sig other; Meron Laguerre, dtr Living Arrangements: Pt lives with sig other in a mobile home with 3 steps to enter. Pt reports she is typically I in ADL's and still works, denies concerns at home. Transportation: Pt drives self and denies concerns with transportation. DME:shower chair, walk in shower, rollator, CPAP, BGM with sufficient supply of strips and lancets. Pt has scale and BP cuff that is provided by her insurance. She weighs her self daily and checks blood pressure and it electronically monitored daily. HHC/SNF: Denies hx of Pt states no concerns with going home at time of dc. Pt states no further concerns/needs. CM to follow. Advised pt to ask CM if any further question/concerns/needs arise, voices understanding. Pt Goal: Home Plan: Home, follow for oxygen
[2023-01-11 11:48] LABS: Bedside Glucose 134 mg/dL (74-106)
--- NOTE | 2023-01-11 13:24 | PCM.PN.HOSP ---
Reason for Visit Reason for Visit: Shortness of breath Subjective Subjective Patient states she is feeling much better today. States she had what seems to be a viral syndrome several days ago and actually took 2 COVID test test at home were both negative. She stayed home from work for day and then went back on or Friday she was feeling a little bit better and then her shortness of breath worsened again. Breathing is much better today overall. We discussed her change in EF down to 25% again and the need for improved heart rate. Objective Data Objective Data Vital Signs: Vital Signs Temp Pulse Resp BP Pulse Ox O2 Del Method O2 Flow Rate 99.3 F H 107 H 22 H 95/70 96 CPAP 4 01/11/23 11:34 01/11/23 11:34 01/11/23 11:34 01/11/23 11:34 01/11/23 11:34 01/11/23 11:34 01/11/23 06:19 FiO2 35 01/11/23 04:40 Oxygen Flow Rate (L/min) 4 Oxygen Delivery Method CPAP Weight: 105.3 kg Body Mass Index (BMI) 41.1 Intake & Output: Intake and Output for Last 24 Hours 01/09/23 01/10/23 01/11/23 23:59 23:59 23:59 Intake Total 610 / 610 Output Total 2450 / 2450 Balance -1840 / -1840 Lab / Micro Data 01/11/23 06:53 01/11/23 06:53 Labs: Laboratory Results - last 24 hr 01/10/23 23:30: WBC 9.9, RBC 4.76, Hgb 11.6 L, Hct 41.9, MCV 88.0, MCH 24.4 L, MCHC 27.7 L, RDW Std Deviation 55.4 H, RDW Coeff of [place] 17.1 H, Plt Count 250, MPV 9.8, Immature Gran % (Auto) 0.400, Neut % (Auto) 72.0 H, Lymph % (Auto) 20.0, [place] % (Auto) 6.4, Eos % (Auto) 0.7, Baso % (Auto) 0.5, Absolute Neuts (auto) 7.2, Absolute Lymphs (auto) 1.99, Nucleated RBC % 0, PT 36.9 H, INR 3.7, APTT 56.3 H, Sodium 133 L, Potassium 5.2 H, Chloride 99, Carbon Dioxide 23.0, Anion Gap 11, BUN 20 H, Creatinine 1.67 H, Estim Creat Clear Calc 28.52, Est GFR (MDRD) Af Amer 40 L, Est GFR (MDRD) Non-Af 33 L, BUN/Creatinine Ratio 12.0, Glucose 391 H, Calcium 8.6, Magnesium 2.1, Troponin I High Sens 18, B-Natriuretic Peptide 824.7 H 01/11/23 00:30: Urine Color Yellow, Urine Clarity Clear, Urine pH 6.0, Ur Specific [place] 1.015, Urine Protein 100 H, Urine Glucose (UA) 50 H, Urine Ketones Negative, Urine Occult Blood 50 H, Urine Nitrite Negative, Urine Bilirubin Negative, Urine Urobilinogen Normal, Ur Leukocyte Esterase 25 H, Urine RBC 0 SEEN, Urine WBC 0-5 SEEN, Ur Squamous Epith Cells 0-5 SEEN, Urine Bacteria 0 SEEN, Urine Mucus 0 SEEN 01/11/23 01:25: Troponin I High Sens 107 H 01/11/23 06:53: WBC 6.9, RBC 4.50, Hgb 11.4 L, Hct 37.8, MCV 84.0, MCH 25.3 L, MCHC 30.2 L D, RDW Std Deviation 52.5 H, RDW Coeff of [place] 17.0 H, Plt Count 140 L, MPV 10.1, Immature Gran % (Auto) 0.300, Neut % (Auto) 83.1 H, Lymph % (Auto) 11.[address], [place] % (Auto) 5.2, Eos % (Auto) 0.0, Baso % (Auto) 0.1, Absolute Neuts (auto) 5.8, Absolute Lymphs (auto) 0.78 L, Nucleated RBC % 0, Sodium 139, Potassium 4.3, Chloride 107, Carbon Dioxide 25.0, Anion Gap 7, BUN 26 H, Creatinine 1.48 H, Estim Creat Clear Calc 32.18, Est GFR (MDRD) Af Amer 46 L, Est GFR (MDRD) Non-Af 38 L, BUN/Creatinine Ratio 17.6, Glucose 159 H, Calcium 8.3 L, Troponin I High Sens 330 H* 01/11/23 11:25: POC Glucose 134 H Micro: Microbiology 01/10/23 23:50 Nasal Secretion SARS-CoV-2 & FLU Antigen (Rapid) - Final Radiography Diagnostic Testing: Radiology Impression Chest X-Ray 01/10/23 23:55 IMPRESSION: Bilateral airspace disease pulmonary edema versus pneumonia. Electronically Signed: Magalis Stanton MD at 0:27 EDT , Echocardiogram 01/11/23 07:50 Interpretation Summary Normal LV size. The estimated ejection fraction is 25 %. Stage 1 diastolic dysfunction. Mild concentric left ventricular hypertrophy. Mild-Moderate (1-2+) eccentric mitral valve insufficiency. Ordering Physician: Steffen Torres Referring Physician: Andrae Burgos Performed By: Archana Hastings, YUE, RVT Physical Exam Const alert, oriented x3, no apparent distress and well nourished; Negative for average body habitus or healthy appearing Constitutional Narrative: Morbidly obese, white female, sitting up in bed, daughter and grand daughter at bedside, appears comfortable and nontoxic, currently on 2 L nasal cannula with no signs of respiratory distress HEENT head/scalp atraumatic and moist oral mucous membranes HEENT Narrative: Mallampati 4, no thrush Head and Scalp: normocephalic Eyes PERRL and EOMs intact bilaterally Neck no lymphadenopathy and supple Neck Narrative: Trachea midline, no thyroid enlargement, neck is short and thick Resp normal respiratory effort, no retractions and no use of accessory muscles Resp Narrative: Bibasilar crackles noted but no signs of respiratory distress at this time patient is currently on 2 L nasal cannula Auscultation: crackles Cardio regular rate, regular rhythm, S1 normal heart sound, S2 normal heart sound, no murmurs, no rub, no gallops and no clicks Cardio Narrative: Distant heart tones body habitus but rhythm is currently regular GI normal to inspection, nondistended, normoactive bowel sounds, soft to palpation and non-tender Extremity Extremity Narrative: Trace bilateral lower extremity edema, no signs of cyst or clubbing Skin no wounds, skin turgor normal, no jaundice, no petechiae and no mottling Neuro oriented x3, moves all extremities and no focal motor deficits Speech: speech normal Psych affect normal Psych Narrative: Sent, interacts appropriately Assessment & Plan Assessment/Plan (1) Acute and chronic respiratory failure with hypoxia: (2) Acute exacerbation of CHF (congestive heart failure): QUALIFIERS: Heart failure type: systolic Qualified Code(s): I50.23 - Acute on chronic systolic (congestive) heart failure (3) Elevated troponin: (4) MARICRUZ (acute kidney injury): (5) Paroxysmal atrial fibrillation with rapid ventricular response: (6) Acute respiratory failure with hypoxia: (7) Acute HFrEF (heart failure with reduced ejection fraction): PLAN: Plan Acute hypoxic respiratory failure-suspect multifactorial -Suspect viral syndrome plus decompensated acute on chronic -Patient has been able to be weaned to 2 L nasal cannula -She did require BiPAP in the emergency department and was on CPAP through the night -We have been able to slowly down titrate her oxygen over time -Aspiratory viral panel is pending -COVID-19 is negative -Continue incentive spirometer -Will need ambulatory pulse ox prior to discharge -Continue nocturnal CPAP Acute on chronic heart failure with reduced ejection fraction secondary to nonischemic cardiomyopathy -Change diet to sodium restricted with fluid restriction at 1750 mL -Echocardiogram shows EF of 25% which is down from 35% previously along with stage I diastolic dysfunction, mild concentric LVH and mild to moderate eccentric mitral valve insufficiency -Without mitral valve insufficiency her actual EF is probably less than 25% -Discussed starting Jardiance with the patient however she had been on this previously and had an adverse reaction -Consider outpatient trial of Farxiga after discharge -Start Lasix drip -Blood pressures have been borderline so Entresto was on hold for right now -Reports baseline blood pressures are about 90-100/60-70 -Was recent was 89/59 -Patient is on Coreg at baseline at 25 mg daily -Restart metoprolol 12.5 mg p.o. twice daily for now with lower blood pressure to help control heart rate as this may be contributing to some of her heart failure Troponin elevation -Likely related to acute heart failure along with A-fib with RVR former stress-induced ischemia/NSTEMI type II -Echo shows no wall motion abnormality -If worsening EF will have cardiology evaluate the patient tomorrow however I do not anticipate that this is related to type I NSTEMI A-fib with RVR -Heart rate control is better and patient is currently in sinus rhythm -Start low-dose metoprolol 12.5 mg p.o. twice daily -If recurs or heart rates are difficult controlled may need amiodarone -Continue home rivaroxaban and watch renal GoLytely as it is improving but if worsens may need to adjust dosing MARICRUZ -Continue to hold Entresto -Serum creatinine improves with dialysis -Repeat BMP in a.m. -Suspect elevated due to patient being off [place] curve History of complete heart block -Cardiac catheterization done in 2019 showed no obstructive coronary disease -Micra AV sequential device placed at that time for heart block -Continue outpatient cardiology follow-up -Patient is currently in normal sinus rhythm however was in A-fib on presentation Hypertension -Blood pressure with medications usually runs between 90 and 100 systolic and 60-70 diastolic -Current blood pressure is on the low side likely related to her elevated heart rates and worsened heart failure -Hold home Coreg and Entresto -We will give low-dose metoprolol to help control heart rates but if this lowers her blood pressure further may need to discontinue and place her on amiodarone versus digoxin x1 dose to help control heart rate a bit better Hyperlipidemia -Continue home atorvastatin Hypothyroidism -Continue home levothyroxine -Check a.m. TSH LUIS FELIPE -Continue nocturnal CPAP Depression -Continue home medication Morbid obesity -BMI 41.1 -Complicates treatment, prognosis, outcomes -Recommend weight loss DVT prophylaxis -Continue home rivaroxaban CODE STATUS -Full code Charges/Coding Visit Charges Inpatient E&M: 49858 [facility] Hosp L3
[2023-01-11] MEDS: Acetaminophen 325 MG Tablet 650 MG PO (13:57)
[2023-01-11] MEDS: Furosemide 500 MG in Empty Viaflex 50 mL 1 EACH CONT INF (14:01)
[2023-01-11 16:38] LABS: Bedside Glucose 89 mg/dL (74-106)
[2023-01-11] MEDS: Rivaroxaban 20 MG Tablet PO (17:26)
[2023-01-11] MEDS: Atorvastatin Calcium 10 MG Tablet PO (21:06)
[2023-01-11 21:51] LABS: Bedside Glucose 111 mg/dL (74-106)
[2023-01-12] VITALS (16 sets, daily range): BP systolic 78–108; BP diastolic 57–89; PULSE 74–96; RESP 12–20; TEMP 36.7–37; O2SAT 93–100; BMI 39.8
[2023-01-12 06:22] LABS: Absolute Lymphocyte Count 1.35 X10^3/uL (0.83-4.51); Absolute Neutrophil Count 2.4 X10^3/uL (2.0-7.7); Basophil# 0.03 X10^3/uL; Basophil% 0.7 % (0-1); Eosinophil# 0.04 X10^3/uL; Hematocrit 40.5 % (37-47); Hemoglobin 12.1 g/dL (12.0-15.0); Lymphocyte # 1.35 X10^3/ul (0.83-4.51); Lymphocyte % 32.2 % (19-41); Mean Corp Hgb Conc 29.9 g/dL (32-36); Mean Corpuscular Hgb 24.6 pg (27.0-32.0); Mean Corpuscular Volume 82.3 fL (81-99); Mean Platelet Vol. 9.9 fl (6.2-12.0); Monocyte# 0.39 X10^3/uL; Monocyte% 9.3 % (0-10); NRBC Flagged by Analyzer 0 % (0-5); Neutrophil # 2.36 X10^3/uL (2.7-7.7); Neutrophil % 56.3 % (47-70); Platelet Count 171 K/mm3 (150-450); RBC Distribution Width SD 50.8 fl (35.1-43.9); Red Blood Count 4.92 M/mm3 (4.2-5.4); White Blood Count 4.2 K/mm3 (4.4-11.0)
[2023-01-12] MEDS: Levothyroxine 88 MCG Tablet PO (06:39)
[2023-01-12 07:06] LABS: Bedside Glucose 90 mg/dL (74-106)
[2023-01-12 07:17] LABS: ALB/GLOB Ratio 0.8 RATIO (0.9-2.4); AST(SGOT) 278 U/L (15-37); Alanine Aminotransfer ALT/SGPT 271 U/L (13-56); Albumin, Serum 3.3 g/dL (3.2-5.0); Alkaline Phosphatase 125 U/L (45-117); Anion Gap 9 (5-15); BUN 26 mg/dL (7-18); BUN/Creat Ratio 21.7 RATIO (10-20); Calcium,Total 8.6 mg/dL (8.5-10.1); Chloride 104 mmol/L (98-107); EST Glomerular Filtration Rate 48 mL/min (>60); Est Glom Filt Rate - Afr Amer 58 mL/min (>60); Estimated Creatinine Clearance 39.69 ml/min; Globulin 4.3 g/dL (2.2-4.2); Glucose 95 mg/dL (74-106); Phosphorus 3.4 mg/dL (2.5-4.9); Potassium 3.1 mmol/L (3.5-5.1); Protein, Total 7.6 g/dL (6.4-8.2); Sodium Level 142 mmol/L (136-145); Thyroid Stim Hormone (TSH) 2.76 uIU/mL (0.358-3.74)
--- NOTE | 2023-01-12 07:27 | US_ITS ---
EXAM: US ABDOMEN LIMITED, RIGHT UPPER QUADRANT CLINICAL INDICATION: transaminitis TECHNIQUE: Real-time ultrasound of the right upper quadrant with image documentation. COMPARISON: No relevant prior studies available. FINDINGS: LIVER: Liver echogenicity appears increased suggesting diffuse parenchymal liver disease, likely steatosis. No intrahepatic biliary ductal dilation. GALLBLADDER: Normal. No shadowing gallstone. No gallbladder wall thickening is demonstrated. No pericholecystic fluid. Negative sonographic Gonzalez''s sign. COMMON BILE DUCT: Unremarkable as visualized. The proximal common bile duct is normal size. PANCREAS: Unremarkable as visualized. No focal abnormality is demonstrated in the pancreas. No pancreatic ductal dilatation. RIGHT KIDNEY: Normal. There is no hydronephrosis. No shadowing calculus. No focal lesion or perinephric collection is demonstrated. US/Liver IMPRESSION: Parenchymal liver disease. Electronically Signed: Humza Rodriguez MD at 16:52 EDT ,
[2023-01-12] MEDS: Aspirin E.C. 81 MG Tablet PO (08:04)
[2023-01-12] MEDS: Multivitamins,Therapeutic Tablet 1 TABLET PO (08:04)
[2023-01-12] MEDS: Potassium Chloride Oral Tablet 20 MEQ 60 MEQ PO (08:04)
[2023-01-12] MEDS: Venlafaxine XR 75 MG Capsule PO (08:04)
--- NOTE | 2023-01-12 10:11 | CON.PCM.CA_ITS ---
Assessment & Plan Assessment/Plan (1) Paroxysmal atrial fibrillation with rapid ventricular response: PLAN: She presents with atrial fibrillation with a rapid ventricular response rate. The plan is to continue with anticoagulation as well as rate reduction with the beta-neftali. Her carvedilol should be resumed. (2) Acute exacerbation of CHF (congestive heart failure): QUALIFIERS: Heart failure type: systolic Qualified Code(s): I 50.23 - Acute on chronic systolic (congestive) heart failure PLAN: She does have an exacerbation of congestive heart failure. The exact precipitating factor is unknown at this time it probably is related to the atrial fibrillation. She will continue with the diuretic therapy as well as guideline directed therapy with carvedilol, Entresto, Lasix, and spironolactone. (3) History of permanent cardiac pacemaker placement: PLAN: She does have a permanent pacemaker placed. We will continue with the current evaluation from the pacemaker clinic. (4) Non-ischemic cardiomyopathy: PLAN: She does have evidence of nonischemic cardiomyopathy. We will continue with guideline directed medical therapy. (5) CHF (congestive heart failure), NYHA class III: PLAN: she does have congestive heart failure [employer] class III. We will continue with guideline directed medical therapy and optimize her care. If her ejection fraction remains persistently below 35% within the next 3 months we should consider placement of an implantable defibrillator. (6) Essential (primary) hypertension: PLAN: She does have a history of hypertension which is well controlled at this particular time no major changes will be made. HPI Consult Data Date of Consult: 01/12/23 HPI Narrative HPI Narrative: RUFINO MORE, is a 62 F who presents with shortness of breath. She was noted to be in atrial fibrillation and had an echocardiogram done which demonstrated a slight decline in her ejection fraction. She had presented in November 2019 at [facility] for complete heart block. Her echocardiogram at that time was noted to be normal. She underwent a cardiac catheterization which demonstrated no obstructive coronary disease. She subsequently underwent placement of a Micra AV sequential device and subsequently developed shortness of breath. Her ejection fraction reduced to 30%. We optimized her medications as well as optimized her AV sequential pacemaker. She underwent an echocardiogram in July of 2021, and her ejection fraction worsened to 25%. Her echocardiogram in May of 2022, demonstrated an ejection fraction of 35%. She was started on Entresto 24-26mg twice daily, along with carvedilol 25mg twice daily, and furosemide 40mg daily. She appears to be taking these medications. [facility] Medical History Anemia Anxiety and depression Back pain Bilateral lower extremity edema CHF (congestive heart failure), NYHA class III Chronic combined systolic and diastolic CHF (congestive heart failure) Complete heart block CPAP (continuous positive airway pressure) dependence Diabetes Dietary restriction Edema Essential (primary) hypertension Flu vaccine need Folliculitis Headache, migraine History of deep venous thrombosis (2012) History of non-ST elevation myocardial infarction (NSTEMI) (08/03/20) Hx of echocardiogram Hyperlipidemia Hypothyroidism Left hip pain Leg cramps Non-ischemic cardiomyopathy Non-smoker Obesity LUIS FELIPE (obstructive sleep apnea) Osteoarthritis Pacemaker Pain aggravated by walking Preoperative evaluation to rule out surgical contraindication Scratch Seasonal allergies Type 2 diabetes mellitus Wears glasses Home Medications multivitamin 1 tab PO DAILY SUPPLEMENT 05/10/20 [History Last Taken Unknown] carvedilol 25 mg tablet See Rx Instructions .Route .COMPLEX #180 TABLETS 06/10/22 [Rx Last Taken Unknown] levothyroxine 88 mcg tablet See Rx Instructions .Route .COMPLEX #90 TABLETS 06/10/22 [Rx Last Taken Unknown] aspirin 81 mg tablet,delayed release (Adult Low Dose Aspirin) 81 mg PO DAILY 08/01/22 [History Last Taken Unknown] furosemide 40 mg tablet 40 mg PO DAILY WATER PILL #90 tabs 08/05/22 [Rx Last Taken Unknown] rivaroxaban 20 mg tablet (Xarelto) 20 mg PO QPM BLOOD THINNER #90 tabs 09/05/22 [Rx Last Taken Unknown] sacubitril 24 mg-valsartan 26 mg tablet (Entresto) 1 tab PO BID #60 tabs 09/13/22 [Rx Last Taken Unknown] venlafaxine 75 mg capsule,extended release 24 hr 75 mg PO DAILY DEPRESSION #90 caps 10/23/22 [Rx Last Taken Unknown] atorvastatin 10 mg tablet See Rx Instructions .Route .COMPLEX #90 tabs 12/17/22 [Rx Last Taken Unknown] krill oil 500 mg capsule 500 mg PO BID unknown 12/25/22 [History Last Taken Unknown] glipizide 10 mg tablet, extended release 24 hr 10 mg PO DAILY DIABETES 3 months #90 tabs 01/07/23 [Rx Last Taken Unknown] Allergy/AdvReac Type Severity Reaction Status Date / Time Sulfa (Sulfonamide Allergy hives Verified 01/10/23 23:34 Antibiotics) aspirin AdvReac GI Upset Verified 01/10/23 23:34 red dye AdvReac migraine Verified 01/10/23 23:34 Family History Father Heart disease CAD (coronary artery disease) Alcoholism Angina pectoris Myocardial infarction Mother Hypertension Alcoholism Melanoma COPD (chronic obstructive pulmonary disease) Brother Alcoholism Anxiety Depression Diabetes Hyperlipidemia Bipolar disorder Grandfather Alcoholism Melanoma COPD (chronic obstructive pulmonary disease) Surgical History H/O cataract removal with insertion of prosthetic lens History of hysterectomy History of left heart catheterization (08/04/20) History of permanent cardiac pacemaker placement (12/08/19) History of right knee surgery Hx of arthroscopy of right knee Hx of colonoscopy Social History household members: significant other Smoking Status: Never smoker alcohol intake: current alcohol intake frequency: holidays/special occasions only substance use type: does not use caffeine: Yes Type: tea what type of physical activity do you participate in: bicycling and swimming ROS Constitutional Constitutional: Denies fever(s) or weight loss Eyes Eyes: Reports systems reviewed and no addt'l complaints, except as documented ENT HEENT: Reports systems reviewed and no addt'l complaints, except as documented Cardiovascular Cardiovascular: Denies chest pain at rest, chest pain with activity, dyspnea at rest, dyspnea on exertion, edema, palpitations or paroxysmal nocturnal dyspnea Respiratory/Chest Respiratory/Chest: Reports dyspnea on exertion, shortness of breath at rest and shortness of breath with exertion; Denies productive cough Gastrointestinal Gastrointestinal: Denies change in bowel habits, nausea, vomiting or weight changes Genitourinary Genitourinary: Denies difficulty urinating Musculoskeletal Musculoskeletal: Denies joint stiffness or muscle weakness Integumentary Integumentary: Denies lesions Neurologic Neurologic: Denies dizziness or syncope Psychiatric Psychiatric: Denies anxiety Endocrine Endocrinology: Denies excessive sweating or fatigue Hematologic/Lymphatic Hematologic/Lymphatic: Denies anemia Allergic/Immunologic Allergic/Immunologic: Denies seasonal rhinorrhea Physical Exam Const alert, oriented x3 and no apparent distress General Appearance: cooperative HEENT hearing grossly normal bilaterally Head and Scalp: atraumatic Eyes EOMs intact bilaterally Neck General: normal visual inspection Chest inspection of chest normal and palpation of chest normal Resp normal respiratory effort Auscultation: clear to auscultation bilaterally Cardio regular rate, regular rhythm, S1 normal heart sound and S2 normal heart sound Jugular Venous Distention: JVD GI normal to inspection, nondistended, normoactive bowel sounds Extremity normal capillary refill and no pedal edema Peripheral Pulses: Yes pulses 2+ throughout and femoral pulses present Skin no rashes or lesions noted Neuro oriented x3 and CN's II-XII intact bilaterally Psych Appearance: grossly normal and appropriate Risk Stratification Risk Stratification Applicable: No Objective Data Vital Signs: Vital Signs Temp Pulse Resp BP Pulse Ox O2 Del Method O2 Flow Rate 98.0 F 82 18 94/70 94 Room Air 1 01/12/23 06:41 01/12/23 06:41 01/12/23 06:41 01/12/23 06:41 01/12/23 08:13 01/12/23 08:13 01/12/23 07:50 FiO2 30 01/12/23 02:10 Oxygen Flow Rate (L/min) 1 Oxygen Delivery Method Room Air Weight: 224 lb 13.944 oz Body Mass Index (BMI) 39.8 Intake & Output: Intake and Output for Last 24 Hours 01/10/23 01/11/23 01/12/23 23:59 23:59 23:59 Intake Total 853.98 / 928.98 322.33 / 322.33 Output Total 3750 / 5750 2700 / 2700 Balance -2896.02 / -4821.02 -2377.67 / -2377.67 Lab / Micro Data 01/12/23 06:00 01/12/23 06:00 Labs: Laboratory Results - last 24 hr 01/11/23 11:25: POC Glucose 134 H 01/11/23 16:17: POC Glucose 89 01/11/23 21:15: POC Glucose 111 H 01/12/23 06:00: WBC 4.2 L, RBC 4.92, Hgb 12.1, Hct 40.5, MCV 82.3, MCH 24.6 L, MCHC 29.9 L, RDW Std Deviation 50.8 H, RDW Coeff of Dedrick 17.0 H, Plt Count 171, MPV 9.9, Immature Gran % (Auto) 0.500, Neut % (Auto) 56.3, Lymph % (Auto) 32.2, [place] % (Auto) 9.3, Eos % (Auto) 1.0, Baso % (Auto) 0.7, Absolute Neuts (auto) 2.4, Absolute Lymphs (auto) 1.35, Nucleated RBC % 0, Sodium 142, Potassium 3.1 L , Chloride 104, Carbon Dioxide 29.0, Anion Gap 9, BUN 26 H, Creatinine 1.20 H, Estim Creat Clear Calc 39.69, Est GFR (MDRD) Af Amer 58 L, Est GFR (MDRD) Non-Af 48 L, BUN/Creatinine Ratio 21.7 H, Glucose 95, Calcium 8.6, Phosphorus 3.4, Total Bilirubin 0.70, AST 278 H, ALT 271 H, Alkaline Phosphatase 125 H, Total Protein 7.6, Albumin 3.3, Globulin 4.3 H, Albumin/Globulin Ratio 0.8 L, TSH 2.76 01/12/23 06:38: POC Glucose 90 Micro: Microbiology 01/11/23 11:32 Mucosa - Nasopharyngeal Respiratory Panel (PCR) - Final Cardiology Labs/Tests 01/12/23 06:00: WBC 4.2 L, RBC 4.92, Hgb 12.1, Hct 40.5, MCV 82.3, MCH 24.6 L, MCHC 29.9 L, Plt Count 171, MPV 9.9, Immature Gran % (Auto) 0.500, Neut % (Auto) 56.3, Lymph % (Auto) 32.2, [place] % (Auto) 9.3, Eos % (Auto) 1.0, Baso % (Auto) 0.7, Absolute Neuts (auto) 2.4, Nucleated RBC % 0, Sodium 142, Potassium 3.1 L, Chloride 104, Carbon Dioxide 29.0, Anion Gap 9, BUN 26 H, Creatinine 1.20 H, Est GFR (MDRD) Af Amer 58 L, Est GFR (MDRD) Non-Af 48 L, BUN/Creatinine Ratio 21.7 H , Glucose 95, Calcium 8.6, Phosphorus 3.4, Total Bilirubin 0.70 Rhythm: EKG: ECHO: Stress Test: Cardiac Cath: PCI: CT Surgery: Holter monitor: EPS: PPM: CXR: Chest CT Scan: Radiography Diagnostic Testing: Radiology Impression Echocardiogram 01/11/23 07:50 Interpretation Summary Normal LV size. The estimated ejection fraction is 25 %. Stage 1 diastolic dysfunction. Mild concentric left ventricular hypertrophy. Mild-Moderate (1-2+) eccentric mitral valve insufficiency. Ordering Physician: Steffen Torres Referring Physician: Andrae Burgos Performed By: Archana Hastings, YUE, RVT
[2023-01-12] MEDS: 0.9% Saline Lock 10 ML Syringe IV ×2 (10:24→17:28)
[2023-01-12] MEDS: Influenza Virus Vac Quad 23-24 60 MCG/0.5 ML SYRINGE IM (10:24)
[2023-01-12] MEDS: Furosemide 40 MG/4 ML Vial IV ×2 (10:24→17:28)
[2023-01-12 11:34] LABS: Bedside Glucose 143 mg/dL (74-106)
--- NOTE | 2023-01-12 11:34 | PCM.PN.HOSP ---
Reason for Visit Reason for Visit: Shortness of breath Subjective Subjective Patient states she is overall feeling much better and now on room air this morning. Would like to have her Ellison out and try to move around a bit today. She is diuresed 5.3 L over the last 24 hours and her weight is down 2.3 kg. Objective Data Objective Data Vital Signs: Vital Signs Temp Pulse Resp BP Pulse Ox O2 Del Method O2 Flow Rate 98.1 F 79 18 106/77 100 CPAP 1 01/12/23 10:00 01/12/23 10:00 01/12/23 10:00 01/12/23 10:00 01/12/23 10:00 01/12/23 10:00 01/12/23 07:50 FiO2 30 01/12/23 02:10 Oxygen Flow Rate (L/min) 1 Oxygen Delivery Method CPAP Weight: 102 kg Body Mass Index (BMI) 39.8 Intake & Output: Intake and Output for Last 24 Hours 01/10/23 01/11/23 01/12/23 23:59 23:59 23:59 Intake Total 853.98 / 928.98 322.33 / 322.33 Output Total 3750 / 5750 2700 / 2700 Balance -2896.02 / -4821.02 -2377.67 / -2377.67 Lab / Micro Data 01/12/23 06:00 01/12/23 06:00 Labs: Laboratory Results - last 24 hr 01/11/23 11:25: POC Glucose 134 H 01/11/23 16:17: POC Glucose 89 01/11/23 21:15: POC Glucose 111 H 01/12/23 06:00: WBC 4.2 L, RBC 4.92, Hgb 12.1, Hct 40.5, MCV 82.3, MCH 24.6 L, MCHC 29.9 L, RDW Std Deviation 50.8 H, RDW Coeff of Dedrick 17.0 H, Plt Count 171, MPV 9.9, Immature Gran % (Auto) 0.500, Neut % (Auto) 56.3, Lymph % (Auto) 32.2, Randall % (Auto) 9.3, Eos % (Auto) 1.0, Baso % (Auto) 0.7, Absolute Neuts (auto) 2.4, Absolute Lymphs (auto) 1.35, Nucleated RBC % 0, Sodium 142, Potassium 3.1 L, Chloride 104, Carbon Dioxide 29.0, Anion Gap 9, BUN 26 H, Creatinine 1.20 H, Estim Creat Clear Calc 39.69, Est GFR (MDRD) Af Amer 58 L, Est GFR (MDRD) Non-Af 48 L, BUN/Creatinine Ratio 21.7 H, Glucose 95, Calcium 8.6, Phosphorus 3.4, Total Bilirubin 0.70, AST 278 H, ALT 271 H, Alkaline Phosphatase 125 H, Total Protein 7.6, Albumin 3.3, Globulin 4.3 H, Albumin/Globulin Ratio 0.8 L, TSH 2.76 01/12/23 06:38: POC Glucose 90 01/12/23 10:58: POC Glucose 143 H Micro: Microbiology 01/11/23 11:32 Mucosa - Nasopharyngeal Respiratory Panel (PCR) - Final 01/10/23 23:50 Nasal Secretion SARS-CoV-2 & FLU Antigen (Rapid) - Final Physical Exam Const alert, oriented x3, no apparent distress and well nourished; Negative for average body habitus or healthy appearing Constitutional Narrative: Morbidly obese, white female, sitting up in bed on room air, watching television, appears comfortable nontoxic HEENT head/scalp atraumatic and moist oral mucous membranes HEENT Narrative: Mallampati 3-4, no thrush Head and Scalp: normocephalic Resp normal respiratory effort, no retractions, no use of accessory muscles and clear to auscultation bilaterally Resp Narrative: Distant due to body habitus but clear Auscultation: Negative for crackles, rhonchi or wheezes Cardio regular rate, regular rhythm, S1 normal heart sound, S2 normal heart sound, no murmurs, no rub, no gallops and no clicks Cardio Narrative: Distant heart tones body habitus but rhythm is currently regular GI normal to inspection, nondistended, normoactive bowel sounds, soft to palpation and non-tender Extremity no clubbing, cyanosis or edema Neuro oriented x3, moves all extremities and no focal motor deficits Speech: speech normal Psych affect normal Psych Narrative: Pleasant, interacts appropriately Assessment & Plan Assessment/Plan (1) Acute and chronic respiratory failure with hypoxia: (2) Acute exacerbation of CHF (congestive heart failure): QUALIFIERS: Heart failure type: systolic Qualified Code(s): I50.23 - Acute on chronic systolic (congestive) heart failure (3) Elevated troponin: (4) MARICRUZ (acute kidney injury): (5) Paroxysmal atrial fibrillation with rapid ventricular response: (6) Acute respiratory failure with hypoxia: (7) Acute HFrEF (heart failure with reduced ejection fraction): (8) Transaminitis: PLAN: Plan Acute hypoxic respiratory failure-suspect multifactorial -Suspect viral syndrome plus decompensated acute on chronic -Resolved -Patient is back on room air at rest -Respiratory viral panel and COVID are negative -Patient appears much more compensated with regards to her heart failure -We will need ambulatory pulse ox prior to discharge Acute on chronic heart failure with reduced ejection fraction secondary to nonischemic cardiomyopathy -Change diet to sodium restricted with fluid restriction at 1750 mL -Echocardiogram shows EF of 25% which is down from 35% previously along with stage I diastolic dysfunction, mild concentric LVH and mild to moderate eccentric mitral valve insufficiency -Without mitral valve insufficiency her actual EF is probably less than 25% -Discussed starting Jardiance with the patient however she had been on this previously and had an adverse reaction -Consider outpatient trial of Farxiga after discharge -Lasix drip was discontinued overnight due to low blood pressures. Will restart IV Lasix 40 twice daily -Blood pressures have been borderline so Entresto was on hold for right now -Reports baseline blood pressures are about 90-100/60-70 -Blood pressure seem to be improving -Patient is on Coreg at baseline at 25 mg daily -Per discussion with Dr. Smith will restart home Coreg and hold off Entresto for now -May need ICD in future depending on ejection fraction Troponin elevation -Likely related to acute heart failure along with A-fib with RVR former stress-induced ischemia/NSTEMI type II -Echo shows no wall motion abnormality -Cardiology agrees that this is likely related to her A-fib and heart failure A-fib with RVR -Heart rate control is better and patient is currently in sinus rhythm -Start home Coreg -If recurs or heart rates are difficult controlled may need amiodarone -Continue home rivaroxaban MARICRUZ -Resolving--> likely related to heart failure and patient being off the Starling curve -Continue to hold Entresto -Serum creatinine improves with dialysis -Repeat BMP in a.m. -Suspect elevated due to patient being off Starling curve Transaminitis -Suspect related to passive congestion due to heart failure -Have no comparison from admission -We will check liver ultrasound -May also have component of fatty liver History of complete heart block -Cardiac catheterization done in 2020 showed no obstructive coronary disease -Micra AV sequential device placed at that time for heart block -Continue outpatient cardiology follow-up -Patient is currently in normal sinus rhythm however was in A-fib on presentation Hypertension -Blood pressure with medications usually runs between 90 and 100 systolic and 60-70 diastolic -Current blood pressure is on the low side likely related to her elevated heart rates and worsened heart failure -Continue to hold home Entresto but restart home Coreg per discussion with cardiology Hyperlipidemia -Continue home atorvastatin Hypothyroidism -Continue home levothyroxine -TSH WNL LUIS FELIPE -Continue nocturnal CPAP Depression -Continue home medication Morbid obesity -BMI 39.8 -Complicates treatment, prognosis, outcomes -Recommend weight loss DVT prophylaxis -Continue home rivaroxaban CODE STATUS -Full code Charges/Coding Visit Charges Inpatient E&M: 79490 Subs Hosp L2
[2023-01-12] MEDS: Carvedilol 25 MG Tablet PO ×2 (13:40→21:47)
[2023-01-12] MEDS: Rivaroxaban 20 MG Tablet PO (16:10)
[2023-01-12 16:48] LABS: Bedside Glucose 114 mg/dL (74-106)
[2023-01-12] MEDS: Acetaminophen 325 MG Tablet 650 MG PO (21:47)
[2023-01-12] MEDS: Atorvastatin Calcium 10 MG Tablet PO (21:47)
[2023-01-12 21:57] LABS: Bedside Glucose 169 mg/dL (74-106)
--- NOTE | 2023-01-13 01:52 | CPS ---
pt just up to restroom
[2023-01-13 04:00] VITALS: BP 91/70; PULSE 74; RESP 12; RESP 18; TEMP 36.6; O2SAT 100
[2023-01-13 05:08] VITALS: BMI 39.6
[2023-01-13 05:58] LABS: Absolute Neutrophil Count 1.7 X10^3/uL (2.0-7.7); Basophil# 0.02 X10^3/uL; Basophil% 0.5 % (0-1); Eosinophil# 0.14 X10^3/uL; Eosinophils% 3.5 % (0-5); Hematocrit 39.6 % (37-47); Hemoglobin 11.6 g/dL (12.0-15.0); Lymphocyte % 40.2 % (19-41); Mean Corp Hgb Conc 29.3 g/dL (32-36); Mean Corpuscular Hgb 24.4 pg (27.0-32.0); Mean Corpuscular Volume 83.4 fL (81-99); Mean Platelet Vol. 10.7 fl (6.2-12.0); Monocyte# 0.47 X10^3/uL; Monocyte% 11.8 % (0-10); NRBC Flagged by Analyzer 0 % (0-5); Neutrophil # 1.73 X10^3/uL (2.7-7.7); Neutrophil % 43.5 % (47-70); Platelet Count 178 K/mm3 (150-450); RBC Distribution Width CV 16.6 % (11.6-14.6); RBC Distribution Width SD 50.4 fl (35.1-43.9); Red Blood Count 4.75 M/mm3 (4.2-5.4)
[2023-01-13] MEDS: Levothyroxine 88 MCG Tablet PO (06:22)
[2023-01-13 06:40] LABS: AST(SGOT) 129 U/L (15-37); Alanine Aminotransfer ALT/SGPT 232 U/L (13-56); Albumin, Serum 3.2 g/dL (3.2-5.0); Alkaline Phosphatase 113 U/L (45-117); Anion Gap 6 (5-15); BUN 34 mg/dL (7-18); BUN/Creat Ratio 25.8 RATIO (10-20); Bilirubin, Direct 0.21 mg/dL (0.00-0.30); Calcium,Total 8.7 mg/dL (8.5-10.1); Chloride 104 mmol/L (98-107); Creatinine, Serum 1.32 mg/dL (0.55-1.02); EST Glomerular Filtration Rate 43 mL/min (>60); Est Glom Filt Rate - Afr Amer 52 mL/min (>60); Estimated Creatinine Clearance 36.09 ml/min; Globulin 4.2 g/dL (2.2-4.2); Glucose 123 mg/dL (74-106); Potassium 3.3 mmol/L (3.5-5.1); Protein, Total 7.4 g/dL (6.4-8.2); Sodium Level 141 mmol/L (136-145)
[2023-01-13 06:44] LABS: Bedside Glucose 118 mg/dL (74-106)
[2023-01-13 07:40] VITALS: O2SAT 98
[2023-01-13 10:32] VITALS: BP 101/70; PULSE 85; RESP 16; TEMP 36.4; O2SAT 97
[2023-01-13] MEDS: Venlafaxine XR 75 MG Capsule PO (10:36)
[2023-01-13] MEDS: Multivitamins,Therapeutic Tablet 1 TABLET PO (10:37)
[2023-01-13] MEDS: Aspirin E.C. 81 MG Tablet PO (10:37)
--- NOTE | 2023-01-13 10:53 | CASEMGMT ---
Patient has a Healthcare Power of Float Tender and a Healthcare Living Will. Patient is aware documents are not on file at [facility] and to bring in copies for [facility]. Robyn ARRIAZA
[2023-01-13] MEDS: Furosemide 40 MG/4 ML Vial IV (11:02)
[2023-01-13] MEDS: Potassium Chloride Oral Tablet 20 MEQ 40 MEQ PO (11:02)
[2023-01-13 11:46] LABS: Bedside Glucose 251 mg/dL (74-106)
[2023-01-13 14:20] VITALS: BP 115/81; PULSE 97; RESP 16; TEMP 36.7; O2SAT 98
[2023-01-13 14:27] VITALS: O2SAT 93; O2SAT 96
--- NOTE | 2023-01-13 14:39 | DCINST_ITS ---
Discharge Instructions Diet Discharge Diet: Low fat / Low cholesterol Activity Discharge Activity: Return to Normal Activity Weight Bearing Status: Weight bearing as tolerated Dressing / Incision Call your doctor if you observe: Fever of 101 or Higher, Shortness of breath, Dizziness, Swelling in the ankles and Chest pain Follow Up Care Test Results: Test results from this visit will be discussed in further detail at your follow- up appointment, if applicable. Discharge Plan Admission Admit Date/Time: 01/11/23 03:28 Primary Reason for Your Visit: acute on chronic HFrEF Attending Provider: Elizabeth Duran Primary Care Provider: Andrae Burgos Consulting Providers: Steffen Torres; Tyrese Smith; Karla Sylvester Instructions Patient Instructions: Coping with Heart Failure Discharge Orders/Prescriptions Prescriptions: New furosemide 40 mg tablet 40 mg PO BID Qty: 60 2RF potassium chloride [Klor-Con M20] 20 mEq tablet,ER particles/crystals 20 meq PO BID Qty: 60 1RF Continued multivitamin Tablet 1 tab PO DAILY aspirin [Adult Low Dose Aspirin] 81 mg tablet,delayed release (DR/EC) 81 mg PO DAILY krill oil 500 mg capsule 500 mg PO BID levothyroxine 88 mcg tablet See Rx Instructions .ROUTE .COMPLEX Qty: 90 4RF Dose Instruction: TAKE 1 TABLET BY MOUTH DAILY Rx Instructions: TAKE 1 TABLET BY MOUTH DAILY carvedilol 25 mg tablet See Rx Instructions .ROUTE .COMPLEX Qty: 180 4RF Dose Instruction: TAKE 1 TABLET BY MOUTH TWICE DAILY WITH A MEAL OR FOOD Rx Instructions: TAKE 1 TABLET BY MOUTH TWICE DAILY WITH A MEAL OR FOOD Xarelto 20 mg tablet 20 mg PO QPM Qty: 90 3RF Rx Instructions: must administer with evening meal Entresto 24-26 mg tablet 1 tab PO BID Qty: 60 11RF Hold Instructions: Hypotension, shoulder pain Rx Instructions: Please stop Losartan at least 36 hours prior to taking Entresto. venlafaxine 75 mg capsule,extended release 24hr 75 mg PO DAILY Qty: 90 1RF glipizide 10 mg tablet extended release 24hr 10 mg PO DAILY 90 Days Qty: 90 3RF atorvastatin 10 mg tablet See Rx Instructions .ROUTE .COMPLEX Qty: 90 1RF Dose Instruction: TAKE ONE TABLET BY MOUTH EVERY EVENING FOR CHOLESTEROL Rx Instructions: TAKE ONE TABLET BY MOUTH EVERY EVENING FOR CHOLESTEROL Discontinued furosemide 40 mg tablet 40 mg PO DAILY Qty: 90 3RF Referrals / Follow Up: Tyrese Smith MD [Med Staff - Active Staff] - Within 2 Weeks Andrae Burgos MD [Primary Care Provider] - Yaquelin Higginbotham NP, [facility] [Med Staff - Adv Practice Prof] - Within 1 Month (call for appt to be seen for sleep apnea) Disposition Disposition (needs filled in before D/C Order can be placed): Home, Self Care
--- NOTE | 2023-01-13 14:40 | PCM.DC.SUM ---
Providers Date of Admission: 01/11/23 Date of Discharge: 01/13/23 Primary Care Physician: Dr. Andrae Burgos MD Consultations 01/11/23 12:24 Consult: Cardiology Routine Consulting Provider: Tyrese Smith Reason for Consult: worsening EF and admitted with CHF/Afib EMERGENT Consult: No MD Notified: Yes Date Notified: 01/11/23 Time Notified: 12:24 Method of Notification: Text Reason For Visit: ACUTE ON CHRONIC CHF Diagnosis Discharge Diagnosis (1) Acute and chronic respiratory failure with hypoxia: Status: Deleted Code(s): J96.21 - Acute and chronic respiratory failure with hypoxia (2) Acute exacerbation of CHF (congestive heart failure): Status: Chronic Code(s): I50.9 - Heart failure, unspecified Qualifiers: Heart failure type: systolic Qualified Code(s): I50.23 - Acute on chronic systolic (congestive) heart failure (3) Elevated troponin: Status: Acute Code(s): R79.89 - Other specified abnormal findings of blood chemistry (4) MARICRUZ (acute kidney injury): Status: Acute Code(s): N17.9 - Acute kidney failure, unspecified (5) Paroxysmal atrial fibrillation with rapid ventricular response: Status: Acute Code(s): I48.0 - Paroxysmal atrial fibrillation (6) Acute respiratory failure with hypoxia: Status: Inactive Code(s): J96.01 - Acute respiratory failure with hypoxia (7) Acute HFrEF (heart failure with reduced ejection fraction): Status: Inactive Code(s): I50.21 - Acute systolic (congestive) heart failure (8) Transaminitis: Status: Acute Code(s): R74.01 - Elevation of levels of liver transaminase levels Medications at Discharge Home Medications multivitamin 1 tab PO DAILY SUPPLEMENT 05/10/20 carvedilol 25 mg tablet See Rx Instructions .Route .COMPLEX #180 TABLETS 06/10/22 levothyroxine 88 mcg tablet See Rx Instructions .Route .COMPLEX #90 TABLETS 06/10/22 aspirin 81 mg tablet,delayed release (Adult Low Dose Aspirin) 81 mg PO DAILY 08/01/22 rivaroxaban 20 mg tablet (Xarelto) 20 mg PO QPM BLOOD THINNER #90 tabs 09/05/22 sacubitril 24 mg-valsartan 26 mg tablet (Entresto) 1 tab PO BID #60 tabs 09/13/22 venlafaxine 75 mg capsule,extended release 24 hr 75 mg PO DAILY DEPRESSION #90 caps 10/23/22 krill oil 500 mg capsule 500 mg PO BID unknown 12/25/22 glipizide 10 mg tablet, extended release 24 hr 10 mg PO DAILY DIABETES 3 months #90 tabs 01/07/23 atorvastatin 10 mg tablet See Rx Instructions .Route .COMPLEX #90 tabs 01/13/23 furosemide 40 mg tablet 40 mg PO DAILY #30 tabs 01/13/23 potassium chloride 20 mEq tablet,extended release 20 meq PO DAILY #30 tabs 01/13/23 Hospital Course Operations None Procedures 2-D Echocardiogram Summary of Care Provided Minutes Spent on Discharge: 55 Hospital Course: Patient is a 62 y/o female with a PMH as outlined including a HFrEF. She was admitted via the ED on 01/11/2023 with a complaint o shortness of breath with associated orthopnea but no PND. She required BIPAP on admission. She was found to be in afib with RVR on admission. Chest x-ray showed bilateral airspace disease likely pulmonary edema versus pneumonia. BNP was 824.7. She was admitted and managed for acute on chronic heart failure with reduced ejection fraction as well as hypoxia due to acute on chronic heart failure.. Cardiology was consulted as she also had new onset afib with RVR. Patient was diuresed significantly with lasix, and weaned down to room air. COVID and respiratory panels were negative. 2D echo showed EF of 25% with mild concentric LVH and mild to moderate eccentric mitral valve insufficiency. Patient was placed on IV Lasix 40 twice daily after her blood pressures fell whilst on IV Lasix drip. Entresto was held due to low blood pressure. Heart rate control improved and she was placed on Coreg which she was taking at home. She was also on Xarelto from home. Her MARICRUZ improved with creatinine trending downwards. Liver enzymes trended upwards and was thought to be due to hepatic congestion from heart failure. Liver enzymes started trending downwards once her shortness of breath improved. She had a walking pulse ox on 01/13/2023 which showed that she didnt require any home oxygen. She remained stable and was discharged home on 01/13/2023. 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 Her blood pressure had been running on the low side of normal so she was placed on p.o. furosemide 40 mg daily as well as p.o. potassium 20 mEq daily. She is continuing her Entresto and carvedilol. Patient seen and examined prior to discharge. She felt much better and had no complaints. She had an uneventful night. Review of systems is otherwise negative. She has remained hemodynamically stable. Physical Exam Const alert, oriented x3 and no apparent distress General Appearance: cooperative and comfortable Orientation / Consciousness: awake Exam Limitations: no limitations HEENT normocephalic, head/scalp atraumatic, hearing grossly normal bilaterally, moist oral mucous membranes and oropharynx normal Mouth: oral and palatal mucosa normal Eyes PERRL, EOMs intact bilaterally and conjunctivae normal Resp normal respiratory effort, no retractions, no use of accessory muscles and clear to auscultation bilaterally Cardio regular rate, regular rhythm, S1 normal heart sound, S2 normal heart sound and no murmurs GI normal to inspection, nondistended, normoactive bowel sounds, soft to palpation, non-tender and non-distended Extremity normal to inspection, full ROM and no clubbing, cyanosis or edema Skin no rashes or lesions noted and no wounds Neuro oriented x3, CN's II-XII intact bilaterally, moves all extremities and no focal motor deficits Sensorium / Orientation: awake and alert Motor Exam: strength 5/5 throughout Psych affect normal Weight / BMI Weight Weight: 224 lb 3.362 oz Body Mass Index (BMI) 39.6 ABG / Lab / Microbiology Data 01/13/23 04:47 01/13/23 04:47 Laboratory: Laboratory Results - last 24 hr 01/12/23 16:07: POC Glucose 114 H 01/12/23 21:38: POC Glucose 169 H 01/13/23 04:47: WBC 4.0 L, RBC 4.75, Hgb 11.6 L, Hct 39.6, MCV 83.4, MCH 24.4 L, MCHC 29.3 L, RDW Std Deviation 50.4 H, RDW Coeff of [place] 16.6 H, Plt Count 178, MPV 10.7, Immature Gran % (Auto) 0.500, Neut % (Auto) 43.5 L, Lymph % (Auto) 40.2, [place] % (Auto) 11.8 H, Eos % (Auto) 3.5, Baso % (Auto) 0.5, Absolute Neuts (auto) 1.7 L, Absolute Lymphs (auto) 1.60, Nucleated RBC % 0, Sodium 141, Potassium 3.3 L, Chloride 104, Carbon Dioxide 31.0, Anion Gap 6, BUN 34 H, Creatinine 1.32 H, Estim Creat Clear Calc 36.09, Est GFR (MDRD) Af Amer 52 L, Est GFR (MDRD) Non-Af 43 L, BUN/Creatinine Ratio 25.8 H, Glucose 123 H, Calcium 8.7, Total Bilirubin 0.70, Direct Bilirubin 0.21, AST 129 H, ALT 232 H, Alkaline Phosphatase 113, Total Protein 7.4, Albumin 3.2, Globulin 4.2 01/13/23 06:21: POC Glucose 118 H 01/13/23 11:09: POC Glucose 251 H Microbiology: Microbiology 01/11/23 11:32 Mucosa - Nasopharyngeal Respiratory Panel (PCR) - Final 01/10/23 23:50 Nasal Secretion SARS-CoV-2 & FLU Antigen (Rapid) - Final D/C Instructions Discharge Diet: Low fat / Low cholesterol Discharge Activity: Return to Normal Activity Weight Bearing Status: Weight bearing as tolerated Call your doctor if you observe: Fever of 101 or Higher, Shortness of breath, Dizziness, Swelling in the ankles and Chest pain Meaningful Use Info Meaningful Use Diagnoses (Choose all that apply): CHF CHF MELYSSA/ARB ordered at discharge?: Yes Documented LVEF (%): 25 Discharge Plan Admission Admit Date/Time: 01/11/23 03:28 Primary Reason for Your Visit: acute on chronic HFrEF Attending Provider: Elizabeth Duran Primary Care Provider: Andrae Burgos Consulting Providers: Steffen Torres; Tyrese Smith; Karla Sylvester Instructions Patient Instructions: Coping with Heart Failure Discharge Orders/Prescriptions Prescriptions: New potassium chloride 20 mEq tablet extended release 20 meq PO DAILY Qty: 30 1RF furosemide 40 mg tablet 40 mg PO DAILY Qty: 30 2RF Continued multivitamin Tablet 1 tab PO DAILY aspirin [Adult Low Dose Aspirin] 81 mg tablet,delayed release (DR/EC) 81 mg PO DAILY krill oil 500 mg capsule 500 mg PO BID levothyroxine 88 mcg tablet See Rx Instructions .ROUTE .COMPLEX Qty: 90 4RF Dose Instruction: TAKE 1 TABLET BY MOUTH DAILY Rx Instructions: TAKE 1 TABLET BY MOUTH DAILY carvedilol 25 mg tablet See Rx Instructions .ROUTE .COMPLEX Qty: 180 4RF Dose Instruction: TAKE 1 TABLET BY MOUTH TWICE DAILY WITH A MEAL OR FOOD Rx Instructions: TAKE 1 TABLET BY MOUTH TWICE DAILY WITH A MEAL OR FOOD Xarelto 20 mg tablet 20 mg PO QPM Qty: 90 3RF Rx Instructions: must administer with evening meal Entresto 24-26 mg tablet 1 tab PO BID Qty: 60 11RF Hold Instructions: Hypotension, shoulder pain Rx Instructions: Please stop Losartan at least 36 hours prior to taking Entresto. venlafaxine 75 mg capsule,extended release 24hr 75 mg PO DAILY Qty: 90 1RF glipizide 10 mg tablet extended release 24hr 10 mg PO DAILY 90 Days Qty: 90 3RF atorvastatin 10 mg tablet See Rx Instructions .ROUTE .COMPLEX Qty: 90 1RF Dose Instruction: TAKE ONE TABLET BY MOUTH EVERY EVENING FOR CHOLESTEROL Rx Instructions: TAKE ONE TABLET BY MOUTH EVERY EVENING FOR CHOLESTEROL Discontinued furosemide 40 mg tablet 40 mg PO DAILY Qty: 90 3RF Referrals / Follow Up: Tyrese Smith MD [Med Staff - Active Staff] - 02/27/23 1:00 pm (Appointment is with Jenifer Richmond) Andrae Burgos MD [Primary Care Provider] - 01/20/23 11:00 am Yaquelin Higginbotham NP, PET TRAINING INSTRUCTOR-C [Med Staff - Adv Practice Prof] - 03/03/23 10:15 am (call for appt to be seen for sleep apnea) Disposition Disposition (needs filled in before D/C Order can be placed): Home, Self Care Charges/Coding Visit Charges Inpatient E&M: 04655 Disch Hosp >30min
--- NOTE | 2023-01-13 15:07 | CASEMGMT ---
RN CM updated that patient has order for discharge. RN CM in to discuss needs at discharge. Patient denies needs at discharge. Patient had no further questions or concerns at this time.
== END 2023-01-13 16:56 | disposition home or self-care (01) | DRG 280 ==
LOC: ED 01-11 01:14 → PCU 01-11 04:49
PROVIDERS: Internal Medicine; Admitting Provider Hospitalist; Emergency Provider Emergency Medicine; PCP Internal Medicine; Visit Provider Student in an Organized Health Care Education/Training Program
DX: I11.0 Hypertensive heart disease with heart failure (principal); I21.A1 Myocardial infarction type 2; I50.23 Acute on chronic systolic (congestive) heart failure; J96.01 Acute respiratory failure with hypoxia; Z68.41 Body mass index [BMI] 40.0-44.9, adult; N17.9 Acute kidney failure, unspecified; E11.9 Type 2 diabetes mellitus without complications; I42.8 Other cardiomyopathies; I48.0 Paroxysmal atrial fibrillation; E66.01 Morbid (severe) obesity due to excess calories; E03.9 Hypothyroidism, unspecified; I34.0 Nonrheumatic mitral (valve) insufficiency; F32.A Depression, unspecified; E78.5 Hyperlipidemia, unspecified; G47.33 Obstructive sleep apnea (adult) (pediatric); K76.1 Chronic passive congestion of liver; I95.2 Hypotension due to drugs; T46.4X5A Adverse effect of angiotensin-converting-enzyme inhibitors, initial encounter; T50.1X5A Adverse effect of loop [high-ceiling] diuretics, initial encounter; T42.4X5A Adverse effect of benzodiazepines, initial encounter; Y92.239 Unspecified place in hospital as the place of occurrence of the external cause; Z11.52 Encounter for screening for COVID-19; Z79.82 Long term (current) use of aspirin; Z79.84 Long term (current) use of oral hypoglycemic drugs; Z79.899 Other long term (current) drug therapy; Z79.01 Long term (current) use of anticoagulants
CPT/HCPCS: 36415; 51702; 71045; 76705; 80048; 80053; 80076; 81001; 82962; 83735; 83880; 84100; 84443; 84484; 85025; 85610; 85730; 87428; 87633; 93005; 93306; 94002; 94003; 94668; 94762; 99285; J7050; Q9957; 90686; A4216; C8929; J1940

== ENCOUNTER → 2023-03-14 | Outpatient (CLI) | payer OTHER, SELFPAY ==
--- NOTE | 2023-03-14 14:04 | ECHOLC_ITS ---
Reason For Study: CHF Procedure This was a limited 2D transthoracic echocardiogram. Contrast injection was performed. Exam performed in department. Left Ventricle Normal left ventricle. The estimated ejection fraction is 25 %. There is severe global hypokinesis of the left ventricle. Right Ventricle Normal RV size. ICD or pacer leads identified within the right ventricle. Normal systolic function. Atria Normal left atrium. Normal right atrium. Mitral Valve There is mild mitral annular calcification. Tricuspid Valve Normal tricuspid valve. Mild tricuspid valve insufficiency. Pulmonary artery systolic pressure is 20 mmHg. Pulmonic Valve The pulmonic valve is not well visualized. Great Vessels Normal aortic root. The pulmonary artery is normal size. Normal inferior vena cava. Pericardium/Pleural No pericardial effusion. Medication Diluted definity 4ml given slow IV push to enhance endocardial definition. MMode/2D Measurements & Calculations LVIDd: 5.6 cm IVSd: 1.2 cm LVAd ap4: 28.2 cm2 LVIDs: 5.1 cm LVPWd: 0.85 cm LVLd ap4: 7.3 cm FS: 8.4 % EDV(MOD-sp4): 92.3 ml EDV(sp4-el): 92.7 ml LVAs ap4: 23.7 cm2 LVLs ap4: 7.1 cm ESV(MOD-sp4): 65.3 ml ESV(sp4-el): 67.0 ml EF(MOD-sp4): 29.3 % EF(sp4-el): 27.8 % SV(MOD-sp4): 27.0 ml SV(sp4-el): 25.7 ml Doppler Measurements & Calculations TR max ai: 197.9 cm/sec TR max P.7 mmHg ECHO/Echo Limited w/Contrast Interpretation Summary Normal left ventricle. The estimated ejection fraction is 25 %. There is severe global hypokinesis of the left ventricle. Pulmonary artery systolic pressure is 20 mmHg. Contrast injection was performed. Ordering Physician: Jenifer Richmond Referring Physician: Andrae Burgos Performed By: Archana Hastings, YUE, RVT
== END | disposition home or self-care (01) ==
LOC: CVS 14:04
PROVIDERS: PCP Internal Medicine; Referring Provider Physician Assistant Medical; Visit Provider Physician Assistant Medical
DX: I50.9 Heart failure, unspecified (principal)
CPT/HCPCS: 93308; Q9957; A4216; C8924

== ENCOUNTER → 2023-04-01 | Outpatient (CLI) | payer OTHER, SELFPAY ==
[2023-04-01 13:45] VITALS: PULSE 102; PULSE 111; PULSE 90; PULSE 91; PULSE 92; PULSE 96; PULSE 99; O2SAT 94; O2SAT 95; O2SAT 96
--- OUTSIDE RECORDS SUMMARY | 2023-04-01 14:11 | XMS RPT_ITS | CCD ---
Author Name Unknown Address [address] [facility] [address] [place] [address] Organization [facility] Care Team Providers Care Retail Marketing Coordinator Name Role Phone Andrews Garcia Primary Care Provider ANDREWS GARCIA Primary Care Unavailable URADU, GIULIANO COUCH Attending Unavailable TOMANDREWS KING Primary Care Unavailable URADU, GIULIANO COUCH Attending Unavailable ANDREWS GARCIA Primary Care Unavailable TRACEY SHAFFER Attending Unavailable TRACEY SHAFFER Attending Unavailable TOMANDREWS KING Primary Care Unavailable TOMANDREWS KING Primary Care Unavailable GEOVANNISONIA Longo Attending Unavaila [facility] PHYSICIANS, GENERIC Consulting Un available AKUSKLEVER JACKSON Admitting Unavail able KARELY KING Consulting Unavailable URADU, GIULIANO COUCH Consulting Unavailable TRACEY SHAFFER Consulting Unavailable ANDREWS GARCIA Primary Care Unavailable URADU, GIULIANO COUCH Referring Unavailable URADU, GIULIANO COUCH Attending Unavailable Andrae Burgos MD Primary Care Provider [phone] Andrae Burgos MD Primary Care Provider [phone] ANDRAE BURGOS Primary Care Unavailable ANDRAE BURGOS Primary Care Unavailable Allergies Allergy Classification Reported Allergen(s) Allergy Type Date of Onset Reaction(s) Facility (8 sources) Sulfonamides (Antibiotic); Translations: [SULFA (SULFONAMIDE ANTIBIOTICS)] Propensity to adverse reactions to drug 4 Rash, Hives [facility] (3 sources) Contrast media; Translations: [RED DYE] Drug Allergy 1 Other: See Comments, Rash [facility] (3 sources) POISON RAMONA EXTRACT; Translations: [POISON RAMONA] Drug Allergy 4 [facility] Medications Current Medications Medication Drug Class(es) Dates Sig (Normalized) Sig (Original) amoxicillin 875 mg / clavulanate 125 mg oral tablet (1 source) Penicillin-class Antibacterial Start: 07-22-2021 End: 07-27-2021 take 1 tablet by mouth twice daily amoxicillin-clav ulanic acid (AUGMENTIN) 875-125 mg per tablet Take 1 tablet by mouth twice daily for 5 days. 10 tablet 0 07/22/2021 07/27/2021 Active Completed/Discontinued Medications Medication Drug Class(es) Dates Sig (Normalized) Sig (Original) acetaminophen 325 mg oral tablet (1 source) Start: 11-30-2019 End: 12-09-2019 take 1 tablet by mouth every six hours as needed acetaminophen (TYLENOL) tablet 650 mg aspirin 81 mg delayed release oral tablet (2 sources) Platelet Aggregation Inhibitor, Nonsteroidal Anti-inflammatory Drug take 1 tablet by mouth once daily aspirin, enteric coated (ASPIRIN, ENTERIC COATED) 81 mg EC tablet Take 81 mg by mouth once daily. 0 Active Problems Active Problems Problem Classification Problem Date Documented Da te Episodic/Chronic Cardiac dysrhythmias (6 sources) Bradycardia; Translations: [Sinus bradycardia] Onset: 11-29-2019 11-29-2019 Chronic Cataract (2 sources) Nuclear senile cataract; Translations: [Age-related nuclear cataract, unspecified eye] Onset: 11-18-2013 11-18-2013 Chronic Conduction disorders (3 sources) Cardiac pacemaker in situ; Translations: [Heart block ] Onset: 10-27-2020 10-27-2020 Chronic Congestive heart failure; nonhypertensive (2 sources) Congestive heart failure; Translations: [Heart failure, unspecified] Onset: 10-27-2020 10-27-2020 Chronic Diabetes mellitus without complication (2 sources) Type 2 diabetes mellitus without complication; Translations: [Type 2 diabetes mellitus without complications] Onset: 10-27-2020 10-27-2020 Chronic Disorders of lipid metabolism (2 sources) Hyperlipidemia; Translations: [Hyperlipidemia, unspecified] Onset: 10-27-2020 10-27-2020 Chronic Essential hypertension (2 sources) Essential hypertension; Translations: [Essential (primary) hypertension] Onset: 10-27-2020 10-27-2020 Chronic Other ear and sense organ disorders (1 source) Chronic bacterial otitis externa; Translations: [Other infective otitis externa, right ear] 03-15-2023 Episodic Other eye disorders (2 sources) Bilateral vitreous floaters; Translations: [Other vitreous opacities, bilateral] Onset: 01-28-2017 01-28-2017 Chronic Other lower respiratory disease (2 sources) Cough; Translations: [Cough] Episodic Other nutritional; endocrine; and metabolic disorders (2 sources) Body mass index 40+ - severely obese; Translations: [Morbid (severe) obesity due to excess calories] Onset: 10-27-2020 10-27-2020 Chronic Residual codes; unclassified (2 sources) Obstructive sleep apnea syndrome; Translations: [Obstructive sleep apnea (adult) (pediatric)] Onset: 10-27-2020 10-27-2020 Chronic Past or Other Problems Problem Classification Problem Date Documented Da te Episodic/Chronic Blindness and vision defects (6 sources) Hypermetropia; Translations: [Hypermetropia, unspecified eye] Onset: 11-18-2013 11-18-2013 Episodic Phlebitis; thrombophlebitis and thromboembolism (2 sources) H/O: Deep vein thrombosis; Translations: [Personal history of other venous thrombosis and embolism] Onset: 10-27-2020 10-27-2020 Episodic Urinary tract infections (1 source) Acute urinary tract infection; Translations: [Acute UTI] Episodic Results Test Name Value Interpretation Reference Range Facil ity Vital Signs Date Time Vital Sign Value Performing Clinician Facility 03-15-2023 13:48-0500 Body temperature 97.39 [degF] Marilyn Carvalho PA-C Work Phone: [facility] 03-15-2023 13:48-0500 Body weight 103.69 kg Marilyn AVILA-Nelson Work Phone: [facility] 03-15-2023 13:48-0500 Diastolic blood pressure 80 mm[Hg] Marilyn AVILA-Nelson Work Phone: [facility] 03-15-2023 13:48-0500 Heart rate 93 /min Marilyn Carvalho PA-C Work Phone: [facility] 03-15-2023 13:48-0500 Respiratory rate 18 /min Marilyn Carvalho PA-C Work Phone: [facility] 03-15-2023 13:48-0500 SaO2% (BldA) [Mass fraction] 97 % Marilyn Carvalho PA-C Work Phone: [facility] 03-15-2023 13:48-0500 Systolic blood pressure 104 mm[Hg] Marilyn Carvalho PA-C Work Phone: [facility] 07-22-2021 14:16-0400 Body temperature 98.4 [degF] Emily Rosas APRN.GERIATRICIAN Work Phone: [facility] 07-22-2021 14:16-0400 Body weight 104.15 kg Emily Rosas APRN.GERIATRICIAN Work Phone: [facility] 07-22-2021 14:16-0400 Diastolic blood pressure 80 mm[Hg] Emily Rosas APRN.GERIATRICIAN Work Phone: [facility] 07-22-2021 14:16-0400 Heart rate 90 /min Emily Rosas APRN.GERIATRICIAN Work Phone: [facility] 07-22-2021 14:16-0400 Respiratory rate 18 /min Emily Rosas APRN.GERIATRICIAN Work Phone: [facility] 07-22-2021 14:16-0400 SaO2% (BldA) [Mass fraction] 98 % Emily Rosas APRN.GERIATRICIAN Work Phone: [facility] 07-22-2021 14:16-0400 Systolic blood pressure 128 mm[Hg] Emily Rosas APRN.GERIATRICIAN Work Phone: [facility] 03-09-2020 15:13-0500 Heart rate Medtronic Giulianoteri Reinoso [facility] 03-09-2020 15:13-0500 Heart rate [id number] [facility] AV [facility] 15:13-0500 Heart rate [id number] [facility] 03-09-2020 15:13-0500 Heart rate Pacemaker Giuliano Reinoso [facility] 03-09-2020 15:13-0500 Heart rate [id number] /min Giuliano Reinoso [facility] 12-09-2019 11:37-0400 Body Temperature 98.1 [degF] [facility] 12-09-2019 11:37-0400 BP Diastolic 79 mm[Hg] [facility] 12-09-2019 11:37-0400 BP Systolic 113 mm[Hg] [facility] 12-09-2019 11:37-0400 Pulse (Heart Rate) 74 /min [facility] 12-09-2019 11:37-0400 Pulse Oximetry 99 % [facility] 12-09-2019 11:37-0400 Respiratory Rate 16 /min [facility] 12-09-2019 05:53-0400 BMI (Body Mass Index) 42.76 kg/m2 [facility] 12-09-2019 05:53-0400 Body weight 109.5 kg [facility] Encounters Encounter Date Encounter Type Care Provider Facility Start: 03-15-2023 End: 03-15-2023 ambulatory ANDRAE BURGOS Facility:[facility] Start: 03-15-2023 End: 03-15-2023 Patient encounter procedure Marilyn Carvalho PA-C Work Phone: [facility] Procedures Date Procedure Procedure Detail Performing Clinician Start: 11-06-2020 Colonoscopy Emily Rosas APRN.GERIATRICIAN Work Phone: Start: 09-04-2020 Mammography Emily Rosas APRN.GERIATRICIAN Work Phone: Start: 03-09-2020 OUTPATIENT DEVICE CL INIC REFERRAL [facility] Start: 12-09-2019 Radiologic exam ches t single view Belkis Yahaira South Work Phone: Start: 12-09-2019 Glucose [Mass/volume ] in Blood Klever Mcfarland Work Phone: Start: 12-09-2019 Complete blood count with white cell differential, automated Sonia Galarza Work Phone: Start: 12-09-2019 Complete blood count with white cell differential, manual Sonia Galarza Work Phone: Start: 12-09-2019 Comprehensive metabo lic 2000 panel - Serum or Plasma Sonia Galarza Work Phone: Start: 12-09-2019 Magnesium [Mass/volu me] in Serum or Plasma Sonia Galarza Work Phone: Start: 12-09-2019 Glucose [Mass/volume ] in Blood Arinze Echezona Akusoba Work Phone: Start: 12-08-2019 Glucose [Mass/volume ] in Blood Arinze [place] [employer] Work Phone: Start: 12-08-2019 Glucose [Mass/volume ] in Blood Arinze E[place]zona [employer] Work Phone: Start: 12-08-2019 EP - DEVICE Belkis farmer [facility] Work Phone: Start: 12-08-2019 End: 12-08-2019 Glucose [Mass/volume] in Blood Arinze Echezona [place]us[employer] Work Phone: Start: 12-08-2019 Basic metabolic 2000 panel - Serum or Plasma Robby Chaudhary Work Phone: Start: 12-08-2019 Complete blood count with white cell differential, automated Belkis [facility] Work Phone: Start: 12-08-2019 Complete blood count with white cell differential, manual Belkis [facility] Work Phone: Start: 12-07-2019 Glucose [Mass/volume ] in Blood Arinze Echezona [place]us[employer] Work Phone: Start: 12-07-2019 ABORTED EP CASE Belkis Syed [facility] Work Phone: Start: 12-07-2019 Complete blood count with white cell differential, automated Belkis [facility] Work Phone: Start: 12-07-2019 Complete blood count with white cell differential, manual [employer] Work Phone: Start: 12-07-2019 Comprehensive metabo lic 2000 panel - Serum or Plasma Sonia Galarza Work Phone: Start: 12-07-2019 Magnesium [Mass/volu me] in Serum or Plasma Sonia Galarza Work Phone: Start: 12-06-2019 Basic metabolic 2000 panel - Serum or Plasma Robby Chaudhary Work Phone: Start: 12-06-2019 Complete blood count with white cell differential, automated [employer] Work Phone: Start: 12-06-2019 Complete blood count with white cell differential, manual [employer] Work Phone: Start: 12-05-2019 Basic metabolic 2000 panel - Serum or Plasma Robby Chaudhary Work Phone: Start: 12-04-2019 Basic metabolic 2000 panel - Serum or Plasma Robby Chaudhary Work Phone: Start: 12-03-2019 Glucose [Mass/volume ] in Blood Arinze E[place]zona [employer] Work Phone: Start: 12-03-2019 Glucose [Mass/volume ] in Blood Arinze Echezona [employer] Work Phone: Start: 12-03-2019 Glucose [Mass/volume ] in Blood Arinze Echezona [employer] Work Phone: Start: 12-03-2019 Glucose [Mass/volume ] in Blood Arinze Echezona [employer] Work Phone: Start: 12-03-2019 Basic metabolic 2000 panel - Serum or Plasma Robby Chaudhary Work Phone: Start: 12-02-2019 Glucose [Mass/volume ] in Blood Arinze Echezona [employer] Work Phone: Start: 12-02-2019 Glucose [Mass/volume ] in Blood Arinze Echezona [employer] Work Phone: Start: 12-02-2019 Glucose [Mass/volume ] in Blood Klever Mcfarland Work Phone: Start: 12-02-2019 Glucose [Mass/volume ] in Blood Klever Mcfarland Work Phone: Start: 12-02-2019 Basic metabolic 2000 panel - Serum or Plasma Robby Chaudhary Work Phone: Start: 12-01-2019 Basic metabolic 2000 panel - Serum or Plasma Robby Chaudhary Work Phone: Start: 11-30-2019 Glucose [Mass/volume ] in Blood Klever Mcfarland Work Phone: Start: 11-30-2019 12 lead ECG Karely King Work Phone: Start: 11-30-2019 Contrast echocardiography Robby Chaudhary Work Phone: Start: 11-30-2019 CT angiography of co ronary arteries Karely King Work Phone: Start: 11-30-2019 Cta hrt cornry art/b ypass grfts contrst 3d post Karely King Work Phone: Start: 11-30-2019 End: 11-30-2019 12 lead ECG Karely King Work Phone: Start: 11-30-2019 Glucose [Mass/volume ] in Blood Klever Mfcarland Work Phone: Start: 11-30-2019 Basic metabolic 2000 panel - Serum or Plasma Robby Chaudhary Work Phone: Start: 11-30-2019 Natriuretic peptide. B prohormone N-Terminal [Mass/volume] in Serum or Plasma Robby Chaudhary Work Phone: Start: 11-30-2019 Thyrotropin [Units/v olume] in Serum or Plasma by Detection limit <= 0.005 mIU/L Robby Chaudhary Work Phone: Start: 11-29-2019 COVID-19, MOLECULAR Robby Chaudhary Work Phone: Start: 11-29-2019 Bacteria identified in Unspecified specimen by Aerobe culture Nataliia Walton Work Phone: Start: 11-29-2019 Urinalysis Nataliia Walton Work Phone: Start: 11-29-2019 Radiologic exam ches t single view Nataliia Walton Work Phone: Start: 11-29-2019 Basic metabolic 1998 panel - Serum or Plasma Nataliia Walton Work Phone: Start: 11-29-2019 Complete blood count with white cell differential, automated Nataliia Walton Work Phone: Start: 11-29-2019 Complete blood count with white cell differential, manual Nataliia Walton Work Phone: Start: 11-29-2019 Natriuretic peptide. B prohormone N-Terminal [Mass/volume] in Serum or Plasma Nataliia Walton Work Phone: Start: 11-29-2019 Troponin measurement Michael Walton Work Phone: Start: 11-29-2019 12 lead ECG Nataliia Walton Work Phone: Plan of Treatment Date Care Activity Detail Author Start: 08-03-2031 Urine microalbumin profile DTaP,Tdap,Td Vaccine (2 - Td or Tdap) [facility] Start: 11-06-2030 Colonoscopy COLONOSCOPY [facility] Start: 11-06-2030 COLORECTAL CANCER SCREENING COLORECTAL CANCER SCREENING [facility] Start: 11-06-2030 Screening for malignant neoplasm of colon [facility] Start: 11-29-2022 Covid-19 Vaccine ( season) Covid-19 Vaccine ( season) [facility] Start: 03-31-2022 Depression Assessment Depression Assessment [facility] Start: 11-29-2021 Influenza vaccination INFLUENZA (Season Ended) [facility] Start: 09-04-2021 Mammography MAMMOGRAM [facility] Start: 09-04-2021 Screening for malignant neoplasm of breast Mammogram Screening [facility] Start: 12-05-2020 Pneumococcal vaccination Pneumococcal Vaccine (2 of 2 - PCV) [facility] Start: 10-31-2020 Glaucoma screening Dilated Retinal Exam [facility] Start: 10-31-2020 Hepatitis C antibody, confirmatory test DILATED RETINAL EXAM [facility] Start: 06-12-2020 End: 06-12-2020 Appointment 06/12/2020 Appointment Cardiology Giuliano Reinoso MD [address] [place] [address] [phone] [facility] Start: 03-09-2020 End: 03-09-2020 Appointment [facility] Start: 11-30-2019 Influenza vaccination given Sequential Influenza Vaccine (#1) [facility] Start: 2019 RSV Vaccine (1 - 1-dose 60+ series) RSV Vaccine (1 - 1-dose 60+ series) [facility] Start: 08-11-2009 Administration of herpes zoster vaccine Zoster Vaccines (1 of 2) [facility] Start: 08-11-2009 Screening for malignant neoplasm of colon [facility] Start: 08-11-2009 SHINGRIX VACCINE (1 of 2) SHINGRIX VACCINE (1 of 2) [facility] Start: 08-11-2004 COLOGUARD (FIT-DNA) COLOGUARD (FIT-DNA) [facility] Start: 08-11-[address] COLONOGRAPHY [facility] Start: 08-11-2004 FECAL OCCULT BLOOD FECAL OCCULT BLOOD [facility] Start: 08-11-2004 Screening for malignant neoplasm of colon [facility] Start: 08-11-2004 SIGMOIDOSCOPY SIGMOIDOSCOPY [facility] Start: 08-11-1989 HPV TESTING HPV TESTING [facility] Start: 08-11-1989 Screening for malignant neoplasm of cervix HPV Testing [facility] Start: 08-11-1980 PAP TESTING PAP TESTING [facility] Start: 08-11-1980 Screening for malignant neoplasm of cervix Pap Testing [facility] Start: 08-11-1978 Urine microalbumin profile DTAP,TDAP,TD (1 - Tdap) [facility] Start: 08-11-1977 ANNUAL PCP TEAM CHRONIC DISEASE VISIT ANNUAL PCP TEAM CHRONIC DISEASE VISIT [facility] Start: 08-11-1977 BP CONTROLLED (<130/80) BP CONTROLLED (<130/80) [facility] Start: 08-11-1977 Hepatitis B surface antibody level LDL CHOLESTEROL [facility] Start: 08-11-1977 Hepatitis C antibody, confirmatory test Hepatitis C Screening [facility] Start: 08-11-1977 HEPATITIS C SCREENING HEPATITIS C SCREENING [facility] Start: 08-11-1977 Hepatitis C screening Hepatitis C Screening [facility] Start: 08-11-1977 HIV SCREENING HIV SCREENING [facility] Start: 08-11-1977 HIV screening HIV Screening [facility] Start: 1975 ONE PNEUMOVAX PRIOR TO AGE 65 ONE PNEUMOVAX PRIOR TO AGE 65 [facility] Start: 08-11-1974 HIV screening HIV Screening [facility] Start: 1971 Adolescent depression screening assessment [facility] Start: 08-11-1969 3 comp foot exam completed DIABETIC FOOT EXAM [facility] Start: 08-11-1969 Albumin DL <= 20 mg/L (U) [Mass/Vol] Urine Microalbumin [facility] Start: 08-11-1969 Diabetic foot examination [facility] Start: 08-11-1969 Hepatitis B screening URINE ALBUMIN:CREATININE RATIO [facility] Start: 08-11-1969 Ophthalmic examination and evaluation Ophthalmology Exam [facility] Start: 08-11-1964 Hemoglobin A1c measurement HbA1C [facility] Start: 08-11-1964 Hemoglobin A1c/Hemoglobin.total in Blood HBA1C [facility] Start: 08-11-1962 History and physical examination, annual for health maintenance Wellness Visit [facility] Start: 1959 HbA1c (Bld) [Mass fraction] A1C [facility] Start: 1959 Screening for malignant neoplasm of cervix Pap Smear [facility] Start: 1959 Screening mammography Mammogram [facility] Start: 1959 Tetanus vaccination Tetanus: Every 10yrs [facility] End: 03-09-2020 Outpatient Device Clinic Referral [facility] Referral Cardiac Services Routine Pacemaker Once for 1 Occurrences starting 03/09/2020 until 03/09/2020 [facility] Immunizations Immunization Date Immunization Notes Care Provider Fa santosh 12-06-2019 pneumococcal polysac charide vaccine, [facility] valent [facility] 11-30-2019 pneumococcal vaccine , unspecified formulation Nataliia Anton [facility] Payers Date Payer Category Payer Unknown [id number] 2019 Unknown [employer] PPO [id number] 2019-Present [phone] [address] [facility] [place] [address] PPO [id number] 2018 Unknown COMMERCIAL COMME RCIAL MISCELLANEOUS [id number] 2018-Present [id number] 2018 Unknown [id number] 2018 Unknown [id number] 1959 Unknown [id number] 1959 Unknown [id number] 1959 Unknown [id number] 1959 Unknown [id number] 1959 Unknown [id number] 1959 Unknown [id number] Social History Date Type Detail Facility Start: 12-09-2019 End: 10-21-2022 Tobacco smoking status DCIS Never smoker [facility] Start: 12-09-2019 End: 10-21-2022 Tobacco use and exposure Never used [facility] Start: 12-09-2019 Alcohol intake Lifetime non-d home (finding) [facility] Start: 11-29-2019 History SDOH Alcohol Frequency 1 [facility] Sex Assigned At Not on file [facility] Start: 07-12-2021 End: 07-22-2021 Exposure to SARS-CoV-2 (event) Not sure [facility] Start: 07-22-2021 End: 03-15-2023 Alcohol intake Ex-drinker (finding) [facility] Start: 11-01-2019 History SDOH Alcohol Comment rarely [facility] Start: 1960 Sex Assigned At Female [facility] Start: 09-04-2020 End: 03-15-2023 History of Social function [facility] Start: 09-04-2020 End: 03-15-2023 Tobacco use panel [facility] National Score (1-10 0), lower number is lower risk Not on file [facility] Start: 10-27-2020 Gender identity Identifies as female gender (finding) [facility] Medical Equipment Procedure Code Equipment Code Equipment Origin al Text Equipment Identifier Dates Pacer Micra Av V r System - [id number] FDA Start: 12-08-2019 Mdt [id number] Micr a Av [id number] Start: 12-07-2019 Progress note 03-15-2023 Note Date & Type Note Facility 03-15-2023 Note HNO ID: [id number] Author: Marilyn Carvalho PA-C Service: ? Author Type: [facility] Assistant Type: Progress Notes Filed: 03/15/2023 2:53 PM Note Text: This note was created using [employer]. Subjective Pura Laguerre is a 62 year old female. HPI Presents with a chief complaint of cough over the past 12 days. She was seen at another urgent care through [facility] and tested negative for COVID. She was given Tessalon Perles which has helped with the cough it just has not gone away. No chest pain or shortness of breath. She does have a history of heart failure and A-fib. She also is complaining of right ear pain. She states she had a pimple on the outside of the ear and was given Cortisporin drops. She states that is not helping at all. It has gotten worse and her whole ear is red now. No fever. Review of Systems Constitutional: Negative. HENT: Positive for ear pain. Negative for congestion, ear discharge, sinus pressure, sinus pain and sore throat. Respiratory: Positive for cough. Negative for shortness of breath and wheezing. Cardiovascular: Negative. Gastrointestinal: Negative. Genitourinary: Negative. Musculoskeletal: Negative. All other systems reviewed and are negative. PAST MEDICAL HISTORY Diagnosis Date Acquired atrophy of thyroid Acute respiratory failure with hypoxia (HCC) 08/03/2020 Anxiety B12 deficiency Blood clot associated with vein wall inflammation Complete heart block (HCC) 10/2019 Depression Diabetes (HCC) History of pulmonary embolism Hypercholesterolemia Hypercoagulable state (HCC) Hypertension Hypothyroidism Iron deficiency anemia intermediate frame tender current use of anticoagulant Mixed hyperlipidemia Seasonal allergies Status cardiac pacemaker 10/2019 Thyroid activity decreased Current Outpatient Medications Medication Sig Dispense Refill JARDIANCE 10 mg tablet FUROSEMIDE ORAL Take by mouth. carvedilol (COREG) 25 mg tablet Take 25 mg by mouth twice daily with meals. coenzyme Q10 (CO Q-10) 100 mg cap capsule Take 100 mg by mouth once daily. atorvastatin (LIPITOR) 10 mg tablet glipiZIDE (GLUCOTROL XL) 5 mg 24 hr tablet two times a day. rivaroxaban (XARELTO) 20 mg tablet Take 20 mg by mouth daily with dinner. venlafaxine 75 mg tablet Take 75 mg by mouth three times daily. Levothyroxine 50 mcg cap Take by mouth. levoFLOXacin (LEVAQUIN) 750 mg tablet Take 1 tablet by mouth once daily for 7 days. 7 tablet 0 ENTRESTO 24-26 mg tablet (Patient not taking: Reported on 03/15/2023) metformin HCl (METFORMIN ORAL) Take by mouth. (Patient not taking: Reported on 03/15/2023) aspirin, enteric coated (ASPIRIN, ENTERIC COATED) 81 mg EC tablet Take 81 mg by mouth once daily. (Patient not taking: Reported on 03/15/2023) losartan (COZAAR) 25 mg tablet Take 25 mg by mouth once daily. (Patient not taking: Reported on 03/15/2023) No current facility-administered medications for this visit. PAST SURGICAL HISTORY Procedure Laterality Date ANESTH,PACEMAKER INSERTION 10/2019 COLONOSCOPY FLX DX W/COLLJ SPEC WHEN PFRMD 11/06/2020 COLONOSCOPY GEN ANES 2000 HYSTERECTOMY AND VAGINA REPAIR ENTEROCELE KNEE SURGERY HX Right 1988 ACL repair FAMILY HISTORY Problem Relation Age of Onset Blindness Mother Heart Attack Father Diabetes Maternal Aunt Social History Tobacco Use Smoking status: Never Smokeless tobacco: Never Vaping Use Vaping Use: Never used Substance Use Topics Alcohol use: Not Currently Comment: rarely Drug use: No Objective BP 104/80 Pulse 93 Temp 36.3 ?C (97.4 ?F) Resp 18 Wt 103.7 kg (228 lb 9.6 oz) SpO2 97% BMI 39.86 kg/m? Physical Exam Vitals reviewed. Constitutional: Appearance: Normal appearance. HENT: Head: Normocephalic and atraumatic. Left Ear: Tympanic membrane, ear canal and external ear normal. Ears: Comments: Patient has what appears to be a small pimple outside of the ear canal as indicated on drying. Erythema extends past this as indicated to the helix and tragus area. The external auditory canal itself is normal, no its otitis externa, TM is normal. Nose: Nose normal. Mouth/Throat: Mouth: Mucous membranes are moist. Pharynx: Oropharynx is clear. Cardiovascular: Rate and Rhythm: Normal rate and regular rhythm. Heart sounds: Normal heart sounds. Pulmonary: Effort: Pulmonary effort is normal. Breath sounds: Normal breath sounds. Musculoskeletal: Cervical back: Neck supple. Lymphadenopathy: Cervical: No cervical adenopathy. Skin: General: Skin is warm and dry. Neurological: Mental Status: She is alert. Assessment and Plan ASSESSMENT/PLAN: 1. Acute cough - ICD9: 786.2, ICD10: R05.1 (primary diagnosis) Viral URI with postviral cough. Her lungs are clear today. X-ray is not available today, she is being covered with Levaquin for the external ear infection so would cover for pneumonia if there were. I did order an x-ray if (more content not included)... [facility] History of Present illness Narrative 03-15-2023 Marilyn Carvalho PA-C - 03/15/2023 2:47 PM EST Note Date & Type Note Facility 03-15-2023 History of Presen t illness Narrative Images from the original note were not included. This note was created using [employer]. Subjective Pura Laguerre is a 62 year old female. HPI Presents with a chief complaint of cough over the past 12 days. She was seen at another urgent care through [facility] and tested negative for COVID. She was given Tessalon Perles which has helped with the cough it just has not gone away. No chest pain or shortness of breath. She does have a history of heart failure and A-fib. She also is complaining of right ear pain. She states she had a pimple on the outside of the ear and was given Cortisporin drops. She states that is not helping at all. It has gotten worse and her whole ear is red now. No fever. Review of Systems Constitutional: Negative. HENT: Positive for ear pain. Negative for congestion, ear discharge, sinus pressure, sinus pain and sore throat. Respiratory: Positive for cough. Negative for shortness of breath and wheezing. Cardiovascular: Negative. Gastrointestinal: Negative. Genitourinary: Negative. Musculoskeletal: Negative. All other systems reviewed and are negative. PAST MEDICAL HISTORY Diagnosis Date Acquired atrophy of thyroid Acute respiratory failure with hypoxia ([facility]) 08/03/2020 Anxiety B12 deficiency Blood clot associated with vein wall inflammation Complete heart block ([facility]) 10/2019 Depression Diabetes ([facility]) History of pulmonary embolism Hypercholesterolemia Hypercoagulable state ([facility]) Hypertension Hypothyroidism Iron deficiency anemia intermediate frame tender current use of anticoagulant Mixed hyperlipidemia Seasonal allergies Status cardiac pacemaker 10/2019 Thyroid activity decreased Current Outpatient Medications Medication Sig Dispense Refill JARDIANCE 10 mg tablet FUROSEMIDE ORAL Take by mouth. carvedilol (COREG) 25 mg tablet Take 25 mg by mouth twice daily with meals. coenzyme Q10 (CO Q-10) 100 mg cap capsule Take 100 mg by mouth once daily. atorvastatin (LIPITOR) 10 mg tablet glipiZIDE (GLUCOTROL XL) 5 mg 24 hr tablet two times a day. rivaroxaban (XARELTO) 20 mg tablet Take 20 mg by mouth daily with dinner. venlafaxine 75 mg tablet Take 75 mg by mouth three times daily. Levothyroxine 50 mcg cap Take by mouth. levoFLOXacin (LEVAQUIN) 750 mg tablet Take 1 tablet by mouth once daily for 7 days. 7 tablet 0 ENTRESTO 24-26 mg tablet (Patient not taking: Reported on 03/15/2023) metformin HCl (METFORMIN ORAL) Take by mouth. (Patient not taking: Reported on 03/15/2023) aspirin, enteric coated (ASPIRIN, ENTERIC COATED) 81 mg EC tablet Take 81 mg by mouth once daily. (Patient not taking: Reported on 03/15/2023) losartan (COZAAR) 25 mg tablet Take 25 mg by mouth once daily. (Patient not taking: Reported on 03/15/2023) No current facility-administered medications for this visit. PAST SURGICAL HISTORY Procedure Laterality Date ANESTH,PACEMAKER INSERTION 10/2019 COLONOSCOPY FLX DX W/COLLJ SPEC WHEN PFRMD 11/06/2020 COLONOSCOPY GEN ANES 1999 HYSTERECTOMY & VAGINA REPAIR ENTEROCELE KNEE SURGERY HX Right 1988 ACL repair FAMILY HISTORY Problem Relation Age of Onset Blindness Mother Heart Attack Father Diabetes Maternal Aunt Social History Tobacco Use Smoking status: Never Smokeless tobacco: Never Vaping Use Vaping Use: Never used Substance Use Topics Alcohol use: Not Currently Comment: rarely Drug use: No Objective BP 104/80 Pulse 93 Temp 36.3 C (97.4 F) Resp 18 Wt 103.7 kg (228 lb 9.6 oz) SpO2 97% BMI 39.86 kg/m Physical Exam Vitals reviewed. Constitutional: Appearance: Normal appearance. HENT: Head: Normocephalic and atraumatic. Left Ear: Tympanic membrane, ear canal and external ear normal. Ears: Comments: Patient has what appears to be a small pimple outside of the ear canal as indicated on drying. Erythema extends past this as indicated to the helix and tragus area. The external auditory canal itself is normal, no its otitis externa, TM is normal. Nose: Nose normal. Mouth/Throat: Mouth: Mucous membranes are moist. Pharynx: Oropharynx is clear. Cardiovascular: Rate and Rhythm: Normal rate and regular rhythm. Heart sounds: Normal heart sounds. Pulmonary: Effort: Pulmonary effort is normal. Breath sounds: Normal breath sounds. Musculoskeletal: Cervical back: Neck supple. Lymphadenopathy: Cervical: No cervical adenopathy. Skin: General: Skin is warm and dry. Neurological: Mental Status: She is alert. Assessment and Plan ASSESSMENT/PLAN: 1. Acute cough - ICD9: 786.2, ICD10: R05.1 (primary diagnosis) Viral URI with postviral cough. Her lungs are clear today. X-ray is not available today, she is being covered with Levaquin for the external ear infection so would cover for pneumonia if there were. I did order an x-ray if she is not improving on Friday. She has Tessalon which seems to be helping as well. Follow-up with PCP - XR CHEST 2V FRONTAL/LAT 2. Bacterial external ear infection, right - ICD9: 380.16, ICD10: H60.391 Will cover for possible perichondritis, will cover with Levaquin to cover for Pseudomonas. Patient's creatinine clearance was calculated from recent labs from [facility] and was 71. Discussed however if this is not improving or getting worse she really needs to be seen in the emergency department or PCP. Patient agreeable. Marilyn Carvalho PA-C documented in this encounter [facility] Progress note 10-21-2022 Note Date & Type Note Facility 10-21-2022 Note HNO ID: [id number] Author: Marilyn Carvalho PA-C Service: ? Author Type: Physician Service Center Assistant Type: Progress Notes Filed: 10/21/2022 6:21 PM Note Text: This note was created using [employer]. Subjective Pura Laguerre is a 62 year old female. HPI Patient presents with a chief complaint of sinus congestion and postnasal drip off and on over the past month. She states around October 01 she had a week to 10 days of symptoms. She states her congestion did not clear completely but had significantly improved. Over the weekend she felt like her congestion returned as well as a postnasal drip. She did try some saline spray and Mucinex. Denies a fever. 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 Home COVID test was negative. She has had a dry cough from the postnasal drip. Review of Systems Constitutional: Negative. HENT: Positive for congestion, postnasal drip, sinus pressure and sinus pain. Negative for ear pain. Respiratory: Positive for cough. Cardiovascular: Negative. Gastrointestinal: Negative. Genitourinary: Negative. Musculoskeletal: Negative. All other systems reviewed and are negative. PAST MEDICAL HISTORY Diagnosis Date Acquired atrophy of thyroid Acute respiratory failure with hypoxia (HCC) 08/03/2020 Anxiety B12 deficiency Blood clot associated with vein wall inflammation Complete heart block (HCC) 10/2019 Depression Diabetes (HCC) History of pulmonary embolism Hypercholesterolemia Hypercoagulable state (HCC) Hypertension Hypothyroidism Iron deficiency anemia group home current use of anticoagulant Mixed hyperlipidemia Seasonal allergies Status cardiac pacemaker 10/2019 Thyroid activity decreased Current Outpatient Medications Medication Sig Dispense Refill JARDIANCE 10 mg tablet ENTRESTO 24-26 mg tablet metformin HCl (METFORMIN ORAL) Take by mouth. FUROSEMIDE ORAL Take by mouth. aspirin, enteric coated (ASPIRIN, ENTERIC COATED) 81 mg EC tablet Take 81 mg by mouth once daily. carvedilol (COREG) 25 mg tablet Take 25 mg by mouth twice daily with meals. coenzyme Q10 (CO Q-10) 100 mg cap capsule Take 100 mg by mouth once daily. losartan (COZAAR) 25 mg tablet Take 25 mg by mouth once daily. atorvastatin (LIPITOR) 10 mg tablet glipiZIDE (GLUCOTROL XL) 5 mg 24 hr tablet rivaroxaban (XARELTO) 20 mg tablet Take 20 mg by mouth daily with dinner. venlafaxine 75 mg tablet Take 75 mg by mouth three times daily. Levothyroxine 50 mcg cap Take by mouth. amoxicillin-clavulanic acid (AUGMENTIN) 875-125 mg per tablet Take 1 tablet by mouth twice daily for 7 days. 14 tablet 0 No current facility-administered medications for this visit. PAST SURGICAL HISTORY Procedure Laterality Date ANESTH,PACEMAKER INSERTION 10/2019 COLONOSCOPY FLX DX W/COLLJ SPEC WHEN PFRMD 11/06/2020 COLONOSCOPY GEN ANES 1999 HYSTERECTOMY AND VAGINA REPAIR ENTEROCELE KNEE SURGERY HX Right 1987 ACL repair FAMILY HISTORY Problem Relation Age of Onset Blindness Mother Heart Attack Father Diabetes Maternal Aunt Social History Tobacco Use Smoking status: Never Smokeless tobacco: Never Vaping Use Vaping Use: Never used Substance Use Topics Alcohol use: Not Currently Comment: rarely Drug use: No Objective BP 102/72 Pulse 89 Temp 36.4 ?C (97.5 ?F) Resp 18 Wt 104.5 kg (230 lb 6.4 oz) SpO2 98% BMI 40.17 kg/m? Physical Exam Vitals reviewed. Constitutional: Appearance: Normal appearance. HENT: Head: Normocephalic and atraumatic. Right Ear: Tympanic membrane, ear canal and external ear normal. Left Ear: Tympanic membrane, ear canal and external ear normal. Nose: Congestion present. Right Sinus: No maxillary sinus tenderness or frontal sinus tenderness. Left Sinus: Maxillary sinus tenderness present. No frontal sinus tenderness. Mouth/Throat: Mouth: Mucous membranes are moist. Pharynx: Oropharynx is clear. Cardiovascular: Rate and Rhythm: Normal rate and regular rhythm. Heart sounds: Normal heart sounds. Pulmonary: Effort: Pulmonary effort is normal. Breath sounds: Normal breath sounds. Musculoskeletal: Cervical back: Neck supple. Skin: General: Skin is warm and dry. Neurological: General: No focal deficit present. Mental Status: She is alert and oriented to person, place, and time. Assessment and Plan ASSESSMENT/PLAN: 1. Sinus congestion - ICD9: 478.19, ICD10: R09.81 (primary diagnosis) Discussed with patient this is likely back to back URI. Would recommend using Flonase and can continue mucinex. If sinus pressure/pain worsens in 3-4 days can fill augmentin script printed. 2. URI, acute - ICD9: 465.9, ICD10: J06.9 - Discussed viral etiology and rationale for treatment. - Symptomatic treatment with prn analgesia - Supportive care with fluids and rest Marilyn Carvalho PA-C [facility] History of Present illness Narrative 07-22-2021 Emily Rosas APRN.GERIATRICIAN - 07/22/2021 2:41 PM EDT Note Date & Type Note Facility 07-22-2021 History of Presen t illness Narrative CC: Patient presents with: Nasal Congestion: drainage, cough and sore throat x 5 days Patient sick 6-7 days. HPI: Pura Laguerre is a 60 year old female who presents to the office with complaint of head congestion, cough, nonproductive and sinus symptoms for a week. Symptoms are worsening Associated symptoms includes facial pain/pressure. Denies nausea, vomiting and diarrhea. Treatments tried include nothing so far. with no relief of symptoms. Sick contacts: unknown. History of asthma, frequent episodes of bronchitis, chronic bronchitis, bronchiectasis or COPD: No Smoker: No Seasonal/environmental allergies: No The ROS is otherwise negative. The patient's pmh, medications, allergies, and past visits are reviewed. PHYSICAL EXAM: BP 128/80 Pulse 90 Temp 36.9 C (98.4 F) Resp 18 Wt 104.1 kg (229 lb 9.6 oz) SpO2 98% BMI 40.03 kg/m General appearance: alert, cooperative, pleasant, in no acute distress Head: Normocephalic Eyes: EOM's intact, conjunctiva pink and moist, no icterus, sclera white, non-injected Ears: Right ear: External ear/canal- Normal, TM - clear with good landmarks. Left ear: External ear/canal- Normal, TM - clear with good landmarks Oropharynx:moist without lesions, No erythema, exudates or tonsillar hypertrophy. Heart: Negative. RRR without obvious murmur, gallop, or rubs. No ectopy. Lungs: clear to auscultation, without rales or wheeze, good air exchange PAST MEDICAL HISTORY Diagnosis Date Acquired atrophy of thyroid Acute respiratory failure with hypoxia ([facility]) 08/03/2020 Anxiety B12 deficiency Blood clot associated with vein wall inflammation Complete heart block (HCC) 10/2019 Depression Diabetes (HCC) History of pulmonary embolism Hypercholesterolemia Hypercoagulable state (HCC) Hypertension Hypothyroidism Iron deficiency anemia intermediate frame tender current use of anticoagulant Mixed hyperlipidemia Seasonal allergies Status cardiac pacemaker 10/2019 Thyroid activity decreased PAST SURGICAL HISTORY Procedure Laterality Date ANESTH,PACEMAKER INSERTION 10/2019 COLONOSCOPY FLX DX W/COLLJ SPEC WHEN PFRMD 11/06/2020 COLONOSCOPY GEN ANES 1999 HYSTERECTOMY & VAGINA REPAIR ENTEROCELE KNEE SURGERY HX Right 1988 ACL repair ALLERGIES Poison Ramona, Red Dye, and Sulfa (Sulfonamide Antibiotics) MEDICATIONS metformin HCl (METFORMIN ORAL) Take by mouth. FUROSEMIDE ORAL Take by mouth. aspirin, enteric coated (ASPIRIN, ENTERIC COATED) 81 mg EC tablet Take 81 mg by mouth once daily. carvedilol (COREG) 25 mg tablet Take 25 mg by mouth twice daily with meals. coenzyme Q10 (CO Q-10) 100 mg cap capsule Take 100 mg by mouth once daily. losartan (COZAAR) 25 mg tablet Take 25 mg by mouth once daily. atorvastatin (LIPITOR) 10 mg tablet glipiZIDE (GLUCOTROL XL) 5 mg 24 hr tablet rivaroxaban (XARELTO) 20 mg tablet Take 20 mg by mouth daily with dinner. venlafaxine 75 mg tablet Take 75 mg by mouth three times daily. Levothyroxine 50 mcg cap Take by mouth. amoxicillin-clavulanic acid (AUGMENTIN) 875-125 mg per tablet Take 1 tablet by mouth twice daily for 5 days. FAMILY HISTORY Problem Relation Age of Onset Blindness Mother Heart Attack Father Diabetes Maternal Aunt Social History Tobacco Use Smoking status: Never Smoker Smokeless tobacco: Never Used Vaping Use Vaping Use: Never used Substance Use Topics Alcohol use: Not Currently Comment: rarely Drug use: No ASSESSMENT/PLAN: 1. Cough - ICD9: 786.2, ICD10: R05.9 Augmentin bid for 5 days. Prescription instructions reviewed with patient as applicable. Potential red flag symptoms discussed with the patient. Reviewed appropriate action plan to take if red flag symptoms occur. Patient agreeable to treatment plan. Emily Rosas APRN.FRE[employer]OM documented in this encounter [facility] Evaluation note Note Date & Type Note Facility documented in this encounter [facility] Evaluation note Note Date & Type Note Facility documented in this encounter [facility] Summary Purpose Family History No Family History Records FoundNo Family History Records FoundNo Family History Records FoundNo Family History Records Found Advance Directives No Advanced Directives Records FoundDocuments on File Type Date Recorded Patient Manager Engagement Expl anation Advance Directives and Livin g Will 12/15/2019 8:08 PM Latest Code Status on File Code Status Date Activated Date Inactivated Comments Full Code - Unverified 12/03/2019 4:41 PM 12/09/2019 2:44 PM Full Code - Unverified 11/29/2019 11:19 PM 12/03/2019 4:4 1 PM Documents on File Type Date Recorded Patient Manager Engagement Expl anation Advance Directives and Livin g Will 03/09/2020 8:08 PM Latest Code Status on File Code Status Date Activated Date Inactivated Comments Full Code - Unverified 12/03/2019 4:41 PM 12/09/2019 2:44 PM Full Code - Unverified 11/29/2019 11:19 PM 12/03/2019 4:4 1 PM Documents on File Type Date Recorded Patient Manager Engagement Expl anation Advance Directives and Livin g Will 11/29/2019 8:08 PM Documents on File Type Date Recorded Patient Manager Engagement Expl anation Advance Directive(s) 11/06/2020 7:01 AM Advance Directive(s) 10/10/2020 9:30 AM Reason for Referral Status Reason Specialty Diagnoses / Procedures Referred By Contact Referred To Contact Pending Review Cardiology Diagnoses Pacemaker Procedures Outpatient Device Clinic Referral Giuliano Reinoso MD [address] [place] [id number] Assessments Diagnosis Pacemaker Cardiac pacemaker in situ Diagnosis Sinus bradycardia- Primary Other specified cardiac dysrhythmias Acute UTI Urinary tract infection, site not specified Bradycardia, unspecified Hospital Course * Geovanni, Sonia Pfeiffer MD - 12/09/2019 11:35 AM EDT HOSPITALIST DISCHARGE SUMMARY Patient: Pura Laguerre Account: [id number] Admitted: 11/29/2019 Discharge Date/Time: 12/09/2019 Clinical Summary FINAL DIAGNOSIS: Third-degree AV block S/P MAIRA 12/08/19 Past Medical History: Diagnosis Date Depression Diabetes mellitus (HCC) Disease of thyroid gland DVT (deep venous thrombosis) (HCC) Hyperlipidemia Hypertension REASON FOR HOSPITALIZATION AND ADMITTING DIAGNOSIS: Fatigue and Shortness of Breath Sinus bradycardia [R00.1] Acute UTI [N39.0] Bradycardia, unspecified [R00.1] HOSPITAL COURSE: This is a 59-year-old female with past medical history of hypertension, hyperlipidemia, diabetes mellitus, DVT, admitted on 11/29/2019 with Third-degree AV block. Initially rate control medication on hold. EP consulted, status post MICRA pacemaker insertion 12/08/2019. Echocardiogram 11/30/2019 1. Left ventricular systolic function is normal with an ejection fraction by Biplane Method of Discs of 68 %. 2. The left ventricular diastolic function is normal. 3. Moderate left ventricular concentric hypertrophy. EP recommended, Continue current cardiac medications at current doses, unlimited duration. She is on Xarelto 20 mg Daily for OAC for DVT. She was on Metoprolol Suc 50 mg daily prior to admission. Ok to resume if needed. History of DVT. Continue Xarelto. We discharged patient after improvement of her general condition and pacemaker insertion. Patient to follow-up with PCP in 1 week. Follow-up with EP as noted CONDITION AT DISCHARGE: Stable Physical Examination: Blood pressure 101/69, pulse 79, temperature 98.2 F (36.8 C), temperature source Oral, resp. rate 16, height 5' 3 , weight 109.5 kg (241 lb 6.5 oz), SpO2 97 %. General appearance: alert, cooperative, in no acute distress. Head/Neck: Head- normocephalic. Neck- supple, non-tender, without lymphadenopathy Eyes: No Scleral icterus or pallor; EOMI ENT: Trachea midline. Cardiovascular: regular rate and rhythm; normal S1, S2; no murmurs, rubs, clicks or gallops; No/+ peripheral edema. Respiratory: lungs clear to auscultation; without wheezes, rales or rhonchi. Abdomen: soft, non tender, non-distended; positive bowel sounds. Neurological: alert, oriented, normal speech; no focal findings or movement disorder noted. Musculoskeletal: no significant deformity noted. Skin: normal coloration, texture and turgor; no lesions or eruptions. Procedures: No orders of the defined types were placed in this encounter. Consults: Procedures Hospitalize Patient To : Inpatient consult to Cardiology Inpatient consult to Cardiology Inpatient consult to Cardiology Inpatient consult to Sleep Lab Other Tests: Procedures Echocardiogram complete w contrast LAST LABS: Results from last 7 days Lab Units 12/09/19 0632 SODIUM mmol/L 140 POTASSIUM mmol/L 4.4 CHLORIDE mmol/L 107 BUN mg/dL 17 CREATININE mg/dL 0.91 GLUCOSE mg/dL 168* CALCIUM mg/dL 8.4 Results from last 7 days Lab Units 12/09/19 0632 ALK PHOS U/L 89 BILIRUBIN TOTAL mg/dL 0.5 TOTAL PROTEIN g/dL 6.8 ALTR U/L 54 AST U/L 26 Results from last 7 days Lab Units 12/09/19 0632 WBC K/mcL 3.99* HGB g/dL 12.0 HCT % 40.3 PLT K/mcL 172 Allergies: Sulfa (sulfonamide antibiotics) Discharge Diet: Diet Special; Cardiac Disposition: Home Discharge Medications Medication List START taking these medications loratadine 10 mg tablet Commonly known as: CLARITIN Take 1 (one) tablet (10 mg total) by mouth daily Start: 12/10/19. Start taking on: December 10, 2019 losartan 50 MG tablet Commonly known as: COZAAR Take 1 (one) tablet (50 mg total) by mouth daily with lunch . CONTINUE taking these medications atorvastatin 10 MG tablet Commonly known as: LIPITOR glipiZIDE 5 MG tablet Commonly known as: GLUCOTROL levothyroxine 88 MCG tablet Commonly known as: SYNTHROID, LEVOTHROID metFORMIN 500 MG tablet Commonly known as: GLUCOPHAGE rivaroxaban 20 mg Tab Commonly known as: XARELTO venlafaxine 75 MG 24 hr capsule Commonly known as: EFFEXOR-XR STOP taking these medications metoprolol succinate 50 MG 24 hr tablet Commonly known as: TOPROL-XL Where to Get Your Medications These medications were sent to [facility] [address] [facility] [address] [facility] [id number] loratadine 10 mg tablet losartan 50 MG tablet Physician(s) Family: Andrews Garcia MD, , Address: [address] [facility] [address] Follow Up: Andrews Garcia MD [address] [place] [phone] Follow up in 1 week(s) Tracey Shaffer MD [address] [place] [phone] Follow up in 1 week(s) Patient instructions, including activity, were given to the patient/family at discharge. Please seethe After Visit Summary in the medical record for details. Time spent on discharge: > 30 minutes Completed by: Sonia Galarza on 12/09/19, 11:35 AM documented in this encounter Discharge Instructions * Instructions* Therese Alcantar RN - 12/08/2019 Micra Leadless Pacemaker Implant: Activity Restrictions: You should not drive for 48 hours after the procedure. For at least one week you should not lift, push or pull anything heavier than 10 pounds or do any exercises that cause you to hold your breath and bear down with your abdominal muscles. One week after the procedure, you may resume your regular activities. You may also begin your exercise program at half your usual routine for the first few days, then gradually work back to your fullroutine. You should not take a tub bath or swim until the puncture sites are healed. This usually takes about a week. You may remove the bandaids over your puncture sites and shower after 48 hours. You may notice a small lump or bruises to the puncture sites. This is normal and will go away aftera few weeks. If you notice fresh bleeding, press hard on the area for 15 minutes. If it does not stop, continue to hold pressure and call the office at [phone]. Call the office if you notice pain, swelling, or redness at the puncture site or if you have a fever of 101 or greater Medications: Continue taking all of your medications unless the doctor tells you otherwise. It is important for you to continue your anti-arrhythmic medication such as Amiodarone, Flecainide,Propafenone, Sotalol, Multaq or Tikosyn. This may be stopped after your first follow-up appointment. Blood thinning medications should not be stopped. If needed, you may take acetaminophen (Tylenol) every 6 hours as needed for pain. If pain is not relieved with acetaminophen, contact your doctor. Never take more than the recommended dose of Tylenol. You will receive an updated medication list upon discharge. If there are any questions about your m edications, you should call the office immediately. When to call the doctor: Fever Malaise-General feeling of being unwell Difficulty swallowing Burning or difficulty urinating-if you had a catheter during your procedure, this may be a symptom of a urinary tract infection When to go to the Emergency Room: Increasing chest pain Severe palpitations or palpitations that persist/are causing you distress Shortness of Breath High Fever Neurological Symptoms Fainting or feeling faint Vision changes Numbness/weakness Slurred speech Follow-up care is a lopez part of your treatment and safety. Be sure to make and go to all appointments, and call your doctor if you are having problems. It's also a good idea to know your test resultsand keep a list of the medicines you take. documented in this encounter History of Present Illness * Teo Mendoza RN - 12/09/2019 8:03 AM EDT Right groin dressing removed at this time, suture removed and band-aid placed x2 over site, sites clean and dry with no redness noted. Post Micra teaching done at this time, instructions and appt placed on AVS for pt to review going home. * Sonia Galarza MD - 12/08/2019 3:55 PM EDT Hospital Medicine Inpatient Follow-up 12/08/2019 Sonia Galarza MD [facility] Patient: Pura Laguerre Date of : 1960 (59 y.o.) PCP: Andrews Garcia MD ASSESSMENT/PLAN: Pura Laguerre 59 y.o. female presented with Third-degree AV block Past Medical History: Diagnosis Date Depression Diabetes mellitus (HCC) Disease of thyroid gland DVT (deep venous thrombosis) ([facility]) Hyperlipidemia Hypertension PLAN: Third-degree AV block. Hold rate control medication. EP consulted, planning for MICRA pacemaker insertion 12/08/2019. Echocardiogram 11/30/2019 1. Left ventricular systolic function is normal with an ejection fraction by Biplane Method of Discs of 68 %. 2. The left ventricular diastolic function is normal. 3. Moderate left ventricular concentric hypertrophy. History of DVT. Continue Xarelto. Continue other home medication. PUD DVT prophylaxis SUBJECTIVE: No new complain All other systems reviewed and negative other than noted above. OBJECTIVE: Physical Examination: BP 143/71 Pulse (!) 54 Temp 98 F (36.7 C) (Oral) Resp 16 Ht 5' 3 Wt 108.5 kg (239 lb 3.2oz) Comment: standing weight SpO2 97% BMI 42.37 kg/m General Appearance: Alert, well appearing, and in no acute distress. HEENT: Head - Normocephalic, atraumatic. Eyes - CHUN bilaterally and EOMI. Ears - normal external appearance, hearing intact. Nose - normal, no erythema. Throat - mucous membranes moist, pharynx without lesions. Neck: Supple, trachea midline. Cardiovascular: S1, S2 normal. No murmurs, rubs, clicks or gallops appreciated. No pedal edema. Respiratory: Lungs clear to auscultation, no wheezes, rales or rhonchi heard. Abdomen: Soft, non-tender, normal bowel sounds, non-distended, no masses or organomegaly appreciated. Neurological: Grossly normal motor and sensory exam. No focal deficits. Musculoskeletal: No joint tenderness, deformity or swelling. Skin: Normal coloration and turgor. No rashes. Psych: Alert, oriented x 3. Normal mood and affect. CURRENT MEDICATIONS: atorvastatin 10 mg Oral Daily levothyroxine 88 mcg Oral Daily loratadine 10 mg Oral Daily losartan 50 mg Oral Daily with lunch metFORMIN 1,000 mg Oral Daily with breakfast rivaroxaban 20 mg Oral Daily vancomycin 1 g in sodium chloride 0.9% 1000 mL IRRIGATION (BTL) 1,000 mg Irrigation Once vancomycin 1,000 mg Intravenous Once venlafaxine 75 mg Oral Daily with breakfast Results/Medications Reviewed 12/08/19 3:55 PM: Results from last 7 days Lab Units 12/08/19 0457 12/07/19 0450 12/06/19 0550 SODIUM mmol/L 141 142 141 POTASSIUM mmol/L 4.1 4.2 3.8 CHLORIDE mmol/L 109* 108 109* BUN mg/dL 18 17 16 CREATININE mg/dL 0.97 0.95 0.92 GLUCOSE mg/dL 136* 131* 132* CALCIUM mg/dL 8.8 8.8 8.9 Results from last 7 days Lab Units 12/08/19 0457 12/07/19 0450 12/06/19 0550 WBC K/mcL 3.39* 5.94 3.68* HGB g/dL 12.7 13.0 12.5 HCT % 41.4 43.7 41.7 PLT K/mcL 175 208 195 Results from last 7 days Lab Units 12/07/19 0450 ALK PHOS U/L 96 BILIRUBIN TOTAL mg/dL 0.5 TOTAL PROTEIN g/dL 7.0 ALTR U/L 66* AST U/L 34 CULTURES: Reviewed 3:55 PM IMAGING: Reviewed 3:55 PM * Geovanni, Sonia Pfeiffer MD - 12/07/2019 1:53 PM EDT [facility] Medicine Inpatient Follow-up 12/07/2019 Sonia Galarza MD [facility] Patient: Pura Laguerre Date of : 1960 (59 y.o.) PCP: Andrews Garcia MD ASSESSMENT/PLAN: Pura Laguerre 59 y.o. female presented with Third-degree AV block Past Medical History: Diagnosis Date Depression Diabetes mellitus (HCC) Disease of thyroid gland DVT (deep venous thrombosis) (HCC) Hyperlipidemia Hypertension PLAN: Third-degree AV block. Hold rate control medication. EP consulted, planning for MICRA pacemaker insertion likely 12/08/2019. Echocardiogram 11/30/2019 1. Left ventricular systolic function is normal with an ejection fraction by Biplane Method of Discs of 68 %. 2. The left ventricular diastolic function is normal. 3. Moderate left ventricular concentric hypertrophy. History of DVT. Continue Xarelto. Continue other home medication. PUD DVT prophylaxis SUBJECTIVE: No new complain All other systems reviewed and negative other than noted above. OBJECTIVE: Physical Examination: BP 124/74 Pulse (!) 46 Temp 98 F (36.7 C) (Oral) Resp 16 Ht 5' 3 Wt 109 kg (240 lb 4.8 oz) Comment: standing weight SpO2 98% BMI 42.57 kg/m General Appearance: Alert, well appearing, and in no acute distress. HEENT: Head - Normocephalic, atraumatic. Eyes - CHUN bilaterally and EOMI. Ears - normal external appearance, hearing intact. Nose - normal, no erythema. Throat - mucous membranes moist, pharynx without lesions. Neck: Supple, trachea midline. Cardiovascular: S1, S2 normal. No murmurs, rubs, clicks or gallops appreciated. No pedal edema. Respiratory: Lungs clear to auscultation, no wheezes, rales or rhonchi heard. Abdomen: Soft, non-tender, normal bowel sounds, non-distended, no masses or organomegaly appreciated. Neurological: Grossly normal motor and sensory exam. No focal deficits. Musculoskeletal: No joint tenderness, deformity or swelling. Skin: Normal coloration and turgor. No rashes. Psych: Alert, oriented x 3. Normal mood and affect. CURRENT MEDICATIONS: atorvastatin 10 mg Oral Daily levothyroxine 88 mcg Oral Daily loratadine 10 mg Oral Daily losartan 50 mg Oral Daily with lunch metFORMIN 1,000 mg Oral Daily with breakfast rivaroxaban 20 mg Oral Daily venlafaxine 75 mg Oral Daily with breakfast Results/Medications Reviewed 12/07/19 1:53 PM: Results from last 7 days Lab Units 12/07/19 0450 12/06/19 0550 12/05/19 0524 SODIUM mmol/L 142 141 140 POTASSIUM mmol/L 4.2 3.8 4.3 CHLORIDE mmol/L 108 109* 109* BUN mg/dL 17 16 14 CREATININE mg/dL 0.95 0.92 1.01 GLUCOSE mg/dL 131* 132* 144* CALCIUM mg/dL 8.8 8.9 8.7 Results from last 7 days Lab Units 12/07/19 0450 12/06/19 0550 WBC K/mcL 5.94 3.68* HGB g/dL 13.0 12.5 HCT % 43.7 41.7 PLT K/mcL 208 195 Results from last 7 days Lab Units 12/07/19 0450 ALK PHOS U/L 96 BILIRUBIN TOTAL mg/dL 0.5 TOTAL PROTEIN g/dL 7.0 ALTR U/L 66* AST U/L 34 CULTURES: Reviewed 1:53 PM IMAGING: Reviewed 1:53 PM * Conchita Zapata, NOELLE - 12/07/2019 9:39 AM EDT Care Management Progress Note Care management following for LOS day 6. Admitted for bradycardia and third degree AV block. Pt having left sided dual chamber pacemaker placed today. Procedure delayed due to presence of UTI and requiring IV antibiotic treatment. Will continue to follow. * Juliet Lynn RD - 12/07/2019 8:41 AM EDT Nutrition Care Follow Up Monitoring and Evaluation: PO intake was 75% or greater at most meals Nutrition Diagnosis: Decreased nutrient needs related to decreased tolerance to exogenous sodium, cholesterol, and saturated fat intake as evidenced by complete heart block, high blood pressure, obesity. . Not Resolved Nutrition Intervention/Prescription: Continue Meal and Snacks Diet: SHAUN 60 gm/meal Nutrition Goals: PO intake > 75% most meals Start Date:12/07/2019 Expected End Date:12/13/2019 Nutrition Education: RDN reviewed diet education with patient 12/02/19 Assessment: Pertinent clinical information: Third-degree AV block. EP consulted, planning for permanent pacemaker insertion 12/07/2019 Current weight: 109 kg (240 lb 4.8 oz) Body mass index is 42.57 kg/m . Current diet order: SHAUN 60 gm/meal Recent intake: 75-100%. Current intake meets estimated needs. Patient/family comments: good appetite Difficulty Chewing/Swallowing: No Skin Integrity: Surgical incision GI Function: LBM 12/06/19 Physical Appearance: THOMAS JUNG working remotely @ this time Labs: Recent Labs 12/07/19 0450 NA 142 K 4.2 BICARB 27 CL 108 GLUCOSE 131* BUN 17 CREATININE 0.95 MG 1.7 Scheduled Meds: atorvastatin 10 mg Oral Daily levothyroxine 88 mcg Oral Daily loratadine 10 mg Oral Daily losartan 50 mg Oral Daily with lunch metFORMIN 1,000 mg Oral Daily with breakfast rivaroxaban 20 mg Oral Daily vancomycin 1 g in sodium chloride 0.9% 1000 mL IRRIGATION (BTL) 1,000 mg Irrigation Once vancomycin 1,000 mg Intravenous Once venlafaxine 75 mg Oral Daily with breakfast Continuous Infusions: Estimated Energy Needs Total Energy Estimated Needs: 7031-2417 kcal Method for Estimating Needs: MSJ Total Protein Estimated Needs: 60-70 g Method for Estimating Needs: 1.0 g/kg AdjBW Will follow-up , as needed while in-house. Juliet Lynn RDN, * Sonia Galarza MD - 12/06/2019 4:49 PM EDT [facility] Medicine Inpatient Follow-up 12/06/2019 Sonia Galarza MD [facility] Patient: Pura Laguerre Date of : 1960 (59 y.o.) PCP: Anrdews Garcia MD ASSESSMENT/PLAN: Pura Laguerre 59 y.o. female presented with Third-degree AV block Past Medical History: Diagnosis Date Depression Diabetes mellitus (HCC) Disease of thyroid gland DVT (deep venous thrombosis) (HCC) Hyperlipidemia Hypertension PLAN: Third-degree AV block. Hold rate control medication. EP consulted, planning for permanent pacemaker insertion 12/07/2019 Echocardiogram 11/30/2019 1. Left ventricular systolic function is normal with an ejection fraction by Biplane Method of Discs of 68 %. 2. The left ventricular diastolic function is normal. 3. Moderate left ventricular concentric hypertrophy. History of DVT. Continue Xarelto. Continue other home medication. PUD DVT prophylaxis SUBJECTIVE: No new complain All other systems reviewed and negative other than noted above. OBJECTIVE: Physical Examination: BP 115/77 (BP Location: Left arm, Patient Position: Sitting) Pulse (!) 49 Temp 98.4 F (36.9 C) (Oral) Resp 14 Ht 5' 3 Wt 109.5 kg (241 lb 6.5 oz) SpO2 97% BMI 42.76 kg/m General Appearance: Alert, well appearing, and in no acute distress. HEENT: Head - Normocephalic, atraumatic. Eyes - CHUN bilaterally and EOMI. Ears - normal external appearance, hearing intact. Nose - normal, no erythema. Throat - mucous membranes moist, pharynx without lesions. Neck: Supple, trachea midline. Cardiovascular: S1, S2 normal. No murmurs, rubs, clicks or gallops appreciated. No pedal edema. Respiratory: Lungs clear to auscultation, no wheezes, rales or rhonchi heard. Abdomen: Soft, non-tender, normal bowel sounds, non-distended, no masses or organomegaly appreciated. Neurological: Grossly normal motor and sensory exam. No focal deficits. Musculoskeletal: No joint tenderness, deformity or swelling. Skin: Normal coloration and turgor. No rashes. Psych: Alert, oriented x 3. Normal mood and affect. CURRENT MEDICATIONS: atorvastatin 10 mg Oral Daily levothyroxine 88 mcg Oral Daily loratadine 10 mg Oral Daily losartan 50 mg Oral Daily with lunch metFORMIN 1,000 mg Oral Daily with breakfast rivaroxaban 20 mg Oral Daily venlafaxine 75 mg Oral Daily with breakfast Results/Medications Reviewed 12/06/19 4:53 PM: Results from last 7 days Lab Units 12/06/19 0550 12/05/19 0524 12/04/19 0553 SODIUM mmol/L 141 140 140 POTASSIUM mmol/L 3.8 4.3 4.0 CHLORIDE mmol/L 109* 109* 108 BUN mg/dL 16 14 17 CREATININE mg/dL 0.92 1.01 0.97 GLUCOSE mg/dL 132* 144* 153* CALCIUM mg/dL 8.9 8.7 9.1 Results from last 7 days Lab Units 12/06/19 0550 11/29/191926 WBC K/mcL 3.68* 9.99 HGB g/dL 12.5 12.3 HCT % 41.7 40.3 PLT K/mcL 195 265 Results from last 7 days Lab Units 11/29/191926 TROPONIN I ng/L <15 Invalid input(s): LABALBU CULTURES: Reviewed 4:53 PM IMAGING: Reviewed 4:53 PM * Yael Venegas CNS - 12/06/2019 10:50 AM EDT Pulmonology/Sleep Medicine Progress Note 12/06/2019 Patient: Pura Laguerre Date of : 1960 Site: [facility] Provider: KURT Underwood ASSESSMENT/PLAN: Diabetes Hypertension Previously diagnosed, currently treated obstructive sleep apnea Bradycardia Obesity Hypothyroidism Plan Patient declined the overnight pulse ox due to wanting to wear her CPAP machine. Patient reports pacemaker to be placed tomorrow. We will follow her, on an outpatient basis. We will sign off for now. SUBJECTIVE: This patient states to have had an uneventful evening, still having bradycardia. Sitting up in the chair doing well no complaints at this time. Interpretation of Testing: I personally reviewed and agree with the interpretation(s). Review of Systems: All other systems reviewed and negative other than HPI OBJECTIVE: Physical Examination: BP 134/74 Pulse (!) 43 Temp 97.6 F (36.4 C) (Oral) Resp 14 Ht 5' 3 Wt 109.5 kg (241 lb 6.5 oz) SpO2 97% BMI 42.76 kg/m General Appearance: Alert, well appearing, and in no acute distress. HEENT: Head - Normocephalic, atraumatic. Eyes - CHUN bilaterally and EOMI. Mellampati - 4 Ears - normal external appearance, hearing intact. Nose - normal, no erythema. Throat - mucous membranes moist, pharynx without lesions. Neck: Supple, trachea midline. Cardiovascular: S1, S2 normal. No murmurs, rubs, clicks or gallops appreciated. Respiratory: Lungs clear to auscultation, no wheezes, rales or rhonchi heard. Extremeties: Edema+ plus Neurological: Grossly normal motor and sensory exam. No focal deficits. Musculoskeletal: No joint tenderness, deformity or swelling. Skin: Normal coloration and turgor. No rashes. Psych: Alert, oriented x 3. Normal mood and affect. Laboratory and Additional Data Reviewed: Reviewed 12/06/19 10:50 AM: Laboratory Vitals: Temp Readings from Last 3 Encounters: 12/06/19 97.6 F (36.4 C) (Oral) BP Readings from Last 3 Encounters: 12/06/19 134/74 Pulse Readings from Last 3 Encounters: 12/06/19 (!) 43 Medications: Current Facility-Administered Medications: acetaminophen (TYLENOL) tablet 650 mg, 650 mg, Oral, Q6H PRN, Amado Rod MD, 650 mg at 12/05/19 195 atorvastatin (LIPITOR) tablet 10 mg, 10 mg, Oral, Daily, Robby Chaudhary CNP, 10 mg at 12/06/19 1032 atropine injection 1 mg, 1 mg, Intravenous, PRN, Karely King MD levothyroxine (SYNTHROID, LEVOTHROID) tablet 88 mcg, 88 mcg, Oral, Daily, Robby Chaudhary CNP, 88 mcg at 12/06/19 0535 loratadine (CLARITIN) tablet 10 mg, 10 mg, Oral, Daily, Christine Kamara CNP, 10 mg at 12/05/200932 losartan (COZAAR) tablet 50 mg, 50 mg, Oral, Daily with lunch, Robby Chaudhary CNP, 50 mg at 12/05/19 1114 metFORMIN (GLUCOPHAGE) tablet 1,000 mg, 1,000 mg, Oral, Daily with breakfast, Robby Chaudhary CNP, 1,000 mg at 12/06/19 1032 pneumococcal vaccine (PNU-IMMUNE 23) injection 0.5 mL, 0.5 mL, Intramuscular, Prior To Discharge, Klever Mcfarland MD rivaroxaban (XARELTO) tablet 20 mg, 20 mg, Oral, Daily, Robby Chaudhary CNP, 20 mg at 12/05/19 1712 sodium chloride (OCEAN) 0.65 % nasal spray 1 spray, 1 spray, Each Nare, PRN, Amado Rod MD, 1 spray at 12/04/19 1127 venlafaxine (EFFEXOR-XR) 24 hr capsule 75 mg, 75 mg, Oral, Daily with breakfast, Amado Rod MD, 75 mg at 12/06/19 1033 Labs: Lab Results Component Value Date WBC 3.68 (L) 12/06/2019 HGB 12.5 12/06/2019 HCT 41.7 12/06/2019 MCV 87.6 12/06/2019 PLT 195 12/06/2019 RBC 4.76 12/06/2019 Results from last 7 days Lab Units 12/06/19 0550 SODIUM mmol/L 141 POTASSIUM mmol/L 3.8 CHLORIDE mmol/L 109* BUN mg/dL 16 CREATININE mg/dL 0.92 GLUCOSE mg/dL 132* CALCIUM mg/dL 8.9 Radiology: Echocardiogram complete w contrast Final Result CT CCTA Heart With And Without Contrast Final Result Degenerative disc changes of the lower thoracic spine. Otherwise unremarkable extracardiac examination. Please refer to separate report for dedicated cardiac findings. /[facility] Workstation ID: [id number] CCTA Heart (Dater Assembler read) Final Result 1. Total calcium score: 0 2. Non obstructive CAD identified with Coronary CT Angiography. There is 1-24% non calcific plaque in the proximal LCx (closer to 24%) CAD RADS (score): 1 RECOMMENDATIONS: CAD-RADS 1: (1-24% minimal stenosis). Consider non-atherosclerotic causes of chest pain. Consider preventive therapy and risk factor modification. XR Chest 1 View Final Result No acute cardiopulmonary findings. Mild cardiomegaly. Workstation ID: [id number] EP - Device (Results Pending) Associated attestation - Pito Shore MD - 12/06/2019 10:58 AM EDT I have personally seen and examined the patient. I have reviewed the pertinent lab and diagnostic data new and old if applicable. I agree with the RADHA history physical exam assessment and plan by KURT Richardson with modifications noted below. Pito Shore MD, FCCP, FASSM, [facility] Diplomate: [place] [employer] Precision Dancer: [facility] * Amado Pierre MD - 12/05/2019 1:29 PM EDT [facility] Medicine Inpatient Follow-up 12/05/2019 Amado Rod MD [facility] Patient: Pura Laguerre Date of : 1960 (59 y.o.) PCP: Andrews Garcia MD ASSESSMENT/PLAN: Pura Laguerre 59 y.o. female presented with complains of Active Problems: Bradycardia, unspecified Plan * complete heart block Patient is hemodynamically stable TSH is within normal limits Echo is consistent with diastolic congestive heart Continue to hold all blocking agents including beta-neftali and calcium channel Permanent pacemaker placement on Friday *Asymptomatic bacteriuria Finished Rocephin course SUBJECTIVE: Laying in bed comfortably, no complaints All other systems reviewed and negative other than noted above. OBJECTIVE: Physical Examination: BP (!) 100/57 (BP Location: Left arm, Patient Position: Lying) Pulse (!) 51 Temp 98.4 F (36.9 C) (Oral) Resp 16 Ht 5' 3 Wt 109.5 kg (241 lb 6.5 oz) SpO2 96% BMI 42.76 kg/m General Appearance: Alert, well appearing, and in no acute distress. HEENT: Head - Normocephalic, atraumatic. Eyes - CHUN bilaterally and EOMI. Ears - normal external appearance, hearing intact. Nose - normal, no erythema. Throat - mucous membranes moist, pharynx without lesions. Neck: Supple, trachea midline. Cardiovascular: Bradycardic/no murmurs or gallops respiratory: Lungs clear to auscultation, no wheezes, rales or rhonchi heard. Abdomen: Soft, non-tender, normal bowel sounds, non-distended, no masses or organomegaly appreciated. Neurological: Grossly normal motor and sensory exam. No focal deficits. Musculoskeletal: No joint tenderness, deformity or swelling. Skin: Normal coloration and turgor. No rashes. Psych: Alert, oriented x 3. Normal mood and affect. CURRENT MEDICATIONS: atorvastatin 10 mg Oral Daily levothyroxine 88 mcg Oral Daily loratadine 10 mg Oral Daily losartan 50 mg Oral Daily with lunch metFORMIN 1,000 mg Oral Daily with breakfast rivaroxaban 20 mg Oral Daily venlafaxine 75 mg Oral Daily with breakfast Results/Medications Reviewed 12/05/19 1:29 PM: Results from last 7 days Lab Units 12/05/19 0524 12/04/19 0553 12/03/19 0611 SODIUM mmol/L 140 140 140 POTASSIUM mmol/L 4.3 4.0 4.0 CHLORIDE mmol/L 109* 108 108 BUN mg/dL 14 17 15 CREATININE mg/dL 1.01 0.97 0.84 GLUCOSE mg/dL 144* 153* 140* CALCIUM mg/dL 8.7 9.1 9.0 Results from last 7 days Lab Units 11/29/19 192 WBC K/mcL 9.99 HGB g/dL 12.3 HCT % 40.3 PLT K/mcL 265 Results from last 7 days Lab Units 11/29/191926 TROPONIN I ng/L <15 Invalid input(s): LABALBU CULTURES: Reviewed 1:29 PM IMAGING: Reviewed 1:29 PM * Amado Pierre MD - 12/04/2019 2:42 PM EDT [facility] Medicine Inpatient Follow-up 12/04/2019 Amado Rod MD [facility] Patient: Pura Laguerre Date of : 1960 (59 y.o.) PCP: Andrews Garcia MD ASSESSMENT/PLAN: Pura Laguerre 59 y.o. female presented with complains of Active Problems: Bradycardia, unspecified Plan * complete heart block Patient is hemodynamically stable TSH is within normal limits Echo is consistent with diastolic congestive heart Continue to hold all blocking agents including beta-neftali and calcium channel Permanent pacemaker placement on Friday *Asymptomatic bacteriuria Finished Rocephin course SUBJECTIVE: Laying in bed comfortably, no complaints All other systems reviewed and negative other than noted above. OBJECTIVE: Physical Examination: BP 114/68 (BP Location: Left arm, Patient Position: Sitting) Pulse (!) 45 Temp 98.3 F (36.8 C)(Oral) Resp 16 Ht 5' 3 Wt 109.7 kg (241 lb 13.5 oz) SpO2 97% BMI 42.84 kg/m General Appearance: Alert, well appearing, and in no acute distress. HEENT: Head - Normocephalic, atraumatic. Eyes - CHUN bilaterally and EOMI. Ears - normal external appearance, hearing intact. Nose - normal, no erythema. Throat - mucous membranes moist, pharynx without lesions. Neck: Supple, trachea midline. Cardiovascular: Bradycardic/no murmurs or gallops respiratory: Lungs clear to auscultation, no wheezes, rales or rhonchi heard. Abdomen: Soft, non-tender, normal bowel sounds, non-distended, no masses or organomegaly appreciated. Neurological: Grossly normal motor and sensory exam. No focal deficits. Musculoskeletal: No joint tenderness, deformity or swelling. Skin: Normal coloration and turgor. No rashes. Psych: Alert, oriented x 3. Normal mood and affect. CURRENT MEDICATIONS: atorvastatin 10 mg Oral Daily levothyroxine 88 mcg Oral Daily loratadine 10 mg Oral Daily losartan 50 mg Oral Daily with lunch metFORMIN 1,000 mg Oral Daily with breakfast rivaroxaban 20 mg Oral Daily venlafaxine 75 mg Oral Daily with breakfast Results/Medications Reviewed 12/04/19 2:42 PM: Results from last 7 days Lab Units 12/04/19 0553 12/03/19 0611 12/02/19 0652 SODIUM mmol/L 140 140 141 POTASSIUM mmol/L 4.0 4.0 4.0 CHLORIDE mmol/L 108 108 108 BUN mg/dL 17 15 18 CREATININE mg/dL 0.97 0.84 0.95 GLUCOSE mg/dL 153* 140* 137* CALCIUM mg/dL 9.1 9.0 8.9 Results from last 7 days Lab Units 11/29/19 192 WBC K/mcL 9.99 HGB g/dL 12.3 HCT % 40.3 PLT K/mcL 265 Results from last 7 days Lab Units 11/29/191926 TROPONIN I ng/L <15 Invalid input(s): LABALBU CULTURES: Reviewed 2:42 PM IMAGING: Reviewed 2:42 PM * Belkis Ruiz CNP - 12/03/2019 4:41 PM EDT Electrophysiology Inpatient Follow-up Heart & Vascular [facility] 12/03/2019 Belkis Ruiz CNP [facility] Patient: Pura Laguerre Date of : 1960 (59 y.o.) PCP: Andrews Garcia MD Assessment/Plan: Pura Laguerre is a 59 year old female with: + High degree AV block (third degree HB alternating with second degree HB) + Last dose of Metoprolol Suc 50 mg was 11/29/2019 + normal EF 68% on echo 11/30/2019 + No significant cardiac valve disease on echo 11/30/2019 + normal LA & LV with RV& RA enlargement on echo 11/30/2019 + no known CAD: Cardiac CT 11/30/2019 shows Calcium score of 0 in coronary arteries + Hx DM type 2 on metformin and glipizide + Hx HTN on metoprolol suc + Hx DVT on Xarelto + Hx HLD on atorvastatin + Hx hypothyroidism on levothyroxine + Hx depression on Effexor + Hx LUIS FELIPE on CPAP at hs Plan: 12/01/2019 (reviewed with Dr Shaffer) - continue to hold all HR limiting meds-holding metoprolol suc 50 mg daily -Will discuss timing of the left sided dual chamber pacemaker with Dr Shaffer. She currently has a UTI on Ceftriaxone. (E Coli >100K on urine culture) -Pt must remain afebrile and no leukocytosis x 24 hours after antibiotics are complete prior to thepacmaker placement -Pt is aware of risks, benefits and alternatives of pacemaker -Continue CPAP-pt wants a consult to Bladimir Shore as needs updated CPAP/mask at home 12/03/2019 -Plan for left sided dual chamber pacemaker 12/07/2019 IF IV+/or PO ANTIBIOTICS have been STOPPED forAT LEAST 24 HOURS -check CBC 12/06/2019 -orders for PPM are under signed and held and need released by nursing on 12/05 Subjective History of Present Illness: Pura Laguerre is a 59 y.o. female presented to the emergency room by squad on 11/28 eveniong after feeling shortness of breath, especially with activity over the past couple of weeks. She has also felt some fatigue but it had not concerned her. She called EMS with some encouragement from her friends. She was bradycardic on the arrival of EMS with likely heart block on the monitor. She has been onmetoprolol succinate 50 mg daily for hypertension. Her heart rate was 42 on arrival to the emergency room and EKG showed complete heart block. She has a history of a PE and has been on Xarelto. She denies any recent chest pain, palpitations, lower extremity edema or syncope. [facility]. Today 12/03/2019 Patient is feeling well, no complaints ECG 12 Lead Final Result by Interface, Lab Results In [place] [facility] (12/01/2019 1553) Echocardiogram complete w contrast Final Result by Tammy Goode MD (11/30/2019 1653) Review of Systems: All system(s) were reviewed. Pertinent positive and negative findings are noted in the HPI. All system negative unless otherwise noted in the HPI Current Facility-Administered Medications: acetaminophen (TYLENOL) tablet 650 mg, 650 mg, Oral, Q6H PRN, Amado Rod MD, 650 mg at 11/30/19 1730 atorvastatin (LIPITOR) tablet 10 mg, 10 mg, Oral, Daily, Robby Chaudhary CNP, 10 mg at 12/03/19 0816 atropine injection 1 mg, 1 mg, Intravenous, PRN, Karely King MD cefTRIAXone (ROCEPHIN) IVPB 1 g (premix), 1,000 mg, Intravenous, Q24H LYNNETTE, Robby Chaudhary CNP, Last Rate:100 mL/hr at 12/02/19 2134, 1,000 mg at 12/02/19 2134 levothyroxine (SYNTHROID, LEVOTHROID) tablet 88 mcg, 88 mcg, Oral, Daily, Robby Chaudhary CNP, 88 mcg at 12/03/19 0528 losartan (COZAAR) tablet 50 mg, 50 mg, Oral, Daily with lunch, Robby Chaudhary CNP, 50 mg at 12/03/19 1234 metFORMIN (GLUCOPHAGE) tablet 1,000 mg, 1,000 mg, Oral, Daily with breakfast, Robby Chaudhary CNP, 1,000 mg at 12/03/19 0816 pneumococcal vaccine (PNU-IMMUNE 23) injection 0.5 mL, 0.5 mL, Intramuscular, Prior To Discharge, Klever Mcfarland MD rivaroxaban (XARELTO) tablet 20 mg, 20 mg, Oral, Daily, Robby Chaudhary CNP, 20 mg at 12/02/19 1740 venlafaxine (EFFEXOR-XR) 24 hr capsule 75 mg, 75 mg, Oral, Daily with breakfast, Amado Rod MD, 75 mg at 12/03/19 0816 Objective: Physical Examination: Blood pressure 138/84, pulse (!) 52, temperature 98.2 F (36.8 C), temperature source Oral, resp. rate 16, height 5' 3 , weight 109.8 kg (242 lb 1 oz), SpO2 96 %. Telemetry: Constitutional Alert and oriented X3 in no acute distress. Head: normocephalic. Neck: No masses noted HEENT Anicteric Heart:. Normal Intensity S1 and S2. No murmurs. Lungs: Clear to auscultation. Good air movement. No crackles noted. Abdomen is soft and nontender. . Extremities: Extremities are warm. No peripheral edema. Adequate peripheral pulses. Skin: Warm, dry and intact Neuro: nonfocal Psych pleasant and cooperative Lab Results Component Value Date GLUCOSE 140 (H) 12/03/2019 CALCIUM 9.0 12/03/2019 NA 140 12/03/2019 K 4.0 12/03/2019 CL 108 12/03/2019 BUN 15 12/03/2019 CREATININE 0.84 12/03/2019 Lab Results Component Value Date WBC 9.99 11/29/2019 HGB 12.3 11/29/2019 HCT 40.3 11/29/2019 MCV 89.0 11/29/2019 PLT 265 11/29/2019 RBC 4.53 11/29/2019 No results found for: ALT, AST, GGT, ALKPHOS, BILITOT Serum creatinine: 0.84 mg/dL 12/03/19 0611 Estimated creatinine clearance: 58.9 mL/min * Bryan Gottlieb MD - 12/03/2019 1:41 PM EDT Internal Medicine Daily Progress Note Patient Name: Pura Laguerre Day of Admission: 11/29/2019 Assessment and Plan: Patient Active Problem List Diagnosis Bradycardia, unspecified Bradycardia: Plan for permanent pacemaker placement on Friday Asymptomatic bacteriuria: Continue with Rocephin as requested per cardiology for pacemaker placement Hypothyroidism: Continue with levothyroxine Hypertension: Continue with current medication Subsjective: Patient was seen and examined at bedside, denies chest pain, shortness of breath, abdominal pain, nausea or vomiting. Objective: Vitals: 12/03/19 0700 12/03/19 0751 12/03/19 0759 12/03/19 1233 BP: 119/66 138/84 BP Location: Patient Position: Pulse: (!) 43 (!) 52 Resp: 14 16 16 Temp: 98.1 F (36.7 C) 98.2 F (36.8 C) TempSrc: Oral Oral SpO2: 100% 96% Weight: 109.8 kg (242 lb 1 oz) Height: Physical Exam: General: Well-appearing in no acute distress HEENT: Normocephalic, atraumatic, PERRLA, EOMI, normal oropharynx Neck: Supple, no lymphadenopathy Lungs: Clear to auscultation no crackles or wheezing Heart: Bradycardia, no murmurs or gallops Abdomen: Soft, nontender, no organomegaly Extremities: Normal, no deformities, no edema Skin: Warm, no suspicious rashes Neurologic: Alert, oriented 3, no focal deficits Labs: Recent Results (from the past 24 hour(s)) POC Glucose Collection Time: 12/02/19 5:13 PM Result Value Ref Range Glucose 118 (H) 65 - 99 mg/dL POC Glucose Collection Time: 12/02/19 8:58 PM Result Value Ref Range Glucose 142 (H) 65 - 99 mg/dL Basic Metabolic Panel Collection Time: 12/03/19 6:11 AM Result Value Ref Range Sodium 140 135 - 145 mmol/L Potassium 4.0 3.5 - 5.1 mmol/L Chloride 108 98 - 108 mmol/L Bicarbonate 24 21 - 32 mmol/L Anion Gap 12 10 - 20 mmol/L Glucose 140 (H) 65 - 99 mg/dL BUN 15 8 - 25 mg/dL Creatinine 0.84 0.40 - 1.10 mg/dL eGFR 76 >=60 mL/min/1.73 m2 BUN/Creatinine Ratio 17.9 10.0 - 20.0 Calcium 9.0 8.4 - 10.2 mg/dL POC Glucose Collection Time: 12/03/19 8:28 AM Result Value Ref Range Glucose 145 (H) 65 - 99 mg/dL POC Glucose Collection Time: 12/03/19 12:12 PM Result Value Ref Range Glucose 164 (H) 65 - 99 mg/dL Bryan Gottlieb 12/03/19 1:42 PM * Yael Venegas CNS - 12/03/2019 10:22 AM EDT Pulmonology/Sleep Medicine Progress Note 12/03/2019 Patient: Pura Laguerre Date of : 1960 Site: [facility] Provider: KURT Underwood ASSESSMENT/PLAN: Diabetes Hypertension Previously diagnosed, currently treated obstructive sleep apnea Bradycardia Obesity Hypothyroidism Plan We will order an overnight pulse ox and will review those results we are awaiting prior authorization for scheduling of an outpatient sleep evaluation. The patient is aware of this. She is wearing her CPAP during this hospitalization as she has for the last several years. SUBJECTIVE: This patient states to have had an uneventful evening, still having bradycardia. Sitting up in the chair doing well no complaints at this time. Interpretation of Testing: I personally reviewed and agree with the interpretation(s). Review of Systems: All other systems reviewed and negative other than HPI OBJECTIVE: Physical Examination: BP 119/66 Pulse (!) 43 Temp 98.1 F (36.7 C) (Oral) Resp 16 Ht 5' 3 Wt 109.8 kg (242 lb 1oz) Comment: standing weight SpO2 100% BMI 42.88 kg/m General Appearance: Alert, well appearing, and in no acute distress. HEENT: Head - Normocephalic, atraumatic. Eyes - CHUN bilaterally and EOMI. Mellampati - 4 Ears - normal external appearance, hearing intact. Nose - normal, no erythema. Throat - mucous membranes moist, pharynx without lesions. Neck: Supple, trachea midline. Cardiovascular: S1, S2 normal. No murmurs, rubs, clicks or gallops appreciated. Respiratory: Lungs clear to auscultation, no wheezes, rales or rhonchi heard. Extremeties: Edema+ plus Neurological: Grossly normal motor and sensory exam. No focal deficits. Musculoskeletal: No joint tenderness, deformity or swelling. Skin: Normal coloration and turgor. No rashes. Psych: Alert, oriented x 3. Normal mood and affect. Laboratory and Additional Data Reviewed: Reviewed 12/03/19 10:22 AM: Laboratory Vitals: Temp Readings from Last 3 Encounters: 12/03/19 98.1 F (36.7 C) (Oral) BP Readings from Last 3 Encounters: 12/03/19 119/66 Pulse Readings from Last 3 Encounters: 12/03/19 (!) 43 Medications: Current Facility-Administered Medications: acetaminophen (TYLENOL) tablet 650 mg, 650 mg, Oral, Q6H PRN, Amado Rod MD, 650 mg at 11/30/19 1730 atorvastatin (LIPITOR) tablet 10 mg, 10 mg, Oral, Daily, Robby Chaudhary CNP, 10 mg at 12/03/19 0816 atropine injection 1 mg, 1 mg, Intravenous, PRN, Karely King MD cefTRIAXone (ROCEPHIN) IVPB 1 g (premix), 1,000 mg, Intravenous, Q24H LYNNETTE, Robby Chaudhary CNP, Last Rate:100 mL/hr at 12/02/19 2134, 1,000 mg at 12/02/19 2134 levothyroxine (SYNTHROID, LEVOTHROID) tablet 88 mcg, 88 mcg, Oral, Daily, Robby Chaudhary CNP, 88 mcg at 12/03/19 0528 losartan (COZAAR) tablet 50 mg, 50 mg, Oral, Daily with lunch, Robby Chaudhary CNP, 50 mg at 12/02/19 1200 metFORMIN (GLUCOPHAGE) tablet 1,000 mg, 1,000 mg, Oral, Daily with breakfast, Robby Chaudhary CNP, 1,000 mg at 12/03/19 0816 pneumococcal vaccine (PNU-IMMUNE 23) injection 0.5 mL, 0.5 mL, Intramuscular, Prior To Discharge, Klever Mcfarland MD rivaroxaban (XARELTO) tablet 20 mg, 20 mg, Oral, Daily, Robby Chaudhary CNP, 20 mg at 12/02/19 1740 venlafaxine (EFFEXOR-XR) 24 hr capsule 75 mg, 75 mg, Oral, Daily with breakfast, Amado Rod MD, 75 mg at 12/03/19 0816 Labs: Lab Results Component Value Date WBC 9.99 11/29/2019 HGB 12.3 11/29/2019 HCT 40.3 11/29/2019 MCV 89.0 11/29/2019 PLT 265 11/29/2019 RBC 4.53 11/29/2019 Results from last 7 days Lab Units 12/03/19 0611 SODIUM mmol/L 140 POTASSIUM mmol/L 4.0 CHLORIDE mmol/L 108 BUN mg/dL 15 CREATININE mg/dL 0.84 GLUCOSE mg/dL 140* CALCIUM mg/dL 9.0 Radiology: Echocardiogram complete w contrast Final Result CT CCTA Heart With And Without Contrast Final Result Degenerative disc changes of the lower thoracic spine. Otherwise unremarkable extracardiac examination. Please refer to separate report for dedicated cardiac findings. ST[facility] Workstation ID: [id number] CCTA Heart (Dater Assembler read) Final Result 1. Total calcium score: 0 2. Non obstructive CAD identified with Coronary CT Angiography. There is 1-24% non calcific plaque in the proximal LCx (closer to 24%) CAD RADS (score): 1 RECOMMENDATIONS: CAD-RADS 1: (1-24% minimal stenosis). Consider non-atherosclerotic causes of chest pain. Consider preventive therapy and risk factor modification. XR Chest 1 View Final Result No acute cardiopulmonary findings. Mild cardiomegaly. Workstation ID: [id number] * Amado Pierre MD - 12/02/2019 4:51 PM EDT [facility] Medicine Inpatient Follow-up 12/02/2019 Amado Rod MD [facility] Patient: Pura Laguerre Date of : 1960 (59 y.o.) PCP: Andrews Garcia MD ASSESSMENT/PLAN: Pura Laguerre 59 y.o. female presented with complains of Active Problems: Bradycardia, unspecified Plan * complete heart block Patient is hemodynamically stable TSH is within normal limits Echo is consistent with diastolic congestive heart Beta-blockers on hold Permanent pacemaker placement on Friday *Asymptomatic bacteriuria Continue Rocephin for 1 more day SUBJECTIVE: Laying in bed comfortably, no complaints All other systems reviewed and negative other than noted above. OBJECTIVE: Physical Examination: BP (!) 175/94 (Patient Position: Sitting) Pulse (!) 48 Temp 98.1 F (36.7 C) (Oral) Resp 18 Ht 5' 3 Wt 110.1 kg (242 lb 11.6 oz) Comment: standing SpO2 96% BMI 43.00 kg/m General Appearance: Alert, well appearing, and in no acute distress. HEENT: Head - Normocephalic, atraumatic. Eyes - CHUN bilaterally and EOMI. Ears - normal external appearance, hearing intact. Nose - normal, no erythema. Throat - mucous membranes moist, pharynx without lesions. Neck: Supple, trachea midline. Cardiovascular: Bradycardic/no murmurs or gallops respiratory: Lungs clear to auscultation, no wheezes, rales or rhonchi heard. Abdomen: Soft, non-tender, normal bowel sounds, non-distended, no masses or organomegaly appreciated. Neurological: Grossly normal motor and sensory exam. No focal deficits. Musculoskeletal: No joint tenderness, deformity or swelling. Skin: Normal coloration and turgor. No rashes. Psych: Alert, oriented x 3. Normal mood and affect. CURRENT MEDICATIONS: atorvastatin 10 mg Oral Daily cefTRIAXone (ROCEPHIN) IVPB 1,000 mg Intravenous Q24H LYNNETTE levothyroxine 88 mcg Oral Daily losartan 50 mg Oral Daily with lunch metFORMIN 1,000 mg Oral Daily with breakfast rivaroxaban 20 mg Oral Daily venlafaxine 75 mg Oral Daily with breakfast Results/Medications Reviewed 12/02/19 4:51 PM: Results from last 7 days Lab Units 12/02/19 0652 12/01/19 0532 11/30/19 0128 SODIUM mmol/L 141 142 142 POTASSIUM mmol/L 4.0 4.2 3.9 CHLORIDE mmol/L 108 109* 109* BUN mg/dL 18 20 26* CREATININE mg/dL 0.95 0.88 0.96 GLUCOSE mg/dL 137* 127* 176* CALCIUM mg/dL 8.9 8.8 8.5 Results from last 7 days Lab Units 11/29/191926 WBC K/mcL 9.99 HGB g/dL 12.3 HCT % 40.3 PLT K/mcL 265 Results from last 7 days Lab Units 11/29/191926 TROPONIN I ng/L <15 Invalid input(s): LABALBU CULTURES: Reviewed 4:51 PM IMAGING: Reviewed 4:51 PM * Sabine Echevarria, RD - 12/02/2019 2:15 PM EDT Nutrition Care Initial Assessment Reason for visit: Dietitian Screen Nutrition Diagnosis: Decreased nutrient needs related to decreased tolerance to exogenous sodium, cholesterol, and saturated fat intake as evidenced by complete heart block, high blood pressure, obesity. Nutrition Intervention: Initiate Nutrition Education Nutrition Prescription: Diet: Cardiac, CCHO- 60 g/meal Oral nutrition supplement: none Tube Feeding: n/a Nutrition Goals: Able to verbalize understanding of education provided Start Date:12/02/2019 Expected End Date:12/08/2019 Nutrition Education: Learner: patient Educated on: Cardiac Diet, CCHO Diet Readiness: acceptance Method: handout Response: Pt accepted handouts to review, however, pt denied need for education as she has receiveddiet education several times in the past. Assessment: Pertinent clinical information: Complete heart block, pacemaker placed 11/29 Past Medical History: Diagnosis Date Depression Diabetes mellitus (HCC) Disease of thyroid gland DVT (deep venous thrombosis) (HCC) Hyperlipidemia Hypertension Height: 5' 3 Current weight: 110.1 kg (242 lb 11.6 oz) BMI Body mass index is 43 kg/m . Weight hx: Wt Readings from Last 5 Encounters: 12/02/19 110.1 kg (242 lb 11.6 oz) Current diet order: Cardiac, CCHO- 60 g/meal Recent intake: 75-100%. Current intake Likely meets estimated needs. Patient/family comments: Pt reports trying to follow CCHO, cardiac diet at home. Pt declined RDN offer for education but accepted handouts. Difficulty Chewing/Swallowing: No Skin Integrity: Intact GI Function: WNL Edema: non-pitting BLE Physical Appearance: no signs or symptoms of malnutrition Labs: Recent Labs 12/02/19 0652 NA 141 K 4.0 BICARB 25 CL 108 GLUCOSE 137* BUN 18 CREATININE 0.95 No A1c available Scheduled Meds: atorvastatin 10 mg Oral Daily cefTRIAXone (ROCEPHIN) IVPB 1,000 mg Intravenous Q24H LYNNETTE levothyroxine 88 mcg Oral Daily losartan 50 mg Oral Daily with lunch metFORMIN 1,000 mg Oral Daily with breakfast rivaroxaban 20 mg Oral Daily venlafaxine 75 mg Oral Daily with breakfast Continuous Infusions: none Estimated Energy Needs Total Energy Estimated Needs: 5626-6247 kcal Method for Estimating Needs: MSJ Total Protein Estimated Needs: 60-70 g Method for Estimating Needs: 1.0 g/kg AdjBW Will continue to follow while in-house. Sabine Echevarria RDN, LD Dietitian Office * Amado Pierre MD - 12/01/2019 3:11 PM EDT [facility] Medicine Inpatient Follow-up 12/01/2019 Amado Rod MD [facility] Patient: Pura Laguerre Date of : 1960 (59 y.o.) PCP: Andrews Garcia MD ASSESSMENT/PLAN: Pura Laguerre 59 y.o. female presented with complains of Active Problems: Bradycardia, unspecified Plan * complete heart block Patient is hemodynamically stable TSH is within normal limits Echo is consistent with diastolic congestive heart Beta-blockers on hold Permanent pacemaker placement on Friday *Asymptomatic bacteriuria Continue Rocephin for 1 more day SUBJECTIVE: Laying in bed comfortably, no complaints All other systems reviewed and negative other than noted above. OBJECTIVE: Physical Examination: BP (!) 123/55 (BP Location: Right arm, Patient Position: Lying) Pulse (!) 40 Temp 98.8 F (37.1 C) (Oral) Resp 16 Ht 5' 3 Wt 108.9 kg (240 lb 1.3 oz) SpO2 97% BMI 42.53 kg/m General Appearance: Alert, well appearing, and in no acute distress. HEENT: Head - Normocephalic, atraumatic. Eyes - CHUN bilaterally and EOMI. Ears - normal external appearance, hearing intact. Nose - normal, no erythema. Throat - mucous membranes moist, pharynx without lesions. Neck: Supple, trachea midline. Cardiovascular: Bradycardic/no murmurs or gallops respiratory: Lungs clear to auscultation, no wheezes, rales or rhonchi heard. Abdomen: Soft, non-tender, normal bowel sounds, non-distended, no masses or organomegaly appreciated. Neurological: Grossly normal motor and sensory exam. No focal deficits. Musculoskeletal: No joint tenderness, deformity or swelling. Skin: Normal coloration and turgor. No rashes. Psych: Alert, oriented x 3. Normal mood and affect. CURRENT MEDICATIONS: atorvastatin 10 mg Oral Daily cefTRIAXone (ROCEPHIN) IVPB 1,000 mg Intravenous Q24H LYNNETTE levothyroxine 88 mcg Oral Daily losartan 50 mg Oral Daily with lunch metFORMIN 1,000 mg Oral Daily with breakfast rivaroxaban 20 mg Oral Daily venlafaxine 75 mg Oral Daily with breakfast Results/Medications Reviewed 12/01/19 3:11 PM: Results from last 7 days Lab Units 12/01/19 0532 11/30/19 0128 11/29/191926 SODIUM mmol/L 142 142 141 POTASSIUM mmol/L 4.2 3.9 4.0 CHLORIDE mmol/L 109* 109* 107 BUN mg/dL 20 26* 29* CREATININE mg/dL 0.88 0.96 1.07 GLUCOSE mg/dL 127* 176* 95 CALCIUM mg/dL 8.8 8.5 -- Results from last 7 days Lab Units 11/29/191926 WBC K/mcL 9.99 HGB g/dL 12.3 HCT % 40.3 PLT K/mcL 265 Results from last 7 days Lab Units 11/29/191926 TROPONIN I ng/L <15 Invalid input(s): LABALBU CULTURES: Reviewed 3:11 PM IMAGING: Reviewed 3:11 PM * Amado Pierre MD - 11/30/2019 3:43 PM EDT [facility] Medicine Inpatient Follow-up 11/30/2019 Amado Rod MD [facility] Patient: uPra Laguerre Date of : 1960 (59 y.o.) PCP: Andrews Garcia MD ASSESSMENT/PLAN: Pura Laguerre 59 y.o. female presented with complains of Active Problems: Bradycardia, unspecified Plan Reviewed EKG is consistent with complete heart block Patient is hemodynamically stable TSH is within normal limits Echo is pending Beta-blockers on hold Cardiology is following, possible EP consultation in the morning for permanent pacemaker placement SUBJECTIVE: Laying in bed comfortably, no complaints All other systems reviewed and negative other than noted above. OBJECTIVE: Physical Examination: BP 99/61 Pulse (!) 40 Temp 98.8 F (37.1 C) (Oral) Resp 16 Ht 5' 3 Wt 109.5 kg (241 lb 6.5 oz) SpO2 97% BMI 42.76 kg/m General Appearance: Alert, well appearing, and in no acute distress. HEENT: Head - Normocephalic, atraumatic. Eyes - CHUN bilaterally and EOMI. Ears - normal external appearance, hearing intact. Nose - normal, no erythema. Throat - mucous membranes moist, pharynx without lesions. Neck: Supple, trachea midline. Cardiovascular: Bradycardic/no murmurs or gallops respiratory: Lungs clear to auscultation, no wheezes, rales or rhonchi heard. Abdomen: Soft, non-tender, normal bowel sounds, non-distended, no masses or organomegaly appreciated. Neurological: Grossly normal motor and sensory exam. No focal deficits. Musculoskeletal: No joint tenderness, deformity or swelling. Skin: Normal coloration and turgor. No rashes. Psych: Alert, oriented x 3. Normal mood and affect. CURRENT MEDICATIONS: atorvastatin 10 mg Oral Daily cefTRIAXone (ROCEPHIN) IVPB 1,000 mg Intravenous Q24H [facility] levothyroxine 88 mcg Oral Daily losartan 50 mg Oral Daily with lunch metFORMIN 1,000 mg Oral Daily with breakfast rivaroxaban 20 mg Oral Daily Results/Medications Reviewed 11/30/19 3:43 PM: Results from last 7 days Lab Units 11/30/19 0128 11/29/19 1927 SODIUM mmol/L 142 141 POTASSIUM mmol/L 3.9 4.0 CHLORIDE mmol/L 109* 107 BUN mg/dL 26* 29* CREATININE mg/dL 0.96 1.07 GLUCOSE mg/dL 176* 95 CALCIUM mg/dL 8.5 -- Results from last 7 days Lab Units 081926 WBC K/mcL 9.99 HGB g/dL 12.3 HCT % 40.3 PLT K/mcL 265 Results from last 7 days Lab Units 11/29/191926 TROPONIN I ng/L <15 Invalid input(s): LABALBU CULTURES: Reviewed 3:43 PM IMAGING: Reviewed 3:43 PM * Beatriz Land RN - 11/30/2019 2:41 AM EDT PT WITH KNOWN SLEEP APNEA AND CPAP ORDERED documented in this encounter Additional Source Comments INFORMATION SOURCE (unrecogn ized section and content) DATE CREATED AUTHOR AUTHOR'S ORGANIZ ATION 05/07/2020 [facility] DATE CREATED AUTHOR AUTHOR'S ORGANIZ ATION 11/06/2020 [facility] DATE CREATED AUTHOR AUTHOR'S ORGANIZ ATION 03/17/[address] [facility] Reason for Visit (unrecogniz ed section and content) Reason Comments Fatigue Shortness of Breath Status Reason Specialty Diagnoses / Procedures Referre d By Contact Referred To Contact Diagnoses Sinus bradycardia Acute UTI Bradycardia, unspecified Reason Comments Nasal Congestion drainage, cough and sore throat x 5 days Reason Comments Cough Congestion x12 days, R ear pimple in ear causing pain Giuliano Reinoso MD - 12/07/2019 11:29 AM EDT Procedure Notes (unrecognize d section and content) Patient presented to the EP lab for a dual chamber pacemaker. Venogram performed prior to implantation showed possible occlusion of the axillary vein on both sides. Rescheduled case for tomorrow. If unable to access the right side, will pursue a Micra A/V. documented in this encounter Yael Venegas CNS - 12/01/2019 3:41 PM EDTSBelkis gramajo CNP - 12/01/2019 12:56 PM EDTSBelkis gramajo CNP - 12/01/2019 9:13 AM EDTBKarely alegre MD - 11/30/2019 8:56 AM EDT Consult Notes (unrecognized section and content) Associated Order(s): IP CONSULT TO SLEEP LAB PULMONOLOGY CONSULT 12/01/2019 Patient: Pura Laguerre Date of : 1960 Site: [facility] Referring Provider: Refer to consult order in electronic medical record Provider: Yael Venegas, NETWORK PROFESSIONAL ASSESSMENT Diabetes Hypertension Hypothyroidism Previously diagnosed currently treated obstructive sleep apnea Bradycardia Obesity PLAN: 1 Sleep center staff will contact patient regarding sleep study schedule and additional educational information. 2 Contributing factors of sleep apnea and potential medical complications of sleep apnea including hypertension, cardiac dysrhythmias, coronary artery disease, and TIA discussed with the patient in detail. Patients with apnea are also made aware that they could become drowsy and should be very cautious driving and handling machinery. 3 Behavior modifications including weight loss, sleep hygiene and sleep position training discussed with the patient. 4 Overnight attended PSG will be scheduled if patient has moderate to severe sleep apnea during the first 2 hours of the study, CPAP treatment will be initiated. 5 Different treatment modalities including CPAP, oral appliance, ENT procedures including UPPP and inspire therapy for LUIS FELIPE discussed with patient. 6 Effects of caffeine nicotine alcohol and [id number] medications effect on sleep discussed with patient. 7 Follow-up office visit will be scheduled after completion of the diagnostic sleep test. SUMMARY This very pleasant alert and oriented talkative patient is sitting at the bedside during this consultation. Her significant other is chair side as well. Both are familiar with obstructive sleep apnea as both of these ladies wear CPAP machines. The current patient utilizes a CPAP and was diagnosed 25 years ago with obstructive sleep apnea, but in years past that she has not followed up with a physician. She states she is fully aware she needs to have another study done, as she has had weight gain she snores, and has daytime hypersomnolence. 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 She is a retired [employer], plans to have her [facility] in the near future. She also reports a history of of a provoked DVT, and 2011, and is currently on Xarelto. She came to the hospital when she got progressively short of breath during walking, which has never happened before. The benefits of effectively treating sleep apnea, versus the risks of not managing sleep apnea discussed. The patient states she has been buying her supplies and machines online for the last several years, and would like to start following a sleep specialist. Her significant other has an appointment with our office next week, to establish care. Interpretation of Testing: I personally reviewed the below diagnostic and agree with the interpretation(s). Chest x-ray IMPRESSION: No acute cardiopulmonary findings. Mild cardiomegaly 2D echocardiogram Summary 1. Left ventricular systolic function is normal with an ejection fraction by Biplane Method of Discs of 68 %. 2. The left ventricular diastolic function is normal. 3. Moderate left ventricular concentric hypertrophy Review of Systems: All other systems reviewed and negative other than HPI Past Medical History: Diagnosis Date Depression Diabetes mellitus (HCC) Disease of thyroid gland DVT (deep venous thrombosis) (HCC) Hyperlipidemia Hypertension Past Surgical History: Procedure Laterality Date HYSTERECTOMY (CERVIX REMOVED) Family History Problem Relation Age of Onset Atrial fibrillation Mother Heart attack Father Other (right hand accident with saw caused complications) Father Lung cancer Brother Social History Tobacco Use Smoking Status Never Smoker Smokeless Tobacco Never Used Additional History Comments: Medications: Current Facility-Administered Medications: acetaminophen (TYLENOL) tablet 650 mg, 650 mg, Oral, Q6H PRN, Amado Rod MD, 650 mg at 11/30/19 1730 atorvastatin (LIPITOR) tablet 10 mg, 10 mg, Oral, Daily, Robby Chaudhary CNP, 10 mg at 12/01/19 0824 atropine injection 1 mg, 1 mg, Intravenous, PRN, Karely King MD cefTRIAXone (ROCEPHIN) IVPB 1 g (premix), 1,000 mg, Intravenous, Q24H LYNNETTE, Robby Chaudhary CNP, Stopped at 11/30/19 2156 levothyroxine (SYNTHROID, LEVOTHROID) tablet 88 mcg, 88 mcg, Oral, Daily, Robby Chaudhary CNP, 88 mcg at 12/01/19 0643 losartan (COZAAR) tablet 50 mg, 50 mg, Oral, Daily with lunch, Robby Chaudhary CNP metFORMIN (GLUCOPHAGE) tablet 1,000 mg, 1,000 mg, Oral, Daily with breakfast, Robby Chaudhary CNP, 1,000 mg at 12/01/19 0824 perflutren lipid microspheres (DEFINITY) 0.143 mg/mL solution 0-10 mL of mixture, 0-10 mL of mixture, Intravenous, Once in imaging, Robby Chaudhary CNP, 1 mL of mixture at 11/30/19 1447 pneumococcal vaccine (PNU-IMMUNE 23) injection 0.5 mL, 0.5 mL, Intramuscular, Prior To Discharge, Klever Mcfarland MD rivaroxaban (XARELTO) tablet 20 mg, 20 mg, Oral, Daily, Robby Chaudhary CNP, 20 mg at 11/30/19 1823 venlafaxine (EFFEXOR-XR) 24 hr capsule 75 mg, 75 mg, Oral, Daily with breakfast, Amado Rod MD, 75 mg at 12/01/19 1232 Allergies: Sulfa (sulfonamide antibiotics) Wt Readings from Last 3 Encounters: 12/01/19 108.9 kg (240 lb 1.3 oz) Vitals: Temp Readings from Last 3 Encounters: 12/01/19 98.8 F (37.1 C) (Oral) BP Readings from Last 3 Encounters: 12/01/19 (!) 123/55 Pulse Readings from Last 3 Encounters: 12/01/19 (!) 40 Labs: Lab Results Component Value Date WBC 9.99 11/29/2019 HGB 12.3 11/29/2019 HCT 40.3 11/29/2019 MCV 89.0 11/29/2019 PLT 265 11/29/2019 RBC 4.53 11/29/2019 Results from last 7 days Lab Units 12/01/19 0532 SODIUM mmol/L 142 POTASSIUM mmol/L 4.2 CHLORIDE mmol/L 109* BUN mg/dL 20 CREATININE mg/dL 0.88 GLUCOSE mg/dL 127* CALCIUM mg/dL 8.8 Echocardiogram complete w contrast Final Result CT CCTA Heart With And Without Contrast Final Result Degenerative disc changes of the lower thoracic spine. Otherwise unremarkable extracardiac examination. Please refer to separate report for dedicated cardiac findings. ST/Skulpt Workstation ID: [id number] CCTA Heart (Dater Assembler read) Final Result 1. Total calcium score: 0 2. Non obstructive CAD identified with Coronary CT Angiography. There is 1-24% non calcific plaque in the proximal LCx (closer to 24%) CAD RADS (score): 1 RECOMMENDATIONS: CAD-RADS 1: (1-24% minimal stenosis). Consider non-atherosclerotic causes of chest pain. Consider preventive therapy and risk factor modification. XR Chest 1 View Final Result No acute cardiopulmonary findings. Mild cardiomegaly. Workstation ID: [id number] Current HOSPITAL Medications: acetaminophen (TYLENOL) tablet 650 mg, 650 mg, Oral, Q6H PRN atorvastatin (LIPITOR) tablet 10 mg, 10 mg, Oral, Daily atropine injection 1 mg, 1 mg, Intravenous, PRN cefTRIAXone (ROCEPHIN) IVPB 1 g (premix), 1,000 mg, Intravenous, Q24H LYNNETTE levothyroxine (SYNTHROID, LEVOTHROID) tablet 88 mcg, 88 mcg, Oral, Daily losartan (COZAAR) tablet 50 mg, 50 mg, Oral, Daily with lunch metFORMIN (GLUCOPHAGE) tablet 1,000 mg, 1,000 mg, Oral, Daily with breakfast perflutren lipid microspheres (DEFINITY) 0.143 mg/mL solution 0-10 mL of mixture, 0-10 mL of mixture, Intravenous, Once in imaging pneumococcal vaccine (PNU-IMMUNE 23) injection 0.5 mL, 0.5 mL, Intramuscular, Prior To Discharge rivaroxaban (XARELTO) tablet 20 mg, 20 mg, Oral, Daily venlafaxine (EFFEXOR-XR) 24 hr capsule 75 mg, 75 mg, Oral, Daily with breakfast OBJECTIVE: Physical Examination: BP (!) 123/55 (BP Location: Right arm, Patient Position: Lying) Pulse (!) 40 Temp 98.8 F (37.1 C) (Oral) Resp 16 Ht 5' 3 Wt 108.9 kg (240 lb 1.3 oz) SpO2 97% BMI 42.53 kg/m General Appearance: Alert, well appearing, and in no acute distress. HEENT: Head - Normocephalic, atraumatic. Eyes - CHUN bilaterally and EOMI. Mellampati - 4 Ears - normal external appearance, hearing intact. Nose - normal, no erythema. Throat - mucous membranes moist, pharynx without lesions. Neck: Supple, trachea midline. Cardiovascular: S1, S2 normal. No murmurs, rubs, clicks or gallops appreciated. Respiratory: Lungs clear to auscultation, no wheezes, rales or rhonchi heard. Extremeties: Edema mild in right leg only. Neurological: Grossly normal motor and sensory exam. No focal deficits. Musculoskeletal: No joint tenderness, deformity or swelling. Skin: Normal coloration and turgor. No rashes. Psych: Alert, oriented x 3. Normal mood and affect. Laboratory and Additional Data Reviewed: Reviewed 12/01/19 3:42 PM: Laboratory Associated attestation - Pito Shore MD - 12/01/2019 5:37 PM EDT I have reviewed patient's chart. I discussed with my clinical nurse specialist Yael Venegas DNP and agree with her evaluation and recommendation for treatment plan. I have reviewed patient's clinical information, list of medications and laboratory investigations We will also review her previous sleep studies if available We will continue follow-up after her discharge in our clinic Pito Shore MD, FCCP, [facility], [facility] Diplomate: [place] [employer] Precision Dancer: [facility] Associated Order(s): IP CONSULT TO CARDIOLOGY Please see other consult note, this was a second consult for same problem Associated attestation - Tracey Shaffer MD - 12/02/2019 12:38 PM EDT I saw and personally examined the patient on the same day as RADHA. I have personally performed a face to face history and examination, reviewed the labs, most recent ECG, telemetry, and data, and discussed the DDx and treatment plan with the patient and family. Associated Order(s): IP CONSULT TO CARDIOLOGY Patient Name: Pura Laguerre Admit Date: MR #: [id number] : 1960 Assessment: Pura Laguerre is a 59 year old female with: + High degree AV block (third degree HB alternating with second degree HB) + Last dose of Metoprolol Suc 50 mg was 11/29/2019 + normal EF 68% on echo 11/30/2019 + No significant cardiac valve disease on echo 11/30/2019 + normal LA & LV with RV& RA enlargement on echo 11/30/2019 + no known CAD: Cardiac CT 11/30/2019 shows Calcium score of 0 in coronary arteries + Hx DM type 2 on metformin and glipizide + Hx HTN on metoprolol suc + Hx DVT on Xarelto + Hx HLD on atorvastatin + Hx hypothyroidism on levothyroxine + Hx depression on Effexor + Hx LUIS FELIPE on CPAP at hs Plan: 12/01/2019 (reviewed with Dr Shaffer) - continue to hold all HR limiting meds-holding metoprolol suc 50 mg daily -Will discuss timing of the left sided dual chamber pacemaker with Dr Shaffer. She currently has a UTI on Ceftriaxone. (E Coli >100K on urine culture) -Pt must remain afebrile and no leukocytosis x 24 hours after antibiotics are complete prior to the pacmaker placement -Pt is aware of risks, benefits and alternatives of pacemaker -Continue CPAP-pt wants a consult to Bladimir Shore as needs updated CPAP/mask at home Reviewed old records Discussed in detail with patient & friend Dr Hodge will Independently review workup Subjective Reason for Consultation: Heart block Chief Complaint: Severe weakness and shortness of breath while walking into her work building on 11/29/2019 History of Present Illness: Pura Laguerre is a 59 y.o. female presented to the emergency room by daniel on 11/28 eveniong after feeling shortness of breath, especially with activity over the past couple of weeks. She has also felt some fatigue but it had not concerned her. She called EMS with some encouragement from her friends. She was bradycardic on the arrival of EMS with likely heart block on the monitor. She has been on metoprolol succinate 50 mg daily for hypertension. Her heart rate was 42 on arrival to the emergency room and EKG showed complete heart block. She has a history of a PE and has been on Xarelto. She denies any recent chest pain, palpitations, lower extremity edema or syncope. [facility] in the [facility]. Current Facility-Administered Medications Medication Dose Route Frequency Provider Last Rate Last Dose acetaminophen (TYLENOL) tablet 650 mg 650 mg Oral Q6H PRN Amado Rod MD 650 mg at 11/30/19 1730 atorvastatin (LIPITOR) tablet 10 mg 10 mg Oral Daily Robby Chaudhary CNP 10 mg at 12/01/19 0824 atropine injection 1 mg 1 mg Intravenous PRN Karely King MD cefTRIAXone (ROCEPHIN) IVPB 1 g (premix) 1,000 mg Intravenous Q24H [facility] Robby Chaudhary CNP Stopped at 11/30/192155 levothyroxine (SYNTHROID, LEVOTHROID) tablet 88 mcg 88 mcg Oral Daily Robby Chaudhary CNP 88 mcg at 12/01/19 0643 losartan (COZAAR) tablet 50 mg 50 mg Oral Daily with lunch Robby Chaudhary CNP metFORMIN (GLUCOPHAGE) tablet 1,000 mg 1,000 mg Oral Daily with breakfast Robby Chaudhary GERIATRICIAN 1,000 mg at 12/01/19 0824 perflutren lipid microspheres (DEFINITY) 0.143 mg/mL solution 0-10 mL of mixture 0-10 mL of mixture Intravenous Once in imaging Robby Chaudhary CNP 1 mL of mixture at 11/30/19 1447 pneumococcal vaccine (PNU-IMMUNE 23) injection 0.5 mL 0.5 mL Intramuscular Prior To Discharge Klever Mcfarland MD rivaroxaban (XARELTO) tablet 20 mg 20 mg Oral Daily Robby Chaudhary CNP 20 mg at 11/30/19 1823 Current Facility-Administered Medications Medication Dose Route Frequency Provider Last Rate Last Dose acetaminophen (TYLENOL) tablet 650 mg 650 mg Oral Q6H PRN Sreekanthi Travis Rod MD 650 mg at 11/30/19 1730 atorvastatin (LIPITOR) tablet 10 mg 10 mg Oral Daily Robby Chaudhary CNP 10 mg at 12/01/19 08 atropine injection 1 mg 1 mg Intravenous PRN Karely King MD cefTRIAXone (ROCEPHIN) IVPB 1 g (premix) 1,000 mg Intravenous Q24H [facility] Robby Chaudhary CNP Stopped at 11/30/192155 levothyroxine (SYNTHROID, LEVOTHROID) tablet 88 mcg 88 mcg Oral Daily Robby Chaudhary CNP 88 mcg at 12/01/19 06 losartan (COZAAR) tablet 50 mg 50 mg Oral Daily with lunch Robby Chaudhary CNP metFORMIN (GLUCOPHAGE) tablet 1,000 mg 1,000 mg Oral Daily with breakfast Robby Chaudhary GERIATRICIAN 1,000 mg at 12/01/19 0824 perflutren lipid microspheres (DEFINITY) 0.143 mg/mL solution 0-10 mL of mixture 0-10 mL of mixture Intravenous Once in imaging Robby Chaudhary CNP 1 mL of mixture at 11/30/19 1447 pneumococcal vaccine (PNU-IMMUNE 23) injection 0.5 mL 0.5 mL Intramuscular Prior To Discharge Klever Mcfarland MD rivaroxaban (XARELTO) tablet 20 mg 20 mg Oral Daily Robby Chaudhary FREEDOM 20 mg at 11/30/19 1823 Past History: Past Medical History: Diagnosis Date Depression Diabetes mellitus (HCC) Disease of thyroid gland DVT (deep venous thrombosis) (HCC) Hyperlipidemia Hypertension Past Surgical History: Procedure Laterality Date HYSTERECTOMY (CERVIX REMOVED) History reviewed. No pertinent family history. Social History Socioeconomic History Marital status: Single Spouse name: Not on file Number of children: Not on file Years of education: Not on file Highest education level: Not on file Occupational History Not on file Social Needs Financial resource strain: Not on file Food insecurity Worry: Not on file Inability: Not on file Transportation needs Medical: Not on file Non-medical: Not on file Tobacco Use Smoking status: Never Smoker Smokeless tobacco: Never Used Substance and Sexual Activity Alcohol use: Never Frequency: Never Drug use: Never Sexual activity: Not on file Lifestyle Physical activity Days per week: Not on file Minutes per session: Not on file Stress: Not on file Relationships Social connections Talks on phone: Not on file Gets together: Not on file Attends caodaism service: Not on file Active member of club or organization: Not on file Attends meetings of clubs or organizations: Not on file Relationship status: Not on file Other Topics Concern Not on file Social History Narrative Not on file Allergy Information: I have reviewed the patient's allergies. Sulfa (sulfonamide antibiotics) Home Medications: Outpatient Medications as of 12/01/2019 Medication Sig glipiZIDE (GLUCOTROL) 5 MG tablet Take 5 mg by mouth daily . Review of Systems: All system(s) were reviewed. Pertinent positive and negative findings are noted in the HPI. All system negative unless otherwise noted in the HPI Physical Examination: BP 128/71 Pulse (!) 39 Temp 97.7 F (36.5 C) (Oral) Resp 16 Ht 5' 3 Wt 108.9 kg (240 lb 1.3 oz) SpO2 98% BMI 42.53 kg/m Constitutional Alert and oriented X3 in no acute distress. Friend at bedside Head: normocephalic. Neck: No masses noted HEENT Anicteric Heart:. Vincenzo, irreg, Normal Intensity S1 and S2. No murmurs. Lungs: Clear to auscultation. Good air movement. No crackles noted. Abdomen is soft and nontender. Extremities: Extremities are warm. No peripheral edema. Adequate peripheral pulses. Skin: warm, dry , intact Neuro: nonfocal Psych not suicidal or homicidal , pleasant and cooperative Intake/Output last 3 shifts: I/O last 3 completed shifts: In: 800.3 [P.O.:600; IV Piggyback:200.3] Out: 2200 [Urine:2200] Laboratory and Additional Data Reviewed: Results from last 7 days Lab Units 11/29/19 1927 TROPONIN I ng/L <15 Results from last 7 days Lab Units 12/01/19 0532 SODIUM mmol/L 142 POTASSIUM mmol/L 4.2 CHLORIDE mmol/L 109* BUN mg/dL 20 CREATININE mg/dL 0.88 GLUCOSE mg/dL 127* CALCIUM mg/dL 8.8 Results from last 7 days Lab Units 11/29/19 1927 WBC K/mcL 9.99 HGB g/dL 12.3 HCT % 40.3 PLT K/mcL 265 Results from last 7 days Lab Units 11/30/19 0128 TSH mcIU/mL 3.93 Results from last 7 days Lab Units 11/30/19 0128 NT PRO BNP pg/mL 1,874* Radiographics: Pertinent studies reviewed and noted. 11/29/2019 chest x-ray shows no acute cardiopulmonary findings. Cardiac Studies: Reviewed and noted. Cardiac CT 11/30/2019 nonobstructive CAD. Calcium score of 0 Echocardiogram 11/30/2019 EF 68%. Normal LV, enlarged RV, normal LA, enlarged RA. No significant cardiac valve disease noted ECG's: reviewed 11/30/2019 at 1023: Complete heart block 43 bpm. QRS 88 11/30/2019 at 20: 28: Second-degree heart block 2-1 heart rate 42, QRS 92 Telemetry: Reviewed [facility] for Dr Shaffer [phone] (mobile) Associated attestation - Tracey Shaffer MD - 12/02/2019 12:38 PM EDT I saw and personally examined the patient on the same day as RADHA. I have personally performed a face to face history and examination, reviewed the labs, most recent ECG, telemetry, and data, and discussed the DDx and treatment plan with the patient and family. Associated Order(s): IP CONSULT TO CARDIOLOGY General Cardiology Inpatient Consult Heart & Vascular [facility] 11/30/2019 Karely King MD [facility] Patient: Pura Laguerre Date of : 1960 (59 y.o.) Referring Provider: No ref. provider found PCP: Andrews Garcia MD Assessment/Plan: Bradycardia, unspecified Assessment & Plan This appears to be heart block. Beta-neftali has been held. I will discontinue it. Echo is pending. If her rhythm does not resolve after beta-blockers been stopped, we will have EP see her for consideration of pacemaker. We will proceed with coronary CT angiography. Reason for Consultation: Bradycardia and weakness History of Present Illness: Pura Laguerre is a 59 y.o. female This is a pleasant 59-year-old she gets her medical care through the [facility]. She has a history of DVT on Xarelto therapy. She has a history of hyperlipidemia, hypertension, hypothyroidism. She is generally very active and feels well with activities. She states in the past several days she is noted more weakness or shortness of breath when she has been active. She is also developed bradycardia, pulse was in the 40s which is new for her. She denied any chest pain complaints. She is not had PND, orthopnea, or lower extremity swelling or edema. She is not had syncope or presyncope. She denies tobacco use, no significant alcohol or drug use. Past Medical History: Diagnosis Date Depression Diabetes mellitus (HCC) Disease of thyroid gland DVT (deep venous thrombosis) (HCC) Hyperlipidemia Hypertension Past Surgical History: Procedure Laterality Date HYSTERECTOMY (CERVIX REMOVED) History reviewed. No pertinent family history. Social History Tobacco Use Smoking Status Never Smoker Smokeless Tobacco Never Used Allergies: Sulfa (sulfonamide antibiotics) Prior to Admission medications Medication Sig Start Date End Date Taking? Authorizing Provider atorvastatin (LIPITOR) 10 MG tablet Take 10 mg by mouth daily . Yes Historical Provider, glipiZIDE (GLUCOTROL) 5 MG tablet Take 5 mg by mouth daily . Yes Historical Provider, levothyroxine (SYNTHROID, LEVOTHROID) 88 MCG tablet Take 88 mcg by mouth once daily . Yes Historical Provider, metFORMIN (GLUCOPHAGE) 500 MG tablet Take 1,000 mg by mouth daily with breakfast . Yes Historical Provider, metoprolol succinate (TOPROL-XL) 50 MG 24 hr tablet Take 50 mg by mouth daily . Yes Historical Provider, rivaroxaban (XARELTO) 20 mg Tab Take 20 mg by mouth daily . Yes Historical Provider, venlafaxine (EFFEXOR-XR) 75 MG 24 hr capsule Take 75 mg by mouth daily . Yes Historical Provider, Current Facility-Administered Medications Medication Dose Route Frequency Provider Last Rate Last Dose atorvastatin (LIPITOR) tablet 10 mg 10 mg Oral Daily Robby Chaudhary CNP 10 mg at 11/30/19 0846 cefTRIAXone (ROCEPHIN) IVPB 1 g (premix) 1,000 mg Intravenous Q24H [facility]TE Robby Chaudhary CNP 100 mL/hr at 11/30/19 0201 1,000 mg at 11/30/19 0201 levothyroxine (SYNTHROID, LEVOTHROID) tablet 88 mcg 88 mcg Oral Daily Robby Chaudhary CNP 88 mcg at 11/30/19 0608 losartan (COZAAR) tablet 50 mg 50 mg Oral Daily with lunch Robby Chaudhary CNP metFORMIN (GLUCOPHAGE) tablet 1,000 mg 1,000 mg Oral Daily with breakfast Robby Chaudhary CNP 1,000 mg at 11/30/19 0846 perflutren lipid microspheres (DEFINITY) 0.143 mg/mL solution 0-10 mL of mixture 0-10 mL of mixture Intravenous Once in imaging Robby Chaudhary CNP pneumococcal vaccine (PNU-IMMUNE 23) injection 0.5 mL 0.5 mL Intramuscular Prior To Discharge Klever Mcfarland MD rivaroxaban (XARELTO) tablet 20 mg 20 mg Oral Daily Robby Chaudhary CNP 20 mg at 11/30/19 0205 Review of Systems: Review of Systems Constitution: Positive for malaise/fatigue. Negative for fever. Cardiovascular: Positive for dyspnea on exertion and irregular heartbeat. Negative for chest pain, claudication, cyanosis, leg swelling, near-syncope, orthopnea, palpitations, paroxysmal nocturnal dyspnea and syncope. Respiratory: Negative for shortness of breath. Musculoskeletal: Positive for joint pain. Gastrointestinal: Negative for hematemesis and hematochezia. Neurological: Negative for focal weakness, paresthesias and weakness. Psychiatric/Behavioral: Negative for altered mental status. All other systems reviewed and are negative. Objective: Vital Signs: BP 113/70 Pulse (!) 41 Temp 98.4 F (36.9 C) (Oral) Resp 14 Ht 5' 3 Wt 109.5 kg (241 lb 6.5 oz) SpO2 95% BMI 42.76 kg/m Physical Examination: Physical Exam Constitutional: She is oriented to person, place, and time. She appears well-developed and well-nourished. HENT: Head: Normocephalic. Eyes: No scleral icterus. Neck: Neck supple. No thyromegaly present. Cardiovascular: Regular rhythm. Bradycardia present. Exam reveals no gallop and no friction rub. Murmur heard. Low-pitched scratchy early systolic murmur is present with a grade of 1/6 at the upper right sternal border and upper left sternal border. Pulmonary/Chest: Effort normal and breath sounds normal. She has no wheezes. She has no rales. Abdominal: Soft. There is no abdominal tenderness. There is no rebound and no guarding. Musculoskeletal: General: No edema. Comments: Superficial lower extremity varicosities Neurological: She is alert and oriented to person, place, and time. Skin: Skin is warm and dry. Psychiatric: She has a normal mood and affect. EKG Interpretation: EKG on presentation showed 2-1 AV block, narrow complex rhythm, heart rate was 42, no acute ST or T wave changes Lab Results Component Value Date WBC 9.99 11/29/2019 HGB 12.3 11/29/2019 HCT 40.3 11/29/2019 MCV 89.0 11/29/2019 PLT 265 11/29/2019 RBC 4.53 11/29/2019 Lab Results Component Value Date CREATININE 0.96 11/30/2019 BUN 26 (H) 11/30/2019 NA 142 11/30/2019 K 3.9 11/30/2019 CL 109 (H) 11/30/2019 BICARB 26 11/30/2019 Lab Results Component Value Date NA 142 11/30/2019 K 3.9 11/30/2019 CL 109 (H) 11/30/2019 Lab Results Component Value Date TROPONINI <15 11/29/2019 No EKG results on file. Karely King documented in this encounter Nataliia Walton MD - 11/29/2019 7:33 PM Daniel Nicholson RN - 11/29/2019 7:18 PM Marsha Belle RN - 11/29/2019 7:14 PM EDT ED Notes (unrecognized secti on and content) ED PROVIDER NOTE [facility] EM[facility] NAME: Pura Laguerre AGE: 59 y.o. : 1960 VISIT DATE: 11/29/2019 CSN: [id number] PCP: Andrews Garcia MD Chief Complaint Patient presents with Fatigue Shortness of Breath HPI Patient is a 59-year-old female with multiple medical problems including a history of hypertension recently started on a beta-neftali brought to the ED by EMS for dizziness weakness shortness of breath low pulse rate few hours today. In the ED patient is awake alert answering questions appropriately speech is clear no facial droop is noted GCS 15 initial vital systolic blood pressure 135/47 pulse is 42 pulse ox is 99% on room air she is afebrile 98.4 Fahrenheit. Patient states she was started about a week ago on a beta-neftali to help with her blood pressure management she does not remember the name of the beta-neftali but states that today she felt dizzy lightheaded she took her vitals her pulse was low 40s she decided to call the EMS. She denies previous history of [place] PE pneumothorax denies any recent bowel or bladder complaints traumas or falls denies any midsternal chest pain pressure but report palpitation and dizziness and shortness of breath at rest or minimal exertion. Initial EKG in the ED does note sinus bradycardia with rates of 42 beats per minutes QRS duration 92 ms QTC [address] abnormality. Past Medical History: Diagnosis Date Depression Diabetes mellitus (HCC) Disease of thyroid gland DVT (deep venous thrombosis) (HCC) Hyperlipidemia Hypertension Past Surgical History: Procedure Laterality Date HYSTERECTOMY (CERVIX REMOVED) History reviewed. No pertinent family history. Social History Socioeconomic History Marital status: Single Spouse name: Not on file Number of children: Not on file Years of education: Not on file Highest education level: Not on file Occupational History Not on file Social Needs Financial resource strain: Not on file Food insecurity Worry: Not on file Inability: Not on file Transportation needs Medical: Not on file Non-medical: Not on file Tobacco Use Smoking status: Never Smoker Smokeless tobacco: Never Used Substance and Sexual Activity Alcohol use: Never Frequency: Never Drug use: Never Sexual activity: Not on file Lifestyle Physical activity Days per week: Not on file Minutes per session: Not on file Stress: Not on file Relationships Social connections Talks on phone: Not on file Gets together: Not on file Attends caodaism service: Not on file Active member of club or organization: Not on file Attends meetings of clubs or organizations: Not on file Relationship status: Not on file Other Topics Concern Not on file Social History Narrative Not on file Previous Medications Medication Sig atorvastatin (LIPITOR) 10 MG tablet Take 10 mg by mouth daily . levothyroxine (SYNTHROID, LEVOTHROID) 88 MCG tablet Take 88 mcg by mouth once daily . metFORMIN (GLUCOPHAGE) 500 MG tablet Take 1,000 mg by mouth daily with breakfast . metoprolol succinate (TOPROL-XL) 50 MG 24 hr tablet Take 50 mg by mouth daily . rivaroxaban (XARELTO) 20 mg Tab Take 20 mg by mouth daily . venlafaxine (EFFEXOR-XR) 75 MG 24 hr capsule Take 75 mg by mouth daily . Allergies Allergen Reactions Sulfa (Sulfonamide Antibiotics) Rash Review of Systems All other systems reviewed and are negative. Patient Vitals for the past 24 hrs: BP Temp Temp src Pulse Resp SpO2 Height Weight 11/29/19 2215 (!) 38 96 % 11/29/19 2200 142/89 (!) 39 98 % 11/29/192104 135/63 (!) 40 16 98 % 11/29/191999 (!) 112/53 (!) 48 90 % 11/29/19 194 (!) 112/53 (!) 40 96 % 11/29/19 192 (!) 135/47 98.4 F (36.9 C) Oral (!) 42 18 99 % 5' 3 108.9 kg (240 lb) Physical Exam Vitals signs and nursing note reviewed. Constitutional: General: She is not in acute distress. Appearance: She is well-developed. She is not ill-appearing. HENT: Head: Normocephalic and atraumatic. Mouth/Throat: Mouth: Mucous membranes are moist. Neck: Musculoskeletal: Neck supple. Thyroid: No thyromegaly. Vascular: No JVD. Cardiovascular: Rate and Rhythm: Bradycardia present. Pulmonary: Effort: Pulmonary effort is normal. No tachypnea, bradypnea, accessory muscle usage or respiratory distress. Breath sounds: Normal breath sounds. No decreased breath sounds, wheezing or rhonchi. Chest: Chest wall: No mass, deformity, tenderness or crepitus. Abdominal: General: Bowel sounds are normal. Palpations: Abdomen is soft. There is no hepatomegaly or splenomegaly. Musculoskeletal: Normal range of motion. Right lower leg: No edema. Left lower leg: No edema. Lymphadenopathy: Cervical: No cervical adenopathy. Neurological: General: No focal deficit present. Mental Status: She is alert. Cranial Nerves: No cranial nerve deficit. Laboratory & Radiographic Imaging (if done): Results for orders placed or performed during the hospital encounter of 11/29/19 NT Pro BNP Result Value Ref Range NT-Pro BNP 1,702 (H) 0 - 300 pg/mL Chem 7 Result Value Ref Range Sodium 141 135 - 145 mmol/L Potassium 4.0 3.5 - 5.1 mmol/L Chloride 107 98 - 108 mmol/L Bicarbonate 26 21 - 32 mmol/L Creatinine 1.07 0.40 - 1.10 mg/dL Glucose 95 65 - 99 mg/dL BUN 29 (H) 8 - 25 mg/dL eGFR 57 (L) >=60 mL/min/1.73 m2 BUN/Creatinine Ratio 27.1 (H) 10.0 - 20.0 Anion Gap 12 10 - 20 mmol/L Troponin x 2 (Now and Repeat in 3 hours) Result Value Ref Range Troponin I <15 <=45 ng/L Troponin I Interpretation Normal Urinalysis Result Value Ref Range Color, Urine Yellow Colorless, Yellow Clarity, Urine Cloudy (A) Clear Specific [place] 1.015 1.005 - 1.025 pH, Urine 5.0 5.0 - 7.0 Protein, Urine Negative Negative mg/dL Glucose, Urine Negative Negative mg/dL Ketones, Urine Negative Negative mg/dL Bilirubin, Urine Negative Negative Urobilinogen, Urine <2.0 <2.0 mg/dL Blood, Urine Small (A) Negative Nitrite, Urine Negative Negative Leukocyte Esterase, Urine Large (A) Negative WBCs, Urine 149 (H) 0 - 5 /hpf RBCs, Urine 4 (H) 0 - 3 /hpf Bacteria, Urine Many (A) None Seen /hpf WBC Clumps, Urine Rare (A) None Seen /hpf Squamous Epithelial 2 0 - 4 /hpf Mucus, Urine Rare None Seen, Rare /lpf CBC Auto Differential Result Value Ref Range WBC 9.99 4.50 - 11.00 K/mcL RBC 4.53 4.00 - 5.20 M/mcL Hemoglobin 12.3 12.0 - 16.0 g/dL Hematocrit 40.3 36.0 - 46.0 % MCV 89.0 80.0 - 100.0 fL MCH 27.2 26.0 - 34.0 pg MCHC 30.5 (L) 31.0 - 37.0 g/dL Platelets 265 150 - 400 K/mcL RDW - CV 14.4 11.6 - 14.8 % MPV 9.7 9.4 - 12.4 fL Neutrophils 60.6 % Lymphocytes 29.7 % Monocytes 6.2 % Eosinophils 2.7 % Basophils 0.5 % IG Percent 0.30 % Neutrophils Abs 6.05 1.70 - 7.00 K/mcL Lymphocytes Abs 2.97 0.90 - 4.00 K/mcL Monocytes Abs 0.62 0.30 - 0.90 K/mcL Eosinophils Abs 0.27 0.00 - 0.50 K/mcL Basophils Abs 0.05 0.00 - 0.30 K/mcL IG Absolute 0.03 0.00 - 0.30 K/mcL Nucleated RBC 0.0 % Nucleated RBC Abs 0.00 0.00 - 0.00 K/mcL XR Chest 1 View Final Result No acute cardiopulmonary findings. Mild cardiomegaly. Workstation ID: [id number] Procedures [facility] Patient is a 59-year-old female multiple medical problem including history of hypertension for which she was recently started on a beta-neftali which patient does not remember the name of the medication was unable to see on patient's chart she is brought to the ED for dizziness lightheadedness low pulse rate. Initial EKG in the ED does note sinus bradycardia rate of 42 beats per minutes QRS duration 90 ms QTC is [address] wave normality. Further work-up has been initiated. Reviewed blood work cardiac markers unremarkable mildly elevated BNP chest x-ray however no acute cardiopulmonary findings patient pulse remained 39-45 even though she was given 1 mg of glucagon remains symptomatic with admit for further management. Urine culture was sent after reevaluating the patient reports urinary symptoms Macrobid has been given. . Clinical Impression: No diagnosis found. ED Disposition None Follow-up Information Follow-up information has not been specified. Contact information for after-discharge care Follow-up information has not been specified. Nataliia Walton MD 11/29/19 2233 Bed: 07 Expected date: Expected time: Means of arrival: Comments: KHUSHI hb Pt arrived to room 7 via [facility] C/C- Lethargic/Dyspnea Pt states she has been SOB and lethargic today which worsened. EMS reports pt with bradycardia and what appeared to be a heart block on the monitor. PT reports she is on a beta neftali that is newly prescribed documented in this encounter Quick Note - Coral Villarreal RN - 12/09/2019 12:39 PM EDTPlan of Care - Cande Lainez RN - 12/09/2019 10:47 AM EDTUtilization Review - Conchita Granados RN - 12/09/2019 9:28 AM EDT Miscellaneous Notes (unrecog nized section and content) Seen by [place] [facility] post discharge and reviewed AVS. Verbalized understanding and denies further needs. No PCP F/U appt and pt will make. Poc reviewed, pt aao, vss, denies pain, up ad andres in room, paced on tele, awaiting DC home orders. Problem: Actual or potential alteration in health Goal: Absence of healthcare acquired conditions Outcome: Met Goal: Knowledge of Enviroment Outcome: Met Problem: Pain Goal: Achievement of comfort function goal Outcome: Met Problem: Plan for Discharge Goal: Knowledge of discharge plan and instructions Outcome: Met Problem: Cardiac Output - Decreased Goal: Cardiac output within specified parameters Outcome: Met Central UR Utilization Review Notes 12/04 CURRENT DIAGNOSIS: Active Problems: Bradycardia, unspecified Plan * complete heart block Patient is hemodynamically stable TSH is within normal limits Echo is consistent with diastolic congestive heart Continue to hold all blocking agents including beta-neftali and calcium channel Permanent pacemaker placement on Friday *Asymptomatic bacteriuria Finished Rocephin course Plan for left sided dual chamber pacemaker 12/07/2019 IF IV+/or PO ANTIBIOTICS have been STOPPED for AT LEAST 24 HOURS VITALS:97.8-99.4 43-59 14-16 94/52-122/73 Room air ox 95-97 ABN LABS:cl 109 gluc 144 SURGERIES OR PROCEDURES SINCE LAST REVIEW:n/a ABN IMAGING SINCE LAST REVIEW:n/a IV MEDICATIONS:IV Rocephin 12/05 CURRENT DIAGNOSIS: Third-degree AV block. Hold rate control medication. EP consulted, planning for MICRA pacemaker insertion VITALS:97.9 47 14 115/77 room air ox 97-100 ABN LABS:cl 109 gluc 132 SURGERIES OR PROCEDURES SINCE LAST REVIEW:n/a ABN IMAGING SINCE LAST REVIEW:n/a IV MEDICATIONS:n/a 12/06 CURRENT DIAGNOSIS: Third-degree AV block. Hold rate control medication. EP consulted, planning for MICRA pacemaker insertion likely 12/08/2019. Echocardiogram 11/30/2019 1. Left ventricular systolic function is normal with an ejection fraction by Biplane Method of Discs of 68 %. 2. The left ventricular diastolic function is normal. 3. Moderate left ventricular concentric hypertrophy. VITALS:98 46 16 124/74 room air ox 98 ABN LABS:gluc 131 SURGERIES OR PROCEDURES SINCE LAST REVIEW: Patient presented to the EP lab for a dual chamber pacemaker. Venogram performed prior to implantation showed possible occlusion of the axillary vein on both sides. Rescheduled case for tomorrow ABN IMAGING SINCE LAST REVIEW: n/a IV MEDICATIONS:n/a DISCHARGE PLAN: home BARRIERS TO DISCHARGE: heart block, pacer insertion Cardiology Progress Note [facility] Cardiology Sign-Off Discharge Medications: Continue current cardiac medications at current doses, unlimited duration. She is on Xarelto 20 mg Daily for OAC for DVT. She was on Metoprolol Suc 50 mg daily prior to admission. Ok to resume if needed. VS stable currently. Follow-up Imaging, Testing: none Follow-up Appointments: follow up listed on AVS for right groin site and pacemaker (Micra) check Additional Instructions Reviewed with Patient and/or Family: Return to Work: FriDec 14. pt was given lifting restrictions and groin site care restrictions and they are written on AVS Assessment/Plan: Pura Laguerre is a 59 year old female with: + High degree AV block (third degree HB alternating with second degree HB) + Last dose of Metoprolol Suc 50 mg was 11/29/2019 + normal EF 68% on echo 11/30/2019 + No significant cardiac valve disease on echo 11/30/2019 + normal LA & LV with RV& RA enlargement on echo 11/30/2019 + no known CAD: Cardiac CT 11/30/2019 shows Calcium score of 0 in coronary arteries + Hx DM type 2 on metformin and glipizide + Hx HTN on metoprolol suc + Hx DVT on Xarelto + Hx HLD on atorvastatin + Hx hypothyroidism on levothyroxine + Hx depression on Effexor + Hx LUIS FELIPE on CPAP at hs Plan: 12/01/2019 (reviewed with Dr Shaffer) - continue to hold all HR limiting meds-holding metoprolol suc 50 mg daily -Will discuss timing of the left sided dual chamber pacemaker with Dr Shaffer. She currently has a UTI on Ceftriaxone. (E Coli >100K on urine culture) -Pt must remain afebrile and no leukocytosis x 24 hours after antibiotics are complete prior to the pacmaker placement -Pt is aware of risks, benefits and alternatives of pacemaker -Continue CPAP-pt wants a consult to Bladimir Shore as needs updated CPAP/mask at home 12/09/2019 (Dr Shaffer saw pt with me this AM) -Micra pacemaker adjustments made by [employer] rep today-working appropriately -Awaiting CXR to confirm no pneumothorax -OK to return to work 12/14 with no restrictions Patient was given discharge instructions verbally and in writing on AVS regarding right groin site care and lifting restrictions by the EP RN and myself. -ok for DC from EP standpoint when CXR completed and there is no pneumothorax LOS: 8 days Subjective: Ms. Laguerre denies chest pain, dyspnea, palpitations, peripheral swelling or dizziness. Feeling a little more energy today Objective: Vital signs in last 24 hours: Temp: [96.8 F (36 C)-98.5 F (36.9 C)] 98.2 F (36.8 C) Heart Rate: [43-92] 79 Resp: [16-20] 16 BP: (97-179)/(55-109) 101/69 Physical Exam: Constitutional: Alert, no acute distress HEENT: Anicteric Cardiac: Heart is reg rate and paced rhythm. No gallop or rub. no murmur noted Lungs: clear to ausculation bilaterally. Nonlabored respirations. Abdomen: soft Lower extremities: no edema. Skin: intact Psych: pleasant, cooperative, does not appear depressed or anxious New cardiac test results if any: Imaging: Lab Review Today's available lab reviewed. Problem: Actual or potential alteration in health Goal: Absence of healthcare acquired conditions Outcome: Met Goal: Knowledge of Interdisciplinary Plan of Care Outcome: Met Goal: Knowledge of Enviroment Outcome: Met Problem: Pain Goal: Manage acute pain Outcome: Met Goal: Manage chronic pain Outcome: Met Goal: Reduced pain sensation Outcome: Met Goal: Achievement of comfort function goal Outcome: Met Problem: Plan for Discharge Goal: Knowledge of discharge plan and instructions Outcome: Met Patient's heart rate remains in 40-50 bpm in 3rd degree AV block. Patient complains of dyspnea with exertion over long period of time Planned pacemaker placement tomorrow. POC reviewed and updated, remains on CSD, room air, cpap at hs, prn tylenol, plan for pacemaker on Friday, continue interventions. Problem: Pain Goal: Manage acute pain Outcome: Met Goal: Manage chronic pain Outcome: Met Goal: Reduced pain sensation Outcome: Met Goal: Achievement of comfort function goal Outcome: Met Problem: Actual or potential alteration in health Goal: Absence of healthcare acquired conditions Outcome: Partially Met Goal: Knowledge of Interdisciplinary Plan of Care Outcome: Partially Met Goal: Knowledge of Enviroment Outcome: Partially Met Problem: Plan for Discharge Goal: Knowledge of discharge plan and instructions Outcome: Partially Met Problem: Cardiac Output - Decreased Goal: Cardiac output within specified parameters Outcome: Partially Met POC reviewed and updated, remains on CSD, room air, cpap at hs, IV antibiotics, plan for pacemaker on Friday, continue interventions. Problem: Pain Goal: Manage acute pain Outcome: Met Goal: Manage chronic pain Outcome: Met Goal: Reduced pain sensation Outcome: Met Goal: Achievement of comfort function goal Outcome: Met Problem: Actual or potential alteration in health Goal: Absence of healthcare acquired conditions Outcome: Partially Met Goal: Knowledge of Interdisciplinary Plan of Care Outcome: Partially Met Goal: Knowledge of Enviroment Outcome: Partially Met Problem: Plan for Discharge Goal: Knowledge of discharge plan and instructions Outcome: Partially Met Central UR Utilization Review Notes EMERGENCY TEMPLATE HISTORY OF PRESENT ILLNESS: 59 y.o. female with a history of hypertension DVT and hypothyroidism presents with generalized weakness and bradycardia. Patient stated she has been on metoprolol 50 mg daily for a while. Her primary care physician started lisinopril to control her blood pressure a week ago. She was walking today. However she felt severe weakness and shortness of breath after walking. She used her pulse ox at home which showed normal O2 sat but bradycardia with a heart rate 40s. Patient felt dizziness. She decided to come to ED. Patient heart rate was 38-42. VITAL SIGNS: 11/29/19 1920 98.4 (36.9) 42Abnormal 18 135/47Abnormal 99 None (Room air) 11/30/19 01:03:48 98 (36.7) 40Abnormal 12 126/84 96 None (room air) 11/30/19 23:00:52 98 (36.7) 39Abnormal 18 118/62 98 None (Room air) EKG: Complete AV block. Low voltage QRS Abnormal ECG WEIGHT: 108.9kg LABS: (Abnormal / Relevant): BNP 1,874 Urine culture: >100,000 CFU/ml escherichia coli IMAGING: (Abnormal / Relevant): ECHO: EF 68%, no valve disease, normal LA & LV with RV& RA enlargement Cardiac CT: Calcium score of 0 in coronary arteries ED TX: 1L IVF bolus DX: High degree AV block (third degree HB alternating with second degree HB); UTI ASSESSMENT / PLAN: - continue to hold all HR limiting meds-holding metoprolol suc 50 mg daily -Will discuss timing of the left sided dual chamber pacemaker with Dr Shaffer. She currently has a UTI on Ceftriaxone. (E Coli >100K on urine culture) -Pt must remain afebrile and no leukocytosis x 24 hours after antibiotics are complete prior to the pacmaker placement -Pt is aware of risks, benefits and alternatives of pacemaker -Continue CPAP-pt wants a consult to Bladimir Silviano as needs updated CPAP/mask at home MEDS / ORDERS: Rocephin 1gm IVPB q24h; Cardiac monitoring DISPO: TBD Scan complete, pt tolerated well Pt in CT, scan explained and all questions answered. Pt denies taking any Phosphodiesterase Inhibitors Associated Problem(s): Bradycardia, unspecified This appears to be heart block. Beta-neftali has been held. I will discontinue it. Echo is pending. If her rhythm does not resolve after beta-blockers been stopped, we will have EP see her for consideration of pacemaker. We will proceed with coronary CT angiography. Problem: Actual or potential alteration in health Goal: Absence of healthcare acquired conditions Outcome: Partially Met Goal: Knowledge of Interdisciplinary Plan of Care Outcome: Partially Met Goal: Knowledge of Enviroment Outcome: Partially Met Oriented to heart monitor bed and continued monitoring. documented in this encounter Source Comments (unrecognize d section and content) In the event this informatio n is protected by the Federal Confidentiality of Alcohol and Drug Abuse Patient Records regulations: The Federal rules restrict any use of the information to criminally investigate or prosecute any alcohol or drug abuse patient.[facility] the event this information is protected by the Federal Confidentiality of Alcohol and Drug Abuse Patient Records regulations: The Federal rules restrict any use of the information to criminally investigate or prosecute any alcohol or drug abuse patient.[facility] Care Teams (unrecognized sec tion and content) Retail Marketing Coordinator Relationship Specialty Start Date End Date Andrae Burgos MD [address] [place] [address] PCP - General Internal Medicine 09/04/20 FOR RECORDS PERTAINING TO PATIENTS WHO ARE OR HAVE BEEN ENROLLED IN A CHEMICAL DEPENDENCY/SUBSTANCEABUSE PROGRAM, SOME INFORMATION MAY BE OMITTED. This clinical summary was aggregated from multiple sources. Caution should be exercised in using it in the provision of clinical care. This summary normalizes information from multiple sources, and as a consequence, information in this document may materially change the coding, format and clinical context of patient data. In addition, data may be omitted in some cases. CLINICAL DECISIONS SHOULD BE BASED ON THE PRIMARY CLINICAL RECORDS. [employer] [facility]. provides no warranty or guarantee of the accuracy or completeness of information in this document.
--- NOTE | 2023-04-02 05:48 | PCM.PSN.6M ---
PSN 6 Minute Walk Test 6 Minute Walk Test 6 Minute Walk Test: 6 Minute Walk Test PSN:6-Minute Walk Test Start: 04/01/23 13:56 Freq: Status: Active Protocol: RESP.6MINW Document 04/01/23 13:45 AEH (Rec: 04/01/23 13:58 AE Desktop) 6 Minute Walk Test Date Performed 04/01/23 Time Performed 13:45 Height 5 ft 3 in Weight: 99.337 kg Weight in Pounds 219.[address]: TEDDY Assistive device used: None Pre-test Oxygen Delivery Method Room Air Pulse Ox 94 Pulse Rate (60-100) 90 Dyspnea Whit Scale (0-10) 0 Exertion Whit Scale (6-20) 6 1st minute Oxygen Delivery Method Room Air Pulse Ox 95 Pulse Rate (60-100) 91 2nd minute Oxygen Delivery Method Room Air Pulse Ox 94 Pulse Rate (60-100) 99 3rd minute Oxygen Delivery Method Room Air Pulse Ox 95 Pulse Rate (60-100) 96 4th minute Oxygen Delivery Method Room Air Pulse Ox 95 Pulse Rate (60-100) 102 H 5th minute Oxygen Delivery Method Room Air Pulse Ox 96 Pulse Rate (60-100) 96 6th minute Oxygen Delivery Method Room Air Pulse Ox 96 Pulse Rate (60-100) 111 H Dyspnea Whit Scale (0-10) 0 Exertion Whit Scale (6-20) 11 Post-test Oxygen Delivery Method Room Air Pulse Ox 96 Pulse Rate (60-100) 92 Full Laps Walked 18 Partial Lap, Number of Tiles Walked 29 Total Distance Walked (ft) 1091 Interpretation Interpretation: The patient was able to ambulate 1091 feet over the course of 6 minutes on room air with no assist devices or breaks. The patient experienced no significant desaturation, but did have progressive tachycardia as high as 111 bpm. These findings are consistent with a cardiovascular limitation exercise tolerance. Recommendations Recommendations: No supplemental oxygen is indicated at this time.
== END | disposition home or self-care (01) ==
LOC: PSN 13:37
PROVIDERS: PCP Internal Medicine; Referring Provider Nurse Practitioner Acute Care; Visit Provider Nurse Practitioner Acute Care
DX: I42.9 Cardiomyopathy, unspecified (principal)
CPT/HCPCS: 94618

== ENCOUNTER → 2023-04-10 | Outpatient (CLI) | payer OTHER, SELFPAY ==
--- OUTSIDE RECORDS SUMMARY | 2023-04-10 20:10 | XMS RPT_ITS | CCD ---
Author Name Unknown Address [address] [facility] [address] [place] [address] Organization [facility] Care Team Providers Care Field Installation Technician Name Role Phone Andrews Garcia Primary Care Provider ANDREWS GARCIA Primary Care Unavailable URADU, GIULIANO COUCH Attending Unavailable TOMANDREWS KING Primary Care Unavailable URADU, GIULIANO COUCH Attending Unavailable ANDREWS GARCIA Primary Care Unavailable TRACEY SHAFFER Attending Unavailable TRACEY SHAFFER Attending Unavailable TOMANDREWS KING Primary Care Unavailable TOMANDREWS KING Primary Care Unavailable GEOVANNISONIA Longo Attending Unavaila [facility] PHYSICIANS, GENERIC Consulting Un available AKUSKLEVER JACKSON Admitting Unavail able KARELY KING Consulting Unavailable URADU, GIULIANO COUCH Consulting Unavailable TRACEY SHAFFER Consulting Unavailable ANDREWS GARCIA Primary Care Unavailable URADU, GIULIANO COUCH Referring Unavailable URADU, GIULIANO COUCH Attending Unavailable Andrae Burgos MD Primary Care Provider [phone] Andrae Burgos MD Primary Care Provider [phone] ANDRAE BURGOS Primary Care Unavailable ANDRAE BURGOS Primary Care Unavailable Allergies Allergy Classification Reported Allergen(s) Allergy Type Date of Onset Reaction(s) Facility (8 sources) Sulfonamides (Antibiotic); Translations: [SULFA (SULFONAMIDE ANTIBIOTICS)] Propensity to adverse reactions to drug 4 Rash, Hives [facility] (3 sources) Contrast media; Translations: [RED DYE] Drug Allergy 1 Other: See Comments, Rash [facility] (3 sources) POISON RAMONA EXTRACT; Translations: [POISON RAMONA] Drug Allergy 4 [facility] Medications Current Medications Medication Drug Class(es) [...] 97.39 [degF] Marilyn Carvalho PA-C Work Phone: [facility] 03-15-2023 13:48-0500 Body weight 103.69 kg Marilyn AVILA-Nelson Work Phone: [facility] 03-15-2023 13:48-0500 Diastolic blood pressure 80 mm[Hg] Marilyn AVILA-Nelson Work Phone: [facility] 03-15-2023 13:48-0500 Heart rate 93 /min Marilyn Carvalho PA-C Work Phone: [facility] 03-15-2023 13:48-0500 Respiratory rate 18 /min Marilyn Carvalho PA-C Work Phone: [facility] 03-15-2023 13:48-0500 SaO2% (BldA) [Mass fraction] 97 % Marilyn Carvalho PA-C Work Phone: [facility] 03-15-2023 13:48-0500 Systolic blood pressure 104 mm[Hg] Marilyn Carvalho PA-C Work Phone: [facility] 07-22-2021 14:16-0400 Body temperature 98.4 [degF] Emily Rosas APRN.CASEWORK SUPERVISOR Work Phone: [facility] 07-22-2021 14:16-0400 Body weight 104.15 kg Emily Rosas APRN.CASEWORK SUPERVISOR Work Phone: [facility] 07-22-2021 14:16-0400 Diastolic blood pressure 80 mm[Hg] Emily Rosas APRN.CASEWORK SUPERVISOR Work Phone: [facility] 07-22-2021 14:16-0400 Heart rate 90 /min Emily Rosas APRN.CASEWORK SUPERVISOR Work Phone: [facility] 07-22-2021 14:16-0400 Respiratory rate 18 /min Emily Rosas APRN.CASEWORK SUPERVISOR Work Phone: [facility] 07-22-2021 14:16-0400 SaO2% (BldA) [Mass fraction] 98 % Emily Rosas APRN.CASEWORK SUPERVISOR Work Phone: [facility] 07-22-2021 14:16-0400 Systolic blood pressure 128 mm[Hg] Emily Rosas APRN.CASEWORK SUPERVISOR Work Phone: [facility] 03-09-2020 15:13-0500 Heart rate Medtronic Giulianoteri Reinoso [facility] 03-09-2020 15:13-0500 Heart rate [id number] Micra AV [facility] 03-09-2020 15:13-0500 Heart rate [id number] [facility] 03-09-2020 15:13-0500 Heart rate Pacemaker Giuliano Reinoso [facility] 03-09-2020 15:13-0500 Heart rate [id number] /min Giuliano Reinoso [facility] 12-09-2019 11:37-0400 Body Temperature 98.1 [degF] [facility] 12-09-2019 11:37-0400 BP Diastolic 79 mm[Hg] [facility] 12-09-2019 11:37-0400 BP Systolic 113 mm[Hg] [facility] 12-09-2019 11:37-0400 Pulse (Heart Rate) 74 /min [facility] 12-09-2019 11:37-0400 Pulse Oximetry 99 % [facility] 12-09-2019 11:37-0400 Respiratory Rate 16 /min [facility] 12-09-2019 05:53-0400 BMI (Body Mass Index) 42.76 kg/m2 [facility] 12-09-2019 05:53-0400 Body weight 109.5 kg [facility] Encounters Encounter Date Encounter Type Care Provider Facility Start: 03-15-2023 End: 03-15-2023 ambulatory ANDRAE BURGOS Facility:[facility] Start: 03-15-2023 End: 03-15-2023 Patient encounter procedure Marilyn Carvalho PA-C Work Phone: [facility] Procedures Date Procedure Procedure Detail Performing Clinician Start: 11-06-2020 Colonoscopy Emily Rosas APRN.CASEWORK SUPERVISOR Work Phone: Start: 09-04-2020 Mammography Emily Rosas APRN.CASEWORK SUPERVISOR Work Phone: Start: 03-09-2020 OUTPATIENT DEVICE CL [...] Start: 12-08-2019 EP - DEVICE [facility] Work Phone: Start: 12-08-2019 End: 12-08-2019 Glucose [Mass/volume] in Blood Arinze Echezona [facility] Work Phone: Start: 12-08-2019 Basic metabolic 2000 panel - Serum or Plasma Robby Chaudhary Work Phone: Start: 12-08-2019 Complete blood count with white cell differential, automated [facility] Work Phone: Start: 12-08-2019 Complete blood count with white cell differential, manual [facility] Work Phone: Start: 12-07-2019 Glucose [Mass/volume ] in Blood Arinze E[place]zona [employer] Work Phone: Start: 12-07-2019 ABORTED EP CASE Belkis [facility] Work Phone: Start: 12-07-2019 Complete blood count with white cell differential, automated [facility] Work Phone: Start: 12-07-2019 Complete blood count with white cell differential, manual [employer] Work Phone: Start: 12-07-2019 Comprehensive metabo lic 2000 panel - Serum or Plasma Sonia Galarza Work Phone: Start: 12-07-2019 Magnesium [Mass/volu me] in Serum or Plasma Sonia Galarza Work Phone: Start: 12-06-2019 Basic metabolic 2000 panel - Serum or Plasma Robby Chaudhary Work Phone: Start: 12-06-2019 Complete blood count with white cell differential, automated [employer] Work Phone: Start: 12-06-2019 Complete blood count with white cell differential, manual [employer] Work Phone: Start: 12-05-2019 Basic metabolic 2000 [...] 11-30-2019 Glucose [Mass/volume ] in Blood Klever Mcfalrand Work Phone: Start: 11-30-2019 12 lead ECG [...] Blood Klever Mcfarland Work Phone: Start: 11-30-2019 Basic metabolic 2000 [...] DTaP,Tdap,Td Vaccine (2 - Td or Tdap) [facility] Start: 11-06-2030 Colonoscopy COLONOSCOPY [facility] Start: 11-06-2030 COLORECTAL CANCER SCREENING COLORECTAL CANCER SCREENING [facility] Start: 11-06-2030 Screening for malignant neoplasm of colon [facility] Start: 11-29-2022 Covid-19 Vaccine ( season) Covid-19 Vaccine ( season) [facility] Start: 03-31-2022 Depression Assessment Depression Assessment [facility] Start: 11-29-2021 Influenza vaccination INFLUENZA (Season Ended) [facility] Start: 09-04-2021 Mammography MAMMOGRAM [facility] Start: 09-04-2021 Screening for malignant neoplasm of breast Mammogram Screening [facility] Start: 12-05-2020 Pneumococcal vaccination Pneumococcal Vaccine (2 of 2 - PCV) [facility] Start: 10-31-2020 Glaucoma screening Dilated Retinal Exam [facility] Start: 10-31-2020 Hepatitis C antibody, confirmatory test DILATED RETINAL EXAM [facility] Start: 06-12-2020 End: 06-12-2020 Appointment 06/12/2020 Appointment Cardiology Giuliano Reinoso MD [address] [place] [address] [phone] [facility] Start: 03-09-2020 End: 03-09-2020 Appointment [facility] Start: 11-30-2019 Influenza vaccination given Sequential Influenza Vaccine (#1) [facility] Start: 2019 RSV Vaccine (1 - 1-dose 60+ series) RSV Vaccine (1 - 1-dose 60+ series) [facility] Start: 08-11-2009 Administration of herpes zoster vaccine Zoster Vaccines (1 of 2) [facility] Start: 08-11-2009 Screening for malignant neoplasm of colon [facility] Start: 08-11-2009 SHINGRIX VACCINE (1 of 2) SHINGRIX VACCINE (1 of 2) [facility] Start: 08-11-2004 COLOGUARD (FIT-DNA) COLOGUARD (FIT-DNA) [facility] Start: 08-11-[address] COLONOGRAPHY [facility] Start: 08-11-2004 FECAL OCCULT BLOOD FECAL OCCULT BLOOD [facility] Start: 08-11-2004 Screening for malignant neoplasm of colon [facility] Start: 08-11-2004 SIGMOIDOSCOPY SIGMOIDOSCOPY [facility] Start: 08-11-1989 HPV TESTING HPV TESTING [facility] Start: 08-11-1989 Screening for malignant neoplasm of cervix HPV Testing [facility] Start: 08-11-1980 PAP TESTING PAP TESTING [facility] Start: 08-11-1980 Screening for malignant neoplasm of cervix Pap Testing [facility] Start: 08-11-1978 Urine microalbumin profile DTAP,TDAP,TD (1 - Tdap) [facility] Start: 08-11-1977 ANNUAL PCP TEAM CHRONIC DISEASE VISIT ANNUAL PCP TEAM CHRONIC DISEASE VISIT [facility] Start: 08-11-1977 BP CONTROLLED (<130/80) BP CONTROLLED (<130/80) [facility] Start: 08-11-1977 Hepatitis B surface antibody level LDL CHOLESTEROL [facility] Start: 08-11-1977 Hepatitis C antibody, confirmatory test Hepatitis C Screening [facility] Start: 08-11-1977 HEPATITIS C SCREENING HEPATITIS C SCREENING [facility] Start: 08-11-1977 Hepatitis C screening Hepatitis C Screening [facility] Start: 08-11-1977 HIV SCREENING HIV SCREENING [facility] Start: 08-11-1977 HIV screening HIV Screening [facility] Start: 1975 ONE PNEUMOVAX PRIOR TO AGE 65 ONE PNEUMOVAX PRIOR TO AGE 65 [facility] Start: 08-11-1974 HIV screening HIV Screening [facility] Start: 1971 Adolescent depression screening assessment [facility] Start: 08-11-1969 3 comp foot exam completed DIABETIC FOOT EXAM [facility] Start: 08-11-1969 Albumin DL <= 20 mg/L (U) [Mass/Vol] Urine Microalbumin [facility] Start: 08-11-1969 Diabetic foot examination [facility] Start: 08-11-1969 Hepatitis B screening URINE ALBUMIN:CREATININE RATIO [facility] Start: 08-11-1969 Ophthalmic examination and evaluation Ophthalmology Exam [facility] Start: 08-11-1964 Hemoglobin A1c measurement HbA1C [facility] Start: 08-11-1964 Hemoglobin A1c/Hemoglobin.total in Blood HBA1C [facility] Start: 08-11-1962 History and physical examination, annual for health maintenance Wellness Visit [facility] Start: 1959 HbA1c (Bld) [Mass fraction] A1C [facility] Start: 1959 Screening for malignant neoplasm of cervix Pap Smear [facility] Start: 1959 Screening mammography Mammogram [facility] Start: 1959 Tetanus vaccination Tetanus: Every 10yrs [facility] End: 03-09-2020 Outpatient Device Clinic Referral Outpatient Device Clinic Referral Cardiac Services Routine Pacemaker Once for 1 Occurrences starting 03/09/2020 until 03/09/2020 [facility] Immunizations Immunization Date Immunization Notes Care Provider Fa santosh 12-06-2019 pneumococcal polysac charide vaccine, 23 valent [facility] 11-30-2019 pneumococcal vaccine , unspecified formulation Maybeury Anton [facility] Payers Date Payer Category Payer Unknown [id number] 2019 Unknown [employer] PPO [id number] 2019-Present [phone] [address] [place] [address] PPO [id number] 2018 Unknown COMMERCIAL COMME RCIAL MISCELLANEOUS [id number] 2018-Present [id number] 2018 Unknown [id number] 2018 Unknown [id number] 1960 Unknown [id number] 1959 Unknown [id number] 1959 Unknown [id number] 1959 Unknown [id number] 1959 Unknown [id number] 1959 Unknown [id number] Social History Date Type Detail Facility Start: 12-09-2019 End: 10-21-2022 Tobacco smoking status NYIS Never smoker [facility] Start: 12-09-2019 End: 10-21-2022 Tobacco use and exposure Never used [facility] Start: 12-09-2019 Alcohol intake Lifetime non-d home (finding) [facility] Start: 11-29-2019 History SDOH Alcohol Frequency 1 [facility] Sex Assigned At Not on file [facility] Start: 07-12-2021 End: 07-22-2021 Exposure to SARS-CoV-2 (event) Not sure [facility] Start: 07-22-2021 End: 03-15-2023 Alcohol intake Ex-drinker (finding) [facility] Start: 11-01-2019 History SDOH Alcohol Comment rarely [facility] Start: 1960 Sex Assigned At Female [facility] Start: 09-04-2020 End: 03-15-2023 History of Social function [facility] Start: 09-04-2020 End: 03-15-2023 Tobacco use panel [facility] National Score (1-10 0), lower number is lower risk Not on file [facility] Start: 10-27-2020 Gender identity Identifies as female gender (finding) [facility] Medical Equipment Procedure Code Equipment Code Equipment Origin al Text Equipment Identifier Dates Pacer Micra Av V r System - [id number], [id number] FDA Start: 12-08-2019 Mdt [id number] Micr a Av [id number]_[facility] Start: 12-07-2019 Progress note 03-15-2023 Note Date & Type Note Facility 03-15-2023 Note HNO ID: [id number] Author: Marilyn Carvalho PA-C Service: ? Author Type: Physician Video Library Assistant Type: Progress Notes Filed: 03/15/2023 2:53 PM Note Text: This note was created using [email or web address]. Subjective Pura Laguerre is a 62 year old female. HPI Presents with a chief complaint of cough over the past 12 days. She was seen at another urgent care through [facility] and tested negative for COVID. She was [...] state (HCC) Hypertension Hypothyroidism Iron deficiency anemia alf current use of anticoagulant Mixed hyperlipidemia Seasonal [...] an x-ray if (more content not included)... [facility] History of Present illness Narrative 03-15-2023 Marilyn Carvalho PA-C - 03/15/2023 2:47 PM EST Note Date & Type Note Facility 03-15-2023 History of Presen t illness Narrative Images from the original note were not included. This note was created using [email or web address]. Subjective Pura Laguerre is a 62 year old female. HPI Presents with a chief complaint of cough over the past 12 days. She was seen at another urgent care through [facility] and tested negative for COVID. 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 and was 71. Discussed however if this is not improving or getting worse she really needs to be seen in the emergency department or PCP. Patient agreeable. Marilyn Carvalho PA-C documented in this encounter [facility] Progress note 10-21-2022 Note Date & Type Note Facility 10-21-2022 Note HNO ID: [id number] Author: Marilyn Carvalho PA-C Service: ? Author Type: Physician Video Library Assistant Type: Progress Notes Filed: 10/21/2022 6:21 PM Note Text: This note was created using [employer]. Subjective Pura Laguerre is a 62 year [...] state (HCC) Hypertension Hypothyroidism Iron deficiency anemia alf current use of anticoagulant Mixed hyperlipidemia Seasonal [...] with fluids and rest Marilyn Carvalho PA-C [facility] History of Present illness Narrative 07-22-2021 Emily Rosas APRN.CASEWORK SUPERVISOR - 07/22/2021 2:41 PM EDT Note Date [...] of thyroid Acute respiratory failure with hypoxia ([facility]) 08/03/2020 Anxiety B12 deficiency Blood clot associated with vein wall inflammation Complete heart block (HCC) 10/2019 Depression Diabetes (HCC) History of pulmonary embolism Hypercholesterolemia Hypercoagulable state (HCC) Hypertension Hypothyroidism 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 Mixed hyperlipidemia Seasonal [...] Emily Rosas APRN.FREEDOM documented in this encounter [facility] Evaluation note Note Date & Type Note Facility documented in this encounter [facility] Evaluation note Note Date & Type Note Facility documented in this encounter [facility] Summary Purpose Family History No Family History Records FoundNo Family History Records FoundNo Family History Records FoundNo Family History Records Found Advance Directives No Advanced Directives Records FoundDocuments on File Type Date Recorded Patient Sharepoint Developer Expl anation Advance Directives and Livin g Will 12/15/2019 8:08 PM Latest Code Status on File Code Status Date Activated Date Inactivated Comments Full Code - Unverified 12/03/2019 4:41 PM 12/09/2019 2:44 PM Full Code - Unverified 11/29/2019 11:19 PM 12/03/2019 4:4 1 PM Documents on File Type Date Recorded Patient Sharepoint Developer Expl anation Advance Directives and Livin g Will 03/09/2020 8:08 PM Latest Code Status on File Code Status Date Activated Date Inactivated Comments Full Code - Unverified 12/03/2019 4:41 PM 12/09/2019 2:44 PM Full Code - Unverified 11/29/2019 11:19 PM 12/03/2019 4:4 1 PM Documents on File Type Date Recorded Patient Sharepoint Developer Expl anation Advance Directives and Livin g Will 11/29/2019 8:08 PM Documents on File Type Date Recorded Patient Sharepoint Developer Expl anation Advance Directive(s) 11/06/2020 7:01 AM Advance Directive(s) 10/10/2020 9:30 AM Reason for Referral Status Reason Specialty Diagnoses / Procedures Referred By Contact Referred To Contact Pending Review Cardiology Diagnoses Pacemaker Procedures Outpatient Device Clinic Referral Giuliano Reinoso MD [address] [place] [id number] Assessments Diagnosis Pacemaker Cardiac pacemaker in situ Diagnosis Sinus bradycardia- Primary Other specified cardiac dysrhythmias Acute UTI Urinary tract infection, site not specified Bradycardia, unspecified Hospital Course * Geovanni, Sonia Pfeiffer MD - 12/09/2019 11:35 AM EDT HOSPITALIST DISCHARGE SUMMARY Patient: Pura Laguerre Account: [id number] Admitted: 11/29/2019 Discharge Date/Time: 12/09/2019 Clinical Summary [...] Your Medications These medications were sent to [facility] [address] [facility] [address] [facility] [address] loratadine 10 mg tablet losartan 50 MG tablet Physician(s) Family: Andrews Garcia MD, , Address: [address] [facility] [address] Follow Up: Andrews Garcia MD [address] [place] [id number] Follow up in 1 week(s) Tracey Shaffer MD [address] [id number] Follow up in 1 week(s) Patient instructions, [...] hold pressure and call the office at [phone]. Call the office if you notice pain, [...] Medicine Inpatient Follow-up 12/08/2019 Sonia Galarza MD [facility] Patient: Pura Laguerre Date of : 1960 (59 y.o.) PCP: Andrews Garcia MD ASSESSMENT/PLAN: Pura Laguerre 59 y.o. female presented with Third-degree AV block Past Medical History: Diagnosis Date Depression Diabetes mellitus (HCC) Disease of thyroid gland DVT (deep venous thrombosis) ([facility]) Hyperlipidemia Hypertension PLAN: Third-degree AV block. Hold [...] Pfeiffer MD - 12/07/2019 1:53 PM EDT [facility] Medicine Inpatient Follow-up 12/07/2019 Sonia Galarza MD [facility] Patient: Pura Laguerre Date of : 1960 [...] Estimated Energy Needs Total Energy Estimated Needs: 0637-7683 kcal Method for Estimating Needs: MSJ Total Protein Estimated Needs: 60-70 g Method for Estimating Needs: 1.0 g/kg AdjBW Will follow-up , as needed while in-house. Juliet Lynn RDN, * Sonia Galarza MD - 12/06/2019 4:49 PM EDT [facility] Medicine Inpatient Follow-up 12/06/2019 Sonia Galarza MD [facility] Patient: Pura Laguerre Date of : 1960 [...] Pura Laguerre Date of : 1960 Site: [facility] Provider: KURT Underwood ASSESSMENT/PLAN: Diabetes Hypertension Previously [...] tablet 10 mg, 10 mg, Oral, Daily, Christien Kamara CNP, 10 mg at 12/05/200932 losartan [...] to separate report for dedicated cardiac findings. /[facility] Workstation ID: [id number] Heart (Multiple Pressure Riveter Operator read) Final Result 1. Total calcium score: [...] noted below. Pito Shore MD, FCCP, FASSM, [facility] Diplomate: [place] [employer] Substation Inspector: [facility] * Amado Pierre MD - 12/05/2019 1:29 PM EDT [facility] Medicine Inpatient Follow-up 12/05/2019 Amado Rod MD [facility] Patient: Pura Laguerre Date of : 1960 [...] Pierre MD - 12/04/2019 2:42 PM EDT [facility] Medicine Inpatient Follow-up 12/04/2019 Amado Rod MD [facility] Patient: Pura Laguerre Date of : 1960 [...] EDT Electrophysiology Inpatient Follow-up Heart & Vascular [facility] 12/03/2019 Belkis Ruiz CNP [facility] Patient: Pura Laguerre Date of : 1960 [...] at times as she was in the [employer]. Today 12/03/2019 Patient is feeling well, no complaints ECG 12 Lead Final Result by Interface, Lab Results In [place] [facility] (12/01/2019 1553) Echocardiogram complete w contrast [...] Pura Laguerre Date of : 1960 Site: [facility] Provider: KURT Underwood ASSESSMENT/PLAN: Diabetes Hypertension Previously [...] findings. [facility] Workstation ID: [id number] [id number] Heart (Multiple Pressure Riveter Operator read) Final Result 1. Total calcium score: [...] Pierre MD - 12/02/2019 4:51 PM EDT [facility] Medicine Inpatient Follow-up 12/02/2019 Amado Rod MD [facility] Patient: Pura Laguerre Date of : 1960 [...] Estimated Energy Needs Total Energy Estimated Needs: 5373-2068 kcal Method for Estimating Needs: MSJ Total Protein Estimated Needs: 60-70 g Method for Estimating Needs: 1.0 g/kg AdjBW Will continue to follow while in-house. Sabine Echevarria RDN, LD Dietitian Office * Amado Pierre MD - 12/01/2019 3:11 PM EDT [facility] Medicine Inpatient Follow-up 12/01/2019 Amado Rod MD [facility] Patient: Pura Laguerre Date of : 1960 [...] Pierre MD - 11/30/2019 3:43 PM EDT [facility] Medicine Inpatient Follow-up 11/30/2019 Amado Rod MD [facility] Patient: Pura Laguerre Date of : 1960 [...] cefTRIAXone (ROCEPHIN) IVPB 1,000 mg Intravenous Q24H [facility] levothyroxine 88 mcg Oral Daily losartan 50 [...] DATE CREATED AUTHOR AUTHOR'S ORGANIZ ATION 05/07/2020 [facility] DATE CREATED AUTHOR AUTHOR'S ORGANIZ ATION 11/06/2020 [facility] DATE CREATED AUTHOR AUTHOR'S ORGANIZ ATION 03/17/2023 [facility] Reason for Visit (unrecogniz ed section [...] Pura Laguerre Date of : 1960 Site: [facility] Referring Provider: Refer to consult order in electronic medical record Provider: Yael Venegas, WELDING MACHINE OPERATOR ARC ASSESSMENT Diabetes Hypertension Hypothyroidism Previously diagnosed currently [...] 6 Effects of caffeine nicotine alcohol and [id number]-ozl-[id number] medications effect on sleep discussed with patient. [...] enjoy her work. She is a retired [employer], plans to have her right [...] to separate report for dedicated cardiac findings. [facility] [facility] Workstation ID: [id number] CCTA Heart (Multiple Pressure Riveter Operator read) Final Result 1. Total calcium score: [...] in our clinic Pito Shore MD, FCCP, [facility] Diplomate: [place] [employer] Substation Inspector: [facility] Associated Order(s): IP CONSULT [...] Name: Pura Laguerre Admit Date: MR #: [id number] : 1960 Assessment: Pura Laguerre is a [...] at times as she was in the [employer]. Current Facility-Administered Medications Medication Dose Route Frequency [...] 1 g (premix) 1,000 mg Intravenous Q24H [facility] Robby Chaudhary CNP Stopped at 11/30/192155 levothyroxine (SYNTHROID, LEVOTHROID) tablet 88 mcg 88 mcg Oral Daily Robby Chaudhary CNP 88 mcg at 12/01/19 0643 losartan (COZAAR) tablet 50 mg 50 mg Oral Daily with lunch Robby Chaudhary CNP metFORMIN (GLUCOPHAGE) tablet 1,000 mg 1,000 mg Oral Daily with breakfast Robby Chaudhary CASEWORK SUPERVISOR 1,000 mg at 12/01/19 0824 perflutren lipid microspheres (DEFINITY) 0.143 mg/mL solution 0-10 mL of mixture 0-10 mL of mixture Intravenous Once in imaging Robby Chaudhary CNP 1 mL of mixture at 11/30/19 1447 pneumococcal vaccine (PNU-IMMUNE 23) injection 0.5 mL 0.5 mL Intramuscular Prior To Discharge Klever cMfarland MD rivaroxaban (XARELTO) tablet 20 mg 20 [...] 1 g (premix) 1,000 mg Intravenous Q24H [facility] Robby Chaudhary CNP Stopped at 11/30/192155 levothyroxine (SYNTHROID, LEVOTHROID) tablet 88 mcg 88 mcg Oral Daily Robby Chaudhary CNP 88 mcg at 12/01/19 06 losartan (COZAAR) tablet 50 mg 50 mg Oral Daily with lunch Robby Chaudhary CNP metFORMIN (GLUCOPHAGE) tablet 1,000 mg 1,000 mg Oral Daily with breakfast Robby Chaudhary CASEWORK SUPERVISOR 1,000 mg at 12/01/19 0824 perflutren lipid [...] file Gets together: Not on file Attends yarsani service: Not on file Active member of [...] heart rate 42, QRS 92 Telemetry: Reviewed [facility] for Dr Shaffer [phone] (mobile) Associated attestation - Tracey Shaffer MD [...] General Cardiology Inpatient Consult Heart & Vascular [facility] 11/30/2019 Karely King MD [facility] Patient: Pura Laguerre Date of : 1960 [...] she gets her medical care through the [place]. She has a history of DVT on [...] secti on and content) ED PROVIDER NOTE [facility] EMERGENCY DEPARTMENT NAME: Pura Laguerre AGE: 59 y.o. : 1960 VISIT DATE: 11/29/2019 CSN: [id number] PCP: Andrews Garcia MD Chief Complaint Patient [...] the EMS. She denies previous history of ID PE pneumothorax denies any recent bowel or [...] file Gets together: Not on file Attends yarsani service: Not on file Active member of [...] Yellow Clarity, Urine Cloudy (A) Clear Specific [place] 1.015 1.005 - 1.025 pH, Urine 5.0 [...] findings. Mild cardiomegaly. Workstation ID: [id number] Procedures [facility] Patient is a 59-year-old female multiple [...] hb Pt arrived to room 7 via [facility] C/C- Lethargic/Dyspnea Pt states she [...] (unrecog nized section and content) Seen by [place] [facility] post discharge and reviewed AVS. [...] heart block, pacer insertion Cardiology Progress Note [facility] Cardiology Sign-Off Discharge [...] or prosecute any alcohol or drug abuse patient.[facility] Hospital[facility] the event this information is protected by the Federal Confidentiality of Alcohol and Drug Abuse Patient Records regulations: The Federal rules restrict any use of the information to criminally investigate or prosecute any alcohol or drug abuse patient.[facility] Care Teams (unrecognized sec tion and content) Field Installation Technician Relationship Specialty Start Date End Date Andrae Burgos MD [address] [place] [address] PCP - General Internal Medicine 09/04/20 FOR [...] BE BASED ON THE PRIMARY CLINICAL RECORDS. [employer] [facility]. provides no warranty or guarantee of the accuracy or completeness of information in this document.
== END | disposition home or self-care (01) ==
PROVIDERS: PCP Internal Medicine; Visit Provider Nurse Practitioner Acute Care
DX: G47.33 Obstructive sleep apnea (adult) (pediatric) (principal)
CPT/HCPCS: 95811

== ENCOUNTER → 2023-04-21 | Outpatient (CLI) | payer OTHER, SELFPAY ==
[2023-04-21 16:58] LABS: Anion Gap 5 (5-15); BUN 24 mg/dL (7-18); BUN/Creat Ratio 23.8 RATIO (10-20); Calcium,Total 9.7 mg/dL (8.5-10.1); Chloride 106 mmol/L (98-107); Creatinine, Serum 1.01 mg/dL (0.55-1.02); EST Glomerular Filtration Rate 59 mL/min (>60); Est Glom Filt Rate - Afr Amer 71 mL/min (>60); Glucose 104 mg/dL (74-106); Potassium 4.1 mmol/L (3.5-5.1); Sodium Level 140 mmol/L (136-145)
[2023-04-21 17:02] LABS: Absolute Lymphocyte Count 1.67 X10^3/uL (0.83-4.51); Absolute Neutrophil Count 4.3 X10^3/uL (2.0-7.7); Basophil# 0.05 X10^3/uL; Basophil% 0.7 % (0-1); Eosinophil# 0.19 X10^3/uL; Eosinophils% 2.8 % (0-5); Hematocrit 42.8 % (37-47); Hemoglobin 12.7 g/dL (12.0-15.0); Lymphocyte # 1.67 X10^3/ul (0.83-4.51); Lymphocyte % 24.9 % (19-41); Mean Corp Hgb Conc 29.7 g/dL (32-36); Mean Corpuscular Hgb 24.1 pg (27.0-32.0); Mean Corpuscular Volume 81.2 fL (81-99); Mean Platelet Vol. 9.7 fl (6.2-12.0); Monocyte# 0.48 X10^3/uL; Monocyte% 7.1 % (0-10); NRBC Flagged by Analyzer 0 % (0-5); Neutrophil # 4.31 X10^3/uL (2.7-7.7); Neutrophil % 64.2 % (47-70); Platelet Count 272 K/mm3 (150-450); RBC Distribution Width CV 16.4 % (11.6-14.6); RBC Distribution Width SD 48.6 fl (35.1-43.9); Red Blood Count 5.27 M/mm3 (4.2-5.4); White Blood Count 6.7 K/mm3 (4.4-11.0)
== END | disposition home or self-care (01) ==
LOC: BIMLAB 15:15
PROVIDERS: PCP Internal Medicine; Visit Provider Internal Medicine
DX: E11.9 Type 2 diabetes mellitus without complications (principal)
CPT/HCPCS: 36415; 80048; 85025

== ENCOUNTER → 2023-05-05 | Outpatient (CLI) | payer OTHER, SELFPAY ==
--- OUTSIDE RECORDS SUMMARY | 2023-05-05 09:08 | XMS RPT_ITS | CCD ---
Author Name Unknown Address [address] [facility] [address] [place] [address] Organization [facility] Care Team Providers Care Automobile And Property Underwriter Name Role Phone Andrews Garcia Primary Care Provider ANDREWS GARCIA Primary Care Unavailable URADU, GIULIANO COUCH Attending Unavailable TOMANDREWS KING Primary Care Unavailable URADU, GIULIANO COUCH Attending Unavailable ANDREWS GARCIA Primary Care Unavailable TRACEY SHAFFER Attending Unavailable TRACEY SHAFFER Attending Unavailable TOMANDREWS KING Primary Care Unavailable TOMANDREWS KING Primary Care Unavailable GEOVANNISONIA Longo Attending Unavaila [facility] PHYSICIANS, GENERIC Consulting Un available AKUSKLEVER JACKSON Admitting Unavail able KARELY KING Consulting Unavailable URADU, GIULIANO COUCH Consulting Unavailable TRACEY SHAFFER Consulting Unavailable ANDREWS GARCIA Primary Care Unavailable URADU, GIULIANO COUCH Referring Unavailable URADU, GIULIANO COUCH Attending Unavailable Andrae Burgos MD Primary Care Provider [phone] Andrae Burgos MD Primary Care Provider [phone] ANDRAE BURGOS Primary Care Unavailable ANDRAE BURGOS Primary Care Unavailable Allergies Allergy Classification Reported Allergen(s) Allergy Type Date of Onset Reaction(s) Facility (8 sources) Sulfonamides (Antibiotic); Translations: [SULFA (SULFONAMIDE ANTIBIOTICS)] Propensity to adverse reactions to drug 4 Rash, Hives [facility] (3 sources) Contrast media; Translations: [RED DYE] Drug Allergy 1 Other: See Comments, Rash [facility] (3 sources) POISON RAMONA EXTRACT; Translations: [POISON RAMONA] Drug Allergy 4 [facility] Medications Current Medications Medication Drug Class(es) [...] 97.39 [degF] Marilyn Carvalho PA-C Work Phone: [facility] 03-15-2023 13:48-0500 Body weight 103.69 kg Marilyn AVILA-Nelson Work Phone: [facility] 03-15-2023 13:48-0500 Diastolic blood pressure 80 mm[Hg] Marilyn AVILA-Nelson Work Phone: [facility] 03-15-2023 13:48-0500 Heart rate 93 /min Marilyn Carvalho PA-C Work Phone: [facility] 03-15-2023 13:48-0500 Respiratory rate 18 /min Marilyn Carvalho PA-C Work Phone: [facility] 03-15-2023 13:48-0500 SaO2% (BldA) [Mass fraction] 97 % Marilyn Carvalho PA-C Work Phone: [facility] 03-15-2023 13:48-0500 Systolic blood pressure 104 mm[Hg] Marilyn Carvalho PA-C Work Phone: [facility] 07-22-2021 14:16-0400 Body temperature 98.4 [degF] Emily Rosas APRN.PALEONTOLOGICAL HELPER Work Phone: [facility] 07-22-2021 14:16-0400 Body weight 104.15 kg Emily Rosas APRN.PALEONTOLOGICAL HELPER Work Phone: [facility] 07-22-2021 14:16-0400 Diastolic blood pressure 80 mm[Hg] Emily Rosas APRN.PALEONTOLOGICAL HELPER Work Phone: [facility] 07-22-2021 14:16-0400 Heart rate 90 /min Emily Rosas APRN.PALEONTOLOGICAL HELPER Work Phone: [facility] 07-22-2021 14:16-0400 Respiratory rate 18 /min Emily Rosas APRN.PALEONTOLOGICAL HELPER Work Phone: [facility] 07-22-2021 14:16-0400 SaO2% (BldA) [Mass fraction] 98 % Emily Rosas APRN.PALEONTOLOGICAL HELPER Work Phone: [facility] 07-22-2021 14:16-0400 Systolic blood pressure 128 mm[Hg] Emily Rosas APRN.PALEONTOLOGICAL HELPER Work Phone: [facility] 03-09-2020 15:13-0500 Heart rate Medtronic Giulianoteri Reinoso [facility] 03-09-2020 15:13-0500 Heart rate [id number] Micra AV [facility] 03-09-2020 15:13-0500 Heart rate [id number] [facility] 03-09-2020 15:13-0500 Heart rate Pacemaker Giuliano Reinoso [facility] 03-09-2020 15:13-0500 Heart rate [id number] /min Giuliano Reinoso [facility] 12-09-2019 11:37-0400 Body Temperature 98.1 [degF] [facility] 12-09-2019 11:37-0400 BP Diastolic 79 mm[Hg] [facility] 12-09-2019 11:37-0400 BP Systolic 113 mm[Hg] [facility] 12-09-2019 11:37-0400 Pulse (Heart Rate) 74 /min [facility] 12-09-2019 11:37-0400 Pulse Oximetry 99 % [facility] 12-09-2019 11:37-0400 Respiratory Rate 16 /min [facility] 12-09-2019 05:53-0400 BMI (Body Mass Index) 42.76 kg/m2 [facility] 12-09-2019 05:53-0400 Body weight 109.5 kg [facility] Encounters Encounter Date Encounter Type Care Provider Facility Start: 03-15-2023 End: 03-15-2023 ambulatory ANDRAE BURGOS Facility:[facility] Start: 03-15-2023 End: 03-15-2023 Patient encounter procedure Marilyn Carvalho PA-C Work Phone: [facility] Procedures Date Procedure Procedure Detail Performing Clinician Start: 11-06-2020 Colonoscopy Emily Rosas APRN.PALEONTOLOGICAL HELPER Work Phone: Start: 09-04-2020 Mammography Emily Rosas APRN.PALEONTOLOGICAL HELPER Work Phone: Start: 03-09-2020 OUTPATIENT DEVICE CL [...] Start: 12-08-2019 EP - DEVICE Belkis farmer [facility] Work Phone: Start: 12-08-2019 End: 12-08-2019 Glucose [Mass/volume] in Blood Arinze E[place] Work Phone: Start: 12-08-2019 Basic metabolic 2000 panel - Serum or Plasma Robby Chaudhary Work Phone: Start: 12-08-2019 Complete blood count with white cell differential, automated Belkis [facility] Work Phone: Start: 12-08-2019 Complete blood count with white cell differential, manual Belkis [facility] Work Phone: Start: 12-07-2019 Glucose [Mass/volume ] in Blood Arinze [place] [employer] Work Phone: Start: 12-07-2019 ABORTED EP CASE Belkis Syed [facility] Work Phone: Start: 12-07-2019 Complete blood count with white cell differential, automated Belkis [facility] Work Phone: Start: 12-07-2019 Complete blood count with white cell differential, manual [email or web address] Work Phone: Start: 12-07-2019 Comprehensive metabo lic 2000 panel - Serum or Plasma Sonia Galarza Work Phone: Start: 12-07-2019 Magnesium [Mass/volu me] in Serum or Plasma Sonia Galarza Work Phone: Start: 12-06-2019 Basic metabolic 2000 panel - Serum or Plasma Robby Chaudhary Work Phone: Start: 12-06-2019 Complete blood count with white cell differential, automated [email or web address] Work Phone: Start: 12-06-2019 Complete blood count with white cell differential, manual [email or web address] Work Phone: Start: 12-05-2019 Basic metabolic 2000 [...] DTaP,Tdap,Td Vaccine (2 - Td or Tdap) [facility] Start: 11-06-2030 Colonoscopy COLONOSCOPY [facility] Start: 11-06-2030 COLORECTAL CANCER SCREENING COLORECTAL CANCER SCREENING [facility] Start: 11-06-2030 Screening for malignant neoplasm of colon [facility] Start: 11-29-2022 Covid-19 Vaccine ( season) Covid-19 Vaccine ( season) [facility] Start: 03-31-2022 Depression Assessment Depression Assessment [facility] Start: 11-29-2021 Influenza vaccination INFLUENZA (Season Ended) [facility] Start: 09-04-2021 Mammography MAMMOGRAM [facility] Start: 09-04-2021 Screening for malignant neoplasm of breast Mammogram Screening [facility] Start: 12-05-2020 Pneumococcal vaccination Pneumococcal Vaccine (2 of 2 - PCV) [facility] Start: 10-31-2020 Glaucoma screening Dilated Retinal Exam [facility] Start: 10-31-2020 Hepatitis C antibody, confirmatory test DILATED RETINAL EXAM [facility] Start: 06-12-2020 End: 06-12-2020 Appointment 06/12/2020 Appointment Cardiology Giuliano Reinoso MD [address] [place] [address] [phone] [facility] Start: 03-09-2020 End: 03-09-2020 Appointment [facility] Start: 11-30-2019 Influenza vaccination given Sequential Influenza Vaccine (#1) [facility] Start: 2019 RSV Vaccine (1 - 1-dose 60+ series) RSV Vaccine (1 - 1-dose 60+ series) [facility] Start: 08-11-2009 Administration of herpes zoster vaccine Zoster Vaccines (1 of 2) [facility] Start: 08-11-2009 Screening for malignant neoplasm of colon [facility] Start: 08-11-2009 SHINGRIX VACCINE (1 of 2) SHINGRIX VACCINE (1 of 2) [facility] Start: 08-11-2004 COLOGUARD (FIT-DNA) COLOGUARD (FIT-DNA) [facility] Start: 08-11-[address] COLONOGRAPHY [facility] Start: 08-11-2004 FECAL OCCULT BLOOD FECAL OCCULT BLOOD [facility] Start: 08-11-2004 Screening for malignant neoplasm of colon [facility] Start: 08-11-2004 SIGMOIDOSCOPY SIGMOIDOSCOPY [facility] Start: 08-11-1989 HPV TESTING HPV TESTING [facility] Start: 08-11-1989 Screening for malignant neoplasm of cervix HPV Testing [facility] Start: 08-11-1980 PAP TESTING PAP TESTING [facility] Start: 08-11-1980 Screening for malignant neoplasm of cervix Pap Testing [facility] Start: 08-11-1978 Urine microalbumin profile DTAP,TDAP,TD (1 - Tdap) [facility] Start: 08-11-1977 ANNUAL PCP TEAM CHRONIC DISEASE VISIT ANNUAL PCP TEAM CHRONIC DISEASE VISIT [facility] Start: 08-11-1977 BP CONTROLLED (<130/80) BP CONTROLLED (<130/80) [facility] Start: 08-11-1977 Hepatitis B surface antibody level LDL CHOLESTEROL [facility] Start: 08-11-1977 Hepatitis C antibody, confirmatory test Hepatitis C Screening [facility] Start: 08-11-1977 HEPATITIS C SCREENING HEPATITIS C SCREENING [facility] Start: 08-11-1977 Hepatitis C screening Hepatitis C Screening [facility] Start: 08-11-1977 HIV SCREENING HIV SCREENING [facility] Start: 08-11-1977 HIV screening HIV Screening [facility] Start: 1975 ONE PNEUMOVAX PRIOR TO AGE 65 ONE PNEUMOVAX PRIOR TO AGE 65 [facility] Start: 08-11-1974 HIV screening HIV Screening [facility] Start: 1971 Adolescent depression screening assessment [facility] Start: 08-11-1969 3 comp foot exam completed DIABETIC FOOT EXAM [facility] Start: 08-11-1969 Albumin DL <= 20 mg/L (U) [Mass/Vol] Urine Microalbumin [facility] Start: 08-11-1969 Diabetic foot examination [facility] Start: 08-11-1969 Hepatitis B screening URINE ALBUMIN:CREATININE RATIO [facility] Start: 08-11-1969 Ophthalmic examination and evaluation Ophthalmology Exam [facility] Start: 08-11-1964 Hemoglobin A1c measurement HbA1C [facility] Start: 08-11-1964 Hemoglobin A1c/Hemoglobin.total in Blood HBA1C [facility] Start: 08-11-1962 History and physical examination, annual for health maintenance Wellness Visit [facility] Start: 1959 HbA1c (Bld) [Mass fraction] A1C [facility] Start: 1959 Screening for malignant neoplasm of cervix Pap Smear [facility] Start: 1959 Screening mammography Mammogram [facility] Start: 1959 Tetanus vaccination Tetanus: Every 10yrs [facility] End: 03-09-2020 Outpatient Device Clinic Referral Outpatient Device Clinic Referral Cardiac Services Routine Pacemaker Once for 1 Occurrences starting 03/09/2020 until 03/09/2020 [facility] Immunizations Immunization Date Immunization Notes Care Provider Fa santosh 12-06-2019 pneumococcal polysac charide vaccine, 23 valent [place] [facility] 11-30-2019 pneumococcal vaccine , unspecified formulation [place] Anton [facility] Payers Date Payer Category Payer Unknown [id number] 2019 Unknown [employer] PPO [id number] 2019-Present [phone] [address] [facility] [address] PPO [id number] 2018 Unknown COMMERCIAL COMME RCIAL MISCELLANEOUS [id number] 2018-Present [id number] 2018 Unknown [id number] 2018 Unknown [id number] 1960 Unknown [id number] 1960 Unknown [id number] 1959 Unknown [id number] 1959 Unknown [id number] 1959 Unknown [id number] 1959 Unknown [id number] Social History Date Type Detail Facility Start: 12-09-2019 End: 10-21-2022 Tobacco smoking status GAIS Never smoker [facility] Start: 12-09-2019 End: 10-21-2022 Tobacco use and exposure Never used [facility] Start: 12-09-2019 Alcohol intake Lifetime non-d home (finding) [facility] Start: 11-29-2019 History SDOH Alcohol Frequency 1 [facility] Sex Assigned At Not on file [facility] Start: 07-12-2021 End: 07-22-2021 Exposure to SARS-CoV-2 (event) Not sure [facility] Start: 07-22-2021 End: 03-15-2023 Alcohol intake Ex-drinker (finding) [facility] Start: 11-01-2019 History SDOH Alcohol Comment rarely [facility] Start: 1960 Sex Assigned At Female [facility] Start: 09-04-2020 End: 03-15-2023 History of Social function [facility] Start: 09-04-2020 End: 03-15-2023 Tobacco use panel [facility] National Score (1-10 0), lower number is lower risk Not on file [facility] Start: 10-27-2020 Gender identity Identifies as female gender (finding) [facility] Medical Equipment Procedure Code Equipment Code Equipment Origin al Text Equipment Identifier Dates Pacer Micra Av V r System - [id number] FDA Start: 12-08-2019 Mdt [id number] Micr a Av [id number] Start: 12-07-2019 Progress note 03-15-2023 Note Date & Type Note Facility 03-15-2023 Note HNO ID: [id number] Author: Marilyn Carvalho PA-C Service: ? Author Type: Physician Food Service Coordinator Type: Progress Notes Filed: 03/15/2023 2:53 PM Note Text: This note was created using [employer] Data Vision[employer]. Subjective Pura Laguerre is a 62 year old female. HPI Presents with a chief complaint of cough over the past 12 days. She was seen at another urgent care through [facility] and tested negative for COVID. She was [...] state (HCC) Hypertension Hypothyroidism Iron deficiency anemia half-way current use of anticoagulant Mixed hyperlipidemia Seasonal [...] an x-ray if (more content not included)... [facility] History of Present illness Narrative 03-15-2023 Marilyn Carvalho PA-C - 03/15/2023 2:47 PM EST Note Date & Type Note Facility 03-15-2023 History of Presen t illness Narrative Images from the original note were not included. This note was created using Converserter. Subjective Pura Laguerre is a 62 year old female. HPI Presents with a chief complaint of cough over the past 12 days. She was seen at another urgent care through [facility] and tested negative for COVID. 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 Discussed however if this is not improving or getting worse she really needs to be seen in the emergency department or PCP. Patient agreeable. Marilyn Carvalho PA-C documented in this encounter [facility] Progress note 10-21-2022 Note Date & Type Note Facility 10-21-2022 Note HNO ID: [id number] Author: Marilyn Carvalho PA-C Service: ? Author Type: Physician Food Service Coordinator Type: Progress Notes Filed: 10/21/2022 6:21 PM Note Text: This note was created using YOHO. Subjective Pura Laguerre is a 62 year [...] state (HCC) Hypertension Hypothyroidism Iron deficiency anemia half-way current use of anticoagulant Mixed hyperlipidemia Seasonal [...] with fluids and rest Marilyn Carvalho PA-C [facility] History of Present illness Narrative 07-22-2021 Emily Rosas APRN.PALEONTOLOGICAL HELPER - 07/22/2021 2:41 PM EDT Note Date [...] of thyroid Acute respiratory failure with hypoxia ([facility]) 08/03/2020 Anxiety B12 deficiency Blood clot associated with vein wall inflammation Complete heart block (HCC) 10/2019 Depression Diabetes (HCC) History of pulmonary embolism Hypercholesterolemia Hypercoagulable state (HCC) Hypertension Hypothyroidism Iron deficiency anemia long term acute care registered nurse current use of anticoagulant Mixed hyperlipidemia Seasonal [...] Emily Rosas APRN.FREEDOM documented in this encounter [facility] Evaluation note Note Date & Type Note Facility documented in this encounter [facility] Evaluation note Note Date & Type Note Facility documented in this encounter [facility] Summary Purpose Family History No Family History Records FoundNo Family History Records FoundNo Family History Records FoundNo Family History Records Found Advance Directives No Advanced Directives Records FoundDocuments on File Type Date Recorded Patient Rn [facility] Expl anation Advance Directives and Livin g Will 12/15/2019 8:08 PM Latest Code Status on File Code Status Date Activated Date Inactivated Comments Full Code - Unverified 12/03/2019 4:41 PM 12/09/2019 2:44 PM Full Code - Unverified 11/29/2019 11:19 PM 12/03/2019 4:4 1 PM Documents on File Type Date Recorded Patient Rn Womens Health Expl anation Advance Directives and Livin g Will 03/09/2020 8:08 PM Latest Code Status on File Code Status Date Activated Date Inactivated Comments Full Code - Unverified 12/03/2019 4:41 PM 12/09/2019 2:44 PM Full Code - Unverified 11/29/2019 11:19 PM 12/03/2019 4:4 1 PM Documents on File Type Date Recorded Patient Rn Womens Health Expl anation Advance Directives and Livin g Will 11/29/2019 8:08 PM Documents on File Type Date Recorded Patient Rn W[facility] Expl anation Advance Directive(s) 11/06/2020 7:01 AM Advance Directive(s) 10/10/2020 9:30 AM Reason for Referral Status Reason Specialty Diagnoses / Procedures Referred By Contact Referred To Contact Pending Review Cardiology Diagnoses Pacemaker Procedures Outpatient Device Clinic Referral Giuliano Reinoso MD [address] [place] [phone] Assessments Diagnosis Pacemaker Cardiac pacemaker in situ Diagnosis Sinus bradycardia- Primary Other specified cardiac dysrhythmias Acute UTI Urinary tract infection, site not specified Bradycardia, unspecified Hospital Course * Geovanni, Sonia Pfeiffer MD - 12/09/2019 11:35 AM EDT HOSPITALIST DISCHARGE SUMMARY Patient: Pura Laguerre Account: [id number] Admitted: 11/29/2019 Discharge Date/Time: 12/09/2019 Clinical Summary [...] Your Medications These medications were sent to [facility] [address] [facility] [address] [facility] [address] loratadine 10 mg tablet losartan 50 MG tablet Physician(s) Family: Andrews Garcia MD, , Address: [address] [facility] [address] Follow Up: Andrews Garcia MD [address] [place] [id number] Follow up in 1 week(s) Tracey Shaffer MD [address] [id number] Follow up in 1 week(s) Patient instructions, [...] hold pressure and call the office at [phone]. Call the office if you notice pain, [...] Medicine Inpatient Follow-up 12/08/2019 Sonia Galarza MD [facility] Patient: Pura Laguerre Date of : 1960 (59 y.o.) PCP: Andrews Garcia MD ASSESSMENT/PLAN: Pura Laguerre 59 y.o. female presented with Third-degree AV block Past Medical History: Diagnosis Date Depression Diabetes mellitus (HCC) Disease of thyroid gland DVT (deep venous thrombosis) ([facility]) Hyperlipidemia Hypertension PLAN: Third-degree AV block. Hold [...] Pfeiffer MD - 12/07/2019 1:53 PM EDT [facility] Medicine Inpatient Follow-up 12/07/2019 Sonia Galarza MD [facility] Patient: Pura Laguerre Date of : [...] Estimated Energy Needs Total Energy Estimated Needs: 3010-4722 kcal Method for Estimating Needs: MSJ Total Protein Estimated Needs: 60-70 g Method for Estimating Needs: 1.0 g/kg AdjBW Will follow-up , as needed while in-house. Juliet Lynn RDN, * Sonia Galarza MD - 12/06/2019 4:49 PM EDT [facility] Medicine Inpatient Follow-up 12/06/2019 Sonia Galarza MD [facility] Patient: Pura Laguerre Date of : [...] Pura Laguerre Date of : 1960 Site: [facility] Provider: KURT Underwood ASSESSMENT/PLAN: Diabetes Hypertension [...] to separate report for dedicated cardiac findings. /[facility] Workstation ID: [id number] CCTA Heart (Stock Parts Fabricator read) Final Result 1. Total calcium score: [...] noted below. Pito Shore MD, FCCP, FASSM, [facility] Diplomate: [place] [employer] Sleep [employer] Promotions Executive Producer: [facility] * Amado Pierre MD - 12/05/2019 1:29 PM EDT [facility] Medicine Inpatient Follow-up 12/05/2019 Amado Rod MD [facility] Patient: Pura Laguerre Date of : [...] Pierre MD - 12/04/2019 2:42 PM EDT [facility] Medicine Inpatient Follow-up 12/04/2019 Amado Rod MD [facility] Patient: Pura Laguerre Date of : [...] EDT Electrophysiology Inpatient Follow-up Heart & Vascular [facility] 12/03/2019 Belkis Ruiz CNP [facility] Patient: Pura Laguerre Date of : [...] at times as she was in the [employer]. Today 12/03/2019 Patient is feeling well, no complaints ECG 12 Lead Final Result by Interface, Lab Results In [place] [facility] (12/01/2019 1553) Echocardiogram complete w contrast [...] Pura Laguerre Date of : 1960 Site: [facility] Provider: KURT Underwood ASSESSMENT/PLAN: Diabetes Hypertension [...] findings. [facility] Workstation ID: [id number] CCTA Heart (Stock Parts Fabricator read) Final Result 1. Total calcium score: [...] Pierre MD - 12/02/2019 4:51 PM EDT [facility] Medicine Inpatient Follow-up 12/02/2019 Amado Rod MD [facility] Patient: Pura Laguerre Date of : [...] Estimated Energy Needs Total Energy Estimated Needs: 1740-3261 kcal Method for Estimating Needs: MSJ Total Protein Estimated Needs: 60-70 g Method for Estimating Needs: 1.0 g/kg AdjBW Will continue to follow while in-house. Sabine Echevarria RDN, LD Dietitian Office * Amado Pierre MD - 12/01/2019 3:11 PM EDT [facility] Medicine Inpatient Follow-up 12/01/2019 Amado Rod MD [facility] Patient: Pura Laguerre Date of : [...] Pierre MD - 11/30/2019 3:43 PM EDT [facility] Medicine Inpatient Follow-up 11/30/2019 Amado Rod MD [facility] Patient: Pura Laguerre Date of : [...] IVPB 1,000 mg Intravenous Q24H [facility] levothyroxine 88 mcg Oral Daily [...] DATE CREATED AUTHOR AUTHOR'S ORGANIZ ATION 05/07/2020 [facility] DATE CREATED AUTHOR AUTHOR'S ORGANIZ ATION 11/06/2020 [facility] DATE CREATED AUTHOR AUTHOR'S ORGANIZ ATION 03/17/2023 [facility] Reason for Visit (unrecogniz ed section [...] Pura Laguerre Date of : 1960 Site: [facility] Referring Provider: Refer to consult order in electronic medical record Provider: Yael Venegas, FLAME BURNER ASSESSMENT Diabetes Hypertension Hypothyroidism Previously diagnosed currently [...] 6 Effects of caffeine nicotine alcohol and [id number] medications effect on sleep discussed with patient. [...] enjoy her work. She is a retired [employer], plans to have her right [...] to separate report for dedicated cardiac findings. ST/Emefcy Workstation ID: [id number] CCTA Heart (Stock [employer] Fabricator read) Final Result 1. Total calcium score: [...] in our clinic Pito Shore MD, FCCP, [facility], [facility] Diplomate: [place] [employer] Promotions Executive Producer: [facility] Associated Order(s): IP [...] Name: Pura Laguerre Admit Date: MR #: [id number] : 1960 Assessment: Pura Laguerre is a [...] at times as she was in the [employer]. Current Facility-Administered Medications Medication Dose Route Frequency [...] (premix) 1,000 mg Intravenous Q24H [facility] Robby Chaudhary CNP Stopped at 11/30/192155 levothyroxine (SYNTHROID, LEVOTHROID) tablet 88 mcg 88 mcg Oral Daily Robby Chaudhary CNP 88 mcg at 12/01/19 0643 losartan (COZAAR) tablet 50 mg 50 mg Oral Daily with lunch Robby Chaudhary CNP metFORMIN (GLUCOPHAGE) tablet 1,000 mg 1,000 mg Oral Daily with breakfast Robby Chaudhary PALEONTOLOGICAL HELPER 1,000 mg at 12/01/19 0824 perflutren lipid [...] (premix) 1,000 mg Intravenous Q24H [facility] Robby Chaudhary CNP Stopped at 11/30/192155 levothyroxine (SYNTHROID, LEVOTHROID) tablet 88 mcg 88 mcg Oral Daily Robby Chaudhary CNP 88 mcg at 12/01/19 06 losartan (COZAAR) tablet 50 mg 50 mg Oral Daily with lunch Robby Chaudhary CNP metFORMIN (GLUCOPHAGE) tablet 1,000 mg 1,000 mg Oral Daily with breakfast Robby Chaudhary PALEONTOLOGICAL HELPER 1,000 mg at 12/01/19 0824 perflutren lipid [...] file Gets together: Not on file Attends pentecostalism service: Not on file Active member of [...] heart rate 42, QRS 92 Telemetry: Reviewed [facility] for Dr Shaffer [phone] (mobile) Associated attestation - Tracey Shaffer MD [...] General Cardiology Inpatient Consult Heart & Vascular [facility] 11/30/2019 Karely King MD [facility] Patient: Pura Laguerre Date of : [...] she gets her medical care through the [place]. She has a history of DVT on [...] secti on and content) ED PROVIDER NOTE [facility] EMERGENCY [facility]MENT NAME: Pura Laguerre AGE: 59 y.o. : 1960 VISIT DATE: 11/29/2019 CSN: [id number] PCP: Andrews Garcia MD Chief Complaint Patient [...] the EMS. She denies previous history of GA PE pneumothorax denies any recent bowel or [...] file Gets together: Not on file Attends pentecostalism service: Not on file Active member of [...] Yellow Clarity, Urine Cloudy (A) Clear Specific [place] 1.015 1.005 - 1.025 pH, Urine 5.0 [...] findings. Mild cardiomegaly. Workstation ID: [id number] Procedures [facility] Patient is a 59-year-old female multiple medical [...] hb Pt arrived to room 7 via [facility] C/C- Lethargic/Dyspnea Pt states she has [...] (unrecog nized section and content) Seen by [place] [facility] post discharge and reviewed AVS. [...] heart block, pacer insertion Cardiology Progress Note [facility] Heart and Vascular Physicians Cardiology Sign-Off [...] or prosecute any alcohol or drug abuse patient.[facility] the event this information is protected by the Federal Confidentiality of Alcohol and Drug Abuse Patient Records regulations: The Federal rules restrict any use of the information to criminally investigate or prosecute any alcohol or drug abuse patient.[facility] Care Teams (unrecognized sec tion and content) [employer] Property Underwriter Relationship Specialty Start Date End Date Andrae Burgos MD [address] [place] [address] PCP - General Internal Medicine 09/04/20 FOR [...] BE BASED ON THE PRIMARY CLINICAL RECORDS. [employer] [facility]. provides no warranty or guarantee of the accuracy or completeness of information in this document.
== END | disposition home or self-care (01) ==
LOC: SL 08:33
PROVIDERS: PCP Internal Medicine; Visit Provider Nurse Practitioner Acute Care
DX: Z46.89 Encounter for fitting and adjustment of other specified devices (principal)

== ENCOUNTER → 2023-07-23 | Outpatient (CLI) | payer OTHER, SELFPAY ==
[2023-07-23 18:10] LABS: ALB/GLOB Ratio 0.8 RATIO (0.9-2.4); AST(SGOT) 21 U/L (15-37); Alanine Aminotransfer ALT/SGPT 26 U/L (13-56); Albumin, Serum 3.5 g/dL (3.2-5.0); Alkaline Phosphatase 113 U/L (45-117); Anion Gap 5 (5-15); BUN 17 mg/dL (7-18); Calcium,Total 8.8 mg/dL (8.5-10.1); Chloride 104 mmol/L (98-107); Creatinine, Serum 1.06 mg/dL (0.55-1.02); EST Glomerular Filtration Rate 56 mL/min (>60); Est Glom Filt Rate - Afr Amer 67 mL/min (>60); Globulin 4.4 g/dL (2.2-4.2); Glucose 119 mg/dL (74-106); Potassium 3.9 mmol/L (3.5-5.1); Protein, Total 7.9 g/dL (6.4-8.2); Sodium Level 137 mmol/L (136-145); Thyroid Stim Hormone (TSH) 2.57 uIU/mL (0.358-3.74)
== END | disposition home or self-care (01) ==
LOC: BIMLAB 15:36
PROVIDERS: PCP Internal Medicine; Visit Provider Internal Medicine
DX: E03.9 Hypothyroidism, unspecified (principal); E11.9 Type 2 diabetes mellitus without complications
CPT/HCPCS: 36415; 80053; 84443

== ENCOUNTER → 2024-01-15 | Outpatient (CLI) | payer OTHER, SELFPAY ==
[2024-01-15 17:21] LABS: Absolute Neutrophil Count 4.1 X10^3/uL (2.0-7.7); Basophil# 0.06 X10^3/uL; Eosinophil# 0.19 X10^3/uL; Eosinophils% 3.1 % (0-5); Hematocrit 40.1 % (37-47); Lymphocyte % 22.7 % (19-41); Mean Corp Hgb Conc 29.9 g/dL (32-36); Mean Corpuscular Hgb 25.1 pg (27.0-32.0); Mean Corpuscular Volume 83.9 fL (81-99); Monocyte# 0.41 X10^3/uL; Monocyte% 6.6 % (0-10); NRBC Flagged by Analyzer 0 % (0-5); Neutrophil # 4.09 X10^3/uL (2.7-7.7); Neutrophil % 66.1 % (47-70); Platelet Count 232 K/mm3 (150-450); RBC Distribution Width CV 15.3 % (11.6-14.6); RBC Distribution Width SD 46.9 fl (35.1-43.9); Red Blood Count 4.78 M/mm3 (4.2-5.4); White Blood Count 6.2 K/mm3 (4.4-11.0)
[2024-01-15 17:30] LABS: ALB/GLOB Ratio 0.9 RATIO (0.9-2.4); AST(SGOT) 18 U/L (15-37); Alanine Aminotransfer ALT/SGPT 26 U/L (13-56); Albumin, Serum 3.7 g/dL (3.2-5.0); Alkaline Phosphatase 115 U/L (45-117); Anion Gap 3 (5-15); BUN 22 mg/dL (7-18); BUN/Creat Ratio 20.4 RATIO (10-20); Calcium,Total 9.5 mg/dL (8.5-10.1); Chloride 108 mmol/L (98-107); Cholesterol 142 mg/dL (200); Creatinine, Serum 1.08 mg/dL (0.55-1.02); EST Glomerular Filtration Rate 54 mL/min (>60); Est Glom Filt Rate - Afr Amer 66 mL/min (>60); Globulin 4.2 g/dL (2.2-4.2); Glucose 82 mg/dL (74-106); High Density Lipoprotein 52 mg/dL; Potassium 3.9 mmol/L (3.5-5.1); Protein, Total 7.9 g/dL (6.4-8.2); Sodium Level 139 mmol/L (136-145); Triglycerides 159 mg/dL; Very Low Density Lipoprotein 32 mg/dL (5-40)
== END | disposition home or self-care (01) ==
LOC: BIMLAB 15:48
PROVIDERS: PCP Internal Medicine; Referring Provider Internal Medicine; Visit Provider Internal Medicine
DX: E11.69 Type 2 diabetes mellitus with other specified complication (principal)
CPT/HCPCS: 36415; 80053; 80061; 85025

== ENCOUNTER → 2024-01-27 | Outpatient (CLI) | payer OTHER, SELFPAY ==
--- NOTE | 2024-01-27 15:04 | BI_ITS ---
MAMMOGRAPHY - BILATERAL SCREENING REASON FOR EXAM: Female, 63 years old. Routine annual screening examination. PERTINENT HISTORY: Non-contributory. TECHNIQUE: Digital bilateral breast ocry (3D mammographic acquisition) in the CC and MLO projections. 2-D mediolateral oblique (MLO) and craniocaudad (CC) views of both breasts were obtained. CAD: Full Field Digital Mammography with Computer Added Detection was performed. COMPARISON: Comparison is made with prior study dated July 18, 2021. FINDINGS: Breast Composition: The breasts are heterogeneously dense, which may obscure small masses. There are no dominant masses or suspicious calcifications. Stable scattered bilateral microcalcifications. A pacemaker battery pack is seen in the axillary region of the left breast. No other significant abnormalities are identified. There has been no significant change since the prior study. BI/SCRN MAMM (CAD)W/CORY BILAT IMPRESSION: Stable bilateral screening mammogram. Yearly follow-up mammogram recommended. (A) ASSESSMENT CATEGORY: BIRADS Category 2: Benign. A letter regarding these results will be sent to the patient by the facility within 30 days. Approximately 10% of breast cancers are not detected by mammography. A normal mammogram should not delay biopsy of a clinically suspicious abnormality. [id number] Electronically Signed: Sadi Ellis MD at 15:49 EDT ,
--- OUTSIDE RECORDS SUMMARY | 2024-01-27 19:48 | XMS RPT_ITS | CCD ---
Author Organization [facility] Care Team Providers Care Aluminum Polisher Name Role Phone Andrews Garcia Primary Care Provider ANDREWS GARCIA Primary Care Unavailable URADU, LOIS COUCH Attending Unavailable ANDREWS GARCIA Primary Care Unavailable URADU, LOIS COUCH Attending Unavailable ANDREWS GARCIA Primary Care Unavailable DELTA DOWNEY Attending Unavailable DELTA DOWNEY Attending Unavailable ANDREWS GARCIA Primary Care Unavailable ANDREWS GARCIA Primary Care Unavailable ANTONIO GALARZA Attending Unavaila [facility] PHYSICIANS, GENERIC Consulting Un available AKUSOBA, ARINCASSIE ECHEZONA Admitting Unavail able KARELY KING Consulting Unavailable URADU, LOIS COUCH Consulting Unavailable DELTA DOWNEY Consulting Unavailable ANDREWS GARCIA Primary Care Unavailable URADU, LOIS COUCH Referring Unavailable URADCharisma, LOIS COUCH Attending Unavailable Beena Burgos MD Primary Care Provider [phone] Beena Burgos MD Primary Care Provider [phone] BEENA BURGOS Primary Care Unavailable BEENA BURGOS Primary Care Unavailable BEENA BURGOS MD Primary Care Physician [phone] Diane Olson Unavailable Unavailable BEENA BURGOS MD Primary Care Unavailab JACEY Gustafson Attending Unavailable JACEY THORNTON Consulting Unavailable JACEY THORNTON Admitting Unavailable ABDIEL ZARAGOZA MD Attending Unavailable BEENA BURGOS MD Primary Care Unavailab BEENA Portillo MD Primary Care Unavailab ABDIEL Pedersen MD Attending Unavailable Allergies Allergy Classification Reported Allergen(s) Allergy Type Date of Onset Reaction(s) Facility (8 sources) Sulfonamides (Antibiotic); Translations: [SULFA (SULFONAMIDE ANTIBIOTICS)] Propensity to adverse reactions to drug 4 Rash, Hives [facility] (3 sources) Contrast media; Translations: [RED DYE] Drug Allergy 1 Other: See Comments, [facility] (3 sources) POISON MEL EXTRACT; Translations: [POISON MEL] Drug Allergy 4 [facility] (2 sources) Sulfonamide; Translations: [sulfa drugs] Drug allergy Weal (disorder) [facility] Current Medications Medication Drug Class(es) Dates Sig (Normalized) Sig (Original) amoxicillin 875 mg / clavulanate 125 mg oral tablet (1 source) Penicillin-class Antibacterial Start: 07-22-2021 End: 07-27-2021 take 1 tablet by mouth twice daily amoxicillin-clavul anic acid (AUGMENTIN) 875-125 mg per tablet Take 1 tablet by mouth twice daily for 5 days. 10 tablet 0 07/22/2021 07/27/2021 Active Comment on above: Take 1 tablet by sofia th twice daily for 5 days. atorvastatin 10 mg oral tablet (9 sources) HMG-CoA Reductase Inhibitor Start: 04-30-2023 take 1 mg by mouth once daily atorvastatin 10 mg oral tablet mg = tab(s), Oral, qDay, 0 Refill(s) Start Date: 04/30/23 Status: Ordered Start: 10-26-2019 End: 12-09-2019 atorvastatin (LIPITOR) 10 mg tablet carvedilol 25 mg oral tablet (4 sources) alpha-Adrenergic Neftali, beta-Adrenergic Neftali Start: 04-30-2023 take 1 mg by mouth twice daily carvedilol 25 mg oral tablet mg = tab(s), Oral, BID, 0 Refill(s) Start Date: 04/30/23 Status: Ordered take 1 tablet by sofia th twice daily at mealtime carvedilol (COREG) 25 mg tablet Take 25 mg by mouth twice daily with meals. 0 Active Comment on above: Take 25 mg by mouth twice daily with meals. dofetilide 0.25 mg oral capsule (2 sources) Antiarrhythmic Start: 06-19-2023 dofetilide 250 mcg oral capsule Dose : 250 mcg = 1 cap(s), Oral, BID, # 180 cap(s), 3 Refill(s), Pharmacy: [facility], 160, cm, 05/26/23 17:27:00 EST, Height, kg, 06/10/23 15:39:00 EDT, Dosing Weight Start Date: 06/19/23 Status: Ordered Start: 05-29-2023 dofetilide 250 mcg oral capsule Dose : 250 mcg = 1 cap(s), Oral, BID, # 60 cap(s), 0 Refill(s), Pharmacy: [facility], 160, cm, 05/26/23 17:27:00 EST, Height, kg, 05/29/23 6:50:00 EST, Dosing Weight Start Date: 05/29/23 Status: Ordered empagliflozin 10 mg oral tablet (3 sources) Sodium-Glucose Cotransporter 2 Inhibitor Start: 04-30-2023 empagliflozin 10 mg oral tablet Dose : 10 mg = 1 tab(s), Oral, qAM, 0 Refill(s) Start Date: 04/30/23 Status: Ordered Start: 10-14-2022 JARDIANCE 10 m g tablet furosemide 40 mg oral tablet (5 sources) Loop Diuretic Start: 05-07-2023 furosemide 40 mg oral tablet Dose : 40 mg = 1 tab(s), Oral, q48h, # 15 tab(s), 0 Refill(s), other reason (Rx) Start Date: 05/07/23 Status: Ordered Start: 11-30-2019 End: 11-30-2019 20 mg, Intravenous, Once, Tu e 11/30/19 at 0215, For 1 dose FUROSEMIDE ORAL Take by mouth. 0 Active Comment on above: Take by mouth. glipiZIDE 10 mg oral tablet (8 sources) Sulfonylurea Start: 04-30-2023 take 1 mg by mouth twice daily glipiZIDE 10 mg oral tablet mg = tab(s), Oral, BID, 0 Refill(s) Start Date: 04/30/23 Status: Ordered Start: 07-23-2019 glipiZIDE (GLU COTROL XL) 5 mg 24 hr tablet two times a day. 0 07/23/2019 Active Start: 07-23-2019 glipiZIDE (GLU COTROL XL) 5 mg 24 hr tablet take 1 tablet by sofia th once daily glipiZIDE (GLUCOTROL) 5 MG tablet Take 5 mg by mouth daily . 0 Active Comment on above: two times a day. levoFLOXacin 750 mg oral tablet (1 source) Quinolone Antimicrobial Start: 03-15-20 End: 03-22-20 take 1 tablet by mouth once daily levoFLOXacin (LEVAQUIN) 750 mg tablet Take 1 tablet by mouth once daily for 7 days. 7 tablet 0 03/15/2023 03/22/2023 Active Comment on above: Take 1 tablet by sofia th once daily for 7 days. levothyroxine sodium 0.088 mg oral tablet (9 sources) l-Thyroxine Start: 04-30-19 levothyroxine 88 mcg (0.088 mg) oral tablet Dose : 88 mcg = 1 tab(s), Oral, qDayAC, 0 Refill(s) Start Date: 04/30/23 Status: Ordered Start: 11-30-2019 End: 12-09-2019 take 88 ug by mouth once daily 88 mcg, Oral, Daily, Fi rst dose on Fri11/30/19 at 0600 For patients on continuous tube feed: Hold TF from 1 hr before until 1 hr after each dose. TF rate may need adjustment to meet caloric needs. Levothyroxine 50 mcg cap Take by mouth. 0 Active Comment on above: Take by mouth. loratadine 10 mg oral tablet (3 sources) Start: 12-04-2019 End: 01-09-2020 take 1 tablet by mouth once daily loratadine (CLARITIN) 10 mg tablet Take 1 (one) tablet (10 mg total) by mouth daily Start: 12/10/19. 30 tablet 0 12/10/2019 01/09/2020 Active losartan potassium 50 mg oral tablet (5 sources) Angiotensin 2 Receptor Neftali Start: 11-30-2019 End: 01-08-2020 take 1 tablet by mouth once daily at lunch losartan (COZAAR) 50 MG tablet Take 1 (one) tablet (50 mg total) by mouth daily with lunch . 30 tablet 0 12/09/2019 01/08/2020 Active take 1 tablet by mouth once archana y losartan (COZAAR) 25 mg tablet Take 25 mg by mouth once daily. 0 Active Comment on above: Take 25 mg by mouth once daily. 24 hr metoprolol succinate 25 mg extended release oral tablet (3 sources) beta-Adrenergic Neftali Start: 12-09-2019 End: 01-08-2020 take 1 tablet by mouth once daily metoprolol succinate (TOPROL-XL) 25 MG 24 hr tablet Take 1 (one) tablet (25 mg total) by mouth daily Hold if SBP 30 tablet 0 12/09/2019 01/08/2020 Active End: 12-09-2019 take 1 tablet by mouth once daily metoprolol succinate (TOPROL-XL) 50 MG 24 hr tablet Take 50 mg by mouth daily . 0 12/09/2019 Discontinued (Reorder) Multivitamin preparation (2 sources) Start: 04-30-2023 take 1 tablet by mouth once daily Multivitamin Dose = 1 tab(s), Oral, Daily, 0 Refill(s) Start Date: 04/30/23 Status: Ordered potassium chloride 20 meq oral tablet (2 sources) Start: 05-07-2023 potassium chlo ride 20 mEq oral tablet, extended release Dose : 20 mEq = 1 tab(s), Oral, q48h, Take with food, # 15 tab(s), 0 Refill(s), other reason (Rx) Start Date: 05/07/23 Status: Ordered rivaroxaban 20 mg oral tablet (9 sources) Factor Xa Inhibitor Start: 04-30-2023 rivaroxaban 20 mg oral tablet Dose : 20 mg = 1 tab(s), Oral, qHS, # 30 tab(s), 0 Refill(s) Start Date: 04/30/23 Status: Ordered Start: 11-30-2019 End: 12-09-2019 20 mg, Oral, Daily, First do se on Fri11/30/19 at 0215 Must be given with food. Notify physician if patient refuses. If feeding tube administration, give only via tubes placed in the stomach. Indication: DVT/PE How long has patient been on rivaroxiban? Greater than 6 Months Comment on above: Take 20 mg by mouth daily with dinner. sacubitril 24 mg / valsartan 26 mg oral tablet (4 sources) Angiotensin 2 Receptor Neftali Start: 11-21-2023 take 1 tablet by mouth twice daily Entresto 24 mg-26 mg oral tablet Dose = 1 tab(s), Oral, BID, # 180 tab(s), 0 Refill(s), Pharmacy: [facility], 160, cm, 05/26/23 17:27:00 EST, Height, kg, 06/10/23 15:39:00 EDT, Dosing Weight Start Date: 11/21/23 Status: Ordered Start: 05-20-2023 take 0.5 tablet by m out twice daily Entresto 24 mg-26 mg oral tablet 0.5, Oral, BID, # 90 tab(s), 3 Refill(s), Pharmacy: [facility], 160, cm, 05/07/23 8:44:00 EST, Height, kg, 05/07/23 8:44:00 EST, Dosing Weight Start Date: 05/20/23 Status: Ordered Start: 10-21-2022 ENTRESTO 24-26 mg tablet SITagliptin 100 mg oral tablet (1 source) Dipeptidyl Peptidase 4 Inhibitor Start: 12-04-2023 Januvia 100 mg oral tablet Dose : 100 mg = 1 tab(s), Oral, qDay, # 30 tab(s), 0 Refill(s) Start Date: 12/04/23 Status: Ordered Ultra Martin Krill Oil 500 mg oral capsule (2 sources) Start: 04-30-2023 take 1 mg by mouth once daily Ultra Martin Krill Oil 500 mg oral capsule mg = cap(s), Oral, qDay, 0 Refill(s) Start Date: 04/30/23 Status: Ordered 24 hr venlafaxine 75 mg extended release oral capsule (9 sources) Serotonin and Norepinephrine Reuptake Inhibitor Start: 04-30-2023 venlafaxine 75 mg oral capsule, extended release Dose : 75 mg = 1 cap(s), Oral, qDay, # 30 cap(s), 0 Refill(s) Start Date: 04/30/23 Status: Ordered Start: 12-01-2019 End: 12-09-2019 venlafaxine (EFFEXOR-XR) 24 hr capsule 75 mg take 1 tablet by sofia th three times daily venlafaxine 75 mg tablet Take 75 mg by mouth three times daily. 0 Active Comment on above: Take 75 mg by mouth three times daily. Completed/Discontinued Medications Medication Drug Class(es) Dates Sig [...] mg by mouth once daily. 0 Active Comment on above: Take 81 mg by mouth once daily. calcium chloride 0.0014 meq/ml / potassium chloride 0.004 meq/ml / sodium chloride 0.103 meq/ml / sodium lactate 0.028 meq/ml injectable solution (1 source) Start: 12-08-2019 End: 12-09-2019 take 100 mL intravenous route every hour 100 mL/hr, Intravenous, Continuous, Starting Fri12/08/19 at 1500, PACU (only) cefTRIAXone 1000 mg injection (1 source) Cephalosporin Antibacterial Start: 11-30-2019 End: 12-04-2019 1,000 mg, Intravenous, at 100 mL/hr, Every 24 hours scheduled, First dose on Fri11/30/19 at 0215 Indication: UTI (mild to moderate) glucagon (rdna) 1 mg injection (1 source) Antihypoglycemic Agent Start: 11-29-2019 End: 11-29-2019 glucagon injection 2 mg ibuprofen 600 mg oral tablet (1 source) Nonsteroidal Anti-inflammatory Drug Start: 12-08-2019 End: 12-09-2019 take 1 tablet by mouth every eight hours as needed 600 mg, Oral, Every 8 hours PRN, mild pain, Starting Fri12/08/19 at 1508, For 24 hours Give with Food Do Not Crush or Chew if administering orally due to bitter taste. May be crushed if given via tube. metFORMIN hydrochloride 500 mg oral tablet (7 sources) Biguanide Start: 11-30-2019 End: 12-09-2019 take 30 mL by mouth once daily at breakfast 1,000 mg, Oral, Daily with breakfast, First dose on Fri11/30/19 at 0800 Note: Guidelines recommend that metformin be held for 48 hours after use of iodinated contrast media (IVP Dye) in patients with an eGFR less than 30 ml/min/1.73m2, with a history of hepatic disease, alcoholism or heart failure, or in patients who will receive intra-arterial iodinated contrast. metformin HCl (M ETFORMIN ORAL) Take by mouth. 0 Active take 2 tablets by [facility] once daily at breakfast metFORMIN (GLUCOPHAGE) 500 MG tablet Rex e 1,000 mg by mouth daily with breakfast . 0 Active Comment on above: Take by mouth. nitrofurantoin, macrocrystals 25 mg / nitrofurantoin, monohydrate 75 mg oral capsule (1 source) Nitrofuran Antibacterial Start: End: nitrofurantoin (macrocrystal-monohy drate) (MACROBID) 100 MG capsule 100 mg nitroglycerin 0.4 mg sublingual tablet (1 source) Nitrate Vasodilator Start: End: nitroGLYCERIN (NITROSTAT) SL tablet 2 ml ondansetron 2 mg/ml injection (1 source) Serotonin-3 Receptor Antagonist Start: End: take 4 mg intravenous route every six hours as needed 4 mg, Intravenous, Every 6 hours PRN, nausea, Starting 12/08/19 at 1508 perflutren lipid microspheres (DEFINITY) 0.143 mg/mL solution 0-10 mL of mixture (1 source) Start: End: 0-10 mL of mixture, Intravenous, Once in imaging, contrast, IF suboptimal echo, Starting Tu11/30/19 at 0123, For 48 hours Prepare syringe by withdrawing 1.3 mL of perflutren (DEFINITY) from the 2ml vial. Further dilute the 1.3 mL of perflutren with Sodium Chloride (NS) 0.9% to total volume of 10 ml. Chart total ML OF MIXTURE given to patient. sodium chloride 0.111 meq/ml nasal spray (2 sources) Start: End: sodium chloride (OCEAN) 0.65 % nasal spray 1 spray Start: 11-29-2019 End: 11-29-2019 sodium chloride 0.9% (NS) gomez rolly 1,000 mL ubidecarenone 100 mg oral capsule (2 sources) coenzyme Q10 (CO Q-10) 100 mg cap capsule Take 100 mg by mouth once daily. 0 Active Comment on above: Take 100 mg by mouth once daily. 200 ml vancomycin 5 mg/ml injection (1 source) Glycopeptide Antibacterial Start: 12-07-2019 End: 12-07-2019 vancomycin (VANCOCIN) 1000 mg in sodium chloride 0.9% (NS) 200 mL IVPB Problems Active Problems Problem Classification Problem Date Documented Da te Episodic/Chronic Acute myocardial infarction (2 sources) Acute non-ST segment elevation myocardial infarction 04-30-2023 Chronic Cardiac dysrhythmias (9 sources) Bradycardia; Translations: [Sinus bradycardia] Onset: 11-29-2019 11-29-2019 Chronic Cataract (2 sources) Nuclear senile cataract; Translations: [Age-related nuclear cataract, unspecified eye] Onset: 11-18-2013 11-18-2013 Chronic Conduction disorders (8 sources) Cardiac pacemaker in situ; Translations: [Heart block ] Onset: 10-27-2020 10-27-2020 Chronic Congestive heart failure; nonhypertensive (6 sources) Congestive heart failure; Translations: [Heart failure, unspecified] Onset: 10-27-2020 10-27-2020 Chronic Deficiency and other anemia (2 sources) Anemia 04-30-2023 Episodic Diabetes mellitus without complication (2 sources) Type [...] to excess calories] Onset: 10-27-2020 10-27-2020 Chronic Lizzy-; endo-; and myocarditis; cardiomyopathy (except that caused by tuberculosis or sexually transmitted disease) (2 sources) Cardiomyopathy 04-30-2023 Chronic Residual codes; unclassified (2 sources) Obstructive sleep apnea syndrome; Translations: [Obstructive sleep apnea (adult) (pediatric)] Onset: 10-27-2020 10-27-2020 Chronic Spondylosis; intervertebral disc disorders; other back problems (2 sources) Backache 04-30-2023 Episodic Past or Other Problems Problem Classification Problem [...] Results Test Name Value Interpretation Reference Range Facility LABORATORYOrdered By: SYSTEM SYSTEM on 05-29-2023 Magnesium [Mass/Vol] 1.9 mg/dL Normal 1.6 - 2 .4 mg/dL ADM SS MGon 05-29-2023 Magnesium [Mass/Vol] 1.9 mg/dL Normal 1.6-2.4 [facility] ([place]) Comment on above: Performed By: #### M G #### [place] [address] LABORATORYOrdered By: SYSTEM SYSTEM on 05-28-2023 Magnesium [Mass/Vol] 1.9 mg/dL Normal 1.6 - 2 .4 mg/dL ADM SS MGon 05-28-2023 Magnesium [Mass/Vol] 1.9 mg/dL Normal 1.6-2.4 [facility] ([place]) Comment on above: Performed By: #### M G #### [place] [address] .Auto Diffon 05-27-2023 Basophil, Absolute 0.0 10 3/mcL Normal 0.0-0.3 [facility] ([place]) Comment on above: Performed By: #### B MP, CBC, MG, ADIFF, GFR, ANEU #### [address] [address] Basophils/100 WBC (Bld) 0.7 % Normal 0.0-2.5 [facility] ([place]) Comment on above: Performed By: #### B MP, CBC, MG, ADIFF, GFR, ANEU #### [address] [address] Eosinophil, Absolute 0.2 10 3/mcL Normal 0.0-0.7 [facility] ([place]) Comment on above: Performed By: #### B MP, CBC, MG, ADIFF, GFR, ANEU #### [address] [address] Eosinophils/100 WBC (Bld) 2.9 % Normal 0.0-6.0 [facility] ([place]) Comment on above: Performed By: #### B MP, CBC, MG, ADIFF, GFR, ANEU #### [address] [address] Lymphocyte, Absolute 1.2 10 3/mcL Normal 0.9-4.3 [facility] ([place]) Comment on above: Performed By: #### B MP, CBC, MG, ADIFF, GFR, ANEU #### [address] [address] Lymphocytes/100 WBC (Bld) 21.2 % Normal 20.0-40.0 [facility] ([place]) Comment on above: Performed By: #### B MP, CBC, MG, ADIFF, GFR, ANEU #### [address] [address] Monocyte, Absolute 0.3 10 3/mcL Normal 0.1-1.4 [facility] ([place]) Comment on above: Performed By: #### B MP, CBC, MG, ADIFF, GFR, ANEU #### [address] [address] Monocytes/100 WBC (Bld) 6.1 % Normal 2.0-13.0 [facility] ([place]) Comment on above: Performed By: #### B MP, CBC, MG, ADIFF, GFR, ANEU #### [address] [address] Neutrophils/100 WBC (Bld) 69.1 % Normal 50.0-75.0 [facility] ([place]) Comment on above: Performed By: #### B MP, CBC, MG, ADIFF, GFR, ANEU #### [address] [address] .GFRon 05-27-2023 GFR Non- >60 Normal [facility] ([place]) Comment on above: Result Comment: GFR Population mean for , Non- Americans Ages 20-29 = 116 mL/min/1.73 sq.m. Ages 30-39 = 107 mL/min/1.73 sq.m. Ages 40-49 = 99 mL/min/1.73 sq.m. Ages 50-59 = 93 mL/min/1.73 sq.m. Ages 60-69 = 85 mL/min/1.73 sq.m. Ages 70+ = 75 mL/min/1.73 sq.m. Chronic Kidney Disease: Less than 60 mL/min/1.73 square meters End Stage Renal Disease: Less than 15 mL/min/1.73 square meters Performed By: #### B MP, CBC, MG, ADIFF, GFR, ANEU #### [address] [address] GFR >60 Normal [facility] ([place]) Comment on above: Result Comment: GFR Population mean for , Non- Americans Ages 20-29 = 116 mL/min/1.73 sq.m. Ages 30-39 = 107 mL/min/1.73 sq.m. Ages 40-49 = 99 mL/min/1.73 sq.m. Ages 50-59 = 93 mL/min/1.73 sq.m. Ages 60-69 = 85 mL/min/1.73 sq.m. Ages 70+ = 75 mL/min/1.73 sq.m. Chronic Kidney Disease: Less than 60 mL/min/1.73 square meters End Stage Renal Disease: Less than 15 mL/min/1.73 square meters Performed By: #### B MP, CBC, MG, ADIFF, GFR, ANEU #### [address] [address] .NEUABSon 05-27-2023 Neutrophil, Absolute 3.9 10 3/mcL Normal 2.3-8.1 [facility] ([place]) Comment on above: Performed By: #### B MP, CBC, MG, ADIFF, GFR, ANEU #### [place] [address] BMPon 05-27-2023 BUN/Creatinine Ratio 22.6 ratio High 10.0-22.0 [facility] ([place]) Comment on above: Performed By: #### B MP, CBC, MG, ADIFF, GFR, ANEU #### [place] [address] Calcium [Mass/Vol] 8.8 mg/dL Normal 8.7-10.4 [facility] ([place]) Comment on above: Performed By: #### B MP, CBC, MG, ADIFF, GFR, ANEU #### [place] [address] Chloride [Moles/Vol] 108 mmol/L Normal 98-110 [facility] ([place]) Comment on above: Performed By: #### B MP, CBC, MG, ADIFF, GFR, ANEU #### [place] [address] CO2 [Moles/Vol] 30 mmol/L Normal 22-32 [facility] ([place]) Comment on above: Performed By: #### B MP, CBC, MG, ADIFF, GFR, ANEU #### [place] [address] Creatinine [Mass/Vol] 0.93 mg/dL Normal 0.50-1.20 [facility] ([place]) Comment on above: Performed By: #### B MP, CBC, MG, ADIFF, GFR, ANEU #### [place] [address] Electrolyte Balance 5.0 mEq/L Normal 4.0-15.0 [facility] ([place]) Comment on above: Performed By: #### B MP, CBC, MG, ADIFF, GFR, ANEU #### [place] [address] Glucose [Mass/Vol] 117 mg/dL High 82-115 [facility] ([place]) Comment on above: Performed By: #### B MP, CBC, MG, ADIFF, GFR, ANEU #### [place] [address] Potassium [Moles/Vol] 4.3 mmol/L Normal 3.5-5.0 [facility] ([place]) Comment on above: Performed By: #### B MP, CBC, MG, ADIFF, GFR, ANEU #### [place] [id number] Sodium [Moles/Vol] 143 mmol/L Normal 136-145 [facility] ([place] Comment on above: Performed By: #### B MP, CBC, MG, ADIFF, GFR, ANEU #### [place] [address] Urea nitrogen [Mass/Vol] 21.0 mg/dL Normal 8.0-22.0 [facility] ([place]) Comment on above: Performed By: #### B MP, CBC, MG, ADIFF, GFR, ANEU #### [place] [address] CBCon 05-27-2023 Erythrocyte distribution width (RBC) [Ratio] 17.4 % High 11.5-15.5 [facility] ([place] Comment on above: Performed By: #### B MP, CBC, MG, ADIFF, GFR, ANEU #### [place] [address] Hematocrit (Bld) [Volume fraction] 37.8 % Normal 34.0-46.0 [facility] ([place] Comment on above: Performed By: #### B MP, CBC, MG, ADIFF, GFR, ANEU #### [place] [id number] Hgb 12.2 G/dL Normal 12.0-16.0 [facility] ([place] Comment on above: Performed By: #### B MP, CBC, MG, ADIFF, GFR, ANEU #### [place] [id number] MCH (RBC) [Entitic mass] 24.9 pg Low 27.0-33.0 [facility] ([place] Comment on above: Performed By: #### B MP, CBC, MG, ADIFF, GFR, ANEU #### [place] [address] MCHC 32.2 G/dL Normal 32.0-36.0 [facility] ([place] Comment on above: Performed By: #### B MP, CBC, MG, ADIFF, GFR, ANEU #### [place] [address] MCV (RBC) [Entitic vol] 77.2 fL Low 80.0-99.0 [facility] ([place] Comment on above: Performed By: #### B MP, CBC, MG, ADIFF, GFR, ANEU #### [place] [address] Platelet 159 10 3/mcL Normal 150-450 [facility] ([place]) Comment on above: Performed By: #### B MP, CBC, MG, ADIFF, GFR, ANEU #### [place] [address] Platelet mean volume (Bld) [Entitic vol] 7.6 fL Normal 6.6-10.5 [facility] ([place] Comment on above: Performed By: #### B MP, CBC, MG, ADIFF, GFR, ANEU #### [place] [address] RBC 4.90 10 6/mcL Normal 4.10-5.30 [facility] ([place]) Comment on above: Performed By: #### B MP, CBC, MG, ADIFF, GFR, ANEU #### [place] [address] WBC 5.7 10 3/mcL Normal 4.5-10.8 [facility] ([place] Comment on above: Performed By: #### B MP, CBC, MG, ADIFF, GFR, ANEU #### [place] [address] LABORATORYOrdered By: SYSTEM SYSTEM on 02-27-2024 Basophils (Bld) [#/Vol] 0.0 103/mcL Normal 0.0 - 0.3 10^3/mcL AH Workflow SS Basophils/100 WBC (Bld) 0.7 % Normal 0.0 - 2.5 % AH Workflow SS Calcium [Mass/Vol] 8.8 mg/dL Normal 8.7 - 10. 4 mg/dL ADM SS Chloride [Moles/Vol] 108 mmol/L Normal 98 - 11 0 mEq/L ADM SS CO2 [Moles/Vol] 30 mmol/L Normal 22 - 32 mEq/L ADM SS Creatinine [Mass/Vol] 0.93 mg/dL Normal 0.50 - 1.20 mg/dL ADM SS Electrolyte Balance 5.0 mEq/L Normal 4.0 - 15 .0 mEq/L ADM SS Eosinophils (Bld) [#/Vol] 0.2 103/mcL Normal 0.0 - 0.7 10^3/mcL Workflow SS Eosinophils/100 WBC (Bld) 2.9 % Normal 0.0 - 6.0 % Workflow SS Erythrocyte distribution width (RBC) [Ratio] 17.4 % High 11.5 - 15.5 % Workflow SS GFR/1.73 sq M.predicted among blacks MDRD (S/P/Bld) [Vol rate/Area] ml/min/1.73sqm Invalid Interpretation Code [facility] Chemistry S Comment on above: Interpretive Data: GFR Population mean for , Non- Americans Ages 20-29 = 116 mL/min/1.73 sq.m. Ages 30-39 = 107 mL/min/1.73 sq.m. Ages 40-49 = 99 mL/min/1.73 sq.m. Ages 50-59 = 93 mL/min/1.73 sq.m. Ages 60-69 = 85 mL/min/1.73 sq.m. Ages 70+ = 75 mL/min/1.73 sq.m. Chronic Kidney Disease: Less than 60 mL/min/1.73 square meters End Stage Renal Disease: Less than 15 mL/min/1.73 square meters GFR/1.73 sq M.predicted among non-blacks MDRD (S/P/Bld) [Vol rate/Area] ml/min/1.73sqm Invalid Interpretation Code [facility] Chemistry S Comment on above: Interpretive Data: GFR Population mean for , Non- Americans Ages 20-29 = 116 mL/min/1.73 sq.m. Ages 30-39 = 107 mL/min/1.73 sq.m. Ages 40-49 = 99 mL/min/1.73 sq.m. Ages 50-59 = 93 mL/min/1.73 sq.m. Ages 60-69 = 85 mL/min/1.73 sq.m. Ages 70+ = 75 mL/min/1.73 sq.m. Chronic Kidney Disease: Less than 60 mL/min/1.73 square meters End Stage Renal Disease: Less than 15 mL/min/1.73 square meters Glucose [Mass/Vol] 117 mg/dL High 82 - 115 mg/dL AH ADM SS Hematocrit (Bld) [Volume fraction] 37.8 % Normal 34.0 - 46.0 % AH Workflow SS Hemoglobin (Bld) [Mass/Vol] 12.2 G/dL Normal 12.0 - 16.0 G/dL AH Workflow SS Lymphocytes (Bld) [#/Vol] 1.2 103/mcL Normal 0.9 - 4.3 10^3/mcL AH Workflow SS Lymphocytes/100 WBC (Bld) 21.2 % Normal 20.0 - 40.0 % AH Workflow SS Magnesium [Mass/Vol] 1.9 mg/dL Normal 1.6 - 2 .4 mg/dL AH ADM SS MCH (RBC) [Entitic mass] 24.9 pg Low 27.0 - 33.0 pg AH Workflow SS MCHC 32.2 G/dL Normal 32.0 - 36.0 G/dL AH Workflow SS MCV (RBC) [Entitic vol] 77.2 fL Low 80.0 - 99.0 fL AH Workflow SS Monocytes (Bld) [#/Vol] 0.3 103/mcL Normal 0.1 - 1.4 10^3/mcL AH Workflow SS Monocytes/100 WBC (Bld) 6.1 % Normal 2.0 - 13.0 % AH Workflow SS Neutrophils (Bld) [#/Vol] 3.9 103/mcL Normal 2.3 - 8.1 10^3/mcL AH Workflow SS Neutrophils/100 WBC (Bld) 69.1 % Normal 50.0 - 75.0 % AH Workflow SS Platelet mean volume (Bld) [Entitic vol] 7.6 fL Normal 6.6 - 10.5 fL Workflow SS Platelets (Bld) [#/Vol] 159 103/mcL Normal 150 - 450 10^3/mcL AH Workflow SS Potassium [Moles/Vol] 4.3 mmol/L Normal 3.5 - 5.0 mEq/L AH ADM SS RBC (Bld) [#/Vol] 4.90 106/mcL Normal 4.10 - 5.3 0 10^6/mcL AH Workflow SS Sodium [Moles/Vol] 143 mmol/L Normal 136 - 145 mEq/L AH ADM SS Urea nitrogen [Mass/Vol] 21.0 mg/dL Normal 8.0 - 22.0 mg/dL ADM SS Urea nitrogen/Creatinine [Mass ratio] 22.6 ratio High 10.0 - 22.0 ratio AH ADM SS WBC (Bld) [#/Vol] 5.7 103/mcL Normal 4.5 - 10.8 10^3/mcL Workflow SS MGon 05-27-2023 Magnesium [Mass/Vol] 1.9 mg/dL Normal 1.6-2.4 [facility] ([place] Comment on above: Performed By: #### B MP, CBC, MG, ADIFF, GFR, ANEU #### [address] [address] .Auto Diffon 05-26-2023 Basophil, Absolute 0.0 10 3/mcL Normal 0.0-0.3 [facility] ([place] Comment on above: Performed By: #### B MP, CBC, MG, ADIFF, GFR, ANEU #### [address] [address] Basophils/100 WBC (Bld) 0.7 % Normal 0.0-2.5 [facility] ([place] Comment on above: Performed By: #### B MP, CBC, MG, ADIFF, GFR, ANEU #### [address] [address] Eosinophil, Absolute 0.2 10 3/mcL Normal 0.0-0.7 [facility] ([place]) Comment on above: Performed By: #### B MP, CBC, MG, ADIFF, GFR, ANEU #### [address] [address] Eosinophils/100 WBC (Bld) 2.6 % Normal 0.0-6.0 [facility] ([place] Comment on above: Performed By: #### B MP, CBC, MG, ADIFF, GFR, ANEU #### [address] [address] Lymphocyte, Absolute 1.2 10 3/mcL Normal 0.9-4.3 [facility] ([place] Comment on above: Performed By: #### B MP, CBC, MG, ADIFF, GFR, ANEU #### [address] [address] Lymphocytes/100 WBC (Bld) 18.3 % Low 20.0-40.0 [facility] ([place] Comment on above: Performed By: #### B MP, CBC, MG, ADIFF, GFR, ANEU #### [address] [address] Monocyte, Absolute 0.5 10 3/mcL Normal 0.1-1.4 [facility] ([place] Comment on above: Performed By: #### B MP, CBC, MG, ADIFF, GFR, ANEU #### [address] [address] Monocytes/100 WBC (Bld) 8.0 % Normal 2.0-13.0 [facility] ([place] Comment on above: Performed By: #### B MP, CBC, MG, ADIFF, GFR, ANEU #### [address] [address] Neutrophils/100 WBC (Bld) 70.4 % Normal 50.0-75.0 [facility] ([place] Comment on above: Performed By: #### B MP, CBC, MG, ADIFF, GFR, ANEU #### [address] [address] Basophil, Absolute 0.1 10 3/mcL Normal 0.0-0.3 [facility] ([place] Comment on above: Performed By: #### G FR, ADIFF, BMP, CBC, ANEU, ABOGEL, PRO, ABSGEL #### [address] [address] Basophils/100 WBC (Bld) 1.0 % Normal 0.0-2.5 [facility] ([place] Comment on above: Performed By: #### G FR, ADIFF, BMP, CBC, ANEU, ABOGEL, PRO, ABSGEL #### [address] [address] Eosinophil, Absolute 0.2 10 3/mcL Normal 0.0-0.7 [facility] ([place] Comment on above: Performed By: #### G FR, ADIFF, BMP, CBC, ANEU, ABOGEL, PRO, ABSGEL #### [address] [address] Eosinophils/100 WBC (Bld) 3.0 % Normal 0.0-6.0 [facility] ([place] Comment on above: Performed By: #### G FR, ADIFF, BMP, CBC, ANEU, ABOGEL, PRO, ABSGEL #### [address] [address] Lymphocyte, Absolute 1.3 10 3/mcL Normal 0.9-4.3 [facility] ([place] Comment on above: Performed By: #### G FR, ADIFF, BMP, CBC, ANEU, ABOGEL, PRO, ABSGEL #### [address] [address] Lymphocytes/100 WBC (Bld) 23.5 % Normal 20.0-40.0 [facility] ([place] Comment on above: Performed By: #### G FR, ADIFF, BMP, CBC, ANEU, ABOGEL, PRO, ABSGEL #### [address] [address] Monocyte, Absolute 0.3 10 3/mcL Normal 0.1-1.4 [facility] ([place] Comment on above: Performed By: #### G FR, ADIFF, BMP, CBC, ANEU, ABOGEL, PRO, ABSGEL #### [address] [address] Monocytes/100 WBC (Bld) 5.9 % Normal 2.0-13.0 [facility] ([place] Comment on above: Performed By: #### G FR, ADIFF, BMP, CBC, ANEU, ABOGEL, PRO, ABSGEL #### [address] [address] Neutrophils/100 WBC (Bld) 66.6 % Normal 50.0-75.0 [facility] ([place] Comment on above: Performed By: #### G FR, ADIFF, BMP, CBC, ANEU, ABOGEL, PRO, ABSGEL #### [address] [address] .GFRon 05-26-2023 GFR >60 Normal [facility] ([place] Comment on above: Result Comment: GFR Population mean for , Non- Americans Ages 20-29 = 116 mL/min/1.73 sq.m. Ages 30-39 = 107 mL/min/1.73 sq.m. Ages 40-49 = 99 mL/min/1.73 sq.m. Ages 50-59 = 93 mL/min/1.73 sq.m. Ages 60-69 = 85 mL/min/1.73 sq.m. Ages 70+ = 75 mL/min/1.73 sq.m. Chronic Kidney Disease: Less than 60 mL/min/1.73 square meters End Stage Renal Disease: Less than 15 mL/min/1.73 square meters Performed By: #### B MP, CBC, MG, ADIFF, GFR, ANEU #### [address] [address] GFR Non- 56 ml/min/1.73sqm Normal [facility] ([place] Comment on above: Result Comment: GFR Population mean for , Non- Americans Ages 20-29 = 116 mL/min/1.73 sq.m. Ages 30-39 = 107 mL/min/1.73 sq.m. Ages 40-49 = 99 mL/min/1.73 sq.m. Ages 50-59 = 93 mL/min/1.73 sq.m. Ages 60-69 = 85 mL/min/1.73 sq.m. Ages 70+ = 75 mL/min/1.73 sq.m. Chronic Kidney Disease: Less than 60 mL/min/1.73 square meters End Stage Renal Disease: Less than 15 mL/min/1.73 square meters Performed By: #### B MP, CBC, MG, ADIFF, GFR, ANEU #### [address] [address] GFR >60 Normal [facility] ([place] Comment on above: Result Comment: GFR Population mean for , Non- Americans Ages 20-29 = 116 mL/min/1.73 sq.m. Ages 30-39 = 107 mL/min/1.73 sq.m. Ages 40-49 = 99 mL/min/1.73 sq.m. Ages 50-59 = 93 mL/min/1.73 sq.m. Ages 60-69 = 85 mL/min/1.73 sq.m. Ages 70+ = 75 mL/min/1.73 sq.m. Chronic Kidney Disease: Less than 60 mL/min/1.73 square meters End Stage Renal Disease: Less than 15 mL/min/1.73 square meters Performed By: #### B MP, CBC, MG, ADIFF, GFR, ANEU #### [address] [address] GFR Non- 60 ml/min/1.73sqm Normal [facility] ([place] Comment on above: Result Comment: GFR Population mean for , Non- Americans Ages 20-29 = 116 mL/min/1.73 sq.m. Ages 30-39 = 107 mL/min/1.73 sq.m. Ages 40-49 = 99 mL/min/1.73 sq.m. Ages 50-59 = 93 mL/min/1.73 sq.m. Ages 60-69 = 85 mL/min/1.73 sq.m. Ages 70+ = 75 mL/min/1.73 sq.m. Chronic Kidney Disease: Less than 60 mL/min/1.73 square meters End Stage Renal Disease: Less than 15 mL/min/1.73 square meters Performed By: #### B MP, CBC, MG, ADIFF, GFR, ANEU #### [address] [address] .NEUABSon 05-26-2023 Neutrophil, Absolute 4.6 10 3/mcL Normal 2.3-8.1 [facility] ([place] Comment on above: Performed By: #### B MP, CBC, MG, ADIFF, GFR, ANEU #### [address] [address] Neutrophil, Absolute 3.7 10 3/mcL Normal 2.3-8.1 [facility] ([place] Comment on above: Performed By: #### B MP, CBC, MG, ADIFF, GFR, ANEU #### [place] [id number] ABO/Rh (Gel)on 05-26-2023 ABO/Rh Interp AB POS Invalid Interpretation Code [facility] ([place] Comment on above: Performed By: #### B MP, CBC, MG, ADIFF, GFR, ANEU #### [place] [id number] ABS (Gel)on 05-26-2023 ABSC Interp (Gel) Negative Normal [facility] ([place] Comment on above: Performed By: #### B MP, CBC, MG, ADIFF, GFR, ANEU #### [address] [address] BMPon 05-26-2023 BUN/Creatinine Ratio 22.0 ratio Normal 10.0-22.0 [facility] ([place] Comment on above: Performed By: #### B MP, CBC, MG, ADIFF, GFR, ANEU #### [place] [id number] Calcium [Mass/Vol] 9.0 mg/dL Normal 8.7-10.4 [facility] ([place] Comment on above: Performed By: #### B MP, CBC, MG, ADIFF, GFR, ANEU #### [place] [id number] Chloride [Moles/Vol] 107 mmol/L Normal 98-110 [facility] ([place] Comment on above: Performed By: #### B MP, CBC, MG, ADIFF, GFR, ANEU #### [place] [address] CO2 [Moles/Vol] 32 mmol/L Normal 22-32 [facility] ([place] Comment on above: Performed By: #### B MP, CBC, MG, ADIFF, GFR, ANEU #### [address] [address] Creatinine [Mass/Vol] 1.00 mg/dL Normal 0.50-1.20 [facility] ([place] Comment on above: Performed By: #### B MP, CBC, MG, ADIFF, GFR, ANEU #### [address] [address] Electrolyte Balance 4.0 mEq/L Normal 4.0-15.0 [facility] ([place] Comment on above: Performed By: #### B MP, CBC, MG, ADIFF, GFR, ANEU #### [address] [address] Glucose [Mass/Vol] 206 mg/dL High 82-115 [facility] ([place] Comment on above: Performed By: #### B MP, CBC, MG, ADIFF, GFR, ANEU #### [place] [phone] Potassium [Moles/Vol] 4.2 mmol/L Normal 3.5-5.0 [facility] ([place] Comment on above: Performed By: #### B MP, CBC, MG, ADIFF, GFR, ANEU #### [place] [phone] Sodium [Moles/Vol] 143 mmol/L Normal 136-145 [facility] ([place] Comment on above: Performed By: #### B MP, CBC, MG, ADIFF, GFR, ANEU #### [place] [phone] Urea nitrogen [Mass/Vol] 22.0 mg/dL Normal 8.0-22.0 [facility] ([place] Comment on above: Performed By: #### B MP, CBC, MG, ADIFF, GFR, ANEU #### [place] [phone] BUN/Creatinine Ratio 23.4 ratio High 10.0-22.0 [facility] ([place] Comment on above: Performed By: #### B MP, CBC, MG, ADIFF, GFR, ANEU #### [address] [address] Calcium [Mass/Vol] 9.9 mg/dL Normal 8.7-10.4 [facility] ([place] Comment on above: Performed By: #### B MP, CBC, MG, ADIFF, GFR, ANEU #### [address] [address] Chloride [Moles/Vol] 105 mmol/L Normal 98-110 [facility] ([place] Comment on above: Performed By: #### B MP, CBC, MG, ADIFF, GFR, ANEU #### [address] [address] CO2 [Moles/Vol] 31 mmol/L Normal 22-32 [facility] ([place] Comment on above: Performed By: #### B MP, CBC, MG, ADIFF, GFR, ANEU #### [address] [address] Creatinine [Mass/Vol] 0.94 mg/dL Normal 0.50-1.20 [facility] ([place] Comment on above: Performed By: #### B MP, CBC, MG, ADIFF, GFR, ANEU #### [address] [address] Electrolyte Balance 5.0 mEq/L Normal 4.0-15.0 [facility] ([place] Comment on above: Performed By: #### B MP, CBC, MG, ADIFF, GFR, ANEU #### [address] [address] Glucose [Mass/Vol] 159 mg/dL High 82-115 [facility] ([place] Comment on above: Performed By: #### B MP, CBC, MG, ADIFF, GFR, ANEU #### [address] [address] Potassium [Moles/Vol] 4.1 mmol/L Normal 3.5-5.0 [facility] ([place] Comment on above: Performed By: #### B MP, CBC, MG, ADIFF, GFR, ANEU #### [address] [address] Sodium [Moles/Vol] 141 mmol/L Normal 136-145 [facility] ([place] Comment on above: Performed By: #### B MP, CBC, MG, ADIFF, GFR, ANEU #### [place] [address] Urea nitrogen [Mass/Vol] 22.0 mg/dL Normal 8.0-22.0 [facility] ([place] Comment on above: Performed By: #### B MP, CBC, MG, ADIFF, GFR, ANEU #### [place] [address] CBCon 05-26-2023 Erythrocyte distribution width (RBC) [Ratio] 18.0 % High 11.5-15.5 [facility] ([place] Comment on above: Performed By: #### B MP, CBC, MG, ADIFF, GFR, ANEU #### [place] [address] Hematocrit (Bld) [Volume fraction] 39.9 % Normal 34.0-46.0 [facility] ([place] Comment on above: Performed By: #### B MP, CBC, MG, ADIFF, GFR, ANEU #### [place] [address] Hgb 12.8 G/dL Normal 12.0-16.0 [facility] ([place] Comment on above: Performed By: #### B MP, CBC, MG, ADIFF, GFR, ANEU #### [place] [address] MCH (RBC) [Entitic mass] 24.8 pg Low 27.0-33.0 [facility] ([place] Comment on above: Performed By: #### B MP, CBC, MG, ADIFF, GFR, ANEU #### [place] [address] MCHC 32.0 G/dL Normal 32.0-36.0 [facility] ([place] Comment on above: Performed By: #### B MP, CBC, MG, ADIFF, GFR, ANEU #### [place] [address] MCV (RBC) [Entitic vol] 77.6 fL Low 80.0-99.0 [facility] ([place] Comment on above: Performed By: #### B MP, CBC, MG, ADIFF, GFR, ANEU #### [place] [address] Platelet 180 10 3/mcL Normal 150-450 [facility] ([place] Comment on above: Performed By: #### B MP, CBC, MG, ADIFF, GFR, ANEU #### [place] [address] Platelet mean volume (Bld) [Entitic vol] 7.7 fL Normal 6.6-10.5 [facility] ([place] Comment on above: Performed By: #### B MP, CBC, MG, ADIFF, GFR, ANEU #### [place] [address] RBC 5.14 10 6/mcL Normal 4.10-5.30 [facility] ([place] Comment on above: Performed By: #### B MP, CBC, MG, ADIFF, GFR, ANEU #### [place] [address] WBC 6.6 10 3/mcL Normal 4.5-10.8 [facility] ([place] Comment on above: Performed By: #### B MP, CBC, MG, ADIFF, GFR, ANEU #### [place] [address] Erythrocyte distribution width (RBC) [Ratio] 17.6 % High 11.5-15.5 [facility] ([place] Comment on above: Performed By: #### G FR, ADIFF, BMP, CBC, ANEU, ABOGEL, PRO, ABSGEL #### [place] [address] Hematocrit (Bld) [Volume fraction] 42.3 % Normal 34.0-46.0 [facility] ([place] Comment on above: Performed By: #### G FR, ADIFF, BMP, CBC, ANEU, ABOGEL, PRO, ABSGEL #### [place] [address] Hgb 13.7 G/dL Normal 12.0-16.0 [facility] ([place] Comment on above: Performed By: #### G FR, ADIFF, BMP, CBC, ANEU, ABOGEL, PRO, ABSGEL #### [place] [phone] MCH (RBC) [Entitic mass] 25.1 pg Low 27.0-33.0 [facility] ([place] Comment on above: Performed By: #### G FR, ADIFF, BMP, CBC, ANEU, ABOGEL, PRO, ABSGEL #### [place] [address] MCHC 32.4 G/dL Normal 32.0-36.0 [facility] ([place] Comment on above: Performed By: #### G FR, ADIFF, BMP, CBC, ANEU, ABOGEL, PRO, ABSGEL #### [place] [address] MCV (RBC) [Entitic vol] 77.5 fL Low 80.0-99.0 [facility] ([place] Comment on above: Performed By: #### G FR, ADIFF, BMP, CBC, ANEU, ABOGEL, PRO, ABSGEL #### [place] [address] Platelet 200 10 3/mcL Normal 150-450 [facility] ([place] Comment on above: Performed By: #### G FR, ADIFF, BMP, CBC, ANEU, ABOGEL, PRO, ABSGEL #### [place] [address] Platelet mean volume (Bld) [Entitic vol] 7.7 fL Normal 6.6-10.5 [facility] ([place] Comment on above: Performed By: #### G FR, ADIFF, BMP, CBC, ANEU, ABOGEL, PRO, ABSGEL #### [place] [address] RBC 5.45 10 6/mcL High 4.10-5.30 [facility] ([place] Comment on above: Performed By: #### G FR, ADIFF, BMP, CBC, ANEU, ABOGEL, PRO, ABSGEL #### [address] [address] WBC 5.6 10 3/mcL Normal 4.5-10.8 [facility] ([place] Comment on above: Performed By: #### G FR, ADIFF, BMP, CBC, ANEU, ABOGEL, PRO, ABSGEL #### [address] [address] LABORATORYOrdered By: SYSTEM SYSTEM on 05-26-2023 Basophils (Bld) [#/Vol] 0.0 103/mcL Normal 0.0 - 0.3 10^3/mcL Workflow SS Basophils/100 WBC (Bld) 0.7 % Normal 0.0 - 2.5 % AH Workflow SS Calcium [Mass/Vol] 9.0 mg/dL Normal 8.7 - 10. 4 mg/dL ADM SS Chloride [Moles/Vol] 107 mmol/L Normal 98 - 11 0 mEq/L ADM SS CO2 [Moles/Vol] 32 mmol/L Normal 22 - 32 mEq/L ADM SS Creatinine [Mass/Vol] 1.00 mg/dL Normal 0.50 - 1.20 mg/dL ADM SS Electrolyte Balance 4.0 mEq/L Normal 4.0 - 15 .0 mEq/L ADM SS Eosinophils (Bld) [#/Vol] 0.2 103/mcL Normal 0.0 - 0.7 10^3/mcL Workflow SS Eosinophils/100 WBC (Bld) 2.6 % Normal 0.0 - 6.0 % AH Workflow SS Erythrocyte distribution width (RBC) [Ratio] 18.0 % High 11.5 - 15.5 % AH Workflow SS GFR/1.73 sq M.predicted among blacks MDRD (S/P/Bld) [Vol rate/Area] ml/min/1.73sqm Invalid Interpretation Code Chemistry S Comment on above: Interpretive Data: GFR Population mean for , Non- Americans Ages 20-29 = 116 mL/min/1.73 sq.m. Ages 30-39 = 107 mL/min/1.73 sq.m. Ages 40-49 = 99 mL/min/1.73 sq.m. Ages 50-59 = 93 mL/min/1.73 sq.m. Ages 60-69 = 85 mL/min/1.73 sq.m. Ages 70+ = 75 mL/min/1.73 sq.m. Chronic Kidney Disease: Less than 60 mL/min/1.73 square meters End Stage Renal Disease: Less than 15 mL/min/1.73 square meters GFR/1.73 sq M.predicted among non-blacks MDRD (S/P/Bld) [Vol rate/Area] 56 ml/min/1.73sqm Invalid Interpretation Code Chemistry S Comment on above: Interpretive Data: GFR Population mean for , Non- Americans Ages 20-29 = 116 mL/min/1.73 sq.m. Ages 30-39 = 107 mL/min/1.73 sq.m. Ages 40-49 = 99 mL/min/1.73 sq.m. Ages 50-59 = 93 mL/min/1.73 sq.m. Ages 60-69 = 85 mL/min/1.73 sq.m. Ages 70+ = 75 mL/min/1.73 sq.m. Chronic Kidney Disease: Less than 60 mL/min/1.73 square meters End Stage Renal Disease: Less than 15 mL/min/1.73 square meters Glucose [Mass/Vol] 206 mg/dL High 82 - 115 mg/dL ADM SS Hematocrit (Bld) [Volume fraction] 39.9 % Normal 34.0 - 46.0 % AH Workflow SS Hemoglobin (Bld) [Mass/Vol] 12.8 G/dL Normal 12.0 - 16.0 G/dL AH Workflow SS Lymphocytes (Bld) [#/Vol] 1.2 103/mcL Normal 0.9 - 4.3 10^3/mcL AH Workflow SS Lymphocytes/100 WBC (Bld) 18.3 % Low 20.0 - 40.0 % AH Workflow SS MCH (RBC) [Entitic mass] 24.8 pg Low 27.0 - 33.0 pg AH Workflow SS MCHC 32.0 G/dL Normal 32.0 - 36.0 G/dL AH Workflow SS MCV (RBC) [Entitic vol] 77.6 fL Low 80.0 - 99.0 fL AH Workflow SS Monocytes (Bld) [#/Vol] 0.5 103/mcL Normal 0.1 - 1.4 10^3/mcL AH Workflow SS Monocytes/100 WBC (Bld) 8.0 % Normal 2.0 - 13.0 % AH Workflow SS Neutrophils (Bld) [#/Vol] 4.6 103/mcL Normal 2.3 - 8.1 10^3/mcL AH Workflow SS Neutrophils/100 WBC (Bld) 70.4 % Normal 50.0 - 75.0 % AH Workflow SS Platelet mean volume (Bld) [Entitic vol] 7.7 fL Normal 6.6 - 10.5 fL AH Workflow SS Platelets (Bld) [#/Vol] 180 103/mcL Normal 150 - 450 10^3/mcL AH Workflow SS Potassium [Moles/Vol] 4.2 mmol/L Normal 3.5 - 5.0 mEq/L AH ADM SS RBC (Bld) [#/Vol] 5.14 106/mcL Normal 4.10 - 5.3 0 10^6/mcL AH Workflow SS Sodium [Moles/Vol] 143 mmol/L Normal 136 - 145 mEq/L ADM SS Urea nitrogen [Mass/Vol] 22.0 mg/dL Normal 8.0 - 22.0 mg/dL ADM SS Urea nitrogen/Creatinine [Mass ratio] 22.0 ratio Normal 10.0 - 22.0 ratio ADM SS WBC (Bld) [#/Vol] 6.6 103/mcL Normal 4.5 - 10.8 10^3/mcL AH Workflow SS Basophils (Bld) [#/Vol] 0.1 103/mcL Normal 0.0 - 0.3 10^3/mcL AH Workflow SS Basophils/100 WBC (Bld) 1.0 % Normal 0.0 - 2.5 % AH Workflow SS Calcium [Mass/Vol] 9.9 mg/dL Normal 8.7 - 10. 4 mg/dL ADM SS Chloride [Moles/Vol] 105 mmol/L Normal 98 - 11 0 mEq/L ADM SS CO2 [Moles/Vol] 31 mmol/L Normal 22 - 32 mEq/L AH ADM SS Creatinine [Mass/Vol] 0.94 mg/dL Normal 0.50 - 1.20 mg/dL AH ADM SS Electrolyte Balance 5.0 mEq/L Normal 4.0 - 15 .0 mEq/L AH ADM SS Eosinophils (Bld) [#/Vol] 0.2 103/mcL Normal 0.0 - 0.7 10^3/mcL AH Workflow SS Eosinophils/100 WBC (Bld) 3.0 % Normal 0.0 - 6.0 % Workflow SS Erythrocyte distribution width (RBC) [Ratio] 17.6 % High 11.5 - 15.5 % Workflow SS GFR/1.73 sq M.predicted among blacks MDRD (S/P/Bld) [Vol rate/Area] ml/min/1.73sqm Invalid Interpretation Code Chemistry S Comment on above: Interpretive Data: GFR Population mean for , Non- Americans Ages 20-29 = 116 mL/min/1.73 sq.m. Ages 30-39 = 107 mL/min/1.73 sq.m. Ages 40-49 = 99 mL/min/1.73 sq.m. Ages 50-59 = 93 mL/min/1.73 sq.m. Ages 60-69 = 85 mL/min/1.73 sq.m. Ages 70+ = 75 mL/min/1.73 sq.m. Chronic Kidney Disease: Less than 60 mL/min/1.73 square meters End Stage Renal Disease: Less than 15 mL/min/1.73 square meters GFR/1.73 sq M.predicted among non-blacks MDRD (S/P/Bld) [Vol rate/Area] 60 ml/min/1.73sqm Invalid Interpretation Code Chemistry S Comment on above: Interpretive Data: GFR Population mean for , Non- Americans Ages 20-29 = 116 mL/min/1.73 sq.m. Ages 30-39 = 107 mL/min/1.73 sq.m. Ages 40-49 = 99 mL/min/1.73 sq.m. Ages 50-59 = 93 mL/min/1.73 sq.m. Ages 60-69 = 85 mL/min/1.73 sq.m. Ages 70+ = 75 mL/min/1.73 sq.m. Chronic Kidney Disease: Less than 60 mL/min/1.73 square meters End Stage Renal Disease: Less than 15 mL/min/1.73 square meters Glucose [Mass/Vol] 159 mg/dL High 82 - 115 mg/dL ADM SS Hematocrit (Bld) [Volume fraction] 42.3 % Normal 34.0 - 46.0 % Workflow SS Hemoglobin (Bld) [Mass/Vol] 13.7 G/dL Normal 12.0 - 16.0 G/dL AH Workflow SS Lymphocytes (Bld) [#/Vol] 1.3 103/mcL Normal 0.9 - 4.3 10^3/mcL AH Workflow SS Lymphocytes/100 WBC (Bld) 23.5 % Normal 20.0 - 40.0 % AH Workflow SS MCH (RBC) [Entitic mass] 25.1 pg Low 27.0 - 33.0 pg AH Workflow SS MCHC 32.4 G/dL Normal 32.0 - 36.0 G/dL Workflow SS MCV (RBC) [Entitic vol] 77.5 fL Low 80.0 - 99.0 fL Workflow SS Monocytes (Bld) [#/Vol] 0.3 103/mcL Normal 0.1 - 1.4 10^3/mcL Workflow SS Monocytes/100 WBC (Bld) 5.9 % Normal 2.0 - 13.0 % AH Workflow SS Neutrophils (Bld) [#/Vol] 3.7 103/mcL Normal 2.3 - 8.1 10^3/mcL Workflow SS Neutrophils/100 WBC (Bld) 66.6 % Normal 50.0 - 75.0 % AH Workflow SS Platelet mean volume (Bld) [Entitic vol] 7.7 fL Normal 6.6 - 10.5 fL Workflow SS Platelets (Bld) [#/Vol] 200 103/mcL Normal 150 - 450 10^3/mcL AH Workflow SS Potassium [Moles/Vol] 4.1 mmol/L Normal 3.5 - 5.0 mEq/L ADM SS RBC (Bld) [#/Vol] 5.45 106/mcL High 4.10 - 5.3 0 10^6/mcL AH Workflow SS Sodium [Moles/Vol] 141 mmol/L Normal 136 - 145 mEq/L ADM SS Urea nitrogen [Mass/Vol] 22.0 mg/dL Normal 8.0 - 22.0 mg/dL ADM SS Urea nitrogen/Creatinine [Mass ratio] 23.4 ratio High 10.0 - 22.0 ratio ADM SS WBC (Bld) [#/Vol] 5.6 103/mcL Normal 4.5 - 10.8 10^3/mcL Workflow SS LABORATORYOrdered By: Silvestre Barrett on 05-26-2023 ABO and Rh group Nom (Bld) Blood group AB Rh(D) positive Invalid Interpretation Code AH BB Auto SS Blood group antibody screen Ql Negative ABSC (05/26/23 9:50 AM) Normal BB Auto SS LABORATORYOrdered By: Tutu Lipscomb on 05-26-2023 PT Coag (PPP) [Time] 13.2 s Normal 9.0 - 1 4.2 seconds AH [facility] SS Comment on above: Interpretive Data: E ffective 10/13/07, Protime results may be affected by some antibiotics (i.e. Ciprofloxacin, Azithromycin, Bactrim) which may potentiate the action of oral anticoagulants, with further increases in Protime/INR. PT International Ratio 1.2 ratio Invalid Interpretation Code HemAnna[facility] SS Comment on above: Interpretive Data: [employer] (CHEST, 1991, [id number]) recommended therapeutic range for oral anticoagulant therapy is: LOW RISK: Prophylaxis of venous thrombosis INR: 2.0-3.0 Treatment of pulmonary embolism 2.0-3.0 Prevention of systemic embolism 2.0-3.0 HIGH RISK: Mechanical prosthetic valves 2.5-3.5 PROon 05-26-2023 INR Coag (PPP) [Relative time] 1.2 {INR} Normal [facility] ([place]) Comment on above: Result Comment: [employer] (CHEST, 1991, [id number]) recommended therapeutic range for oral anticoagulant therapy is: LOW RISK: Prophylaxis of venous thrombosis INR: 2.0-3.0 Treatment of pulmonary embolism 2.0-3.0 Prevention of systemic embolism 2.0-3.0 HIGH RISK: Mechanical prosthetic valves 2.5-3.5 Performed By: #### B MP, CBC, MG, ADIFF, GFR, ANEU #### [facility] [address] [place] [id number] PT Coag (PPP) [Time] 13.2 s Normal 9.0-14.2 [facility] ([place]) Comment on above: Result Comment: Effe ctive 10/13/07, Protime results may be affected by some antibiotics (i.e. Ciprofloxacin, Azithromycin, Bactrim) which may potentiate the action of oral anticoagulants, with further increases in Protime/INR. Performed By: #### B MP, CBC, MG, ADIFF, GFR, ANEU #### [place] [address] [place] [id number] XR CHEST 2 VIEWSon 4 XR CHEST 2 VIEWS ORIGINAL EXAMINATION: TWO XRAY VIEWS OF THE CHEST 05/26/2023 8:39 pm COMPARISON: None. HISTORY: ORDERING SYSTEM PROVIDED HISTORY: Reason for Exam: evaluate for pneumothorax FINDINGS: There is a left chest wall pacemaker with appropriately placed leads. The cardiomediastinal silhouette appears normal. There is no focal consolidation. There is no pulmonary edema. There is no evidence of pleural effusion. There is no evidence of pneumothorax. No acute fracture is identified. IMPRESSION: Left chest wall pacemaker with appropriately placed leads. No pneumothorax. Interpreted by: Murray Leija Preliminary Report By: Murray Leija Electronically signed By Murray Leija Dictated Date: 05/26/2023 9:55:23 PM Prelim Date: 05/26/2023 9:56:05 PM Sign Date: 05/26/2023 9:56:05 PM Ordering Provider: GERTRUDIS Avery [facility] ([place]) CNOVon 03-15-2023 CN Office Visit (WSTR ) PURA LAGUERRE ([id number]) 1960 F Date Time Provider Department 03/15/23 1:45 PM GRAEME EASTON WSTR During your visit today, we recorded the following information about you: Temperature Pulse Respiration Blood pressure 97.4 degrees 93/minute 18/minute 104/80 Weight 103.7 kg Graeme Easotn PA-C 03/15/2023 2:53 PM Signed This note was created using NoteWriter. Subjective Pura Laguerre is a 62 year old female. HPI Presents with a chief complaint of cough over the past 12 days. She was seen at another urgent care through [facility] and tested negative for COVID. 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 Assessment and Plan ASSESSMENT/PLAN: 1. Acute (more content not included)... Normal [facility] CNOVon 10-21-2022 CNOV Office Visit (UCWSTR ) PURA LAGUERRE ([id number]) 1960 F Date Time Provider Department 10/21/22 5:30 PM GRAEME EASTON [facility] During your visit today, we recorded the following information about you: Temperature Pulse Respiration Blood pressure 97.5 degrees 89/minute 18/minute 102/72 Weight 104.5 kg Graeme Easton PA-C 10/21/2022 6:21 PM Signed This note was created using DeluxeBoxriter. Subjective Pura Laguerre is a 62 year [...] state (HCC) Hypertension Hypothyroidism Iron deficiency anemia director long term care current use of anticoagulant Mixed hyperlipidemia Seasonal [...] printed. 2. URI, acute - ICD9: 465.9, (more content not included)... Normal [facility] ANES POSTPROC EVALon 021 ANES POSTPROC EVAL HNO ID: [id number] Author: Yue Hughes MD Service: Anesthesiology Author Type: Anesthesiologist Type: Anesthesia Postprocedure Evaluation Filed: 11/06/2020 10:33 AM Note Text: POST ANESTHESIA EVALUATION NOTE : 1960 Procedure Summary Date: 11/06/20 Room / Location: [facility] A / [facility] Anesthesia Start: 831 Anesthesia Stop: 856 Procedure: COLONOSCOPY (N/A Colon Left) Diagnosis: Encounter for screening for malignant neoplasm of colon Family history of colonic polyps Surgeons: Tyrone Joyner MD Responsible Provider: Yue Hughes MD Anesthesia Type: MAC ASA Status: 3 Anesthesia Type: MAC Last vitals Vitals Value Taken Time BP 107/71 11/06/20 0938 Temp 36.3 ?C (97.3 ?F) 11/06/20 0900 Pulse 71 11/06/20 0938 Resp 16 11/06/20 0938 SpO2 97 % 11/06/20 0938 Vitals shown include unvalidated device data. Post Anesthesia Patient Status Patient Evaluation: PACU. PACU/ICU Patient Condition: stable. Anticipated Disposition: phase 2 then home. Neurological Status: aware and responsive. Pulmonary Status: breathing comfortably on room air Airway Control: returned to baseline unsupported. Cardiovascular Status: stable. Pain Management: clinically adequate - multimodal analgesia pain management approach Postoperative Hydration: acceptable. Intraoperative Events: no significant anesthesia events Post Operative Nausea/Vomiting Status: no significant post operative nausea or vomiting Anesthetic Observations: Recommendation: continue current plan of care. No complications documented. SIGNATURE: Yue Hughes MD PATIENT NAME: Pura Laguerre DATE: November 06, 2020 TIME: 10:33 AM CSN: [id number] [facility] ANES PRE-OPon 11-06-2020 ANES PRE-OP HNO ID: [id number] Author: Yue Hughes MD Service: Anesthesiology Author Type: Anesthesiologist Type: Anesthesia Preprocedure Evaluation Filed: 11/06/2020 7:23 AM Note Text: ANESTHESIOLOGY DAY OF SURGERY NOTE : 1960 Procedure(s) (LRB): COLONOSCOPY (N/A) Surgeon(s): Tyrone Joyner MD Estimated body mass index is 41.85 kg/m? as calculated from the following: Height as of 10/27/20: 161.3 cm (5' 3.5 ). Weight as of 10/27/20: 108.9 kg (240 lb). Most recent hematocrit and potassium results: No results found for this basename: HCT,HEMATOCRIT,K,POTASS IUM Relevant Problems ANESTHESIA (+) LUIS FELIPE (obstructive sleep apnea) CARDIO (+) CHF (congestive heart failure) ([facility]) (+) Heart block (+) Primary hypertension ENDO (+) Type 2 diabetes mellitus without complication, without long-term current use of insulin (HCC) NEURO-PSYCH (+) History of DVT (deep vein thrombosis) PULMONARY (+) LUIS FELIPE (obstructive sleep apnea) I - PHYSICAL EVALUATION AIRWAY Patient intubated: No. Tracheostomy tube not present Mallampati: II. TM distance: >3 FB. Neck ROM: limited flexion and extension. Mouth opening: adequate. Short neck: yes. Thick neck: yes DENTAL Dental findings: teeth intact. Additional exam findings: no II - ANESTHESIA PLAN ASA Score: 3 The patient is not a current smoker. NPO Status: adequate Monitoring plan: standard ASA. Postoperative analgesic plan: parenteral or oral opioids. Anesthetic Risks, Benefits, Alternatives, Personnel Discussed. Consent obtained from: patient.Patient / Surrogate agrees to blood products: blood products not planned Significant changes in the patient condition since the History and Physical, not otherwise documented in primary service progress note: no. Potential Anesthesia issues that may suggest increased risk of complications or contraindication to planned procedure: none. Vitals Value Taken Time BP 114/76 11/06/20 07 Pulse 94 11/06/20 0707 Resp 18 11/06/20 0707 Temp 36.5 ?C (97.7 ?F) 11/06/20 07 SpO2 96 % 11/06/20 0707 Facility-Administered Medications as of 11/06/2020 Medication Dose Route Frequency - lactated ringers iv infusion 30 mL/hr INTRAVENOUS CONTINUOUS Outpatient Medications as of 11/06/2020 Medication Sig - aspirin, enteric coated (ASPIRIN, ENTERIC COATED) 81 mg EC tablet Take 81 mg by mouth once daily. - carvedilol (COREG) 25 mg tablet Take 25 mg by mouth twice daily with meals. - coenzyme Q10 (CO Q-10) 100 mg cap capsule Take 100 mg by mouth once daily. - losartan (COZAAR) 25 mg tablet Take 25 mg by mouth once daily. - atorvastatin (LIPITOR) 10 mg tablet - glipiZIDE (GLUCOTROL XL) 5 mg 24 hr tablet - rivaroxaban (XARELTO) 20 mg tablet Take 20 mg by mouth daily with dinner. - venlafaxine 75 mg tablet Take 75 mg by mouth three times daily. - Levothyroxine 50 mcg cap Take by mouth. I have interviewed and examined the patient. I have reviewed the medical record and/or the pre-anesthesia evaluation, pertinent labs, and test results. This contains updated information obtained within 48 hours of Surgery/Procedure. SIGNATURE: Yue Hughes MD PATIENT NAME: Pura Lennonrenetta DATE: November 06, 2020 TIME: 7:23 AM CSN: [id number] Normal [facility] HISTORY PHYSICALon HISTORY PHYSICAL HNO ID: [id number] Author: Tyrone Joyner MD Service: General Surgery Author Type: Physician Type: HANDP Filed: 11/06/2020 7:02 AM Note Text: HISTORY AND PHYSICAL ? Pura Aritazahra 1960 ? REFERRING PHYSICIAN: Andrews Garcia MD ? CHIEF COMPLAINT: Consult (consult for colonoscopy) ? HPI: The patient is a 60 year old female referred for endoscopy. Pura notes no colon complaints currently other than some constipation which she related to her diuretic medication. Patient denies any change in bowel habits, weight changes, blood in stools, black tarry stools or abdominal pain. Denies family history of colon issues. ? The patient notes no upper GI complaints. ? Pura has undergone prior endoscopy greater than 10 years ago. ? Patient's past medical history is significant for complete heart block requiring pacemaker placement, pulmonary embolism, respiratory failure, hypercoagulable state ? Denies problems with sedation in the past. ? ? PAST MEDICAL HISTORY PAST MEDICAL HISTORY Diagnosis Date - Acquired atrophy of thyroid ? - Acute respiratory failure with hypoxia (HCC) 08/03/2020 - Anxiety ? - B12 deficiency ? - Blood clot associated with vein wall inflammation ? - Complete heart block (HCC) 10/2019 - Depression ? - Diabetes (HCC) ? - History of pulmonary embolism ? - Hypercholesterolemia ? - Hypercoagulable state (HCC) ? - Hypertension ? - Hypothyroidism ? - Iron deficiency anemia ? - director long term care current use of anticoagulant ? - Mixed hyperlipidemia ? - Seasonal allergies ? - Status cardiac pacemaker 10/2019 - Thyroid activity decreased ? ? ? PAST SURGICAL HISTORY PAST SURGICAL HISTORY Procedure Laterality Date - ANESTH,PACEMAKER INSERTION ? 10/2019 - COLONOSCOPY GEN ANES ? 1999 - HYSTERECTOMY AND VAGINA REPAIR ENTEROCELE ? ? - KNEE SURGERY HX Right 1987 ? ACL repair ? ? ? CURRENT MEDICATIONS Current Outpatient Medications Medication Sig - aspirin, enteric coated (ASPIRIN, ENTERIC COATED) 81 mg EC tablet Take 81 mg by mouth once daily. - carvedilol (COREG) 25 mg tablet Take 25 mg by mouth twice daily with meals. - coenzyme Q10 (CO Q-10) 100 mg cap capsule Take 100 mg by mouth once daily. - losartan (COZAAR) 25 mg tablet Take 25 mg by mouth once daily. - atorvastatin (LIPITOR) 10 mg tablet ? - glipiZIDE (GLUCOTROL XL) 5 mg 24 hr tablet ? - rivaroxaban (XARELTO) 20 mg tablet Take 20 mg by mouth daily with dinner. - venlafaxine 75 mg tablet Take 75 mg by mouth three times daily. - Levothyroxine 50 mcg cap Take by mouth. - metoprolol succinate ER (TOPROL XL) 50 mg 24 hr tablet ? - CYANOCOBALAMIN, VITAMIN B-12, (VITAMIN B-12 ORAL) Take by mouth. - atenolol 25 mg tablet Take 25 mg by mouth once daily. ? No current facility-administered medications for this visit. ? ? ALLERGIES: Poison Mel, Red Dye, and Sulfa (Sulfonamide Antibiotics) ? PERSONAL HISTORY: SOCIAL HISTORY Social History ? Tobacco Use - Smoking status: Never Smoker - Smokeless tobacco: Never Used Vaping Use - Vaping Use: Never used Substance Use Topics - Alcohol use: Not Currently ? ? Comment: rarely - Drug use: No ? FAMILY HISTORY: FAMILY HISTORY FAMILY HISTORY Problem Relation Age of Onset - Blindness Mother ? - Diabetes Maternal Aunt ? ? ? REVIEW OF SYMPTOMS: The review of systems data was entered by the nurse and reviewed by me ? Nursing Notes: Francia Harvey RN 09/04/2020 8:42 AM Addendum REVIEW OF SYSTEMS: General: The patient denies fatigue, denies weight loss, denies weight gain, denies feeling hot, and denies feelings of cold. Eyes: The patient denies glaucoma, denies eye injury/surgery, wears glasses or contacts. Ear/Nose/Throat: The patient notes allergies, denies hayfever, denies ear infections, and denies bloody noses. Cardiovascular: The patient notes chest pain, notes heart disease, notes high blood pressure,denies cardiac stent, denies prior heart attack, denies irregular heart beat, notes high cholesterol, notes poor circulation, notes heart failure, other cardiac issues, notes claudication, denies cold feet, denies peripheral arterial stent. Respiratory: The patient denies tuberculosis, denies pneumonia, denies frequent cough, notes pulmonary embolism, denies shortness of breath, and denies coughing up blood. Gastrointestinal: The patient denies difficulty swallowing, denies acid reflux, denies ulcers, denies vomiting, denies jaundice/hepatitis, denies gallbladder problems, denies black or tarry stools, denies hemorrhoids, denies bleeding from rectum, denies diverticulitis, notes constipation, denies diarrhea, denies loss of stool control, and denies hernias. Kidney/Bladder: The patient denies kidney stones, notes urine infections, and denies bloody urine. Skin: The patient denies a history of skin cancer, denies bleeding/changing moles, and den (more content not included)... Normal [facility] Outpatient [facility] Ref erinnmarshall 03-09-2020 Date Time Interrogation Session [id number] [facility] CBC WITH AUTO DIFFERENTIALon 12-09-2019 Basophils (Bld) [#/Vol] 0.01 10*3/uL [facility] Basophils/100 WBC (Bld) 0.3 % [facility] Eosinophils (Bld) [#/Vol] 0.00 10*3/uL [facility] Eosinophils/100 WBC (Bld) 0.0 % [facility] Erythrocyte distribution width (RBC) [Entitic vol] 13.8 % 11.6 - 14.8 % [facility] Hematocrit (Bld) [Volume fraction] 40.3 % 36 - 46 % [facility] Hemoglobin (Bld) [Mass/Vol] 12.0 g/dL 16 g/dL [facility] Immature granulocytes (Bld) [#/Vol] 0.02 10*3/uL [facility] Immature granulocytes/100 WBC (Bld) 0.50 % [facility] Comment on above: The IG parameter is the percentage of metamyelocytes, myelocytes and promyelocytes. An immature granulocyte count (IG) of 1% or more suggests the possibility of infection, an IG count of 3% is very likely related to an infection. Interpretation and review of laboratory results Abnormal [facility] Lymphocytes (Bld) [#/Vol] 0.95 10*3/uL [facility] Lymphocytes/100 WBC (Bld) 23.8 % [facility] MCH (RBC) [Entitic mass] 26.3 pg 26 - 34 pg [facility] MCHC (RBC) [Mass/Vol] 29.8 g/dL Low 31 - 37 g/dL [facility] MCV (RBC) [Entitic vol] 88.4 fL 80 - 100 fL [facility] Monocytes (Bld) [#/Vol] 0.33 10*3/uL [facility] Monocytes/100 WBC (Bld) 8.3 % [facility] Neutrophils (Bld) [#/Vol] 2.68 10*3/uL [facility] Neutrophils/100 WBC (Bld) 67.1 % [facility] Nucleated RBC (Bld) [#/Vol] 0.00 10*3/uL [facility] Nucleated RBC/100 WBC (Bld) [Ratio] 0.0 % [facility] Platelet mean volume (Bld) [Entitic vol] 9.8 fL 9.4 - 12.4 fL [facility] Platelets (Bld) [#/Vol] 172 10*3/uL [facility] RBC (Bld) [#/Vol] 4.56 10*6/uL [facility] WBC (Bld) [#/Vol] 3.99 10*3/uL Low [facility] Comprehensive Metabolic Pane kaelyn 12-09-2019 Albumin [Mass/Vol] 3.3 g/dL 3.2 - 5.2 g/dL [facility] ALP [Catalytic activity/Vol] 89 U/L 40 - 150 U/L [facility] ALT [Catalytic activity/Vol] 54 U/L 14 - 65 U/L [facility] Anion gap [Moles/Vol] 10 mmol/L 10 - 20 mmol/L [facility] AST [Catalytic activity/Vol] 26 U/L 0 - 45 U/L [facility] Bilirubin [Mass/Vol] 0.5 mg/dL 0 - 1.3 mg/dL [facility] Calcium [Mass/Vol] 8.4 mg/dL 8.4 - 10. 2 mg/dL [facility] Chloride [Moles/Vol] 107 mmol/L 98 - 10 8 mmol/L [facility] Creatinine [Mass/Vol] 0.91 mg/dL 0.40 - 1.10 [facility] GFR/1.73 sq M predicted among non-blacks MDRD (S/P/Bld) [Vol rate/Area] The eGFR should be used for monitoring renal function only and not for medication dosing. [facility] GFR/1.73 sq M.predicted CKD-EPI (S/P/Bld) [Vol rate/Area] 69 >=60 mL/min/1.73 m2 [facility] Glucose [Mass/Vol] 168 mg/dL High 65 - 99 mg/dL [facility] HCO3 [Moles/Vol] 27 mmol/L 21 - 32 mmol/L [facility] Interpretation and review of laboratory results Abnormal [facility] Potassium [Moles/Vol] 4.4 mmol/L 3.5 - 5.1 mmol/L [facility] Protein [Mass/Vol] 6.8 g/dL 6 - 8 g/dL [facility] Sodium [Moles/Vol] 140 mmol/L 135 - 145 mmol/L [facility] Urea nitrogen [Mass/Vol] 17 mg/dL 8 - 25 mg/dL [facility] Urea nitrogen/Creatinine [Mass ratio] 18.7 mg/mg [facility] Magnesium Levelon 12-09-2019 Interpretation and review of laboratory results Normal [facility] Magnesium [Mass/Vol] 2.1 mg/dL 1.6 - 2 .4 mg/dL [facility] POC Glucoseon 12-09-2019 Glucose [Mass/Vol] 159 mg/dL High 65 - 99 mg/dL [facility] Interpretation and review of laboratory results Abnormal [facility] Glucose [Mass/Vol] 229 mg/dL High 65 - 99 mg/dL [facility] Interpretation and review of laboratory results Abnormal [facility] XR CHEST PA/APon 12-09-2019 XR CHEST PA/AP EXAMINATION: XR CHEST PA/AP 12/09/2019 9:19 AM HISTORY: ORDERING SYSTEM PROVIDED HISTORY: post pacemaker, TECHNOLOGIST PROVIDED HISTORY: Illness/Other Reason for exam: post pacemeaker Cancer History: u Surgery, RadiationHistory: u Encounter Type: Initial Additional signs and symptoms: placed 12/07/ ORDERING SYSTEM PROVIDED DIAGNOSIS CODES: R00.1 Sinus bradycardia N39.0 Acute UTI COMPARISON: None. FINDINGS: The patient is slightly rotated, in lordotic position. The cardiomediastinal contour is within normal limits. The heart size is borderline enlarged. There is a loop recorder device in place. The AICD/pacemaker leads are partially visualized. The lungs are clear without any focal consolidative opacity. No pleural effusion. No pneumothorax. IMPRESSION: The AICD/pacemaker leads are partially visualized. No radiographic evidence of pneumothorax. /[facility] Workstation ID: [id number] Dictated by: MARLA SCOTT on FriDec 09, 2019 9:55:50 AM EDT Transcribed by: REYES PINEDA on FriDec 09, 2019 10:19:01 AM EDT Finalized by: MARLA SCOTT on FriDec 09, 2019 9:07:45 PM EDT Normal [facility] Comment on above: Order Comment: Micra pacemaker placed 12/07 Injury/Trauma or Illness?:Illness/Other How long have you had these symptoms (acute/chronic)?:Acute Reason for exam?:post pacemeaker History of cancer?:u Surgeries, chemotherapy, or radiation?:u Type of Exam?:Initial Additional signs and symptoms?:placed 12/07/ ABORTED EP CASEon 12-08-2019 ABORTED EP CASE This case has been aborted as instructed by the physician. Normal [facility] Basic Metabolic Panelon Anion gap [Moles/Vol] 10 mmol/L 10 - 20 mmol/L [facility] Calcium [Mass/Vol] 8.8 mg/dL 8.4 - 10. 2 mg/dL [facility] Chloride [Moles/Vol] 109 mmol/L High 98 - 10 8 mmol/L [facility] Creatinine [Mass/Vol] 0.97 mg/dL 0.40 - 1.10 [facility] GFR/1.73 sq M predicted among non-blacks MDRD (S/P/Bld) [Vol rate/Area] The eGFR should be used for monitoring renal function only and not for medication dosing. [facility] GFR/1.73 sq M.predicted CKD-EPI (S/P/Bld) [Vol rate/Area] 64 >=60 mL/min/1.73 m2 [facility] Glucose [Mass/Vol] 136 mg/dL High 65 - 99 mg/dL [facility] HCO3 [Moles/Vol] 26 mmol/L 21 - 32 mmol/L [facility] Interpretation and review of laboratory results Abnormal [facility] Potassium [Moles/Vol] 4.1 mmol/L 3.5 - 5.1 mmol/L [facility] Sodium [Moles/Vol] 141 mmol/L 135 - 145 mmol/L [facility] Urea nitrogen [Mass/Vol] 18 mg/dL 8 - 25 mg/dL [facility] Urea nitrogen/Creatinine [Mass ratio] 18.6 mg/mg [facility] CBC WITH AUTO DIFFERENTIALon 12-08-2019 Basophils (Bld) [#/Vol] 0.03 10*3/uL [facility] Basophils/100 WBC (Bld) 0.9 % [facility] Eosinophils (Bld) [#/Vol] 0.17 10*3/uL [facility] Eosinophils/100 WBC (Bld) 5.0 % [facility] Erythrocyte distribution width (RBC) [Entitic vol] 14.0 % 11.6 - 14.8 % [facility] Hematocrit (Bld) [Volume fraction] 41.4 % 36 - 46 % [facility] Hemoglobin (Bld) [Mass/Vol] 12.7 g/dL 12 - 16 g/dL [facility] Immature granulocytes (Bld) [#/Vol] 0.01 10*3/uL [facility] Immature granulocytes/100 WBC (Bld) 0.30 % [facility] Comment on above: The IG parameter is the percentage of metamyelocytes, myelocytes and promyelocytes. An immature granulocyte count (IG) of 1% or more suggests the possibility of infection, an IG count of 3% is very likely related to an infection. Interpretation and review of laboratory results Abnormal [facility] Lymphocytes (Bld) [#/Vol] 1.51 10*3/uL [facility] Lymphocytes/100 WBC (Bld) 44.5 % [facility] MCH (RBC) [Entitic mass] 26.6 pg 26 - 34 pg [facility] MCHC (RBC) [Mass/Vol] 30.7 g/dL Low 31 - 37 g/dL [facility] MCV (RBC) [Entitic vol] 86.6 fL 80 - 100 fL [facility] Monocytes (Bld) [#/Vol] 0.30 10*3/uL [facility] Monocytes/100 WBC (Bld) 8.8 % [facility] Neutrophils (Bld) [#/Vol] 1.37 10*3/uL Low [facility] Neutrophils/100 WBC (Bld) 40.5 % [facility] Nucleated RBC (Bld) [#/Vol] 0.00 10*3/uL [facility] Nucleated RBC/100 WBC (Bld) [Ratio] 0.0 % [facility] Platelet mean volume (Bld) [Entitic vol] 9.4 fL 9.4 - 12.4 fL [facility] Platelets (Bld) [#/Vol] 175 10*3/uL [facility] RBC (Bld) [#/Vol] 4.78 10*6/uL [facility] WBC (Bld) [#/Vol] 3.39 10*3/uL Low [facility] EP - Deviceon 12-08-2019 MICRA procedure: Following fully informed consent patient was brought electrophysiologic laboratory in fasting state. Anesthesia was obtained using general anesthesia per anesthesiologist. Access to the right femoral vein was obtained in usual fashion using modified Seldinger technique. An 8 Samoan sheath was introduced a guidewire advanced under fluoroscopic imaging. Over this guidewire serial vein dilators were placed in the right femoral vein. Finally the large dilator used for MICRA introduction was advanced under fluoroscopic guidance to the lower right atrium. This was then loaded with the MICRA delivery catheter which was advanced under fluoroscopic guidance into the right atrium across tricuspid valve and into the right ventricle. Using fluoroscopic guidance with various degrees of RAMIREZ and SAMMARINESE oblique projection the MICRA leadless pacemaker was advanced to the right ventricular septal region avoiding the right ventricular apex and free wall. Small amounts of contrast were used to ensure adequate positioning. At this time the MICRA pacemaker was advanced and attached to the septal wall. Electrocardiographic characteristics and pacemaker testing were performed. When felt to be adequate a lead stability test was performed with gentle tugging on the lead under fluoroscopic guidance. When adequate position was assured the device was then deployed. The connecting suture was then cut and removed from the system and the system retracted. The Sheath was left in place to be used to access the vein for the ablation procedure as noted above. 1000 cc of heparin was introduced by bolus and a continuous heparin infusion also performed during the procedure. Finally the large sheath was removed and a [id number] suture was placed over the right femoral vein region for hemostasis which was ensured by additional manual pressure. The patient tolerated procedure well. There were no adverse outcomes. Estimated blood loss was negligible. The patient was then returned to recovery area and subsequently to his room in stable conditions. R-wave measured 20mV. capture threshold was 0.25V at 0.24 ms. . [facility] EP Studyon 12-08-2019 This case has been aborted as instructed by the physician. [facility] PACEMAKER IMPLANTon 12-08-19 20 PACEMAKER IMPLANT MICRA procedure: Following fully informed consent patient was brought electrophysiologic laboratory in fasting state. Anesthesia was obtained using general anesthesia per anesthesiologist. Access to the right femoral vein was obtained in usual fashion using modified Seldinger technique. An 8 Samoan sheath was introduced a guidewire advanced under fluoroscopic imaging. Over this guidewire serial vein dilators were placed in the right femoral vein. Finally the large dilator used for MICRA introduction was advanced under fluoroscopic guidance to the lower right atrium. This was then loaded with the MICRA delivery catheter which was advanced under fluoroscopic guidance into the right atrium across tricuspid valve and into the right ventricle. Using fluoroscopic guidance with various degrees of RAMIREZ and SAMMARINESE oblique projection the MICRA leadless pacemaker was advanced to the right ventricular septal region avoiding the right ventricular apex and free wall. Small amounts of contrast were used to ensure adequate positioning. At this time the MICRA pacemaker was advanced and attached to the septal wall. Electrocardiographic characteristics and pacemaker testing were performed. When felt to be adequate a lead stability test was performed with gentle tugging on the lead under fluoroscopic guidance. When adequate position was assured the device was then deployed. The connecting suture was then cut and removed from the system and the system retracted. The Sheath was left in place to be used to access the vein for the ablation procedure as noted above. 1000 cc of heparin was introduced by bolus and a continuous heparin infusion also performed during the procedure. Finally the large sheath was removed and a [id number] suture was placed over the right femoral vein region for hemostasis which was ensured by additional manual pressure. The patient tolerated procedure well. There were no adverse outcomes. Estimated blood loss was negligible. The patient was then returned to recovery area and subsequently to his room in stable conditions. R-wave measured 20mV. capture threshold was 0.25V at 0.24 ms. . Normal [facility] POC Glucoseon 12-08-2019 Glucose [Mass/Vol] 304 mg/dL High 65 - 99 mg/dL [facility] Interpretation and review of laboratory results Abnormal [facility] Glucose [Mass/Vol] 158 mg/dL High 65 - 99 mg/dL [facility] Interpretation and review of laboratory results Abnormal [facility] Glucose [Mass/Vol] 130 mg/dL High 65 - 99 mg/dL [facility] Interpretation and review of laboratory results Abnormal [facility] Glucose [Mass/Vol] 142 mg/dL High 65 - 99 mg/dL [facility] Interpretation and review of laboratory results Abnormal [facility] CBC WITH AUTO DIFFERENTIALon 12-07-2019 Basophils (Bld) [#/Vol] 0.04 10*3/uL [facility] Basophils/100 WBC (Bld) 0.7 % [facility] Eosinophils (Bld) [#/Vol] 0.23 10*3/uL [facility] Eosinophils/100 WBC (Bld) 3.9 % [facility] Erythrocyte distribution width (RBC) [Entitic vol] 14.5 % 11.6 - 14.8 % [facility] Hematocrit (Bld) [Volume fraction] 43.7 % 36 - 46 % [facility] Hemoglobin (Bld) [Mass/Vol] 13.0 g/dL 12 - 16 g/dL [facility] Immature granulocytes (Bld) [#/Vol] 0.02 10*3/uL [facility] Immature granulocytes/100 WBC (Bld) 0.30 % [facility] Comment on above: The IG parameter is the percentage of metamyelocytes, myelocytes and promyelocytes. An immature granulocyte count (IG) of 1% or more suggests the possibility of infection, an IG count of 3% is very likely related to an infection. Interpretation and review of laboratory results Abnormal [facility] Lymphocytes (Bld) [#/Vol] 2.30 10*3/uL [facility] Lymphocytes/100 WBC (Bld) 38.7 % [facility] MCH (RBC) [Entitic mass] 26.5 pg 26 - 34 pg [facility] MCHC (RBC) [Mass/Vol] 29.7 g/dL Low 31 - 37 g/dL [facility] MCV (RBC) [Entitic vol] 89.0 fL 80 - 100 fL [facility] Monocytes (Bld) [#/Vol] 0.59 10*3/uL [facility] Monocytes/100 WBC (Bld) 9.9 % [facility] Neutrophils (Bld) [#/Vol] 2.76 10*3/uL [facility] Neutrophils/100 WBC (Bld) 46.5 % [facility] Nucleated RBC (Bld) [#/Vol] 0.00 10*3/uL [facility] Nucleated RBC/100 WBC (Bld) [Ratio] 0.0 % [facility] Platelet mean volume (Bld) [Entitic vol] 9.7 fL 9.4 - 12.4 fL [facility] Platelets (Bld) [#/Vol] 208 10*3/uL [facility] RBC (Bld) [#/Vol] 4.91 10*6/uL [facility] WBC (Bld) [#/Vol] 5.94 10*3/uL [facility] Comprehensive Metabolic Pane kaelyn 12-07-2019 Albumin [Mass/Vol] 3.5 g/dL 3.2 - 5.2 g/dL [facility] ALP [Catalytic activity/Vol] 96 U/L 40 - 150 U/L [facility] ALT [Catalytic activity/Vol] 66 U/L High 14 - 65 U/L [facility] Anion gap [Moles/Vol] 11 mmol/L 10 - 20 mmol/L [facility] AST [Catalytic activity/Vol] 34 U/L 0 - 45 U/L [facility] Bilirubin [Mass/Vol] 0.5 mg/dL 0 - 1.3 mg/dL [facility] Calcium [Mass/Vol] 8.8 mg/dL 8.4 - 10. 2 mg/dL [facility] Chloride [Moles/Vol] 108 mmol/L 98 - 10 8 mmol/L [facility] Creatinine [Mass/Vol] 0.95 mg/dL 0.40 - 1.10 [facility] GFR/1.73 sq M predicted among non-blacks MDRD (S/P/Bld) [Vol rate/Area] The eGFR should be used for monitoring renal function only and not for medication dosing. [facility] GFR/1.73 sq M.predicted CKD-EPI (S/P/Bld) [Vol rate/Area] 65 >=60 mL/min/1.73 m2 [facility] Glucose [Mass/Vol] 131 mg/dL High 65 - 99 mg/dL [facility] HCO3 [Moles/Vol] 27 mmol/L 21 - 32 mmol/L [facility] Interpretation and review of laboratory results Abnormal [facility] Potassium [Moles/Vol] 4.2 mmol/L 3.5 - 5.1 mmol/L [facility] Protein [Mass/Vol] 7.0 g/dL 6 - 8 g/dL [facility]th Sodium [Moles/Vol] 142 mmol/L 135 - 145 mmol/L [facility] Urea nitrogen [Mass/Vol] 17 mg/dL 8 - 25 mg/dL [facility] Urea nitrogen/Creatinine [Mass ratio] 17.9 mg/mg [facility] Magnesium Levelon 12-07-2019 Interpretation and review of laboratory results Normal [facility] Magnesium [Mass/Vol] 1.7 mg/dL 1.6 - 2 .4 mg/dL [facility] POC Glucoseon 12-07-2019 Glucose [Mass/Vol] 137 mg/dL High 65 - 99 mg/dL [facility] Interpretation and review of laboratory results Abnormal [facility] Basic Metabolic Panelon Anion gap [Moles/Vol] 10 mmol/L 10 - 20 mmol/L [facility] Calcium [Mass/Vol] 8.9 mg/dL 8.4 - 10. 2 mg/dL [facility] Chloride [Moles/Vol] 109 mmol/L High 98 - 10 8 mmol/L [facility] Creatinine [Mass/Vol] 0.92 mg/dL 0.40 - 1.10 [facility] GFR/1.73 sq M predicted among non-blacks MDRD (S/P/Bld) [Vol rate/Area] The eGFR should be used for monitoring renal function only and not for medication dosing. [facility] GFR/1.73 sq M.predicted CKD-EPI (S/P/Bld) [Vol rate/Area] 68 >=60 mL/min/1.73 m2 [facility] Glucose [Mass/Vol] 132 mg/dL High 65 - 99 mg/dL [facility] HCO3 [Moles/Vol] 26 mmol/L 21 - 32 mmol/L [facility] Interpretation and review of laboratory results Abnormal [facility] Potassium [Moles/Vol] 3.8 mmol/L 3.5 - 5.1 mmol/L [facility] Sodium [Moles/Vol] 141 mmol/L 135 - 145 mmol/L [facility] Urea nitrogen [Mass/Vol] 16 mg/dL 8 - 25 mg/dL [facility] Urea nitrogen/Creatinine [Mass ratio] 17.4 mg/mg [facility] CBC WITH AUTO DIFFERENTIALon 12-06-2019 Basophils (Bld) [#/Vol] 0.02 10*3/uL [facility] Basophils/100 WBC (Bld) 0.5 % [facility] Eosinophils (Bld) [#/Vol] 0.16 10*3/uL [facility] Eosinophils/100 WBC (Bld) 4.3 % [facility] Erythrocyte distribution width (RBC) [Entitic vol] 14.5 % 11.6 - 14.8 % [facility] Hematocrit (Bld) [Volume fraction] 41.7 % 36 - 46 % [facility] Hemoglobin (Bld) [Mass/Vol] 12.5 g/dL 12 - 16 g/dL [facility] Immature granulocytes (Bld) [#/Vol] 0.01 10*3/uL [facility] Immature granulocytes/100 WBC (Bld) 0.30 % [facility] Comment on above: The IG parameter is the percentage of metamyelocytes, myelocytes and promyelocytes. An immature granulocyte count (IG) of 1% or more suggests the possibility of infection, an IG count of 3% is very likely related to an infection. Interpretation and review of laboratory results Abnormal [facility] Lymphocytes (Bld) [#/Vol] 1.75 10*3/uL [facility] Lymphocytes/100 WBC (Bld) 47.6 % [facility] MCH (RBC) [Entitic mass] 26.3 pg 26 - 34 pg [facility] MCHC (RBC) [Mass/Vol] 30.0 g/dL Low 31 - 37 g/dL [facility] MCV (RBC) [Entitic vol] 87.6 fL 80 - 100 fL [facility] Monocytes (Bld) [#/Vol] 0.57 10*3/uL [facility] Monocytes/100 WBC (Bld) 15.5 % [facility] Neutrophils (Bld) [#/Vol] 1.17 10*3/uL Low [facility] Neutrophils/100 WBC (Bld) 31.8 % [facility] Nucleated RBC (Bld) [#/Vol] 0.00 10*3/uL [facility] Nucleated RBC/100 WBC (Bld) [Ratio] 0.0 % [facility] Platelet mean volume (Bld) [Entitic vol] 9.5 fL 9.4 - 12.4 fL [facility] Platelets (Bld) [#/Vol] 195 10*3/uL [facility] RBC (Bld) [#/Vol] 4.76 10*6/uL [facility] WBC (Bld) [#/Vol] 3.68 10*3/uL Low [facility] Basic Metabolic Panelon Anion gap [Moles/Vol] 8 mmol/L Low 10 - 20 mmol/L [facility] Calcium [Mass/Vol] 8.7 mg/dL 8.4 - 10. 2 mg/dL [facility] Chloride [Moles/Vol] 109 mmol/L High 98 - 10 8 mmol/L [facility] Creatinine [Mass/Vol] 1.01 mg/dL 0.40 - 1.10 [facility] GFR/1.73 sq M predicted among non-blacks MDRD (S/P/Bld) [Vol rate/Area] The eGFR should be used for monitoring renal function only and not for medication dosing. [facility] GFR/1.73 sq M.predicted CKD-EPI (S/P/Bld) [Vol rate/Area] 61 >=60 mL/min/1.73 m2 [facility] Glucose [Mass/Vol] 144 mg/dL High 65 - 99 mg/dL [facility] HCO3 [Moles/Vol] 27 mmol/L 21 - 32 mmol/L [facility] Interpretation and review of laboratory results Abnormal [facility] Potassium [Moles/Vol] 4.3 mmol/L 3.5 - 5.1 mmol/L [facility] Sodium [Moles/Vol] 140 mmol/L 135 - 145 mmol/L [facility] Urea nitrogen [Mass/Vol] 14 mg/dL 8 - 25 mg/dL [facility] Urea nitrogen/Creatinine [Mass ratio] 13.9 mg/mg [facility] ECG 12-LEADon 12-05-2019 Atrial Rate 42 BPM [facility] P Lucas 63 degrees [facility] Q-T Interval 474 ms [facility] QRS Duration 92 ms [facility] QTC Calculation (Bezet) 395 ms [facility] R Lucas 57 degrees [facility] T Lucas 47 degrees [facility] Ventricular Rate 42 BPM [facility] th Undetermined rhythm Low voltage QRS Borderline ECG ECG Cart Interpretation see physician note for interpretation. Confirmed by Madina Byers ([id number]) on 12/05/2019 2:13:33 PM [facility] Basic Metabolic Panelon Anion gap [Moles/Vol] 11 mmol/L 10 - 20 mmol/L [facility] Calcium [Mass/Vol] 9.1 mg/dL 8.4 - 10. 2 mg/dL [facility] Chloride [Moles/Vol] 108 mmol/L 98 - 10 8 mmol/L [facility] Creatinine [Mass/Vol] 0.97 mg/dL 0.40 - 1.10 [facility] GFR/1.73 sq M predicted among non-blacks MDRD (S/P/Bld) [Vol rate/Area] The eGFR should be used for monitoring renal function only and not for medication dosing. [facility] GFR/1.73 sq M.predicted CKD-EPI (S/P/Bld) [Vol rate/Area] 64 >=60 mL/min/1.73 m2 [facility] Glucose [Mass/Vol] 153 mg/dL High 65 - 99 mg/dL [facility] HCO3 [Moles/Vol] 25 mmol/L 21 - 32 mmol/L [facility] Interpretation and review of laboratory results Abnormal [facility] Potassium [Moles/Vol] 4.0 mmol/L 3.5 - 5.1 mmol/L [facility] Sodium [Moles/Vol] 140 mmol/L 135 - 145 mmol/L [facility] Urea nitrogen [Mass/Vol] 17 mg/dL 8 - 25 mg/dL [facility] Urea nitrogen/Creatinine [Mass ratio] 17.5 mg/mg [facility] Basic Metabolic Panelon Anion gap [Moles/Vol] 12 mmol/L 10 - 20 mmol/L [facility] Calcium [Mass/Vol] 9.0 mg/dL 8.4 - 10. 2 mg/dL [facility] Chloride [Moles/Vol] 108 mmol/L 98 - 10 8 mmol/L [facility] Creatinine [Mass/Vol] 0.84 mg/dL 0.40 - 1.10 [facility] GFR/1.73 sq M predicted among non-blacks MDRD (S/P/Bld) [Vol rate/Area] The eGFR should be used for monitoring renal function only and not for medication dosing. [facility] GFR/1.73 sq M.predicted CKD-EPI (S/P/Bld) [Vol rate/Area] 76 >=60 mL/min/1.73 m2 [facility] Glucose [Mass/Vol] 140 mg/dL High 65 - 99 mg/dL [facility] HCO3 [Moles/Vol] 24 mmol/L 21 - 32 mmol/L [facility] Interpretation and review of laboratory results Abnormal [facility] Potassium [Moles/Vol] 4.0 mmol/L 3.5 - 5.1 mmol/L [facility] Sodium [Moles/Vol] 140 mmol/L 135 - 145 mmol/L [facility] Urea nitrogen [Mass/Vol] 15 mg/dL 8 - 25 mg/dL [facility] Urea nitrogen/Creatinine [Mass ratio] 17.9 mg/mg [facility] POC Glucoseon 12-03-2019 Glucose [Mass/Vol] 142 mg/dL High 65 - 99 mg/dL [facility] Interpretation and review of laboratory results Abnormal [facility] Glucose [Mass/Vol] 148 mg/dL High 65 - 99 mg/dL [facility] Interpretation and review of laboratory results Abnormal [facility] Glucose [Mass/Vol] 164 mg/dL High 65 - 99 mg/dL [facility] Interpretation and review of laboratory results Abnormal [facility] Glucose [Mass/Vol] 145 mg/dL High 65 - 99 mg/dL [facility] Interpretation and review of laboratory results Abnormal [facility] Basic Metabolic Panelon Anion gap [Moles/Vol] 12 mmol/L 10 - 20 mmol/L [facility] Calcium [Mass/Vol] 8.9 mg/dL 8.4 - 10. 2 mg/dL [facility] Chloride [Moles/Vol] 108 mmol/L 98 - 10 8 mmol/L [facility] Creatinine [Mass/Vol] 0.95 mg/dL 0.40 - 1.10 [facility] GFR/1.73 sq M predicted among non-blacks MDRD (S/P/Bld) [Vol rate/Area] The eGFR should be used for monitoring renal function only and not for medication dosing. [facility] GFR/1.73 sq M.predicted CKD-EPI (S/P/Bld) [Vol rate/Area] 65 >=60 mL/min/1.73 m2 [facility] Glucose [Mass/Vol] 137 mg/dL High 65 - 99 mg/dL [facility] HCO3 [Moles/Vol] 25 mmol/L 21 - 32 mmol/L [facility] Interpretation and review of laboratory results Abnormal [facility] Potassium [Moles/Vol] 4.0 mmol/L 3.5 - 5.1 mmol/L [facility] Sodium [Moles/Vol] 141 mmol/L 135 - 145 mmol/L [facility] Urea nitrogen [Mass/Vol] 18 mg/dL 8 - 25 mg/dL [facility] Urea nitrogen/Creatinine [Mass ratio] 18.9 mg/mg [facility] POC Glucoseon 12-02-2019 Glucose [Mass/Vol] 142 mg/dL High 65 - 99 mg/dL [facility] Interpretation and review of laboratory results Abnormal [facility] Glucose [Mass/Vol] 118 mg/dL High 65 - 99 mg/dL [facility] Interpretation and review of laboratory results Abnormal [facility] Glucose [Mass/Vol] 119 mg/dL High 65 - 99 mg/dL [facility] Interpretation and review of laboratory results Abnormal [facility] Glucose [Mass/Vol] 156 mg/dL High 65 - 99 mg/dL [facility] Interpretation and review of laboratory results Abnormal [facility] Basic Metabolic Panelon Anion gap [Moles/Vol] 12 mmol/L 10 - 20 mmol/L [facility] Calcium [Mass/Vol] 8.8 mg/dL 8.4 - 10. 2 mg/dL [facility] Chloride [Moles/Vol] 109 mmol/L High 98 - 10 8 mmol/L [facility] Creatinine [Mass/Vol] 0.88 mg/dL 0.40 - 1.10 [facility] GFR/1.73 sq M predicted among non-blacks MDRD (S/P/Bld) [Vol rate/Area] The eGFR should be used for monitoring renal function only and not for medication dosing. [facility] GFR/1.73 sq M.predicted CKD-EPI (S/P/Bld) [Vol rate/Area] 72 >=60 mL/min/1.73 m2 [facility] Glucose [Mass/Vol] 127 mg/dL High 65 - 99 mg/dL [facility] HCO3 [Moles/Vol] 25 mmol/L 21 - 32 mmol/L [facility] Potassium [Moles/Vol] 4.2 mmol/L 3.5 - 5.1 mmol/L [facility] Sodium [Moles/Vol] 142 mmol/L 135 - 145 mmol/L [facility] Urea nitrogen [Mass/Vol] 20 mg/dL 8 - 25 mg/dL [facility] Urea nitrogen/Creatinine [Mass ratio] 22.7 mg/mg High [facility] ECG 12-LEADon 12-01-2019 Atrial Rate 78 BPM [facility] P Lucas 57 degrees [facility] Q-T Interval 494 ms [facility] QRS Duration 92 ms [facility] QTC Calculation (Bezet) 412 ms [facility] R Lucas 35 degrees [facility] T Lucas 41 degrees [facility] Ventricular Rate 42 BPM [facility] th Complete AV block. L ow voltage QRS Abnormal ECG Confirmed by Arun SALGADO, Lien ([id number]) on 12/01/2019 3:53:36 PM [facility] Atrial Rate 80 BPM [facility] P Lucas 50 degrees [facility] Q-T Interval 482 ms [facility] QRS Duration 88 ms [facility] QTC Calculation (Bezet) 407 ms [facility] R Lucas 12 degrees [facility] T Lucas 30 degrees [facility] Ventricular Rate 43 BPM [facility] Sinus rhythm with 2n d degree AV block with Premature atrial complexes Abnormal ECG Confirmed by Lien Ann MD ([id number]) on 12/01/2019 3:52:17 PM [facility] Otheron 12-01-2019 Interpretation and review of laboratory results Abnormal [facility] Urine Aerobic Cultureon Bacteria identified Aer cx Nom (Unsp spec) >100,000 CFU/mL Escherichia coli Abnormal [facility] Basic Metabolic Panelon Anion gap [Moles/Vol] 11 mmol/L 10 - 20 mmol/L [facility] Calcium [Mass/Vol] 8.5 mg/dL 8.4 - 10. 2 mg/dL [facility] Chloride [Moles/Vol] 109 mmol/L High 98 - 10 8 mmol/L [facility] Creatinine [Mass/Vol] 0.96 mg/dL 0.40 - 1.10 [facility] GFR/1.73 sq M predicted among non-blacks MDRD (S/P/Bld) [Vol rate/Area] The eGFR should be used for monitoring renal function only and not for medication dosing. [facility] GFR/1.73 sq M.predicted CKD-EPI (S/P/Bld) [Vol rate/Area] 64 >=60 mL/min/1.73 m2 [facility] Glucose [Mass/Vol] 176 mg/dL High 65 - 99 mg/dL [facility] HCO3 [Moles/Vol] 26 mmol/L 21 - 32 mmol/L [facility] Potassium [Moles/Vol] 3.9 mmol/L 3.5 - 5.1 mmol/L [facility] Sodium [Moles/Vol] 142 mmol/L 135 - 145 mmol/L [facility] Urea nitrogen [Mass/Vol] 26 mg/dL High 8 - 25 mg/dL [facility] Urea nitrogen/Creatinine [Mass ratio] 27.1 mg/mg High [facility] CCTA Heart (Messaging Architect manpreet baxter)on 11-30-2019 Calcium [Mass/Vol] 1. Total calcium sco re: 0 2. Non obstructive CAD identified with Coronary CT Angiography. There is 1-24% non calcific plaque in the proximal LCx (closer to 24%) CAD RADS (score): 1 RECOMMENDATIONS: CAD-RADS 1: (1-24% minimal stenosis). Consider non-atherosclerotic causes of chest pain. Consider preventive therapy and risk factor modification. [facility] Coronary Computed Angiography Report CPT code: 69720 Patient Name: Pura Laguerre Age: 59 y.o. Requesting Physician: Dr King Interpreting Messaging Architect: Lien Ann MD Primary Care Physician: Andrews Garcia Clinical Indication: bradycardia Gender: female Race/Ethnicity: White Cardiovascular risk factors: Hypertension, Hyperlipidemia and Diabetes Prior Imaging: None Procedure: Computed tomographic angiography with contrast, including 3D image post-processing (including evaluation of cardiac structures and morphology, assessment of cardiac function and evaluation of venous structures, if performed) BMI: 43 kg/msq HR: 39 BPM Acquisition mode: Prospective, ECG triggered Complications: None Image Quality: Good, No significant artifacts. Scanner: [employer] DLP 438.95 mGy 98cc [id number]. 0.4mg SL nitroglycerin administered prior to scan. Radiation dose reduction was achieved by using automated exposure control and or adjustments of mA and/or kV according to patient size and/or use of iterative reconstruction techniques. Coronary Calcium / Agatston scoring: LM: 0 RCA: 0 LAD: 0 LCX: 0 Total: 0 Percentile age/gender cohort: N/A percentile for age, gender and race/ethnicity-matched group per [place] database. Coronary Angiography: Left Main: The left main is a large diameter vessel with a normal take off from the left coronary cusp that bifurcates. There is no plaque or stenosis. Left anterior descending artery: The LAD there is mild non calcified plaque in the proximal and mid LAD. Distal LAD well visualized and patent. The LAD gives off one diagonal branch that is visualized and patent. Left circumflex artery: The LCx is non dominant. There is 1-24% non calcific plaque in the proximal LCx (closer to 24%) Mid and distal LCx without disease. The LCx gives off two obtuse marginal branches that are patent. Right coronary artery: The RCA is dominant with no evidence of plaque or stenosis. The RCA terminates as a PDA and right posteriorlateral branch without evidence of plaque or stenosis. Cardiac Morphology: Left atrium: Left atrial size is Normal Left Ventricle: The ventricular cavity size is within normal limits. There is no abnormal filling defects. Pulmonary Veins: Normal pulmonary venous drainage. Pericardium: Normal thickness with no significant effusion or calcification present. Cardiac valves: There is no thickening or calcification in the aortic and mitral valves. Aorta: Normal caliber of the portion of the thoracic aorta imaged. Mild vessel wall calcification in the descending aorta. PLEASE SEE SEPARATE RADIOLOGY REPORT FOR THE NONCARDIAC FINDINGS [facility] COVID-19, MOLECULARon 2019 SARS-COV-2 (KENNEDY ID) Not Detected Normal Not Detected [facility] Comment on above: Result Comment: This test was performed under the FDA's Emergency Use Authorization (EUA). Testing was performed using the Kennedy ID NOW COVID-19 assay on the ID NOW platform. This test has not been approved for use in asymptomatic patients and its performance in this patient population has not been evaluated. Negative results do not rule out the presence of SARS-CoV-2/COVID-19. Fact sheets for the EUA can be found at the following links: For Healthcare Providers: https://www.fda.gov/media/587169/download For Patients: https://www.fda.gov/media/243402/download Performed By: #### L [id number] #### [facility] [address], [place] [address] Riccardo Ricks M[address]D. [id number] CT CCTA HEART (FUEL OIL CLERK READ)on 11-30-2019 CT CCTA HEART (FUEL OIL CLERK READ) Coronary Computed Angiography Report CPT code: 23272 Patient Name: Pura Laguerre Age: 59 y.o. Requesting Physician: Dr King Interpreting Messaging Architect: Lien Ann MD Primary Care Physician: Andrews Garcia Clinical Indication: bradycardia Gender: female Race/Ethnicity: White Cardiovascular risk factors: Hypertension, Hyperlipidemia and Diabetes Prior Imaging: None Procedure: Computed tomographic angiography with contrast, including 3D image post-processing (including evaluation of cardiac structures and morphology, assessment of cardiac function and evaluation of venous structures, if performed) BMI: 43 kg/msq HR: 39 BPM Acquisition mode: Prospective, ECG triggered Complications: None Image Quality: Good, No significant artifacts. Scanner: [employer] DLP 438.95 mGy 98cc Isovue-370. 0.4mg SL nitroglycerin administered prior to scan. Radiation dose reduction was achieved by using automated exposure control and or adjustments of mA and/or kV according to patient size and/or use of iterative reconstruction techniques. Coronary Calcium / Agatston scoring: LM: 0 RCA: 0 LAD: 0 LCX: 0 Total: 0 Percentile age/gender cohort: N/A percentile for age, gender and race/ethnicity-matched group per [employer] database. Coronary Angiography: Left Main: The left main is a large diameter vessel with a normal take off from the left coronary cusp that bifurcates. There is no plaque or stenosis. Left anterior descending artery: The LAD there is mild non calcified plaque in the proximal and mid LAD. Distal LAD well visualized and patent. The LAD gives off one diagonal branch that is visualized and patent. Left circumflex artery: The LCx is non dominant. There is 1-24% non calcific plaque in the proximal LCx (closer to 24%) Mid and distal LCx without disease. The LCx gives off two obtuse marginal branches that are patent. Right coronary artery: The RCA is dominant with no evidence of plaque or stenosis. The RCA terminates as a PDA and right posteriorlateral branch without evidence of plaque or stenosis. Cardiac Morphology: Left atrium: Left atrial size is Normal Left Ventricle: The ventricular cavity size is within normal limits. There is no abnormal filling defects. Pulmonary Veins: Normal pulmonary venous drainage. Pericardium: Normal thickness with no significant effusion or calcification present. Cardiac valves: There is no thickening or calcification in the aortic and mitral valves. Aorta: Normal caliber of the portion of the thoracic aorta imaged. Mild vessel wall calcification in the descending aorta. PLEASE SEE SEPARATE RADIOLOGY REPORT FOR THE NONCARDIAC FINDINGS IMPRESSION: 1. Total calcium score: 0 2. Non obstructive CAD identified with Coronary CT Angiography. There is 1-24% non calcific plaque in the proximal LCx (closer to 24%) CAD RADS (score): 1 RECOMMENDATIONS: CAD-RADS 1: (1-24% minimal stenosis). Consider non-atherosclerotic causes of chest pain. Consider preventive therapy and risk factor modification. Dictated by: LIEN ANN on FriNov 30, 2019 1:46:55 PM EDT Transcribed by: LIEN ANN on FriNov 30, 2019 1:46:55 PM EDT Finalized by: LIEN ANN on FriNov 30, 2019 1:46:55 PM EDT Normal [facility] Comment on above: Order Comment: NPO s tatus not required for this exam however caffeine should be minimized prior to exam. CT CCTA HEART WITH AND WITHO UT CONTRASTon 11-30-2019 Interface, Rad In Antoni epifanio Waddellq - 11/30/2019 6:10 PM EDT EXAMINATION: CT CCTA HEART WITH AND WITHOUT CONTRAST HISTORY: ORDERING SYSTEM PROVIDED HISTORY: Dyspnea on exertion; heart block, TECHNOLOGIST PROVIDED HISTORY: Illness/Other Reason for exam: michel, heart block. supplemental read Encounter Type: Initial Additional signs and symptoms: ORDERING SYSTEM PROVIDED DIAGNOSIS CODES: R00.1 Sinus bradycardia N39.0 Acute UTI COMPARISON: None TECHNIQUE: CT imaging from the base of the heart to the apex before and after the administration of intravenous contrast. CT calcium score and CTA coronary protocol was utilized. Messaging Architect will interpret the CT calcium score and CTA coronary portion of the examination. Radiologist will interpret the extracardiac portion of the examination. Dose reduction techniques were achieved by using automated exposure control and/or adjustment of mA and/or kV according to patient size and/or use of iterative reconstruction technique. CONTRAST: IOPAMIDOL 76 % INTRAVENOUS SOLUTION - 100 mL, FINDINGS: MEDIASTINUM: Visualized airways are patent. Cardiomegaly. No pericardial effusion. The visualized thoracic aorta is normal in caliber without dissection. Main pulmonary artery is normal in caliber. No large or central pulmonary embolus. PLEURAL CAVITY: No pleural effusion. LUNGS: Visualized bilateral lungs demonstrate no definite nodules or infiltrate. VISUALIZED UPPER ABDOMEN:: No acute findings. BONES: No destructive lesions. Degenerative disc changes of the lower thoracic spine with endplate sclerosis and anterior bridging osteophytes. IMPRESSION: Degenerative disc changes of the lower thoracic spine. Otherwise unremarkable extracardiac examination. Please refer to separate report for dedicated cardiac findings. ST/Glow Workstation ID: [id number] [facility] Degenerative disc changes of the lower thoracic spine. Otherwise unremarkable extracardiac examination. Please refer to separate report for dedicated cardiac findings. [employer] Workstation ID: [id number] [facility] EXAMINATION: CT CCTA HEART WITH AND WITHOUT CONTRAST HISTORY: ORDERING SYSTEM PROVIDED HISTORY: Dyspnea on exertion; heart block, TECHNOLOGIST PROVIDED HISTORY: Illness/Other Reason for exam: michel, heart block. supplemental read Encounter Type: Initial Additional signs and symptoms: ORDERING SYSTEM PROVIDED DIAGNOSIS CODES: R00.1 Sinus bradycardia N39.0 Acute UTI COMPARISON: None TECHNIQUE: CT imaging from the base of the heart to the apex before and after the administration of intravenous contrast. CT calcium score and CTA coronary protocol was utilized. Messaging Architect will interpret the CT calcium score and CTA coronary portion of the examination. Radiologist will interpret the extracardiac portion of the examination. Dose reduction techniques were achieved by using automated exposure control and/or adjustment of mA and/or kV according to patient size and/or use of iterative reconstruction technique. CONTRAST: IOPAMIDOL 76 % INTRAVENOUS SOLUTION - 100 mL, FINDINGS: MEDIASTINUM: Visualized airways are patent. Cardiomegaly. No pericardial effusion. The visualized thoracic aorta is normal in caliber without dissection. Main pulmonary artery is normal in caliber. No large or central pulmonary embolus. PLEURAL CAVITY: No pleural effusion. LUNGS: Visualized bilateral lungs demonstrate no definite nodules or infiltrate. VISUALIZED UPPER ABDOMEN:: No acute findings. BONES: No destructive lesions. Degenerative disc changes of the lower thoracic spine with endplate sclerosis and anterior bridging osteophytes. [facility] CT CCTA HEART WITH AND WITHOUT CONTRAST EXAMINATION: CT CCTA HEART WITH AND WITHOUT CONTRAST HISTORY: ORDERING SYSTEM PROVIDED HISTORY: Dyspnea on exertion; heart block, TECHNOLOGIST PROVIDED HISTORY: Illness/Other Reason for exam: michel, heart block. supplemental read Encounter Type: Initial Additional signs and symptoms: ORDERING SYSTEM PROVIDED DIAGNOSIS CODES: R00.1 Sinus bradycardia N39.0 Acute UTI COMPARISON: None TECHNIQUE: CT imaging from the base of the heart to the apex before and after the administration of intravenous contrast. CT calcium score and CTA coronary protocol was utilized. Messaging Architect will interpret the CT calcium score and CTA coronary portion of the examination. Radiologist will interpret the extracardiac portion of the examination. Dose reduction techniques were achieved by using automated exposure control and/or adjustment of mA and/or kV according to patient size and/or use of iterative reconstruction technique. CONTRAST: IOPAMIDOL 76 % INTRAVENOUS SOLUTION - 100 mL, FINDINGS: MEDIASTINUM: Visualized airways are patent. Cardiomegaly. No pericardial effusion. The visualized thoracic aorta is normal in caliber without dissection. Main pulmonary artery is normal in caliber. No large or central pulmonary embolus. PLEURAL CAVITY: No pleural effusion. LUNGS: Visualized bilateral lungs demonstrate no definite nodules or infiltrate. VISUALIZED UPPER ABDOMEN:: No acute findings. BONES: No destructive lesions. Degenerative disc changes of the lower thoracic spine with endplate sclerosis and anterior bridging osteophytes. IMPRESSION: Degenerative disc changes of the lower thoracic spine. Otherwise unremarkable extracardiac examination. Please refer to separate report for dedicated cardiac findings. [email or web address]low Workstation ID: [id number] Dictated by: KARLEE WALKER on FriNov 30, 2019 12:42:05 PM EDT Transcribed by: ROSALIE CASSIDY on FriNov 30, 2019 1:26:29 PM EDT Finalized by: KARLEE WALKER on FriNov 30, 2019 6:07:45 PM EDT [facility] Comment on above: Order Comment: NPO s tatus not required for this exam however caffeine should be minimized prior to exam. Injury/Trauma or Illness?:Illness/Other How long have you had these symptoms (acute/chronic)?:Acute Reason for exam?:michel, heart block. supplemental read Type of Exam?:Initial Additional signs and symptoms?: ECHOCARDIOGRAM 2D COMPLETEon 11-30-2019 Aortic valve area 2.40148 cm [facility] AV mean gradient 7.49666 mmHg [facility] AV peak gradient 14.72 mmHg [facility] EF 68.3787 % [facility] Interface, Rad In [facility]ch[facility] - 11/30/2019 4:53 PM EDT Patient Info Name: PURA LAGUERRE Age: 59 years : 1960 Gender: Female Ht: 160 cm Wt: 109 kg BSA: 2.26 m2 HR: 42 bpm BP: 99 / 51 mmHg Heart Rhythm: Bradycardia Technical Quality: Fair Exam Date: 11/30/2019 2:13 PM Patient Status: Inpatient Pressure Supervisor: Sil Allred, EDMUNDCS, RVT Exam Type: ECHOCARDIOGRAM COMPLETE W CONTRAST Study Info Indications R06.00 - Dyspnea, unspecified Referring Physician: TONYA Boyle; [id number] BMI: 42.51 kg/m2 Summary 1. Left ventricular systolic function is normal with an ejection fraction by Biplane Method of Discs of 68 %. 2. The left ventricular diastolic function is normal. 3. Moderate left ventricular concentric hypertrophy. History/Risk Factors Hypertension: Yes Dyslipidemia: Yes Diabetes Mellitus: Yes Tobacco Use: Never History/Risk Factors Bradycardia, hypothyroid, DVT. Procedure(s): Complete two-dimensional, color flow and Doppler transthoracic echocardiogram is performed with contrast. Left Ventricle Left ventricular chamber dimension is normal. Left ventricular systolic function is normal with an ejection fraction by Biplane Method of Discs of 68 %. Moderate left ventricular concentric hypertrophy. The left ventricular diastolic function is normal. Right Ventricle Right ventricular chamber dimension is enlarged. Right ventricular systolic function is normal. Left Atria Left atrial chamber dimension is normal. Right Atria Right atrial chamber dimension is enlarged. Aortic Valve The aortic valve is trileaflet. There is no aortic valve sclerosis. There is no aortic valve stenosis with a peak velocity of 1.9 m/s, mean gradient of 8 mmHg, and aortic valve area of 2.18 cm2. There is no aortic valve regurgitation. Pulmonic Valve The pulmonic valve is normal. There is no pulmonic valve stenosis. There is trace pulmonic regurgitation. Mitral Valve The mitral valve has normal leaflets. There is no mitral valve stenosis. There is trace mitral valve regurgitation. Tricuspid Valve The tricuspid valve leaflets are normal. There is no significant tricuspid valve stenosis. There is trace tricuspid valve regurgitation. There is no pulmonary hypertension, estimated right ventricle systolic pressure is 26 mmHg. Pericardium/Pleural The pericardium appears normal. There is no pericardial effusion. Inferior Vena Cava Normal inferior vena cava with >50% collapse upon inspiration consistent with normal right atrial pressure. Aorta The aortic measurements are indexed to age and body surface area. The aortic root is normal measuring 3.07 cm with an index of 1.36 cm/m2. The prox ascending aorta is normal measuring 3.5 cm with an index of 1.56 cm/m2. Left Ventricular Outflow Tract - Name Value Normal - LVOT 2D - LVOT Diameter 1.92 cm LVOT Doppler - LVOT Peak Velocity 1.65 m/s LVOT Peak Gradient 11 mmHg LVOT Mean Gradient 4 mmHg LVOT VTI 33.61 cm LVOT VTI/AV VTI Ratio 0.75 LVOT Stroke Volume 97.49 ml LVOT Stroke Index 46.64 ml/m2 LVOT CO 3.70 l/min LVOT CI 1.64 L/min/m2 Pulmonic Valve - Name Value Normal - PV Doppler - PV Peak Velocity 1.16 m/s PV Peak Gradient 5 mmHg Mitral Valve - Name Value Normal - MV Doppler - MV Peak Velocity 1.72 m/s MV Peak Gradient 12 mmHg MV Mean Gradient 2 mmHg MV VTI 57.15 cm MV Decel Swisher 543.44 cm/s2 MV PHT 64 ms MV Area (PHT) 3.42 cm2 4.00-5.00 MV Area (Cont Eq VTI) 1.71 cm2 MV Area Index (Cont Eq VTI) 0.75 cm2/m2 MV Regurgitation Doppler - MR PISA Radius 0.56 cm MR PISA Alias Velocity 31.20 cm/s MV Diastolic Function - MV E Peak Velocity 1.21 m/s MV A Peak Velocity 0.95 m/s MV E/A 1.27 MV Decel Time 222 ms MV Annular TDI - MV Septal e' Velocity 11.92 cm/s >=8.00 MV E/e' (Septal) 10.11 <=8.00 MV Lateral e' Velocity 16.32 cm/s >=10.00 MV E/e' (Lateral) 7.39 <=8.00 MV e' Average 14.12 MV E/e' (Average) 8.75 Tricuspid Valve - Name Value Normal - TV Regurgitation Doppler - TR Peak Velocity 2.42 m/s TR Peak Gradient 10 mmHg Estimated PAP/RSVP - RA Pressure 3 mmHg <=5 PA Systolic Pressure 26 mmHg <=36 RV Systolic Pressure 26 mmHg <36 Aorta - Name Value Normal - Ascending Aorta - Ao Root Diameter (2D) 3.07 cm 2.70-3.30 Ao Root Diam Index (2D) 1.36 cm/m2 1.60-2.00 Prox Asc Ao Diameter 3.5 cm 2.3-3.1 Prox Asc Ao Diameter Index 1.56 cm/m2 1.30-1.90 Venous - Name Value Normal - IVC/SVC - IVC Diameter (Exp 2D) 1.44 cm <=2.10 Aortic Valve - Name Value Normal - AV Doppler - AV Peak Velocity 1.9 m/s AV Peak Gradient 15 mmHg AV Mean Gradient 8 mmHg AV VTI 44.74 cm AV Area (Cont Eq VTI) 2.18 cm2 AV Area Index (Cont Eq VTI) 1 cm2/m2 AV Area (Cont Eq Marcel) 2.49 cm2 AV Area Index (Cont Eq Marcel) 1 cm2/m2 LVOT Vmax/AV Vmax 0.86 LVOT VTI/AV VTI Ratio 0.75 AV Regurgitation 2D - LVOT Area 2.90 cm2 Ventricles - Name Value Normal - LV Dimensions 2D/MM - IVS Diastolic Thickness (2D) 1.58 cm 0.60-0.90 LVID Diastole (2D) 4.36 cm 3.80-5.20 LVIW Diastolic Thickness (2D) 1.37 cm 0.60-0.90 LVID Systole (2D) 3.19 cm 2.20-3.50 LVOT Diameter 1.92 cm LV Mass (2D Cubed) 257 g 67-162 LV Mass Index (2D Cubed) 114 g/m2 43-95 Relative Wall Thickness (2D) 0.63 <=0.42 LV Fractional Shortening/Ejection Fraction 2D/MM - LV Fractional Shortening (2D) 27 % 27-45 LV EF (2D Teicholz) 53 % 54-74 LV Diastolic Volume (4C MOD) 105 ml LV Systolic Volume (4C MOD) 34 ml LV EF (4C MOD) 67 % LV Diastolic Volume (2C MOD) 109 ml LV Systolic Volume (2C MOD) 25 ml LV EF (2C MOD) 77 % LV Diastolic Volume (BP MOD) 101.69 ml 46.00-106.00 LV Diastolic Volume Index (BP MOD) 44.99 ml/m2 29.00-61.00 LV Systolic Volume (BP MOD) 32.15 ml 14.00-42.00 LV Systolic Volume Index (BP MOD) 14.23 ml/m2 8.00-24.00 LV EF (BP MOD) 68 % 55-70 LV Diastolic Length (4C) 7.43 cm LV Systolic Length (4C) 5.80 cm LV Stroke Volume (4C MOD) 70.94 ml RV Dimensions 2D/MM - RV Basal Diastolic Dimension 4.44 cm 2.50-4.10 TAPSE 3.60 cm >=1.70 RV Systolic Function - RV s' Velocity 0.20 m/s 0.10-0.19 Atria - Name Value Normal - LA Dimensions - LA Volume (4C MOD) 50.00 ml LA Volume (2C MOD) 63.84 ml LA Volume (4C A-L) 52.66 ml LA Volume (2C A-L) 66.78 ml LA Volume (BP A-L) 62.71 ml LA Volume Index (BP A-L) 27.74 ml/m2 <=34.00 LA Volume (BP MOD) 59.63 ml LA Volume Index (BP MOD) 26.38 ml/m2 16.00-34.00 RA Dimensions - RA Systolic Major Lucas Length (4C) 4.98 cm <=5.30 RA Area (4C) 21.80 cm2 <=18.00 RA Area (4C) Index 9.64 cm2/m2 RA ESV (4C MOD) 75.20 ml 15.00-27.00 RA ESV Index (4C MOD) 33.27 ml/m2 <=27.00 Report Signatures Finalized by Tammy Goode MD on 11/30/2019 04:52 PM [facility] Patient Info Name: PURA LAGUERRE Age: 59 years : 1960 Gender: Female Ht: 160 cm Wt: 109 kg BSA: 2.26 m2 HR: 42 bpm BP: 99 / 51 mmHg Heart Rhythm: Bradycardia Technical Quality: Fair Exam Date: 11/30/2019 2:13 PM Patient Status: Inpatient Pressure Supervisor: Sil Allred, YUE, RVT Exam Type: ECHOCARDIOGRAM COMPLETE W CONTRAST Study Info Indications R06.00 - Dyspnea, unspecified Referring Physician: TONYA Boyle; [id number] BMI: 42.51 kg/m2 Summary 1. Left ventricular systolic function is normal with an ejection fraction by Biplane Method of Discs of 68 %. 2. The left ventricular diastolic function is normal. 3. Moderate left ventricular concentric hypertrophy. History/Risk Factors Hypertension: Yes Dyslipidemia: Yes Diabetes Mellitus: Yes Tobacco Use: Never History/Risk Factors Bradycardia, hypothyroid, DVT. Procedure(s): Complete two-dimensional, color flow and Doppler transthoracic echocardiogram is performed with contrast. Left Ventricle Left ventricular chamber dimension is normal. Left ventricular systolic function is normal with an ejection fraction by Biplane Method of Discs of 68 %. Moderate left ventricular concentric hypertrophy. The left ventricular diastolic function is normal. Right Ventricle Right ventricular chamber dimension is enlarged. Right ventricular systolic function is normal. Left Atria Left atrial chamber dimension is normal. Right Atria Right atrial chamber dimension is enlarged. Aortic Valve The aortic valve is trileaflet. There is no aortic valve sclerosis. There is no aortic valve stenosis with a peak velocity of 1.9 m/s, mean gradient of 8 mmHg, and aortic valve area of 2.18 cm2. There is no aortic valve regurgitation. Pulmonic Valve The pulmonic valve is normal. There is no pulmonic valve stenosis. There is trace pulmonic regurgitation. Mitral Valve The mitral valve has normal leaflets. There is no mitral valve stenosis. There is trace mitral valve regurgitation. Tricuspid Valve The tricuspid valve leaflets are normal. There is no significant tricuspid valve stenosis. There is trace tricuspid valve regurgitation. There is no pulmonary hypertension, estimated right ventricle systolic pressure is 26 mmHg. Pericardium/Pleural The pericardium appears normal. There is no pericardial effusion. Inferior Vena Cava Normal inferior vena cava with >50% collapse upon inspiration consistent with normal right atrial pressure. Aorta The aortic measurements are indexed to age and body surface area. The aortic root is normal measuring 3.07 cm with an index of 1.36 cm/m2. The prox ascending aorta is normal measuring 3.5 cm with an index of 1.56 cm/m2. Left Ventricular Outflow Tract - Name Value Normal - LVOT 2D - LVOT Diameter 1.92 cm LVOT Doppler - LVOT Peak Velocity 1.65 m/s LVOT Peak Gradient 11 mmHg LVOT Mean Gradient 4 mmHg LVOT VTI 33.61 cm LVOT VTI/AV VTI Ratio 0.75 LVOT Stroke Volume 97.49 ml LVOT Stroke Index 46.64 ml/m2 LVOT CO 3.70 l/min LVOT CI 1.64 L/min/m2 Pulmonic Valve - Name Value Normal - PV Doppler - PV Peak Velocity 1.16 m/s PV Peak Gradient 5 mmHg Mitral Valve - Name Value Normal - MV Doppler - MV Peak Velocity 1.72 m/s MV Peak Gradient 12 mmHg MV Mean Gradient 2 mmHg MV VTI 57.15 cm MV Decel Swisher 543.44 cm/s2 MV PHT 64 ms MV Area (PHT) 3.42 cm2 4.00-5.00 MV Area (Cont Eq VTI) 1.71 cm2 MV Area Index (Cont Eq VTI) 0.75 cm2/m2 MV Regurgitation Doppler - MR PISA Radius 0.56 cm MR PISA Alias Velocity 31.20 cm/s MV Diastolic Function - MV E Peak Velocity 1.21 m/s MV A Peak Velocity 0.95 m/s MV E/A 1.27 MV Decel Time 222 ms MV Annular TDI - MV Septal e' Velocity 11.92 cm/s >=8.00 MV E/e' (Septal) 10.11 <=8.00 MV Lateral e' Velocity 16.32 cm/s >=10.00 MV E/e' (Lateral) 7.39 <=8.00 MV e' Average 14.12 MV E/e' (Average) 8.75 Tricuspid Valve - Name Value Normal - TV Regurgitation Doppler - TR Peak Velocity 2.42 m/s TR Peak Gradient 10 mmHg Estimated PAP/RSVP - RA Pressure 3 mmHg <=5 PA Systolic Pressure 26 mmHg <=36 RV Systolic Pressure 26 mmHg <36 Aorta - Name Value Normal - Ascending Aorta - Ao Root Diameter (2D) 3.07 cm 2.70-3.30 Ao Root Diam Index (2D) 1.36 cm/m2 1.60-2.00 Prox Asc Ao Diameter 3.5 cm 2.3-3.1 Prox Asc Ao Diameter Index 1.56 cm/m2 1.30-1.90 Venous - Name Value Normal - IVC/SVC - IVC Diameter (Exp 2D) 1.44 cm <=2.10 Aortic Valve - Name Value Normal - AV Doppler - AV Peak Velocity 1.9 m/s AV Peak Gradient 15 mmHg AV Mean Gradient 8 mmHg AV VTI 44.74 cm AV Area (Cont Eq VTI) 2.18 cm2 AV Area Index (Cont Eq VTI) 1 cm2/m2 AV Area (Cont Eq Marcel) 2.49 cm2 AV Area Index (Cont Eq Marcel) 1 cm2/m2 LVOT Vmax/AV Vmax 0.86 LVOT VTI/AV VTI Ratio 0.75 AV Regurgitation 2D - LVOT Area 2.90 cm2 Ventricles - Name Value Normal - LV Dimensions 2D/MM - IVS Diastolic Thickness (2D) 1.58 cm 0.60-0.90 LVID Diastole (2D) 4.36 cm 3.80-5.20 LVIW Diastolic Thickness (2D) 1.37 cm 0.60-0.90 LVID Systole (2D) 3.19 cm 2.20-3.50 LVOT Diameter 1.92 cm LV Mass (2D Cubed) 257 g 67-162 LV Mass Index (2D Cubed) 114 g/m2 43-95 Relative Wall Thickness (2D) 0.63 <=0.42 LV Fractional Shortening/Ejection Fraction 2D/MM - LV Fractional Shortening (2D) 27 % 27-45 LV EF (2D Teicholz) 53 % 54-74 LV Diastolic Volume (4C MOD) 105 ml LV Systolic Volume (4C MOD) 34 ml LV EF (4C MOD) 67 % LV Diastolic Volume (2C MOD) 109 ml LV Systolic Volume (2C MOD) 25 ml LV EF (2C MOD) 77 % LV Diastolic Volume (BP MOD) 101.69 ml 46.00-106.00 LV Diastolic Volume Index (BP MOD) 44.99 ml/m2 29.00-61.00 LV Systolic Volume (BP MOD) 32.15 ml 14.00-42.00 LV Systolic Volume Index (BP MOD) 14.23 ml/m2 8.00-24.00 LV EF (BP MOD) 68 % 55-70 LV Diastolic Length (4C) 7.43 cm LV Systolic Length (4C) 5.80 cm LV Stroke Volume (4C MOD) 70.94 ml RV Dimensions 2D/MM - RV Basal Diastolic Dimension 4.44 cm 2.50-4.10 TAPSE 3.60 cm >=1.70 RV Systolic Function - RV s' Velocity 0.20 m/s 0.10-0.19 Atria - Name Value Normal - LA Dimensions - LA Volume (4C MOD) 50.00 ml LA Volume (2C MOD) 63.84 ml LA Volume (4C A-L) 52.66 ml LA Volume (2C A-L) 66.78 ml LA Volume (BP A-L) 62.71 ml LA Volume Index (BP A-L) 27.74 ml/m2 <=34.00 LA Volume (BP MOD) 59.63 ml LA Volume Index (BP MOD) 26.38 ml/m2 16.00-34.00 RA Dimensions - RA Systolic Major Lucas Length (4C) 4.98 cm <=5.30 RA Area (4C) 21.80 cm2 <=18.00 RA Area (4C) Index 9.64 cm2/m2 RA ESV (4C MOD) 75.20 ml 15.00-27.00 RA ESV Index (4C MOD) 33.27 ml/m2 <=27.00 Report Signatures Finalized by Tammy Goode MD on 11/30/2019 04:52 PM [facility] EKGon 11-30-2019 Ordered by an unspecified provider. [facility] NT proBNPon 11-30-2019 Natriuretic peptide.B prohormone N-Terminal [Mass/Vol] 1874 pg/mL High 0 - 300 pg/mL [facility] Pride Study Cut-offs Rule In: < /= 50 Years >450 pg/mL 51 Years - 75 Years >900 pg/mL 76 Years - 99 Years >1800 pg/mL Rule Out: All patients <300 pg/mL [facility] Otheron 11-30-2019 Interpretation and review of laboratory results Abnormal [facility] POC Glucoseon 11-30-2019 Glucose [Mass/Vol] 164 mg/dL High 65 - 99 mg/dL [facility] Interpretation and review of laboratory results Abnormal [facility] Glucose [Mass/Vol] 163 mg/dL High 65 - 99 mg/dL [facility] Interpretation and review of laboratory results Abnormal [facility] TSH with Reflex Free T4on Interpretation and review of laboratory results Normal [facility] TSH Qn 3.93 m[IU]/L [facility] CBC WITH AUTO DIFFERENTIALon 11-29-2019 Basophils (Bld) [#/Vol] 0.05 10*3/uL [facility] Basophils/100 WBC (Bld) 0.5 % [facility] Eosinophils (Bld) [#/Vol] 0.27 10*3/uL [facility] Eosinophils/100 WBC (Bld) 2.7 % [facility] Erythrocyte distribution width (RBC) [Entitic vol] 14.4 % 11.6 - 14.8 % [facility] Hematocrit (Bld) [Volume fraction] 40.3 % 36 - 46 % [facility] Hemoglobin (Bld) [Mass/Vol] 12.3 g/dL 12 - 16 g/dL [facility] Immature granulocytes (Bld) [#/Vol] 0.03 10*3/uL [facility] Immature granulocytes/100 WBC (Bld) 0.30 % [facility] Comment on above: The IG parameter is the percentage of metamyelocytes, myelocytes and promyelocytes. An immature granulocyte count (IG) of 1% or more suggests the possibility of infection, an IG count of 3% is very likely related to an infection. Interpretation and review of laboratory results Abnormal [facility] Lymphocytes (Bld) [#/Vol] 2.97 10*3/uL [facility] Lymphocytes/100 WBC (Bld) 29.7 % [facility] MCH (RBC) [Entitic mass] 27.2 pg 26 - 34 pg [facility] MCHC (RBC) [Mass/Vol] 30.5 g/dL Low 31 - 37 g/dL [facility] MCV (RBC) [Entitic vol] 89.0 fL 80 - 100 fL [facility] Monocytes (Bld) [#/Vol] 0.62 10*3/uL [facility] Monocytes/100 WBC (Bld) 6.2 % [facility] Neutrophils (Bld) [#/Vol] 6.05 10*3/uL [facility] Neutrophils/100 WBC (Bld) 60.6 % [facility] Nucleated RBC (Bld) [#/Vol] 0.00 10*3/uL [facility] Nucleated RBC/100 WBC (Bld) [Ratio] 0.0 % [facility] Platelet mean volume (Bld) [Entitic vol] 9.7 fL 9.4 - 12.4 fL [facility] Platelets (Bld) [#/Vol] 265 10*3/uL [facility] RBC (Bld) [#/Vol] 4.53 10*6/uL [facility] WBC (Bld) [#/Vol] 9.99 10*3/uL [facility] COVID-19, Molecular2019 Interpretation and review of laboratory results Normal [facility] SARS-CoV-2 Not Detected Not Detected [facility] Comment on above: This test was perfor med under the FDA's Emergency Use Authorization (EUA). Testing was performed using the [employer] ID NOW COVID-19 assay on the ID NOW platform. This test has not been approved for use in asymptomatic patients and its performance in this patient population has not been evaluated. Negative results do not rule out the presence of SARS-CoV-2/COVID-19. Fact sheets for the EUA can be found at the following links: For Healthcare Providers: https://www.fda.gov/media/992203/download For Patients: https://www.fda.gov/media/581014/download Chem 11-29-2019 Anion gap [Moles/Vol] 12 mmol/L 10 - 20 mmol/L [facility] Chloride [Moles/Vol] 107 mmol/L 98 - 10 8 mmol/L [facility] Creatinine [Mass/Vol] 1.07 mg/dL 0.40 - 1.10 [facility] GFR/1.73 sq M predicted among non-blacks MDRD (S/P/Bld) [Vol rate/Area] The eGFR should be used for monitoring renal function only and not for medication dosing. [facility] GFR/1.73 sq M.predicted CKD-EPI (S/P/Bld) [Vol rate/Area] 57 Low >=60 mL/min/1.73 m2 [facility] Glucose [Mass/Vol] 95 mg/dL 65 - 99 mg/dL [facility] HCO3 [Moles/Vol] 26 mmol/L 21 - 32 mmol/L [facility] Potassium [Moles/Vol] 4.0 mmol/L 3.5 - 5.1 mmol/L [facility] Sodium [Moles/Vol] 141 mmol/L 135 - 145 mmol/L [facility] Urea nitrogen [Mass/Vol] 29 mg/dL High 8 - 25 mg/dL [facility] Urea nitrogen/Creatinine [Mass ratio] 27.1 mg/mg High [facility] NT Pro BNPon 11-29-2019 Natriuretic peptide.B prohormone N-Terminal [Mass/Vol] 1702 pg/mL High 0 - 300 pg/mL [facility] Pride Study Cut-offs Rule In: < /= 50 Years >450 pg/mL 51 Years - 75 Years >900 pg/mL 76 Years - 99 Years >1800 pg/mL Rule Out: All patients <300 pg/mL [facility] Otheron 11-29-2019 Interpretation and review of laboratory results Abnormal [facility] TROPONINon 11-29-2019 Troponin I.cardiac [Mass/Vol] ng/mL <=45 ng/L [facility] Troponin I.cardiac [Mass/Vol] Normal [facility] URINALYSISon 11-29-2019 Bacteria Auto Ql (U) Many Abnormal None Se en /hpf [facility] Bilirubin Ql (U) Negative Negative [facility] th Clarity Refractometry automated (U) Cloudy Abnormal Clear [facility] Color (U) Yellow Colorless, Yellow [facility] Epithelial cells.squamous Auto (Urine sed) [#/Area] 2 [facility] Glucose Auto test strip (U) [Mass/Vol] Negative Negative mg/dL [facility] Hemoglobin Auto test strip Ql (U) Small Abnormal Negative [facility] Interpretation and review of laboratory results Abnormal [facility] Ketones (U) [Mass/Vol] Negative Negative mg/dL [facility] Leukocyte clumps Auto (Urine sed) [#/Area] Rare Abnormal None Seen /hpf [facility] Leukocyte esterase Auto test strip Ql (U) Large Abnormal Negative [facility] Mucus Auto (Urine sed) [#/Area] Rare None Seen, Rare /lpf [facility] Nitrite Auto test strip Ql (U) Negative Negative [facility] pH (U) 5.0 [pH] [facility] Protein (U) [Mass/Vol] Negative Negative mg/dL [facility] RBC Auto (Urine sed) [#/Area] 4 High [facility] Specific gravity (U) [Rel density] 1.015 [facility] Urobilinogen (U) [Mass/Vol] <2.0 <2.0 mg/dL [facility] WBC Auto (Urine sed) [#/Area] 149 High [facility] Microscopic examinat ion is performed on all urinalysis samples and only positive findings are reported. The test for blood on the chemical analytic portion of urinalysis may also be positive due to hemoglobinuria and myoglobinuria and if red blood cells are present they are quantified by microscopic examination. [facility] XR CHEST PA/APon 11-29-2019 XR CHEST PA/AP EXAMINATION: XR CHEST PA/AP 11/29/2019 6:24 pm HISTORY: ORDERING SYSTEM PROVIDED HISTORY: dizziness, sob, TECHNOLOGIST PROVIDED HISTORY: Illness/Other Reason for exam: bradycardia Cancer History: u Surgery, RadiationHistory: u Encounter Type: Initial Additional signs and symptoms: fatigue ORDERING SYSTEM PROVIDED DIAGNOSIS CODES: COMPARISON: 05/09/2016 FINDINGS: Lines and tubes: None Lungs: No pneumothorax, pleural effusion, or consolidation. The lungs are clear. Cardiomediastinal silhouette: Mild cardiomegaly. Bones and soft tissues: No acute findings. IMPRESSION: No acute cardiopulmonary findings. Mild cardiomegaly. Workstation ID: [id number] Dictated by: AP ECHEVARRIA on FriNov 29, 2019 7:52:06 PM EDT Transcribed by: AP ECHEVARRIA on FriNov 29, 2019 7:52:06 PM EDT Finalized by: AP ECHEVARRIA on FriNov 29, 2019 7:52:06 PM EDT [facility] Comment on above: Order Comment: Injur y/Trauma or Illness?:Illness/Other How long have you had these symptoms (acute/chronic)?:Acute Reason for exam?:bradycardia History of cancer?:u Surgeries, chemotherapy, or radiation?:u Type of Exam?:Initial Additional signs and symptoms?:fatigue XR Chest 1 Viewon 11-29-2019 Interface, Rad In Fu ji Speechq - 11/29/2019 7:54 PM EDT EXAMINATION: XR CHEST PA/AP 11/29/2019 6:24 pm HISTORY: ORDERING SYSTEM PROVIDED HISTORY: dizziness, sob, TECHNOLOGIST PROVIDED HISTORY: Illness/Other Reason for exam: bradycardia Cancer History: u Surgery, RadiationHistory: u Encounter Type: Initial Additional signs and symptoms: fatigue ORDERING SYSTEM PROVIDED DIAGNOSIS CODES: COMPARISON: 05/09/2016 FINDINGS: Lines and tubes: None Lungs: No pneumothorax, pleural effusion, or consolidation. The lungs are clear. Cardiomediastinal silhouette: Mild cardiomegaly. Bones and soft tissues: No acute findings. IMPRESSION: No acute cardiopulmonary findings. Mild cardiomegaly. Workstation ID: [id number] [facility] EXAMINATION: XR CHES T PA/AP 11/29/2019 6:24 pm HISTORY: ORDERING SYSTEM PROVIDED HISTORY: dizziness, sob, TECHNOLOGIST PROVIDED HISTORY: Illness/Other Reason for exam: bradycardia Cancer History: u Surgery, RadiationHistory: u Encounter Type: Initial Additional signs and symptoms: fatigue ORDERING SYSTEM PROVIDED DIAGNOSIS CODES: COMPARISON: 05/09/2016 FINDINGS: Lines and tubes: None Lungs: No pneumothorax, pleural effusion, or consolidation. The lungs are clear. Cardiomediastinal silhouette: Mild cardiomegaly. Bones and soft tissues: No acute findings. [facility] No acute cardiopulmonary findings. Mild cardiomegaly. Workstation ID: [id number] [facility] XR Knee Complete Righton XR Knee Complete Right Exam Date/Time: 11/06/2018 14:24 EDT Reason for Exam: acute pain of right knee Report STUDY: XR Knee Complete Right; 11/06/2018 2:24 pm INDICATION: acute pain of right knee. COMPARISON: None. ACCESSION NUMBER(S): [id number] ORDERING CLINICIAN: Andrews Garcia TECHNIQUE: 4 views of the right knee including AP, lateral and bilateral oblique projections were obtained. FINDINGS: The patient is status post ACL repair. There is no evidence of acute fracture or dislocation identified. Moderate joint space narrowing and small to moderate marginal osteophytes are seen in the lateral compartment. Mild degenerative changes are seen in the medial and patellofemoral compartments. No suprapatellar joint effusion is present. IMPRESSION: 1. No acute fracture or dislocation. 2. Postoperative and degenerative changes, as described above. FINAL REPORT Dictated: 11/07/2018 1:02 pm Higinio Cedeno MD Signed (Electronic Signature): 11/07/2018 1:02 pm Signed by: Higinio Cedeno MD Technologist: [facility] Vital Signs Date Time Vital Sign Value Performing Clinician Facility 05-29-2023 09:00-0500 Heart rate 63 /min JACEY THORNTON MD [address] [place] [address] 05-29-2023 08:00-0500 Heart rate 61 /min JCAEY THORNTON MD [address] [place] [address] 05-29-2023 07:11-0500 Blood Pressure Cuff Size JACEY THORNTON MD [address] [place] [address] 05-29-2023 07:11-0500 Blood Pressure Location JACEY THORNTON MD [address] [place] [address] 05-29-2023 07:11-0500 Blood Pressure Method JACEY THORNTON MD [address] [place] [address] 05-29-2023 07:11-0500 Body temperature 98.06 [degF] JACEY THORNTON MD [address] [place] [address] 05-29-2023 07:11-0500 Diastolic Blood Pressure Non-Invasive 61 mm[Hg] JACEY THORNTON MD [address] [place] [address] 05-29-2023 07:11-0500 Heart rate 60 /min JACEY THORNTON MD [address] [place] [address] 05-29-2023 07:11-0500 Reason For Taking VItal Signs JACEY THORNTON MD [address] [place] [address] 05-29-2023 07:11-0500 Respiratory rate 18 /min JACEY THORNTON MD [address] [place] [address] 05-29-2023 07:11-0500 Systolic Blood Pressure Non-Invasive 108 mm[Hg] JACEY THORNTON MD [address] [place] [address] 05-29-2023 06:49-0500 Body weight 101 kg JCAEY THORNTON MD [address] [place] [address] 05-29-2023 03:38-0500 Blood Pressure Cuff Size JACEY THORNTON MD [address] [place] [address] 05-29-2023 03:38-0500 Blood Pressure Location JACEY THORNTON MD [address] [place] [address] 05-29-2023 03:38-0500 Blood Pressure Method JACEY THORNTON MD [address] [place] [address] 05-29-2023 03:38-0500 Body temperature 98.06 [degF] JACEY THORNTON MD [address] [place] [address] 05-29-2023 03:38-0500 Diastolic Blood Pressure Non-Invasive 59 mm[Hg] JACEY THORNTON MD [address] [place] [address] 05-29-2023 03:38-0500 Mean blood pressure 70 mm[Hg] JACEY THORNTON MD [address] [place] [address] 05-29-2023 03:38-0500 Reason For Taking VItal Signs JACEY THORNTON MD [address] [place] [address] 05-29-2023 03:38-0500 Respiratory rate 16 /min JACEY THORNTON MD [address] [place] [address] 05-29-2023 03:38-0500 Systolic Blood Pressure Non-Invasive 95 mm[Hg] JACEY THORNTON MD [address] [place] [address] 05-29-2023 00:47-0500 Blood Pressure Cuff Size JACEY THORNTON MD [address] [place] [address] 05-29-2023 00:47-0500 Blood Pressure Location JACEY THORNTON MD [address] [place] [address] 05-29-2023 00:47-0500 Blood Pressure Method JACEY THORNTON MD [address] [place] [address] 05-29-2023 00:47-0500 Body temperature 97.88 [degF] JACEY THORNTON MD [address] [place] [address] 05-29-2023 00:47-0500 Diastolic Blood Pressure Non-Invasive 59 mm[Hg] JACEY THORNTON MD [address] [place] [address] 05-29-2023 00:47-0500 Mean blood pressure 62 mm[Hg] JACEY THORNTON MD [address] [place] [address] 05-29-2023 00:47-0500 Reason For Taking VItal Signs JACEY THORNTON MD [address] [place] [address] 05-29-2023 00:47-0500 Respiratory rate 18 /min JACEY THORNTON MD [address] [place] [address] 05-29-2023 00:47-0500 Systolic Blood Pressure Non-Invasive 80 mm[Hg] JACEY THORNTON MD [address] [place] [address] 05-28-2023 19:03-0500 Mean blood pressure 97 mm[Hg] JACEY THORNTON MD [address] [place] [address] 05-26-2023 17:27-0500 Body height 160 cm JACEY THORNTON MD [address] [place] [address] 05-26-2023 17:27-0500 Body weight 102.3 kg JACEY THORNTON MD [address] [place] [address] 05-26-2023 17:27-0500 Body weight 39.96 kg/m2 JACEY THORNTON MD [address] [place] [address] 05-26-2023 13:20-0500 Body temperature 96.98 [degF] JACEY THORNTON MD [address] [place] [address] 05-26-2023 13:10-0500 Respiratory Rate - Anes 6 br/min JACEY THORNTON MD [address] [place] [address] 05-26-2023 13:05-0500 Respiratory Rate - Anes 28 br/min JACEY THORNTON MD [address] [place] [address] 05-26-2023 13:00-0500 Respiratory Rate - Anes 11 br/min JACEY THORNTON MD [address] [place] [address] 05-26-2023 09:34-0500 Body height 160 cm JACEY THORNTON MD [address] [place] [address] 05-26-2023 09:34-0500 Body temperature 96.62 [degF] JACEY THORNTON MD [address] [place] [address] 05-26-2023 09:34-0500 Body weight 102.3 kg JACEY THORNTON MD [address] [place] [address] 05-26-2023 09:34-0500 Body weight 39.96 kg/m2 JACEY THORNTON MD [address] [place] [address] 05-26-2023 09:34-0500 Heart rate 80 /min JACEY THORNTON MD [address] [place] [address] 05-26-2023 09:31-0500 Body weight 39.96 kg/m2 JACEY THORNTON MD [address] [place] [address] 03-15-2023 13:48-0500 Body temperature 97.39 [degF] Graeme Athy PA-C Work Phone: [facility] 03-15-2023 13:48-0500 Body weight 103.69 kg Graeme Athy PA-C Work Phone: [facility] 03-15-2023 13:48-0500 Diastolic blood pressure 80 mm[Hg] Graeme Athy PA-C Work Phone: [facility] 03-15-2023 13:48-0500 Heart rate 93 /min Graeme Athy PA-C Work Phone: [facility] 03-15-2023 13:48-0500 Respiratory rate 18 /min Graeme Athy PA-C Work Phone: [facility] 03-15-2023 13:48-0500 SaO2% (BldA) [Mass fraction] 97 % Graeme AVILA-Nelson Work Phone: [facility] 03-15-2023 13:48-0500 Systolic blood pressure 104 mm[Hg] Graeme Maia AVILA-Nelson Work Phone: [facility] 07-22-2021 14:16-0400 Body temperature 98.4 [degF] Emily Rosas APRN.SKIN SPECIALIST Work Phone: [facility] 07-22-2021 14:16-0400 Body weight 104.15 kg Emily Rosas APRN.SKIN SPECIALIST Work Phone: [facility] 07-22-2021 14:16-0400 Diastolic blood pressure 80 mm[Hg] Emily Rosas APRN.SKIN SPECIALIST Work Phone: [facility] 07-22-2021 14:16-0400 Heart rate 90 /min Emily Rosas APRN.SKIN SPECIALIST Work Phone: [facility] 07-22-2021 14:16-0400 Respiratory rate 18 /min Emily Rosas APRN.SKIN SPECIALIST Work Phone: [facility] 07-22-2021 14:16-0400 SaO2% (BldA) [Mass fraction] 98 % Emily Rosas APRN.SKIN SPECIALIST Work Phone: [facility] 07-22-2021 14:16-0400 Systolic blood pressure 128 mm[Hg] Emily Rosas APRN.SKIN SPECIALIST Work Phone: [facility] 03-09-2020 15:13-0500 [facility] 15:13-0500 Heart rate [id number] [facility] 15:13-0500 [id number] [facility] 03-09-2020 15:13-0500 Heart rate Pacemaker Lois Griffithnicol [facility] 03-09-2020 15:13-0500 Heart rate [id number] /min [facility] 12-09-2019 11:37-0400 Body Temperature 98.1 [degF] [facility] 12-09-2019 11:37-0400 BP Diastolic 79 mm[Hg] [facility] 12-09-2019 11:37-0400 BP Systolic 113 mm[Hg] [facility] 12-09-2019 11:37-0400 Pulse (Heart Rate) 74 /min [facility] 12-09-2019 11:37-0400 Pulse Oximetry 99 % [facility] 12-09-2019 11:37-0400 Respiratory Rate 16 /min [facility] 12-09-2019 05:53-0400 BMI (Body Mass Index) 42.76 kg/m2 [facility] 12-09-2019 05:53-0400 Body weight 109.5 kg [facility] Comment on above: standing 11-29-2019 19:20-0400 Height 160 cm [facility] Encounters Encounter Date Encounter Type Care Provider Facility Start: 12-04-2023 End: 12-04-2023 ambulatory BEENA BURGOS MD Facility:A Start: 12-04-2023 End: 12-04-2023 Patient encounter procedure ABDIEL ZARAGOZA MD [facility] Start: 11-19-2023 ambulatory ABDIEL ZARAGOZA MD Facili ty:A Start: 05-26-2023 End: 05-29-2023 Evaluation and management of inpatient JACEY THORNTON MD [facility] Start: 03-15-2023 End: 03-15-2023 ambulatory BEENA BURGOS Facility:[facility] Start: 03-15-2023 End: 03-15-2023 Patient encounter procedure Graeme Easton PA-C Work Phone: [facility] Comment on above: Acute cough (Primary Dx); Bacterial external ear infection, right Start: 10-21-2022 End: 10-21-2022 ambulatory BEENA BURGOS Facility:[facility] Start: 07-22-2021 End: 07-22-2021 Patient encounter procedure Emily Rosas TATUM Work Phone: [facility] Comment on above: Cough (Primary Dx) Start: 04-25-2020 End: 04-26-2020 Patient encounter procedure [facility] Start: 04-22-2020 End: 04-24-2020 Patient encounter procedure [facility] Start: 03-09-2020 End: 03-10-2020 Patient encounter procedure [facility] Start: 03-09-2020 End: 03-09-2020 Subsequent hospital visit by physician Lois Reinoso Work Phone: [facility] Comment on above: Pacemaker Start: 01-30-2020 End: 01-31-2020 Patient encounter procedure [facility] Start: 01-29-2020 End: 01-29-2020 Subsequent hospital visit by physician Delta Downey Work Phone: [facility] Comment on above: Arrived Start: 12-16-2019 End: 12-16-2019 Patient encounter procedure [facility] Start: 12-15-2019 End: 12-15-2019 Subsequent hospital visit by physician Delta Downey Work Phone: [facility] Comment on above: Arrived Start: 11-29-2019 End: 12-09-2019 Evaluation and management of inpatient [facility] Start: 11-29-2019 End: 12-09-2019 Evaluation and management of inpatient Nataliia Hardwicklloh Work Phone: [facility] Comment on above: Sinus bradycardia (P rimary Dx); Acute UTI Procedures Date Procedure Procedure Detail Performing Clinician Start: 05-26-2023 Insertion of cardiac biventricular implantable cardioverter defibrillator (ICD) using fluoroscopic guidance JACEY THORNTON MD Comment on above: Explanted Micra AV f rom 2019 with Generator Replacement and upgrade to GOVERNMENT GAUGER-D Generator Medtronic [id number] [place] XT HF Quad Serial [id number] RA Lead Medtronic 5076 CapSurFix Novus MRI SureScan Serial [id number] 05/26/2023 RV Lead Medtronic 6947 Sprint Quattro Secure MRI SureScan Serial [id number] 05/26/2023 LV Lead Medtronic 4798 Attain Stability Quad MRI SureScan Serial [id number] 05/26/2023 Start: 03-14-2023 Echocardiography JACEY THORNTON MD Start: 11-06-2020 Colonoscopy Emily Rosas APRN.SKIN SPECIALIST Work Phone: Start: 09-04-2020 Mammography Emily oRsas APRN.SKIN SPECIALIST Work Phone: Start: 08-04-2020 Cardiac catheterization JACEY THORNTON MD Comment on above: [facility]: EF 30%, RCA 30% Dr. Smith Start: 03-09-2020 OUTPATIENT DEVICE CL IN REFERRAL [facility] Start: 12-09-2019 Radiologic exam ches t single view Belkis Ruiz Work Phone: Start: 12-09-2019 Glucose [Mass/volume ] in Blood Seamus Oleary Rajsheree Work Phone: Start: 12-09-2019 Complete blood count with white cell differential, automated Antoino Galarza Work Phone: Start: 12-09-2019 Complete blood count with white cell differential, manual Antonio Pfeiffer Geovanni Work Phone: Start: 12-09-2019 Comprehensive metabo lic 2000 panel - Serum or Plasma Antonio Galarza Work Phone: Start: 12-09-2019 Magnesium [Mass/volu me] in Serum or Plasma Antonio Galarza Work Phone: Start: 12-09-2019 Glucose [Mass/volume ] in Blood Juannze Hemalathaezona Akusoba Work Phone: Start: 12-08-2019 Glucose [Mass/volume ] in Blood Seamus Mcfarland Work Phone: Start: 12-08-2019 Glucose [Mass/volume ] in Blood Seamus Mcfarland Work Phone: Start: 12-08-2019 EP - DEVICE Belkis Ruiz Work Phone: Start: 12-08-2019 End: 12-08-2019 Glucose [Mass/volume] in Blood Seamus Mcfarland Work Phone: Start: 12-08-2019 Basic metabolic 2000 panel - Serum or Plasma Robby Chaudhary Work Phone: Start: 12-08-2019 Complete blood count with white cell differential, automated Belkis Syed [facility] Work Phone: Start: 12-08-2019 Complete blood count with white cell differential, manual Belkis Syed [facility] Work Phone: Start: 12-07-2019 Glucose [Mass/volume ] in Blood Seamus Mcfarland Work Phone: Start: 12-07-2019 ABORTED EP CASE Belkis Syed [facility] Work Phone: Start: 12-07-2019 Complete blood count with white cell differential, automated Belkis Syed [facility] Work Phone: Start: 12-07-2019 Complete blood count with white cell differential, manual Belkis Syed [facility] Work Phone: Start: 12-07-2019 Comprehensive metabo lic 2000 panel - Serum or Plasma Antonio Galarza Work Phone: Start: 12-07-2019 Magnesium [Mass/volu me] in Serum or Plasma Antonio Galarza Work Phone: Start: 12-06-2019 Basic metabolic 2000 panel - Serum or Plasma Robby Chaudhary Work Phone: Start: 12-06-2019 Complete blood count with white cell differential, automated Belkis Syed [facility] Work Phone: Start: 12-06-2019 Complete blood count with white cell differential, manual Belkis Ruiz Work Phone: Start: 12-05-2019 Basic metabolic 2000 [...] Arinze Echezona Akusoba Work Phone: Start: 12-02-2019 Basic metabolic 2000 panel - Serum or Plasma Robby Chaudhary Work Phone: Start: 12-01-2019 Basic metabolic 2000 panel - Serum or Plasma Robby Chaudhary Work Phone: Start: 11-30-2019 Glucose [Mass/volume ] in Blood Arinze Echezona Akusoba Work Phone: Start: 11-30-2019 12 lead ECG [...] Start: 11-30-2019 Glucose [Mass/volume ] in Blood Juanncassie Mcfarland Work Phone: Start: 11-30-2019 Basic metabolic [...] count with white cell differential, manual Nataliia Hardwicklloh Work Phone: Start: 11-29-2019 Natriuretic peptide. B prohormone N-Terminal [Mass/volume] in Serum or Plasma Nataliia Archuletadija Anton Work Phone: Start: 11-29-2019 Troponin measurement Ze na Nelly Anton Work Phone: Start: 11-29-2019 12 lead ECG Nataliia Hallchristie teri Anton Work Phone: Start: 03-31-2019 Cardiac pacemaker procedure JACEY THORNTON MD Comment on above: Micra AV implanted [address] [facility] Medtronic [id number] Micra AV Serial [id number] Maintenance procedur e for cardiac pacemaker system Pacemaker care JACEY THORNTON MD Plan of Treatment Date Care Activity Detail Author Start: 08-03-2031 Urine microalbumin profile DTaP,Tdap,Td Vaccine (2 - Td or Tdap) [facility] Start: 11-06-2030 Colonoscopy COLONOSCOPY [facility] Start: 11-06-2030 COLORECTAL CANCER SCREENING COLORECTAL CANCER SCREENING [facility] Start: 11-06-2030 Screening for malign ant neoplasm of colon [facility] Start: 11-29-2022 Covid-19 Vaccine ( season) Covid-19 Vaccine ( season) [facility] Start: 03-31-2022 Depression Assessment Depression Ass essment [facility] Start: 11-29-2021 Influenza vaccination INFLUENZ A (Season Ended) [facility] Start: 09-04-2021 Mammography MAMMOGRAM [facility] Start: 09-04-2021 Screening for malign ant neoplasm of breast Mammogram Screening [facility] Start: 12-05-2020 Pneumococcal vaccination Pneum ococcal Vaccine (2 of 2 - PCV) [facility] Start: 10-31-2020 Glaucoma screening Dilated Retinal E xam [facility] Start: 10-31-2020 Hepatitis C antibody , confirmatory test DILATED RETINAL EXAM [facility] Start: 06-12-2020 End: 06-12-2020 Appointment 06/12/2020 Appointment Cardiology Lois Reinoso MD [address] [place], [place] [address] [facility] Start: 03-09-2020 End: 03-09-2020 Appointment [facility] Start: 11-30-2019 Influenza vaccinatio n given Sequential Influenza Vaccine (#1) [facility] Start: 2019 RSV Vaccine (1 - 1-d ose 60+ series) RSV Vaccine (1 - 1-dose 60+ series) [facility] Start: 08-11-2009 Administration of he rpes zoster vaccine Zoster Vaccines (1 of 2) [facility] Start: 08-11-2009 Screening for malign ant neoplasm of colon [facility] Start: 08-11-2009 SHINGRIX VACCINE (1 of 2) SHINGRIX VACCINE (1 of 2) [facility] Start: 08-11-2004 COLOGUARD (FIT-DNA) COLOGUARD (FIT-D NA) [facility] Start: 08-11-[address] COLONOGRAPHY [facility] Start: 08-11-2004 FECAL OCCULT BLOOD FECAL OCCULT BLOO D [facility] Start: 08-11-2004 Screening for malign ant neoplasm of colon [facility] Start: 08-11-2004 SIGMOIDOSCOPY SIGMOIDOSCOPY [facility] Start: 08-11-1989 HPV TESTING HPV TESTING [facility] Start: 08-11-1989 Screening for malign ant neoplasm of cervix HPV Testing [facility] Start: 08-11-1980 PAP TESTING PAP TESTING [facility] Start: 08-11-1980 Screening for malign ant neoplasm of cervix Pap Testing [facility] Start: 08-11-1978 Urine microalbumin profile DTAP,TDAP,TD (1 - Tdap) [facility] Start: 08-11-1977 ANNUAL PCP TEAM TOOL PUSHER FIDE DISEASE VISIT ANNUAL PCP TEAM CHRONIC DISEASE VISIT [facility] Start: 08-11-1977 BP CONTROLLED (<130/80) BP CONTROLLE D (<130/80) [facility] Start: 08-11-1977 Hepatitis B surface antibody level LDL CHOLESTEROL [facility] Start: 08-11-1977 Hepatitis C antibody , confirmatory test Hepatitis C Screening [facility] Start: 08-11-1977 HEPATITIS C SCREENING HEPATITIS C [facility] Start: 08-11-1977 Hepatitis C screening Hepatitis C [facility] Start: 08-11-1977 HIV SCREENING HIV SCREENING [facility] Start: 08-11-1977 HIV screening HIV Screening [facility] Start: 1975 ONE PNEUMOVAX PRIOR TO AGE 65 ONE PNEUMOVAX PRIOR TO AGE 65 [facility] Start: 08-11-1974 HIV screening HIV Screening [facility] Start: 1971 Adolescent depressio n screening assessment [facility] Start: 08-11-1969 3 comp foot exam completed DIABETIC FOOT EXAM [facility] Start: 08-11-1969 Albumin DL <= 20 mg/ L (U) [Mass/Vol] Urine Microalbumin [facility] Start: 08-11-1969 Diabetic foot examination [facility] Start: 08-11-1969 Hepatitis B screening URINE ALBUMIN:CREATININE RATIO [facility] Start: 08-11-1969 Ophthalmic examinati on and evaluation Ophthalmology Exam [facility] Start: 08-11-1964 Hemoglobin A1c measurement HbA1C [facility] Start: 08-11-1964 Hemoglobin A1c/Hemoglobin.total in Blood HBA1C [facility] Start: 08-11-1962 History and physical examination, annual for health maintenance Wellness Visit [facility] Start: 1959 HbA1c (Bld) [Mass fraction] A1C [facility] Start: 1959 Screening for malign ant neoplasm of cervix Pap Smear [facility] Start: 1959 Screening mammography [facility] Start: 1959 Tetanus vaccination Tetanus: Every 1 0yrs [facility] End: 03-09-2020 Outpatient Device Clinic Referral Outpatient Device Clinic Referral Cardiac Services Routine Pacemaker Once for 1 Occurrences starting 03/09/2020 until 03/09/2020 [facility] Comment on above: Once for 1 Occurrenc es starting 03/09/2020 until 03/09/2020 End: 04-13-2024 Radiologic exam chest 2 views XR CHEST 2V FRONTAL/LAT Radiology STAT Acute cough 1 Occurrences starting 03/15/2023 until 04/13/2024 [facility] Work Phone: Comment on above: 1 Occurrences starti ng 03/15/2023 until 04/13/2024 XR Chest 1 View XR Chest 1 View Imaging Routine 12/09/2019 9:40 AM EDT [facility] Immunizations Immunization Date Immunization Notes Care Provider Fa cili 01-12-2023 influenza virus vacc ine, unspecified formulation JACEY THORNTON MD [facility] 03-01-2022 SARS-CoV-2 (CV19)mRNA-1273 bivalent vac JACEY THORNTON MD [address] 02-20-2021 SARS-CoV-2 (COVID-19 ) mRNA-1273 vaccine JACEY THORNTON MD [address] 06-28-2020 SARS-CoV-2 (COVID-19 ) mRNA-1273 vaccine JACEY THORNTON MD [address] Comment on above: Result Comment: 2023: [facility] (DATES APPROXIMATE) 06-07-2020 SARS-CoV-2 (COVID-19 ) mRNA-1273 vaccine JACEY THORNTON MD [address] [place] [address] Comment on above: Result Comment: 2023: [id number] 05-31-2020 SARS-CoV-2 (COVID-19 ) mRNA-1273 vaccine JACEY THORNTON MD [address] Comment on above: Result Comment: 2023: [facility] 05-10-2020 SARS-CoV-2 (COVID-19 ) mRNA-1273 vaccine JACEY THORNTON MD [facility] 12-06-2019 pneumococcal polysaccharide vaccine, 23 valent [facility] Comment on above: Result Comment: 2023: VIS DATE: 07/22/2014 11-30-2019 pneumococcal vaccine , unspecified formulation [facility] 12-27-2015 influenza virus vacc ine, unspecified formulation JACEY THORNTON MD [facility] Payers Date Payer Category Payer Unknown [id number] 2019 Unknown [employer] PPO [id number] 2019-Present [phone] [address] [place] [address] PPO [id number] 2018 Unknown COMMERCIAL COMME RCIAL MISCELLANEOUS [id number] 2018-Present [id number] 2018 Unknown [id number] 2018 Unknown [id number] 1959 Unknown [id number] 1959 Unknown [id number] 1959 Unknown [id number] 1959 Unknown [id number] 1959 Unknown [id number] 1959 Unknown [id number] 1959 Unknown [id number] 1959 Unknown [id number] 1959 Unknown [id number] Social History Date Type Detail Facility Start: 12-09-2019 End: 04-30-2023 Tobacco smoking status MIIS Never smoker [facility] Start: 12-09-2019 End: 10-21-2022 Tobacco use and exposure Never used [facility] Start: 12-09-2019 Alcohol intake Lifetime non-d home (finding) [facility] Start: 11-29-2019 History SDOH Alcohol Frequency 1 [facility] Sex Assigned At Not on file [facility] Start: 07-12-2021 End: 07-22-2021 Exposure to SARS-CoV-2 (event) Not sure [facility] Start: 07-22-2021 End: 03-15-2023 Alcohol intake Ex-drinker (finding) [facility] Start: 11-01-2019 History SDOH Alcohol Comment rarely [facility] Start: 1960 Sex Assigned At Female C [facility] Start: 09-04-2020 End: 03-15-2023 History of Social function [facility] Start: 09-04-2020 End: 03-15-2023 Tobacco use panel [facility] National Score (1-10 0), lower number is lower risk Not on file [facility] Start: 10-27-2020 Gender identity Identifies as female gender (finding) [facility] Medical Equipment Procedure Code Equipment Code Equipment Origin al Text Equipment Identifier Dates Pacer Micra Av V r System - [id number], [id number] FDA Start: 12-08-2019 Cong [id number] Micr a Av [id number] Start: 12-07-2019 Functional Status Date Assessment Result Facility 05-29-2023 Functional Status Done [facility] 05-29-2023 Functional Status Room check performed [facility] 05-29-2023 Functional Status [facility] 05-29-2023 Functional Status [facility] 05-28-2023 Functional Status [facility] 05-28-2023 Functional Status [facility] 05-28-2023 Functional Status [facility] 05-27-2023 Functional Status Single level home [facility] 05-27-2023 Functional Status Lunch Percent 100 [facility] 05-27-2023 Functional Status Independent [facility] 05-26-2023 Functional Status N/A [facility] 05-26-2023 Functional Status Patient Identi fied Identification band, Verbal [facility] 05-26-2023 Functional Status Maintained [facility] reji Mental Status Date Assessment Result Facility 05-29-2023 Mental Status Oriented x 4 [facility] 05-29-2023 Mental Status [facility] Clinical Notes 07-22-2021 to 12-04-2023 Note Date & Type Note Facility 12-04-2023 Note Exam Date Time Procedure Performing Provider Status 12/04/23 4:03 PM Echocardiogram, Adult - CV Auth (Verified) [facility] 02-29-2024 Discharge summary Date of Service 05/29/2023 Discharge Diagnosis Heart failure, unspecified (I50.9 - ICD-10-CM) Additional Orders: Ordered: Discharge,05/29/23 12:39:00 EST, Discharged to: Home Ordered: dofetilide 250 mcg oral capsule,Dose : 250 mcg = 1 cap(s), Oral, BID, # 60 cap(s), 0 Refill(s), Pharmacy: [facility], 160, cm, 05/26/23 17:27:00 EST, Height, kg, 05/29/23 6:50:00 EST, Dosing Weight Hospital Course 62-year-old female presented for elective GOVERNMENT GAUGER device placement. Patient underwent successful GOVERNMENT GAUGER-D device placement yesterday. She was started on Tikosyn. She was started on high-dose but optimized to 250 mcg every 12 hours. Patient was observed for 3 days in hospital. Outpatient follow-up recommended. Allergies sulfa (Hives) Procedures GOVERNMENT GAUGER- placement Consults No qualifying data available. Objective Vitals and Measurements T: 36.7 C (Oral) TMIN: 36.4 C (Oral) TMAX: 36.7 C (Oral) HR: 63(Monitored) RR: 18 BP: 108/61 SpO2: 94% WT: 101 kg Weight Dosing Weight: 101 kg (05/29/23) Dosing Weight: 102.3 kg (05/26/23) General Appearance: Comfortable, not in acute distress HEENT:Bilateral normal eye movements, normal oral cavity Neck: No JVD noted Cardiac: S1, S2, no murmurs, regular rhythm, normal rate, Lungs: No wheezes, normal chest expansion. Abdomen: No tenderness, no distention, normal bowel sounds. Musculoskeletal: No signs of acute synovitis. Neurological: Alert and oriented x3, no focal neurological deficits grossly. Extremities: no lower extremity edema, Psychiatric: Appropriate, normal mood. Code Status Code Status - Ordered -- 05/26/23 13:50:00 EST, Full Code - PCP will confirm in AM, Constant Order Admission Date 05/26/2023 Discharge Date 05/29/2023 Medications New Prescription dofetilide (dofetilide 250 mcg oral capsule)1 cap by mouth two (2) times a day. Refills: 0. Unchanged atorvastatin (atorvastatin 10 mg oral tablet)by mouth once a day. carvedilol (carvedilol 25 mg oral tablet)by mouth two (2) times a day. empagliflozin (empagliflozin 10 mg oral tablet)1 tab(s) by mouth once a day (in the morning). furosemide (furosemide 40 mg oral tablet)1 tab(s) by mouth every 48 hours. Refills: 0. glipiZIDE (glipiZIDE 10 mg oral tablet)by mouth two (2) times a day. levothyroxine (levothyroxine 88 mcg (0.088 mg) oral tablet)1 tab(s) by mouth once a day before a meal. multivitamin (Multivitamin)1 tab(s) by mouth every day. omega-3 polyunsaturated fatty acids (Ultra Martin Krill Oil 500 mg oral capsule)by mouth once a day. potassium chloride (potassium chloride 20 mEq oral tablet, extended release)1 tab(s) by mouth every48 hours. Take with food. Refills: 0. rivaroxaban (rivaroxaban 20 mg oral tablet)1 tab(s) by mouth daily at bedtime. sacubitril-valsartan (Entresto 24 mg-26 mg oral tablet)0.5 by mouth two (2) times a day. Refills: 3. venlafaxine (venlafaxine 75 mg oral capsule, extended release)1 cap by mouth once a day. Follow Up Follow Up with JACEY THORNTON MD When 08/26/2023 03:00 PM EDT Why: This is your hospital follow up in the Device Clinic. Where: [address] [facility] [address] [facility] [place] [address]- [phone] Follow Up with ABDIEL ZARAGOZA MD When 06/10/2023 03:15 PM EDT Why: KEEP THIS PREVIOUSLY SCHEDULED APPOINTMENT , Where: [address] [facility] [address] [place] [address]- [phone] Follow Up with JACEY THORNTON MD When 06/10/2023 03:00 PM EDT Why: This is your incision check in the Device Clinic. Where: [address] [facility] [address] [place] [address]- [phone] Follow Up with BEENA BURGOS MD When Within 1-2 days Where: [address] [place] [address]- [phone] Follow Up Appointments No qualifying data available. Follow Up Labs/Studies Discharge Labs No Follow-up Labs Discharge Studies No Follow-up Studies Discharge Diet No qualifying data available. Discharge Activity No qualifying data available. Condition on Discharge stable Readmission Risk/Palliative Score LACE Score: 9 (05/27/23 13:30:00) Palliative Total Score: 1 (05/27/23 13:30:00) Discharge Disposition home Digitally Signed by CANDELARIO JUNG MD on 05/29/2023 12:43 PM [id number] Discharge instructions Patient Education 05/29/2023 12:20:35 3- Pacemaker/ICD New Device 05/2019(CUSTOM) PACEMAKER / ICD INSERTION Discharge Instructions WOUND CARE DO NOT place any ointments, creams, powders or lotions on the incision. Call your pacemaker/ICD doctor s office immediately if you have: oIncreased redness oDrainage from the incision oOpening of the incision oIncreased pain, warmth or swelling on or around the site oTemperature elevation above 100.5 Call if you experience dizziness or palpitations or a fast or slow heart rate If an Aquacel Ag surgical dressing has been applied: oYou may take a shower as long as the dressing is sealed well to your skin. oYou may remove the bandage in 7 days: To do this, press down on your skin with one hand and carefully lift an edge of the bandage with your other hand. Stretch the dressing to break the adhesive seal and gently pull it off. oIf the bandage becomes loose or falls off in less than 5 days, you will not be able to take any showers or baths. ?You must keep the incision dry for the first 5 days after your procedure. ?DO NOT clean the incision with any soap, water, peroxide or alcohol. ?Leave it dry and uncovered for 5 days, then you may shower using soap and water. oWear loose fitting clothes over the incisional site to avoid irritation until it is healed. If you do not have a dressing: oDO NOT shower or get the incision wet for 5 days. oDO NOT clean the incision with any soap, water, peroxide or alcohol. oLeave it dry and uncovered for 5 days, then you may shower using soap and water. oWear loose fitting clothes over the incisional site to avoid irritation until it is healed. MEDICATIONS Take antibiotics before dental work as prescribed by your physician (if prescribed) Take medications as directed until prescription is finished Avoid alcohol while taking medications You may take Tylenol (acetaminophen) for incisional pain or discomfort. ACTIVITY RESTRICTIONS DO NOT lift anything heavier than 5 lbs with the arm on the side of the Pacemaker/ICD for one month. DO NOT raise the arm on the side of the Pacemaker/ICD above shoulder level for one month. You may resume normal driving unless otherwise restricted. Driving may cause soreness at the incision site. FOLLOW UP Follow up with the Pacemaker/ICD center for routine evaluation of your device. Your appointment to have your device checked and to see the doctor in 12-14 weeks has been scheduled and is listed abovein the Follow Up section of these discharge instruction. Device Monitor Now that you have a permanent pacemaker, ICD, and/or loop recorder (all called a device ) it shouldbe checked regularly. This is done with a monitor that sends information from the device to your stockroom inventory clerk (heart doctor) office. How will I get my monitor? The monitor will be shipped to your home within 6 weeks after you are discharged. But, if you are given the monitor before discharge, please take it home. You may get other equipment (such as a bloodpressure cuff and weight scale) shipped as well. There is no charge for this equipment. How does the monitor work? The monitor needs to be set up close to where you sleep. The monitor will automatically brick picker heart signals and send the information to your doctor. Or you may be asked to push a button to send theinformation. What are the next steps? You will have an appointment with the nurse at the Device Clinic in about 2 weeks and the nurse will check your device (you will not see your doctor). The nurses will talk to you about the monitor atthat time. When you get the monitor, there will be clear instructions with how to set it up. Please call the Device Clinic if you have questions. [facility]: [phone] Ask for the Device Clinic or lopez-in extension [phone] when prompted. Device Clinic Location: [facility] (not the physician office building). [facility] and take the elevators to the 2nd floor. Take the españa to the slight left labeled [facility] . If you are interested, you may find information about your device on the web, including videos thatwill help you understand and set up your monitor. The monitor you will get is based on the company that manufactured your device. Your device card will tell you the business intern. Using the search box: Kolorific: [employer] Communicator quick start oPatient Help: Medtronic: [facility] quick start oPatient Help: [facility] [employer] (Kennedy): [email or web address] quick start oPatient Help: Other important information about your device: Always carry your device card with you. Your device may set off a metal detector. Be sure you have your device card with you if you plan togo through any area, such as an airport that may have a metal detector. Before having any test or procedure, make sure you tell the healthcare professional that you have an implanted device. IMPLANTABLE CARDIOVERTER-DEFIBRILATOR (ICD) Instructions and Precautions ELECTRICAL CONCERNS Normal household appliances like TV, refrigerator, microwave oven/stove, and small electrically powered motor appliances WILL NOT interfere with your ICD. When talking on your cell phone, hold the phone with the arm that does not have your ICD. Do not carry your cell phone in your shirt pocket! ICD DISCHARGE If you receive one shock , sit down and wait a minute. Take some slow deep breaths. If you receive further immediate shocks, remain sitting or lying down. After receiving shocks, if you have a Home Monitoring system for your ICD, please do an automated transmission and call your ICD doctor to advise them of therapies. A family member, friend, etc., should call an ambulance if you become unresponsive at any time. You should call 911 if multiple shocks occur, or if you do not feel well after 1-2 minutes from your shock. MAGNETIC CONCERNS Avoid strong magnetic mondragon, i.e.: large speakers, TV towers, magnets in race car shops. Staying 6-12 feet away is okay. Do not touch the radio antenna or [facility] radio antenna that are in operation. Do not touch spark plugs or distributor wires of a running car or logger driving horses. Avoid the fenced enclosure areas of a radio or TV transmitting tower. Avoid machinery with magnets; industrial shops, arc welders, and race car repair areas. Avoid placing stereo speakers close to your device as they have magnets in them. MEDICAL IDENTIFICATION Carry your ICD card with you at all times. It is suggested that you provide a copy of your card to family members/significant others. PERSONAL CONTACT Should your ICD discharge while another person is touching you, that person may feel a slight muscular contraction that is not harmful. NOTIFICATION OF HEALTH PROFESSIONALS Notify your personal physician about your ICD. You must tell your surgeon or Servicer Travel Trailers before you undergo any procedure or surgery. This includes, but is not limited to: any surgery, colonoscopy and/or EGD s. Follow Up Care 04/30/2023 11:41:44 With:BEENA BURGOS MD Address: [address] [place] [address]- [phone] When:1-2 days With:JACEY THORNTON MD Address: [address] [facility] [address] [place] [address]- [phone] When:06/10/2023 15:00:00 Comments:This is your incision check in the [facility]. With:ABDIEL ZARAGOZA MD Address: [address] [facility] [address] [place] [address]- [phone] When:06/10/2023 15:15:00 Comments:KEEP THIS PREVIOUSLY SCHEDULED APPOINTMENT , With:JACEY THORNTON MD Address: [address] [facility] [address] [place] [address]- [phone] When:08/26/2023 15:00:00 Comments:This is your hospital follow up in the [facility]. [facility] 02-29-2024 Note Discharge Instructions Thank you for allowing [facility] to assist you with your healthcare needs. The following is importantdischarge information regarding your hospital visit. Your Care Team BEENA BURGOS MD What to do next Scheduled Follow-Up Appointments Appointment Type When Where Contact InformationCV Incision Check 06/10/2023 03:00 PM EDT [facility] CV OV CHF [facility] 06/10/2023 03:15 PM EDT [facility] CV Office Procedure ICD 08/26/2023 03:00 PM EDT [facility] CV Remote Procedure HM 11/26/2023 08:15 AM EDT [facility] Follow Up Appointments Follow Up with JACEY THORNTON MD When 08/26/2023 03:00 PM EDT Why: This is your hospital follow up in the [facility]. Where: [address] [facility] [address] [place] [address]- [phone] Follow Up with ABDIEL ZARAGOZA MD When 06/10/2023 03:15 PM EDT Why: KEEP THIS PREVIOUSLY SCHEDULED APPOINTMENT , Where: [address] [facility] [facility] [address] [place] [address]- [phone] Follow Up with JACEY THORNTON MD When 06/10/2023 03:00 PM EDT Why: This is your incision check in the [facility]. Where: [address] [address] [place] [address]- [phone] Follow Up with BEENA BURGOS MD When Within 1-2 days Where: [address] [place] [address] [phone] The Following Activity and Diet Have Been Ordered for You No qualifying data available. No qualifying data available. The Following Equipment Has Been Ordered for You No qualifying data available. The Following Treatments Have Been Ordered for You Discharge Labs No qualifying data available. Discharge Radiology No qualifying data available. Other Therapies No qualifying data available. Post Acute Orders No qualifying data available. Someone Will Contact You Regarding These Home Health Referrals No home referrals have been ordered for you. No one will call you. Allergies sulfa (Hives) Medications Please ask your primary doctor or pharmacist before taking any other medication not listed, including over the counter drugs, herbal medications, vitamins and or supplements as they may interact withyour home medications. What How Much When Instructions Last Dose New dofetilide (dofetilide 250 mcg oral capsule) 1 cap by mouth Two (2) times a day Pickup at [facility] Unchanged atorvastatin (atorvastatin 10 mg oral tablet) by mouth Once a day Unchanged carvedilol (carvedilol 25 mg oral tablet) by mouth Two (2) times a day Unchanged empagliflozin (empagliflozin 10 mg oral tablet) 1 tab(s) by mouth Once a day (in the morning) Unchanged furosemide (furosemide 40 mg oral tablet) 1 tab(s) by mouth Every 48 hours Unchanged glipiZIDE (glipiZIDE 10 mg oral tablet) by mouth Two (2) times a day Unchanged levothyroxine (levothyroxine 88 mcg (0.088 mg) oral tablet) 1 tab(s) by mouth Once a day before a meal Unchanged multivitamin (Multivitamin) 1 tab(s) by mouth Every day Unchanged omega-3 polyunsaturated fatty acids (Ultra Martin Krill Oil 500 mg oral capsule) by mouth Once a day Unchanged potassium chloride (potassium chloride 20 mEq oral tablet, extended release) 1 tab(s) by mouth Every 48 hours Take with food Unchanged rivaroxaban (rivaroxaban 20 mg oral tablet) 1 tab(s) by mouth Daily at bedtime Unchanged sacubitril-valsartan (Entresto 24 mg-26 mg oral tablet) 0.5 by mouth Two (2) times a day Unchanged venlafaxine (venlafaxine 75 mg oral capsule, extended release) 1 cap by mouth Once a day Pharmacy Information [facility]: [address] [place] [address] [phone] Please take this list to your next doctor s visit. Bring all medications you take, including over the counter medications, herbals and other supplements with you to your doctor s visit. Patients and families are reminded to discard old lists and to update any records with all medication providers or retail pharmacies. Medication Leaflets dofetilide (michel FET i lide) Ticarmensyn What is the most important information I should know about dofetilide? You should not take dofetilide if you have severe kidney disease or a history of Long QT syndrome. Serious drug interactions can occur when certain medicines are used together with dofetilide. Tell each of your healthcare providers about all medicines you use now, and any medicine you start or stop using. You will need to spend at least 3 days in a hospital setting when you first start taking dofetilide. This is so your heart rhythm and kidney function can be monitored in case the medicine causes serious side effects. What is dofetilide? Dofetilide is a heart rhythm medicine, also called an antiarrhythmic. Dofetilide is used to help keep the heart beating normally in people with certain heart rhythm disorders of the atrium (the upper chambers of the heart that allow blood to flow into the heart). Dofetilide is used in people with atrial fibrillation or atrial flutter. Dofetilide may also be used for purposes not listed in this medication guide. What should I discuss with my health care provider before taking dofetilide? You should not take dofetilide if you are allergic to it, or if you have: severe kidney disease (or if you are on dialysis); or a history of Long QT syndrome. Some medicines can cause unwanted or dangerous effects when used with dofetilide, and should not beused at the same time. Your doctor may need to change your treatment plan if you use any of the following drugs: cimetidine; dolutegravir; ketoconazole; megestrol; prochlorperazine; trimethoprim (Proloprim, Trimpex, Bactrim, Septra); verapamil; or a diuretic (water pill) that contains hydrochlorothiazide (HCTZ), such as Accuretic, Aldactazide, Atacand HCT, Benicar HCT, Diovan HCT, Dyazide, Exforge HCT, Hyzaar, Lopressor HCT, Maxzide, Micardis HCT, Monopril HCT, Prinzide, Tekturna HCT, Vaseretic, and others. To make sure dofetilide is safe for you, tell your doctor if you have: heart disease, high blood pressure; liver or kidney disease; depression, mental illness; asthma or allergies; any active infection; skin problems; or an electrolyte imbalance (such as low levels of potassium or magnesium in your blood). It is not known whether this medicine will harm an unborn baby. Tell your doctor if you are or plan to become while using this medicine. It is not known whether dofetilide passes into breast milk or if it could harm a nursing baby. You should not breast-feed while you are using dofetilide. How should I take dofetilide? Dofetilide is available only from a hospital or specialty pharmacy. You will need to spend at least 3 days in a hospital setting when you first start taking dofetilide. This is so your heart rhythm and kidney function can be monitored in case the medicine causes serious side effects. Follow all directions on your prescription label. Do not take this medicine in larger or smaller amounts or for longer than recommended. You may take dofetilide with or without food. You should not skip doses or stop using dofetilide suddenly. Stopping suddenly may make your condition worse. Follow your doctor's instructions about tapering your dose. Tell your doctor if you have a prolonged illness that causes severe diarrhea, vomiting, or heavy sweating. These conditions can cause an electrolyte imbalance, making it dangerous for you to use dofetilide. Your blood pressure will need to be checked often. Your kidney function may also need to be checkedwith frequent blood tests. Store at room temperature away from moisture and heat. What happens if I miss a dose? Skip the missed dose and take your next dose at the usual time to stay on schedule. Do not take extra medicine to make up the missed dose. What happens if I overdose? Seek emergency medical attention or call the Poison Help line at . What should I avoid while taking dofetilide? Grapefruit and grapefruit juice may interact with dofetilide and lead to unwanted side effects. Discuss the use of grapefruit products with your doctor. What are the possible side effects of dofetilide? Get emergency medical help if you have any of these signs of an allergic reaction: hives; difficultbreathing; swelling of your face, lips, tongue, or throat. Call your doctor at once if you have: headache with chest pain and severe dizziness, fainting, fast or pounding heartbeats; loss of appetite, vomiting or severe diarrhea; or low magnesium or potassium--confusion, uneven heart rate, increased thirst or urination, sweating, jerking muscle movements, leg discomfort, muscle weakness or limp feeling. Common side effects may include: mild headache; mild dizziness; or cold symptoms such as stuffy nose, sneezing, sore throat. This is not a complete list of side effects and others may occur. Call your doctor for medical advice about side effects. You may report side effects to FDA at 5-022-TFI-0167. What other drugs will affect dofetilide? Other drugs may interact with dofetilide, including prescription and ddpl-imk-ublzujc medicines, vitamins, and herbal products. Tell each of your health care providers about all medicines you use nowand any medicine you start or stop using. Where can I get more information? Your doctor or pharmacist can provide more information about dofetilide. Remember, keep this and all other medicines out of the reach of children, never share your medicines with others, and use this medication only for the indication prescribed. Every effort has been made to ensure that the information provided by [employer]. ('[employer]') is accurate, up-to-date, and complete, but no guarantee is made to that effect. Drug information contained herein may be time sensitive. [employer] information has been compiled for use by healthcare practitioners and consumers in the [place] and therefore [employer] does not warrant that uses outside of the [place] are appropriate, unless specifically indicated otherwise. [employer] drug information does not endorse drugs, diagnose patients or recommend therapy. [employer] drug information isan informational resource designed to assist licensed healthcare practitioners in caring for their p atients and/or to serve consumers viewing this service as a supplement to, and not a substitute for, the expertise, skill, knowledge and judgment of healthcare practitioners. The absence of a warningfor a given drug or drug combination in no way should be construed to indicate that the drug or drug combination is safe, effective or appropriate for any given patient. [facility] does not assume any responsibility for any aspect of healthcare administered with the aid of information [facility] provides. The information contained herein is not intended to cover all possible uses, directions, precautions, warnings, drug interactions, allergic reactions, or adverse effects. If you have questions about the drugs you are taking, check with your doctor, nurse or pharmacist. Copyright 8162-2581 [employer]. Version: 4.01. Revision Date: 07/12/2015. Education Materials PACEMAKER / ICD INSERTION Discharge Instructions WOUND CARE DO NOT place any ointments, creams, powders or lotions on the incision. Call your pacemaker/ICD doctor s office immediately if you have: o Increased redness o Drainage from the incision o Opening of the incision o Increased pain, warmth or swelling on or around the site o Temperature elevation above 100.5 Call if you experience dizziness or palpitations or a fast or slow heart rate If an Aquacel Ag surgical dressing has been applied: o You may take a shower as long as the dressing is sealed well to your skin. o You may remove the bandage in 7 days: To do this, press down on your skin with one hand and carefully lift an edge of the bandage with your other hand. Stretch the dressing to break the adhesive sealand gently pull it off. o If the bandage becomes loose or falls off in less than 5 days, you will not be able to take any showers or baths. ? You must keep the incision dry for the first 5 days after your procedure. ? DO NOT clean the incision with any soap, water, peroxide or alcohol. ? Leave it dry and uncovered for 5 days, then you may shower using soap and water. o Wear loose fitting clothes over the incisional site to avoid irritation until it is healed. If you do not have a dressing: o DO NOT shower or get the incision wet for 5 days. o DO NOT clean the incision with any soap, water, peroxide or alcohol. o Leave it dry and uncovered for 5 days, then you may shower using soap and water. o Wear loose fitting clothes over the incisional site to avoid irritation until it is healed. MEDICATIONS Take antibiotics before dental work as prescribed by your physician (if prescribed) Take medications as directed until prescription is finished Avoid alcohol while taking medications You may take Tylenol (acetaminophen) for incisional pain or discomfort. ACTIVITY RESTRICTIONS DO NOT lift anything heavier than 5 lbs with the arm on the side of the Pacemaker/ICD for one month. DO NOT raise the arm on the side of the Pacemaker/ICD above shoulder level for one month. You may resume normal driving unless otherwise restricted. Driving may cause soreness at the incision site. FOLLOW UP Follow up with the Pacemaker/ICD center for routine evaluation of your device. Your appointment to have your device checked and to see the doctor in 12-14 weeks has been scheduled and is listed abovein the Follow Up section of these discharge instruction. Device Monitor Now that you have a permanent pacemaker, ICD, and/or loop recorder (all called a device ) it shouldbe checked regularly. This is done with a monitor that sends information from the device to your stockroom inventory clerk (heart doctor) office. How will I get my monitor? The monitor will be shipped to your home within 6 weeks after you are discharged. But, if you are given the monitor before discharge, please take it home. You may get other equipment (such as a bloodpressure cuff and weight scale) shipped as well. There is no charge for this equipment. How does the monitor work? The monitor needs to be set up close to where you sleep. The monitor will automatically brick picker heart signals and send the information to your doctor. Or you may be asked to push a button to send theinformation. What are the next steps? You will have an appointment with the nurse at the Device Clinic in about 2 weeks and the nurse will check your device (you will not see your doctor). The nurses will talk to you about the monitor atthat time. When you get the monitor, there will be clear instructions with how to set it up. Please call the Device Clinic if you have questions. [facility]: [phone] Ask for the Device Clinic or lopez-in extension [phone] when prompted. Device Clinic Location: [facility] (not the physician office building). Enter the [facility] and take the elevators to the 2nd floor. Take the españa to the slight left labeled [facility] . If you are interested, you may find information about your device on the web, including videos thatwill help you understand and set up your monitor. The monitor you will get is based on the company that manufactured your device. Your device card will tell you the business intern. Using the search box: [employer]: Krissy Vargasator quick start o Patient Help: [employer]: [facility] quick start o Patient Help: [employer] ([place]): [email or web address] quick start o Patient Help: Other important information about your device: Always carry your device card with you. Your device may set off a metal detector. Be sure you have your device card with you if you plan togo through any area, such as an airport that may have a metal detector. Before having any test or procedure, make sure you tell the healthcare professional that you have an implanted device. IMPLANTABLE CARDIOVERTER-DEFIBRILATOR (ICD) Instructions and Precautions ELECTRICAL CONCERNS Normal household appliances like TV, refrigerator, microwave oven/stove, and small electrically powered motor appliances WILL NOT interfere with your ICD. When talking on your cell phone, hold the phone with the arm that does not have your ICD. Do not carry your cell phone in your shirt pocket! ICD DISCHARGE If you receive one shock , sit down and wait a minute. Take some slow deep breaths. If you receive further immediate shocks, remain sitting or lying down. After receiving shocks, if you have a Home Monitoring system for your ICD, please do an automated transmission and call your ICD doctor to advise them of therapies. A family member, friend, etc., should call an ambulance if you become unresponsive at any time. You should call 911 if multiple shocks occur, or if you do not feel well after 1-2 minutes from your shock. MAGNETIC CONCERNS Avoid strong magnetic mondragon, i.e.: large speakers, TV towers, magnets in race car shops. Staying 6-12 feet away is okay. Do not touch the radio antenna or [facility] radio antenna that are in operation. Do not touch spark plugs or distributor wires of a running car or logger driving horses. Avoid the fenced enclosure areas of a radio or TV transmitting tower. Avoid machinery with magnets; industrial shops, arc welders, and race car repair areas. Avoid placing stereo speakers close to your device as they have magnets in them. MEDICAL IDENTIFICATION Carry your ICD card with you at all times. It is suggested that you provide a copy of your card to family members/significant others. PERSONAL CONTACT Should your ICD discharge while another person is touching you, that person may feel a slight muscular contraction that is not harmful. NOTIFICATION OF HEALTH PROFESSIONALS Notify your personal physician about your ICD. You must tell your surgeon or [employer] before you undergo any procedure or surgery. This includes, but is not limited to: any surgery, colonoscopy and/or EGD s. Additional Information VACCINATE! IT SAVES LIVES! Members of the community who have not yet received the COVID-19 vaccine and would like to receive it can visit one of [facility] vaccine clinics. There are many vaccine clinic locations within the [facility]. For locations and available times, please visit [email or web address].[place].gov/. It is important to note that some COVID mobile vaccine clinics are held outdoors and may be canceled in rainy or stormy conditions. To learn more about pediatric vaccinations (ages 5-11), we invite you to visit the [facility] webpage. https://www.[facility].org/pages/[email or web address]-Hjhfw-Wugifhdtqpo-Wzfqhqtvtn-Xybuf-Wng stions.htmlTo learn more about the COVID-19 vaccine, we invite you to visit the CDC website for a list of frequently asked questions.https://www.cdc.gov/coronavirus/2019-ncov/vaccines/faq.html [facility] Patient Portal Access Instructions: Stay connected with your healthcare team and access your personal medical information anytime with the [facility] Patient Portal. Please follow the directions below to create your [facility] account: 1.Access the email account you provided upon registration to the hospital/physician office.2.Look for an invitation email from [facility].3.Open the email and access the invitation link: AcceptInvitation to [facility].4.Fill in the required mondragon to create your account. To access your account, visit [employer]. Click the blue button labeled Access Patient Portal and then log in with the username and password that you created in the steps above. You will be able to view your test results, lab results, a summary of your visits, upcoming appointments and more. There is also a convenient messaging option where you can send secure messages to your p rovider. In addition, you will have the ability to download any documents or summaries to your computer and/or send the information securely to a physician. Remember that your healthcare information is confidential, so carefully consider who you will allowto register on the [facility] Patient Portal for access to your information. You can also access the [facility] on the [facility] radha. Simply click on Patient Portal and then log into your account. If you would like to receive a full copy of your medical records, please contact the [facility] Medical Records Department by calling [phone], Friday through Friday between 8 a.m. and 4:30 p.m. HOW TO SAFELY DISPOSE OF PRESCRIPTION MEDICATIONS Please use one of the following methods to safely dispose of your unused medications. 1.Use a drug disposal kit: the drug disposal pouch allows you to safely discard your old and unuseddrugs. Ask your nurse to give you one when you are discharged.2.Visit a local take-back location: Many local pharmacies and police departments have programs that collect old and unwanted prescriptiondrugs. Call your local pharmacy or go to http://[employer].Hyperformix/6T1Ge4s to find one close to you.3.Make use of household items: Use cat litter or old coffee grounds to dispose medications if other options arenot available. Mix your drugs with these household products, seal them in an airtight container andthrow it into the garbage. Call [facility]: [phone] to be sure your drugs can be disposed of in this way. Some medicines may require a different approach.4.Never flush your medications down the toilet. IF YOU HAVE BEEN PRESCRIBED AN OPIOID FOR PAIN If you have been prescribed an opioid (such as hydrocodone, oxycodone or morphine), it is critical to understand the possible side effects and risks of opioid pain medications. Even when taken as directed, opioids can have several side effects including: Tolerance, meaning you might need to take more of a medication for the same pain relief. Nausea, vomiting and/or constipation. Sleepiness, dizziness, dry mouth, confusion, depression or itching. Physical dependence, meaning you have withdrawal symptoms when a medication is stopped, can develop within a few days. KNOW YOUR RESPONSIBILITIES It is important to know exactly how much and how often to take the opioid pain medications you are prescribed. Never take opioids in higher amounts or more often than prescribed. Do not combine opioids with alcohol or other drugs that cause drowsiness, such as benzodiazepines, also known as benzos, including diazepam and alprazolam, muscle relaxants or sleep aids. Never sell or share prescription opioids. This is illegal. Store opioids in a secure place and out of reach of others (including children, family, friends and visitors). The last page of this document has been signed and retained as a CHART COPY. Signatures Patient Education Materials 3- Pacemaker/ICD New Device 05/2019(CUSTOM) Medication Leaflets Tikosyn My discharge plan and instructions have been reviewed and explained to me and I,PURA LAGUERRE understand my current condition and have read and understand these discharge instructions. I have received a written copy of the plan/instructions. If I have questions, I am aware that I should contactmy doctor. Patient/Project Management Director Signature: Date/Time: Relationship to Patient: Witness Name/Signature: Date/Time: [id number] Discharge summary Date of Service 05/29/2023 Discharge Diagnosis Heart failure, unspecified (I50.9 - ICD-10-CM) Additional Orders: Ordered: Discharge,05/29/23 12:39:00 EST, Discharged to: Home Ordered: dofetilide 250 mcg oral capsule,Dose : 250 mcg = 1 cap(s), Oral, BID, # 60 cap(s), 0 Refill(s), Pharmacy: [facility], 160, cm, 05/26/23 17:27:00 EST, Height, kg, 05/29/23 6:50:00 EST, Dosing Weight Hospital Course 62-year-old female presented for elective GOVERNMENT GAUGER device placement. Patient underwent successful GOVERNMENT GAUGER-D device placement yesterday. She was started on Tikosyn. She was started on high-dose but optimized to 250 mcg every 12 hours. Patient was observed for 3 days in hospital. Outpatient follow-up recommended. Allergies sulfa (Hives) Procedures GOVERNMENT GAUGER- placement Consults No qualifying data available. Objective Vitals and Measurements T: 36.7 C (Oral) TMIN: 36.4 C (Oral) TMAX: 36.7 C (Oral) HR: 63(Monitored) RR: 18 BP: 108/61 SpO2: 94% WT: 101 kg Weight Dosing Weight: 101 kg (05/29/23) Dosing Weight: 102.3 kg (05/26/23) General Appearance: Comfortable, not in acute distress HEENT:Bilateral normal eye movements, normal oral cavity Neck: No JVD noted Cardiac: S1, S2, no murmurs, regular rhythm, normal rate, Lungs: No wheezes, normal chest expansion. Abdomen: No tenderness, no distention, normal bowel sounds. Musculoskeletal: No signs of acute synovitis. Neurological: Alert and oriented x3, no focal neurological deficits grossly. Extremities: no lower extremity edema, Psychiatric: Appropriate, normal mood. Code Status Code Status - Ordered -- 05/26/23 13:50:00 EST, Full Code - PCP will confirm in AM, Constant Order Admission Date 05/26/2023 Discharge Date 05/29/2023 Medications New Prescription dofetilide (dofetilide 250 mcg oral capsule)1 cap by mouth two (2) times a day. Refills: 0. Unchanged atorvastatin (atorvastatin 10 mg oral tablet)by mouth once a day. carvedilol (carvedilol 25 mg oral tablet)by mouth two (2) times a day. empagliflozin (empagliflozin 10 mg oral tablet)1 tab(s) by mouth once a day (in the morning). furosemide (furosemide 40 mg oral tablet)1 tab(s) by mouth every 48 hours. Refills: 0. glipiZIDE (glipiZIDE 10 mg oral tablet)by mouth two (2) times a day. levothyroxine (levothyroxine 88 mcg (0.088 mg) oral tablet)1 tab(s) by mouth once a day before a meal. multivitamin (Multivitamin)1 tab(s) by mouth every day. omega-3 polyunsaturated fatty acids (Ultra Martin Krill Oil 500 mg oral capsule)by mouth once a day. potassium chloride (potassium chloride 20 mEq oral tablet, extended release)1 tab(s) by mouth every48 hours. Take with food. Refills: 0. rivaroxaban (rivaroxaban 20 mg oral tablet)1 tab(s) by mouth daily at bedtime. sacubitril-valsartan (Entresto 24 mg-26 mg oral tablet)0.5 by mouth two (2) times a day. Refills: 3. venlafaxine (venlafaxine 75 mg oral capsule, extended release)1 cap by mouth once a day. Follow Up Follow Up with JACEY THORNTON MD When 08/26/2023 03:00 PM EDT Why: This is your hospital follow up in the Device [facility]. Where: [address] [facility] [address] [place] [address]- [phone] Follow Up with ABDIEL ZARAGOZA MD When 06/10/2023 03:15 PM EDT Why: KEEP THIS PREVIOUSLY SCHEDULED APPOINTMENT , Where: [address] [facility] [address] [place] [address]- [phone] Follow Up with JACEY THORNTON MD When 06/10/2023 03:00 PM EDT Why: This is your incision check in the Device Clinic. Where: [address] [facility] [address] [place] [address]- [phone] Follow Up with BEENA BURGOS MD When Within 1-2 days Where: [address] [place] [address]- [phone] Follow Up Appointments No qualifying data available. Follow Up Labs/Studies Discharge Labs No Follow-up Labs Discharge Studies No Follow-up Studies Discharge Diet No qualifying data available. Discharge Activity No qualifying data available. Condition on Discharge stable Readmission Risk/Palliative Score LACE Score: 9 (05/27/23 13:30:00) Palliative Total Score: 1 (05/27/23 13:30:00) Discharge Disposition home Digitally Signed by CANDELARIO JUNG MD on 05/29/2023 12:43 PM [facility] [id number] NoteATRIAL-SENSED VENTRICULAR-PACED COMPLEXES Electronic Signature: FIDE FERNANDEZ MD 05/29/2023 10:47:46[facility] 02-28-2024 Cardiology Progress note Date of Service 05/28/2023 Subjective Patient sitting comfortably in bed. Denies any chest pain or shortness of breath No acute events noted overnight. Objective Vitals and Measurements T: 36.8 C (Oral) TMIN: 36.7 C (Oral) TMAX: 37.1 C (Oral) HR: 73(Monitored) RR: 18 BP: 102/62 SpO2: 95% Intake and Output 7AM Yesterday to 7AM Today Intake and Output (Last 24 hours) Intake Oral Intake 440.00 Output Urine Voided 500.00 Total Summary Total Intake 440.00 Total Output 500.00 Fluid Balance -60.00 Physical Exam General Appearance: Comfortable, not in acute distress HEENT:Bilateral normal eye movements, normal oral cavity Neck: No JVD noted Cardiac: S1, S2, no murmurs, Lungs: No wheezes, normal chest expansion. Abdomen: No tenderness, no distention, normal bowel sounds. Musculoskeletal: No signs of acute synovitis. Neurological: Alert and oriented x3, no focal neurological deficits grossly. Extremities: no lower extremity edema, no crackles, Psychiatric: Appropriate, normal mood. Weight Dosing Weight: 102.3 kg (05/26/23) Dosing Weight: 102.3 kg (05/26/23) Medications Medications (24) Active Scheduled: (13) atorvastatin 10 mg tablet 10 mg 1 tab(s), Oral, qDay carvedilol 25 mg tablet 25 mg 1 tab(s), Oral, BID dofetilide 250 mcg capsule 250 mcg 1 cap(s), Oral, BID empagliflozin 10 mg tablet 10 mg 1 tab(s), Oral, qAM furosemide 40 mg tablet 40 mg 1 tab(s), Oral, q48h glipizide 5 mg Tablet 10 mg 2 tab(s), Oral, BID levothyroxine 88 mcg tablet 88 mcg 1 tab(s), Oral, qDayAC lidocaine 1% (MPF) 2 mL vial pf 2.5 mg 0.25 mL, Intradermal, prep pharm multivitamin tablet 1 tab(s), Oral, Daily potassium chloride 20 mEq ER tablet 20 mEq 1 tab(s), Oral, q48h rivaroxaban 20 mg tablet 20 mg 1 tab(s), Oral, qHS sacubitril-valsartan 24-26 mg oral tablet 0.5 tab(s), Oral, BID venlafaxine 75 mg ER capsule 75 mg 1 cap(s), Oral, qDayM Continuous: (1) Dextrose 5% with 0.45% NACL 1,000 mL 1,000 mL, Intravenous, 20 mL/hr PRN: (10) atropine 0.4 mg/ml 1 mL vial 0.4 mg 1 mL, IV Push, AsDirected dextrose 50% Solution Disp syringe 50 mL 12.5 gram(s) 25 mL, IV Push, AsDirected HYDROmorphone 0.5 mg/0.5 mL PF syringe 0.5 mg 0.5 mL, IV Push, q5min magnesium sulfate 4 gram(s)/100mL PMX 4 g 100 mL, IV Piggyback, AsDirected magnesium sulfate 50% (500mg/mL) 6 g 12 mL, IV Piggyback, AsDirected magnesium sulfate PMX 2 g 50 mL, IV Piggyback, AsDirected potassium chloride (PMX) 20 mEq/100 mL 20 mEq 100 mL, IV Piggyback, AsDirected potassium chloride 20 mEq ER tablet 20 mEq 1 tab(s), Oral, AsDirected potassium chloride 20 mEq ER tablet 40 mEq 2 tab(s), Oral, AsDirected potassium chloride 20 mEq ER tablet 40 mEq 2 tab(s), Oral, AsDirected Lab Results 05/27 03:22 WBC: 5.7 Hgb: 12.2 Hct: 37.8 Platelet: 159 Neutrophil %: 69.1 Glucose Level: 117 H Sodium Level: 143 Potassium Level: 4.3 BUN: 21.0 Creatinine Lvl (s): 0.93 EKG EKG - Completed -- 05/26/23 5:00:00 EST EKG - Completed -- 05/26/23 22:00:00 EST Electrocardiogram - Completed -- 05/26/23 13:50:00 EST, Upon arrival to nursing unit, Complete by Nursing Electrocardiogram (EKG) - InProcess -- 05/27/23 10:00:00 EST Electrocardiogram (EKG) - InProcess -- 05/27/23 10:34:00 EST Electrocardiogram (EKG) - InProcess -- 05/27/23 21:39:00 EST Electrocardiogram (EKG) - Ordered -- 05/28/23 11:00:00 EST Assessment/Plan # S/p GOVERNMENT GAUGER device placement 05/26/2023 # History of cardiomyopathy # Paroxysmal atrial fibrillation Plan Will continue with dofetilide 250 mcg every 12 hours, Continue to monitor QT intervals Monitor electrolytes Patient will be observed for 6 doses in hospital setting Likely discharge tomorrow Digitally Signed by CANDELARIO JUNG MD on 05/28/2023 09:44 AM [facility] [id number] NoteATRIAL-SENSED VENTRICULAR-PACED RHYTHM Electronic Signature: FIDE FERNANDEZ MD 05/29/2023 11:00:[address] [place] [address] 02-28-2024 Cardiology Progress note Date of Service 05/28/2023 Subjective Patient sitting comfortably in bed. Denies any chest pain or shortness of breath No acute events noted overnight. Objective Vitals and Measurements T: 36.8 C (Oral) TMIN: 36.7 C (Oral) TMAX: 37.1 C (Oral) HR: 73(Monitored) RR: 18 BP: 102/62 SpO2: 95% Intake and Output 7AM Yesterday to 7AM Today Intake and Output (Last 24 hours) Intake Oral Intake 440.00 Output Urine Voided 500.00 Total Summary Total Intake 440.00 Total Output 500.00 Fluid Balance -60.00 Physical Exam General Appearance: Comfortable, not in acute distress HEENT:Bilateral normal eye movements, normal oral cavity Neck: No JVD noted Cardiac: S1, S2, no murmurs, Lungs: No wheezes, normal chest expansion. Abdomen: No tenderness, no distention, normal bowel sounds. Musculoskeletal: No signs of acute synovitis. Neurological: Alert and oriented x3, no focal neurological deficits grossly. Extremities: no lower extremity edema, no crackles, Psychiatric: Appropriate, normal mood. Weight Dosing Weight: 102.3 kg (05/26/23) Dosing Weight: 102.3 kg (05/26/23) Medications Medications (24) Active Scheduled: (13) atorvastatin 10 mg tablet 10 mg 1 tab(s), Oral, qDay carvedilol 25 mg tablet 25 mg 1 tab(s), Oral, BID dofetilide 250 mcg capsule 250 mcg 1 cap(s), Oral, BID empagliflozin 10 mg tablet 10 mg 1 tab(s), Oral, qAM furosemide 40 mg tablet 40 mg 1 tab(s), Oral, q48h glipizide 5 mg Tablet 10 mg 2 tab(s), Oral, BID levothyroxine 88 mcg tablet 88 mcg 1 tab(s), Oral, qDayAC lidocaine 1% (MPF) 2 mL vial pf 2.5 mg 0.25 mL, Intradermal, prep pharm multivitamin tablet 1 tab(s), Oral, Daily potassium chloride 20 mEq ER tablet 20 mEq 1 tab(s), Oral, q48h rivaroxaban 20 mg tablet 20 mg 1 tab(s), Oral, qHS sacubitril-valsartan 24-26 mg oral tablet 0.5 tab(s), Oral, BID venlafaxine 75 mg ER capsule 75 mg 1 cap(s), Oral, qDayM Continuous: (1) Dextrose 5% with 0.45% NACL 1,000 mL 1,000 mL, Intravenous, 20 mL/hr PRN: (10) atropine 0.4 mg/ml 1 mL vial 0.4 mg 1 mL, IV Push, AsDirected dextrose 50% Solution Disp syringe 50 mL 12.5 gram(s) 25 mL, IV Push, AsDirected HYDROmorphone 0.5 mg/0.5 mL PF syringe 0.5 mg 0.5 mL, IV Push, q5min magnesium sulfate 4 gram(s)/100mL PMX 4 g 100 mL, IV Piggyback, AsDirected magnesium sulfate 50% (500mg/mL) 6 g 12 mL, IV Piggyback, AsDirected magnesium sulfate PMX 2 g 50 mL, IV Piggyback, AsDirected potassium chloride (PMX) 20 mEq/100 mL 20 mEq 100 mL, IV Piggyback, AsDirected potassium chloride 20 mEq ER tablet 20 mEq 1 tab(s), Oral, AsDirected potassium chloride 20 mEq ER tablet 40 mEq 2 tab(s), Oral, AsDirected potassium chloride 20 mEq ER tablet 40 mEq 2 tab(s), Oral, AsDirected Lab Results 05/27 03:22 WBC: 5.7 Hgb: 12.2 Hct: 37.8 Platelet: 159 Neutrophil %: 69.1 Glucose Level: 117 H Sodium Level: 143 Potassium Level: 4.3 BUN: 21.0 Creatinine Lvl (s): 0.93 EKG EKG - Completed -- 05/26/23 5:00:00 EST EKG - Completed -- 05/26/23 22:00:00 EST Electrocardiogram - Completed -- 05/26/23 13:50:00 EST, Upon arrival to nursing unit, Complete by Nursing Electrocardiogram (EKG) - InProcess -- 05/27/23 10:00:00 EST Electrocardiogram (EKG) - InProcess -- 05/27/23 10:34:00 EST Electrocardiogram (EKG) - InProcess -- 05/27/23 21:39:00 EST Electrocardiogram (EKG) - Ordered -- 05/28/23 11:00:00 EST Assessment/Plan # S/p GOVERNMENT GAUGER device placement 05/26/2023 # History of cardiomyopathy # Paroxysmal atrial fibrillation Plan Will continue with dofetilide 250 mcg every 12 hours, Continue to monitor QT intervals Monitor electrolytes Patient will be observed for 6 doses in hospital setting Likely discharge tomorrow Digitally Signed by CANDELARIO JUNG MD on 05/28/2023 09:44 AM [facility] [id number] NoteATRIAL-SENSED VENTRICULAR-PACED COMPLEXES IVCD, CONSIDER ATYPICAL RBBB Electronic Signature: FIDE FERNANDEZ MD 05/28/2023 10:56:19[facility] 02-27-2024 Cardiology Progress note Date of Service 05/27/2023 Subjective Patiently comfortably bed. Denied any chest pain or shortness of breath Patient underwent successful GOVERNMENT GAUGER-D device placement yesterday. She was started on Tikosyn overnight. Objective Vitals and Measurements T: 36.7 C (Oral) TMIN: 36.4 C (Oral) TMAX: 37.2 C (Oral) HR: 66(Monitored) RR: 16 BP: 110/59 SpO2: 97% HT: 160.0 cm WT: 102.3 kg BMI: 39.96 Intake and Output 7AM Yesterday to 7AM Today Intake and Output (Last 24 hours) Intake Oral Intake 580.00 Output Urine Voided 650.00 Urine Count 3.00 Total Summary Total Intake 580.00 Total Output 650.00 Fluid Balance -70.00 Physical Exam General Appearance: Comfortable, not in acute distress HEENT:Bilateral normal eye movements, normal oral cavity Neck: No JVD noted Cardiac: S1, S2, no murmurs, Lungs: No wheezes, normal chest expansion. Abdomen: No tenderness, no distention, normal bowel sounds. Musculoskeletal: No signs of acute synovitis. Neurological: Alert and oriented x3, no focal neurological deficits grossly. Extremities: no lower extremity edema, no crackles, Psychiatric: Appropriate, normal mood. Weight Dosing Weight: 102.3 kg (05/26/23) Dosing Weight: 102.3 kg (05/26/23) Medications Medications (24) Active Scheduled: (13) atorvastatin 10 mg tablet 10 mg 1 tab(s), Oral, qDay carvedilol 25 mg tablet 25 mg 1 tab(s), Oral, BID dofetilide 250 mcg capsule 250 mcg 1 cap(s), Oral, BID empagliflozin 10 mg tablet 10 mg 1 tab(s), Oral, qAM furosemide 40 mg tablet 40 mg 1 tab(s), Oral, q48h glipizide 5 mg Tablet 10 mg 2 tab(s), Oral, BID levothyroxine 88 mcg tablet 88 mcg 1 tab(s), Oral, qDayAC lidocaine 1% (MPF) 2 mL vial pf 2.5 mg 0.25 mL, Intradermal, prep pharm multivitamin tablet 1 tab(s), Oral, Daily potassium chloride 20 mEq ER tablet 20 mEq 1 tab(s), Oral, q48h rivaroxaban 20 mg tablet 20 mg 1 tab(s), Oral, qHS sacubitril-valsartan 24-26 mg oral tablet 0.5 tab(s), Oral, BID venlafaxine 75 mg ER capsule 75 mg 1 cap(s), Oral, qDayM Continuous: (1) Dextrose 5% with 0.45% NACL 1,000 mL 1,000 mL, Intravenous, 20 mL/hr PRN: (10) atropine 0.4 mg/ml 1 mL vial 0.4 mg 1 mL, IV Push, AsDirected dextrose 50% Solution Disp syringe 50 mL 12.5 gram(s) 25 mL, IV Push, AsDirected HYDROmorphone 0.5 mg/0.5 mL PF syringe 0.5 mg 0.5 mL, IV Push, q5min magnesium sulfate 4 gram(s)/100mL PMX 4 g 100 mL, IV Piggyback, AsDirected magnesium sulfate 50% (500mg/mL) 6 g 12 mL, IV Piggyback, AsDirected magnesium sulfate PMX 2 g 50 mL, IV Piggyback, AsDirected potassium chloride (PMX) 20 mEq/100 mL 20 mEq 100 mL, IV Piggyback, AsDirected potassium chloride 20 mEq ER tablet 20 mEq 1 tab(s), Oral, AsDirected potassium chloride 20 mEq ER tablet 40 mEq 2 tab(s), Oral, AsDirected potassium chloride 20 mEq ER tablet 40 mEq 2 tab(s), Oral, AsDirected Lab Results 05/27 03:22 WBC: 5.7 Hgb: 12.2 Hct: 37.8 Platelet: 159 Neutrophil %: 69.1 Glucose Level: 117 H Sodium Level: 143 Potassium Level: 4.3 BUN: 21.0 Creatinine Lvl (s): 0.93 05/26 17:24 WBC: 6.6 Hgb: 12.8 Hct: 39.9 Platelet: 180 Neutrophil %: 70.4 Glucose Level: 206 H Sodium Level: 143 Potassium Level: 4.2 BUN: 22.0 Creatinine Lvl (s): 1.00 05/26 09:50 WBC: 5.6 Hgb: 13.7 Hct: 42.3 Platelet: 200 Neutrophil %: 66.6 Protime: 13.2 PT International Ratio: 1.2 Glucose Level: 159 H Sodium Level: 141 Potassium Level: 4.1 BUN: 22.0 Creatinine Lvl (s): 0.94 EKG EKG - Completed -- 05/26/23 5:00:00 EST EKG - Completed -- 05/26/23 22:00:00 EST Electrocardiogram - Completed -- 05/26/23 13:50:00 EST, Upon arrival to nursing unit, Complete by Nursing Electrocardiogram - Discontinued -- 05/26/23 13:50:00 EST, Complete by Nursing Electrocardiogram - Discontinued -- 05/26/23 13:50:00 EST, Complete by Nursing Electrocardiogram (EKG) - InProcess -- 05/27/23 10:00:00 EST Electrocardiogram (EKG) - InProcess -- 05/27/23 10:34:00 EST Assessment/Plan # S/p GOVERNMENT GAUGER device placement 05/26/2023 # History of cardiomyopathy # Paroxysmal atrial fibrillation Plan Will continue with dofetilide 250 mcg every 12 hours, Continue to monitor QT intervals Monitor electrolytes Patient will be observed for 6 doses in hospital setting GOVERNMENT GAUGER D device adjustments performed today Digitally Signed by CANDELARIO JUNG MD on 05/27/2023 02:53 PM [facility] [id number] Cardiology Progress note Date of Service 05/27/2023 Subjective Patiently comfortably bed. Denied any chest pain or shortness of breath Patient underwent successful GOVERNMENT GAUGER-D device placement yesterday. She was started on Tikosyn overnight. Objective Vitals and Measurements T: 36.7 C (Oral) TMIN: 36.4 C (Oral) TMAX: 37.2 C (Oral) HR: 66(Monitored) RR: 16 BP: 110/59 SpO2: 97% HT: 160.0 cm WT: 102.3 kg BMI: 39.96 Intake and Output 7AM Yesterday to 7AM Today Intake and Output (Last 24 hours) Intake Oral Intake 580.00 Output Urine Voided 650.00 Urine Count 3.00 Total Summary Total Intake 580.00 Total Output 650.00 Fluid Balance -70.00 Physical Exam General Appearance: Comfortable, not in acute distress HEENT:Bilateral normal eye movements, normal oral cavity Neck: No JVD noted Cardiac: S1, S2, no murmurs, Lungs: No wheezes, normal chest expansion. Abdomen: No tenderness, no distention, normal bowel sounds. Musculoskeletal: No signs of acute synovitis. Neurological: Alert and oriented x3, no focal neurological deficits grossly. Extremities: no lower extremity edema, no crackles, Psychiatric: Appropriate, normal mood. Weight Dosing Weight: 102.3 kg (05/26/23) Dosing Weight: 102.3 kg (05/26/23) Medications Medications (24) Active Scheduled: (13) atorvastatin 10 mg tablet 10 mg 1 tab(s), Oral, qDay carvedilol 25 mg tablet 25 mg 1 tab(s), Oral, BID dofetilide 250 mcg capsule 250 mcg 1 cap(s), Oral, BID empagliflozin 10 mg tablet 10 mg 1 tab(s), Oral, qAM furosemide 40 mg tablet 40 mg 1 tab(s), Oral, q48h glipizide 5 mg Tablet 10 mg 2 tab(s), Oral, BID levothyroxine 88 mcg tablet 88 mcg 1 tab(s), Oral, qDayAC lidocaine 1% (MPF) 2 mL vial pf 2.5 mg 0.25 mL, Intradermal, prep pharm multivitamin tablet 1 tab(s), Oral, Daily potassium chloride 20 mEq ER tablet 20 mEq 1 tab(s), Oral, q48h rivaroxaban 20 mg tablet 20 mg 1 tab(s), Oral, qHS sacubitril-valsartan 24-26 mg oral tablet 0.5 tab(s), Oral, BID venlafaxine 75 mg ER capsule 75 mg 1 cap(s), Oral, qDayM Continuous: (1) Dextrose 5% with 0.45% NACL 1,000 mL 1,000 mL, Intravenous, 20 mL/hr PRN: (10) atropine 0.4 mg/ml 1 mL vial 0.4 mg 1 mL, IV Push, AsDirected dextrose 50% Solution Disp syringe 50 mL 12.5 gram(s) 25 mL, IV Push, AsDirected HYDROmorphone 0.5 mg/0.5 mL PF syringe 0.5 mg 0.5 mL, IV Push, q5min magnesium sulfate 4 gram(s)/100mL PMX 4 g 100 mL, IV Piggyback, AsDirected magnesium sulfate 50% (500mg/mL) 6 g 12 mL, IV Piggyback, AsDirected magnesium sulfate PMX 2 g 50 mL, IV Piggyback, AsDirected potassium chloride (PMX) 20 mEq/100 mL 20 mEq 100 mL, IV Piggyback, AsDirected potassium chloride 20 mEq ER tablet 20 mEq 1 tab(s), Oral, AsDirected potassium chloride 20 mEq ER tablet 40 mEq 2 tab(s), Oral, AsDirected potassium chloride 20 mEq ER tablet 40 mEq 2 tab(s), Oral, AsDirected Lab Results 05/27 03:22 WBC: 5.7 Hgb: 12.2 Hct: 37.8 Platelet: 159 Neutrophil %: 69.1 Glucose Level: 117 H Sodium Level: 143 Potassium Level: 4.3 BUN: 21.0 Creatinine Lvl (s): 0.93 05/26 17:24 WBC: 6.6 Hgb: 12.8 Hct: 39.9 Platelet: 180 Neutrophil %: 70.4 Glucose Level: 206 H Sodium Level: 143 Potassium Level: 4.2 BUN: 22.0 Creatinine Lvl (s): 1.00 05/26 09:50 WBC: 5.6 Hgb: 13.7 Hct: 42.3 Platelet: 200 Neutrophil %: 66.6 Protime: 13.2 PT International Ratio: 1.2 Glucose Level: 159 H Sodium Level: 141 Potassium Level: 4.1 BUN: 22.0 Creatinine Lvl (s): 0.94 EKG EKG - Completed -- 05/26/23 5:00:00 EST EKG - Completed -- 05/26/23 22:00:00 EST Electrocardiogram - Completed -- 05/26/23 13:50:00 EST, Upon arrival to nursing unit, Complete by Nursing Electrocardiogram - Discontinued -- 05/26/23 13:50:00 EST, Complete by Nursing Electrocardiogram - Discontinued -- 05/26/23 13:50:00 EST, Complete by Nursing Electrocardiogram (EKG) - InProcess -- 05/27/23 10:00:00 EST Electrocardiogram (EKG) - InProcess -- 05/27/23 10:34:00 EST Assessment/Plan # S/p GOVERNMENT GAUGER device placement 05/26/2023 # History of cardiomyopathy # Paroxysmal atrial fibrillation Plan Will continue with dofetilide 250 mcg every 12 hours, Continue to monitor QT intervals Monitor electrolytes Patient will be observed for 6 doses in hospital setting GOVERNMENT GAUGER D device adjustments performed today Digitally Signed by CANDELARIO JUNG MD on 05/27/2023 02:53 PM [facility] [id number] NoteATRIAL-SENSED VENTRICULAR-PACED COMPLEXES Electronic Signature: FIDE FERNANDEZ MD 05/28/2023 10:56:32[facility] 02-27-2024 NoteATRIAL-SENSED VENTRICULAR-PACED COMPLEXES Electronic Signature: FIDE FERNANDEZ MD 05/28/2023 10:56:25[facility] 02-26-2024 NoteVENTRICULAR-PACED COMPLEXES Electronic Signature: FIDE FERNANDEZ MD 05/27/2023 09:48:23[facility] 02-26-2024 Note ORIGINAL EXAMINATION: TWO XRAY VIEWS OF THE CHEST 05/26/2023 8:39 pm COMPARISON: None. HISTORY: ORDERING SYSTEM PROVIDED HISTORY: Reason for Exam: evaluate for pneumothorax FINDINGS: There is a left chest wall pacemaker with appropriately placed leads. The cardiomediastinal silhouette appears normal. There is no focal consolidation. There is no pulmonary edema. There is no evidence of pleural effusion. There is no evidence of pneumothorax. No acute fracture is identified. IMPRESSION: Left chest wall pacemaker with appropriately placed leads. No pneumothorax. Interpreted by: Murray Leija Preliminary Report By: Murray Leija Electronically signed By Murray Leija Dictated Date: 05/26/2023 9:55:23 PM Prelim Date: 05/26/2023 9:56:05 PM Sign Date: 05/26/2023 9:56:05 PM Ordering Provider: [facility]02-26-2024 NoteATRIAL-SENSED VENTRICULAR-PACED RHYTHM Electronic Signature: FIDE FERNANDEZ MD 05/27/2023 09:48:13[facility] 02-26-2024 Anesthesiology Consult note Patient: PURA LAGUERRE Age: 62 years Sex: Female : 1960 Associated Diagnoses: None Author: VERONA CRYSTAL MD Postoperative Information Post Operative Info: Post op day: POD0. Patient location: same day surgery. Assessment Postanesthesia assessment Vitals: Vital signs from flowsheet : Vital Signs 05/26/2023 13:40 EST Heart Rate Monitored 63 bpm Respiratory Rate 14 br/min Systolic Blood Pressure Non-Invasive 133 mmHg Diastolic Blood Pressure Non-Invasive 93 mmHg HI Mean Arterial Pressure (NBP) 104 mmHg 05/26/2023 13:35 EST Heart Rate Monitored 64 bpm Respiratory Rate 20 br/min Systolic Blood Pressure Non-Invasive 148 mmHg HI Diastolic Blood Pressure Non-Invasive 75 mmHg Mean Arterial Pressure (NBP) 98 mmHg 05/26/2023 13:30 EST Heart Rate Monitored 67 bpm Respiratory Rate 15 br/min Systolic Blood Pressure Non-Invasive 131 mmHg Diastolic Blood Pressure Non-Invasive 83 mmHg Mean Arterial Pressure (NBP) 100 mmHg 05/26/2023 13:25 EST Heart Rate Monitored 63 bpm Respiratory Rate 14 br/min Systolic Blood Pressure Non-Invasive 161 mmHg HI Diastolic Blood Pressure Non-Invasive 75 mmHg Mean Arterial Pressure (NBP) 102 mmHg 05/26/2023 13:20 EST Temperature Temporal Artery 36.1 DegC Heart Rate Monitored 66 bpm Respiratory Rate 15 br/min Systolic Blood Pressure Non-Invasive 153 mmHg HI Diastolic Blood Pressure Non-Invasive 100 mmHg >HHI Mean Arterial Pressure (NBP) 109 mmHg 05/26/2023 13:15 EST Heart Rate Monitored 65 bpm Systolic Blood Pressure Non-Invasive 137 mmHg Diastolic Blood Pressure Non-Invasive 88 mmHg 05/26/2023 13:10 EST Heart Rate Monitored 65 bpm Heart Rate Monitored 65 bpm bpm Respiratory Rate - Anes 6 br/min br/min Systolic Blood Pressure Non-Invasive 110 mmHg Diastolic Blood Pressure Non-Invasive 78 mmHg 05/26/2023 13:06 EST Systolic Blood Pressure Non-Invasive 110 mmHg mmHg Diastolic Blood Pressure Non-Invasive 78 mmHg mmHg 05/26/2023 13:05 EST Heart Rate Monitored 68 bpm bpm Respiratory Rate - Anes 28 br/min br/min 05/26/2023 13:01 EST Systolic Blood Pressure Non-Invasive 97 mmHg mmHg Diastolic Blood Pressure Non-Invasive 68 mmHg mmHg 05/26/2023 13:00 EST Heart Rate Monitored 68 bpm bpm Respiratory Rate - Anes 11 br/min br/min 05/26/2023 12:56 EST Systolic Blood Pressure Non-Invasive 93 mmHg mmHg Diastolic Blood Pressure Non-Invasive 53 mmHg mmHg 05/26/2023 12:55 EST Heart Rate Monitored 85 bpm bpm Respiratory Rate - Anes 8 br/min br/min 05/26/2023 12:51 EST Systolic Blood Pressure Non-Invasive 121 mmHg mmHg Diastolic Blood Pressure Non-Invasive 107 mmHg mmHg 05/26/2023 12:50 EST Heart Rate Monitored 71 bpm bpm Respiratory Rate - Anes 14 br/min br/min 05/26/2023 12:46 EST Systolic Blood Pressure Non-Invasive 119 mmHg mmHg Diastolic Blood Pressure Non-Invasive 82 mmHg mmHg 05/26/2023 12:45 EST Heart Rate Monitored 77 bpm bpm Respiratory Rate - Anes 14 br/min br/min 05/26/2023 12:41 EST Systolic Blood Pressure Non-Invasive 102 mmHg mmHg Diastolic Blood Pressure Non-Invasive 77 mmHg mmHg 05/26/2023 12:40 EST Heart Rate Monitored 80 bpm bpm Respiratory Rate - Anes 12 br/min br/min 05/26/2023 12:36 EST Systolic Blood Pressure Non-Invasive 101 mmHg mmHg Diastolic Blood Pressure Non-Invasive 74 mmHg mmHg 05/26/2023 12:35 EST Heart Rate Monitored 72 bpm bpm Respiratory Rate - Anes 13 br/min br/min 05/26/2023 12:31 EST Systolic Blood Pressure Non-Invasive 99 mmHg mmHg Diastolic Blood Pressure Non-Invasive 63 mmHg mmHg 05/26/2023 12:30 EST Heart Rate Monitored 70 bpm bpm Respiratory Rate - Anes 12 br/min br/min 05/26/2023 12:26 EST Systolic Blood Pressure Non-Invasive 107 mmHg mmHg Diastolic Blood Pressure Non-Invasive 76 mmHg mmHg 05/26/2023 12:25 EST Heart Rate Monitored 78 bpm bpm Respiratory Rate - Anes 10 br/min br/min 05/26/2023 12:21 EST Systolic Blood Pressure Non-Invasive 96 mmHg mmHg Diastolic Blood Pressure Non-Invasive 62 mmHg mmHg 05/26/2023 12:20 EST Heart Rate Monitored 121 bpm bpm Respiratory Rate - Anes 11 br/min br/min 05/26/2023 12:16 EST Systolic Blood Pressure Non-Invasive 101 mmHg mmHg Diastolic Blood Pressure Non-Invasive 66 mmHg mmHg 05/26/2023 12:15 EST Heart Rate Monitored 67 bpm bpm Respiratory Rate - Anes 11 br/min br/min 05/26/2023 12:11 EST Systolic Blood Pressure Non-Invasive 97 mmHg mmHg Diastolic Blood Pressure Non-Invasive 69 mmHg mmHg 05/26/2023 12:10 EST Heart Rate Monitored 87 bpm bpm Respiratory Rate - Anes 12 br/min br/min 05/26/2023 12:06 EST Systolic Blood Pressure Non-Invasive 96 mmHg mmHg Diastolic Blood Pressure Non-Invasive 64 mmHg mmHg 05/26/2023 12:05 EST Heart Rate Monitored 73 bpm bpm Respiratory Rate - Anes 10 br/min br/min 05/26/2023 12:01 EST Systolic Blood Pressure Non-Invasive 93 mmHg mmHg Diastolic Blood Pressure Non-Invasive 79 mmHg mmHg 05/26/2023 12:00 EST Heart Rate Monitored 65 bpm bpm Respiratory Rate - Anes 4 br/min br/min 05/26/2023 11:56 EST Systolic Blood Pressure Non-Invasive 91 mmHg mmHg Diastolic Blood Pressure Non-Invasive 65 mmHg mmHg 05/26/2023 11:55 EST Heart Rate Monitored 66 bpm bpm Respiratory Rate - Anes 11 br/min br/min 05/26/2023 11:51 EST Systolic Blood Pressure Non-Invasive 87 mmHg mmHg Diastolic Blood Pressure Non-Invasive 58 mmHg mmHg 05/26/2023 11:50 EST Heart Rate Monitored 75 bpm bpm Respiratory Rate - Anes 14 br/min br/min 05/26/2023 11:46 EST Systolic Blood Pressure Non-Invasive 107 mmHg mmHg Diastolic Blood Pressure Non-Invasive 66 mmHg mmHg 05/26/2023 11:45 EST Heart Rate Monitored 74 bpm bpm Respiratory Rate - Anes 6 br/min br/min 05/26/2023 11:41 EST Systolic Blood Pressure Non-Invasive 111 mmHg mmHg Diastolic Blood Pressure Non-Invasive 64 mmHg mmHg 05/26/2023 11:40 EST Heart Rate Monitored 75 bpm bpm Respiratory Rate - Anes 16 br/min br/min 05/26/2023 11:36 EST Systolic Blood Pressure Non-Invasive 105 mmHg mmHg Diastolic Blood Pressure Non-Invasive 65 mmHg mmHg 05/26/2023 11:35 EST Heart Rate Monitored 69 bpm bpm Respiratory Rate - Anes 16 br/min br/min 05/26/2023 11:33 EST Systolic Blood Pressure Non-Invasive 131 mmHg mmHg Diastolic Blood Pressure Non-Invasive 120 mmHg mmHg 05/26/2023 11:30 EST Heart Rate Monitored 96 bpm bpm Respiratory Rate - Anes 0 br/min br/min 05/26/2023 9:34 EST Temperature Temporal Artery 35.9 DegC Peripheral Pulse Rate 80 bpm Respiratory Rate 20 br/min Systolic Blood Pressure Non-Invasive 103 mmHg Diastolic Blood Pressure Non-Invasive 66 mmHg , Oxygen Therapy : Oxygen Therapy & Oxygenation Information 05/26/2023 13:40 EST Oxygen Therapy Room air Oxygen Saturation 96 % 05/26/2023 13:35 EST Oxygen Therapy Room air Oxygen Saturation 99 % 05/26/2023 13:30 EST Oxygen Therapy Room air Oxygen Saturation 97 % 05/26/2023 13:25 EST Oxygen Therapy Room air Oxygen Saturation 97 % 05/26/2023 13:20 EST Oxygen Therapy Room air Oxygen Saturation 99 % 05/26/2023 13:15 EST Oxygen Therapy Room air Oxygen Saturation 100 % 05/26/2023 13:10 EST Oxygen Therapy Nasal cannula 0L-6L Oxygen Saturation 91 % LOW Oxygen Saturation 91 % % Oxygen Flow Rate 2 05/26/2023 13:05 EST Oxygen Saturation 98 % % 05/26/2023 13:00 EST Oxygen Saturation 98 % % 05/26/2023 12:55 EST Oxygen Saturation 98 % % 05/26/2023 12:50 EST Oxygen Saturation 99 % % 05/26/2023 12:45 EST Oxygen Saturation 85 % % 05/26/2023 12:40 EST Oxygen Saturation 100 % % 05/26/2023 12:35 EST Oxygen Saturation 98 % % 05/26/2023 12:30 EST Oxygen Saturation 97 % % 05/26/2023 12:25 EST Oxygen Saturation 97 % % 05/26/2023 12:20 EST Oxygen Saturation 96 % % 05/26/2023 12:15 EST Oxygen Saturation 95 % % 05/26/2023 12:10 EST Oxygen Saturation 94 % % 05/26/2023 12:05 EST Oxygen Saturation 93 % % 05/26/2023 12:00 EST Oxygen Saturation 90 % % 05/26/2023 11:55 EST Oxygen Saturation 100 % % 05/26/2023 11:50 EST Oxygen Saturation 99 % % 05/26/2023 11:45 EST Oxygen Saturation 99 % % 05/26/2023 11:40 EST Oxygen Saturation 98 % % 05/26/2023 11:35 EST Oxygen Saturation 97 % % 05/26/2023 11:30 EST Oxygen Saturation 100 % % 05/26/2023 9:34 EST Oxygen Therapy Room air Oxygen Saturation 98 % . Mental status: at preoperative baseline. Respiratory function: respirations are non-labored, Stable. Respiratory support: none. CV function: Stable. Cardiovascular support: none. Pain: Satisfactory. Nausea status: Satisfactory. Postoperative hydration status: within normal limits. Notes: Patient is sufficiently recovered from anesthesia to participate in the evaluation. No follow-up care needed. No complications post-anesthesia.. Digitally Signed by VERONA CRYSTAL MD on 05/26/2023 01:47 PM [id number] Note* Exam Date Time Procedure Performing Provider Status 05/26/23 11:25 AM Implantable Cardiac Defibrillator - CV Auth (Verified) [facility] 02-26-2024 Anesthesiology Consult note Patient: PURA LAGUERRE Age: 62 years Sex: Female : 1960 Associated Diagnoses: None Author: VERONA CRYSTAL MD Preoperative Information Greater than 6 hours Anesthesia history Patient's history: negative. Family's history: negative. Review of Systems Ear/Nose/Mouth/Throat: Negative except as documented in history of present illness. Respiratory: Negative except as documented in history of present illness. Cardiovascular: Negative except as documented in history of present illness. Gastrointestinal: Negative except as documented in history of present illness. Genitourinary: Negative except as documented in history of present illness. Endocrine: Negative except as documented in history of present illness. Musculoskeletal: Negative except as documented in history of present illness. Integumentary: Negative except as documented in history of present illness. Neurologic: Negative except as documented in history of present illness. Health Status Allergies: Allergic Reactions (Selected) Severity Not Documented Sulfa- Hives., Allergies (1) ActiveReaction sulfaHives Current medications: (Selected) Inpatient Medications Ordered D51/2NS 1,000 mL: 20 mL/hr, Intravenous Kefzol: 2 gram(s), 20 mL, 240 mL/hr, IV Push (INT), PREOP pharm lidocaine 1% preservative-free injectable solution: 2.5 mg, 0.25 mL, Intradermal, prep pharm Prescriptions Prescribed Entresto 24 mg-26 mg oral tablet: 0.5, Oral, BID, 90 tab(s), 3 Refill(s) furosemide 40 mg oral tablet: 40 mg, 1 tab(s), Oral, q48h, 15 tab(s), 0 Refill(s) potassium chloride 20 mEq oral tablet, extended release: 20 mEq, 1 tab(s), Oral, q48h, Take with food, 15 tab(s), 0 Refill(s) Documented Medications Documented Multivitamin: 1 tab(s), Oral, Daily, 0 Refill(s) Ultra Martin Krill Oil 500 mg oral capsule: mg, cap(s), Oral, qDay, 0 Refill(s) atorvastatin 10 mg oral tablet: mg, tab(s), Oral, qDay, 0 Refill(s) carvedilol 25 mg oral tablet: mg, tab(s), Oral, BID, 0 Refill(s) empagliflozin 10 mg oral tablet: 10 mg, 1 tab(s), Oral, qAM, 0 Refill(s) glipiZIDE 10 mg oral tablet: mg, tab(s), Oral, BID, 0 Refill(s) levothyroxine 88 mcg (0.088 mg) oral tablet: 88 mcg, 1 tab(s), Oral, qDayAC, 0 Refill(s) rivaroxaban 20 mg oral tablet: 20 mg, 1 tab(s), Oral, qHS, 30 tab(s), 0 Refill(s) venlafaxine 75 mg oral capsule, extended release: 75 mg, 1 cap(s), Oral, qDay, 30 cap(s), 0 Refill(s), Medications (3) Active Scheduled: (2) ceFAZolin syringe 2 gram(s) 20 mL, IV Push (INT), PREOP pharm lidocaine 1% (MPF) 2 mL vial pf 2.5 mg 0.25 mL, Intradermal, prep pharm Continuous: (1) Dextrose 5% with 0.45% NACL 1,000 mL 1,000 mL, Intravenous, 20 mL/hr PRN: (0) Problem list: Medical CHF - Congestive heart failure / SNOMED CT 623895636 / Confirmed Pacemaker care / SNOMED CT 8852063610 / Confirmed Cardiomyopathy / SNOMED CT 013038226 / Confirmed Anemia / SNOMED CT 783998077 / Confirmed Back pain / SNOMED CT 5101203622 / Confirmed Complete heart block / SNOMED CT 08662037 / Confirmed NSTEMI - Non-ST segment elevation ND / SNOMED CT 8361247035 / Confirmed PAF - Paroxysmal atrial fibrillation / SNOMED CT 990516979 / Confirmed Complete AV block / SNOMED CT 96673394 / Confirmed, Active Problems (9) Anemia Back pain Cardiomyopathy CHF - Congestive heart failure Complete AV block Complete heart block NSTEMI - Non-ST segment elevation ND Pacemaker care PAF - Paroxysmal atrial fibrillation Histories Past Medical History: No active or resolved past medical history items have been selected or recorded. Family History: Cancer Brother () Heart attack Father () Procedure history: Echocardiogram ([id number]) on 03/14/2023 at 62 Years. Cardiac catheterization ([id number]) on 08/04/2020 at 59 Years. Comments: 05/05/2023 15:42 [place] RN [place]: EF 30%, RCA 30% Dr. Smith Cardiac pacemaker procedure ([id number]) on 03/31/2019 at 58 Years. Comments: 04/30/2023 8:56 Angelika Petty RN Micra AV implanted 2019 Dr [facility] Med[employer] [id number] Micra AV Serial [id number] Social History Social & Psychosocial Habits Employment/School 05/07/2023 Status: Employed Tobacco 05/07/2023 Tobacco Use: Never (less than 100 in l Home/Environment 05/07/2023 Marital Status of Patient if Patient Independent Adult: Unmarried Nutrition/Health 05/07/2023 Caffeine intake amount: none . Physical Examination Vital Signs 05/26/2023 9:34 EST Temperature Temporal Artery 35.9 DegC Peripheral Pulse Rate 80 bpm Respiratory Rate 20 br/min Systolic Blood Pressure Non-Invasive 103 mmHg Diastolic Blood Pressure Non-Invasive 66 mmHg Vital Signs(last 24 hrs) Last Charted XOR036 mmHg (MAY 26 09:34) DBP66 mmHg (MAY 26 09:34) BMI39.96 (MAY 26 09:34) Measurements from flowsheet : Measurements 05/26/2023 9:34 EST Height 160.0 cm Height in inches 63 inch(es) Admission Weight 102.3 kg Weight Lbs 225.1 lb Weight Method Actual [place] Body Weight 52.38 kg Body Mass Index 39.96 kg/m2 Admission Body Mass Index 39.96 m2 05/26/2023 9:31 EST Body Mass Index 39.96 kg/m2 Pain assessment: Pain Assessment 05/26/2023 9:34 EST Primary Pain Intensity 0 Pain Scale Type 0-10 Pain scale . General: Alert and oriented. Airway: Normal temporomandibular joint mobility, Normal mouth, Normal throat, Normal neck range of motion, Trachea midline. Mallampati classification: II (soft palate, fauces, uvula visible). Head: Normocephalic. Dentition Evaluation: Own teeth, Missing teeth, Denies loose/chipped teeth. Neck: Supple. Respiratory: Lungs are clear to auscultation, Respirations are non-labored. Cardiovascular: Normal rate, Regular rhythm, No murmur. Heart Sounds: Normal. Gastrointestinal: Soft. Musculoskeletal Normal range of motion. Integumentary: Intact, Warm, Dry. Neurologic: Alert, Oriented. Review / Management Results review: Labs (Last four charted values) WBC 5.6(MAY 26) Hgb 13.7(MAY 26) Hct 42.3(MAY 26) Plt 200(MAY 26) Na 141(MAY 26) K 4.1(MAY 26) CO2 31(MAY 26) Cl 105(MAY 26) Cr 0.94(MAY 26) BUN 22.0(MAY 26) Glucose H 159(MAY 26) Ca 9.9(MAY 26) PT 13.2(MAY 26) INR 1.2(MAY 26) , Lab results 05/26/2023 11:00 EST Implantable Cardiac Defibrillator - CV Arrived (In Progress) 05/26/2023 10:13 EST Electrocardiogram - EKG - CV Completed (In Progress) 05/26/2023 10:07 EST SN - Preop - CTm - Pt in HL SD Room 05/26/2023 9:15 SN - Preop - CTm - HL Pt Ready for Procedure 05/26/2023 10:07 05/26/2023 9:51 EST Forearm Left 05/26/2023 20 gauge Peripheral IV Activity: Insert new site Peripheral IV Dressing Condition: Clean, Dry, Intact Peripheral IV Dressing Activity: Applied, Transparent dressing Peripheral IV Line Status/Patency: Flushes easily, Good blood return Peripheral IV Site Condition: No complications Peripheral IV Equipment: PRN Adaptor Peripheral IV Number of Attempts: 1 05/26/2023 9:50 EST WBC 5.6 10^3/mcL RBC 5.45 10^6/mcL HI Hgb 13.7 G/dL Hct 42.3 % MCV 77.5 fL LOW MCH 25.1 pg LOW MCHC 32.4 G/dL RDW 17.6 % HI Platelet 200 10^3/mcL MPV 7.7 fL Neutrophil % 66.6 % Lymphocyte % 23.5 % Monocyte % 5.9 % Eosinophil % 3.0 % Basophil % 1.0 % Neutrophil, Absolute 3.7 10^3/mcL Lymphocyte, Absolute 1.3 10^3/mcL Monocyte, Absolute 0.3 10^3/mcL Eosinophil, Absolute 0.2 10^3/mcL Basophil, Absolute 0.1 10^3/mcL Protime 13.2 seconds PT International Ratio 1.2 ratio NA Glucose Level 159 mg/dL HI Sodium Level 141 mEq/L Potassium Level 4.1 mEq/L Chloride 105 mEq/L CO2 31 mEq/L Electrolyte Balance 5.0 mEq/L BUN 22.0 mg/dL Creatinine Lvl (s) 0.94 mg/dL BUN/Creatinine Ratio 23.4 ratio HI Calcium Lvl 9.9 mg/dL GFR Non- 60 ml/min/1.73sqm NA GFR >60 ml/min/1.73sqm NA ABO/Rh Interp AB POS ABSC Interp (Gel) Negative ABSC Creatinine Clearance Calc 50.65 mL/min 05/26/2023 9:34 EST Height 160.0 cm Height in inches 63 inch(es) Admission Weight 102.3 kg Weight Lbs 225.1 lb Weight Method Actual [place] Body Weight 52.38 kg Body Mass Index 39.96 kg/m2 Admission Body Mass Index 39.96 m2 Temperature Temporal Artery 35.9 DegC Peripheral Pulse Rate 80 bpm Respiratory Rate 20 br/min Systolic Blood Pressure Non-Invasive 103 mmHg Diastolic Blood Pressure Non-Invasive 66 mmHg Primary Pain Intensity 0 Pain Scale Type 0-10 Pain scale Murmur Auscultated Yes Dorsalis Pedis Pulse, Left 2+ Normal Dorsalis Pedis Pulse, Right 2+ Normal Posttibial Pulse, Left 2+ Normal Posttibial Pulse, Right 2+ Normal Brachial Pulse Left 2+ Normal Brachial Pulse Right 2+ Normal Ulnar Pulse Left 2+ Normal Ulnar Pulse Right 2+ Normal Radial Pulse, Left 2+ Normal Radial Pulse, Right 2+ Normal Respirations Unlabored Respiratory Pattern Regular Breath Sounds Auscultated Anterior and posterior All Lobes Breath Sounds Clear, Diminished Cough and Deep Breathe Done Cough None Oxygen Therapy Room air Oxygen Saturation 98 % Abdomen Description Non-distended, Soft, Rounded Passing Flatus Yes Bowel Sounds All Quadrants Present Urinary Elimination Voiding, no difficulties Skin Temperature Warm Skin Description [place], Dry Skin Integrity Intact Mucous Membrane Color [place] Extremity Movement Equal Characteristics of Speech Clear Level of Consciousness Alert Strength All Extremities Strong, Moderate Affect/Behavior Appropriate, Calm, Cooperative Orientation Oriented x 4 Allergies Yes Consent Form Signed Yes Patient Dressed In Hospital gown, No undergarments Pre-op Preparation Jewelry removed, Undergarments removed CHG Preoperative Wash/Wipe Site specific wipe Preop Nasal Swab Povidone-Iodine History & Physical On Chart Yes Obstructive Sleep Apnea Assess Completed Yes MRSA/MSSA Protocol Yes Belongings At Bedside Activity tracker Positioning Repositions self Mobility Assistance Level Independent NPO Status Maintained Standard Safety ID band on, Allergy Band on, Call device within reach, Bed in low position, Wheels locked, Upper/Half-Length side-rails up, Phone within reach, Visitor at bedside, Safety level maintained, Non-Slip footwear, Precautions maintained Demonstrates Correct Call Light Use Yes Allergy Band on and Verified Yes Patient ID Band on and Verified Yes Pacemaker/AICD Verified Yes Blood Consent Signed Yes Last Fluid Intake 05/25/2023 22:00 Last Food Intake 05/25/2023 22:00 Last Void 05/26/2023 9:35 05/26/2023 9:31 EST Designated Person #1 We May Share CHRISTINA Hunt [phone] Designated Person #1 Relationship Friend Privacy Restrictions Requested None Body Mass Index 39.96 kg/m2 Status No, per patient Sensory Deficits None Diagnosed With Sleep Apnea Yes Advanced Directives No - refuses information Infectious Disease Symptoms Patient states no symptoms Infectious Disease Recent Exposure No Alcohol and Drug Use No Employee of Institutional Living No Health Care Employee No History of Exposure to TB No History of Positive Chest X-Ray for TB No History of Positive TB Skin Test No Homeless No Known Immunosuppression No Recent Immigrant No Resident of Institutional Living No Bloody Sputum No Fatigue No Fever No Loss of Appetite No Night Sweats No Persistent Cough > 3 Weeks No Weight Loss No Individuals Taught Patient, Friend Learning Readiness Willing to learn Barriers to Learning None evident Teaching Method Explanation, Printed materials Preferred Spoken Language French Preferred Written Language French Teaching Evaluation Verbalizes/Nonverbally indicates understanding Pre Procedure/Surgery Education Appropriate expectations, Date/Time of procedure/surgery, NPO, Other: obv admit Post op Activity Education Bedrest Procedure/Surgical Teaching Evaluation Verbalizes/Nonverbally indicates understanding Procedure/Surgery Testing Education EKG, Lab tests Safety Brochure Information Reviewed Yes Dipesh Menendez Video Viewed No Information Given by Patient Patient's Current Physicians Patient's Current Physicians (Modified) Discharge To, Anticipated Home independently Prev Test Positive/Diagnosis w/COVID-19 Yes (Modified) Previous COVID-19 Positive Date 2022 Current Quarantine/Isolated any Illness No Any Contact with Sick Animals/Birds No Traveled Anywhere in Last 30 Days No Lost Weight Unintentionally Recently No Eat Poorly Due to Decreased Appetite No Total MST Score 0 No Personal Devices, Patient Valuables None Anesthesia/Transfusions Prior anesthesia Admission Note-Nursing Same Day Patient History (Modified) . Assessment and Plan [place] [employer] Anesthesiologists (ASA) physical status classification: Class III. Anesthetic Preoperative Plan Premedication: intravenous. Anesthetic technique: MAC. Induction: intravenously. Maintenance airway: Mask. Special techniques: Warming device. Special Monitoring. Postoperative pain management: Per surgeon. Risks discussed: nausea, vomiting, headache, sore throat, dental injury, hypotension, allergic reaction, serious complications. Informed consent: signed by patient. Beta Neftali: Beta Neftali Taken Within 24 Hrs: Yes. Digitally Signed by VERONA CRYSTAL MD on 05/26/2023 11:02 AM [id number] NoteVENTRICULAR-PACED COMPLEXES Electronic Signature: FIDE FERNANDEZ MD 05/27/2023 09:48:06[facility] 12-16-2023 NoteHNO ID: [id number] Author: Graeme Easton PA-C Service: ? Author Type: Physician Housing Specialist Type: Progress Notes Filed: 03/15/2023 2:53 PM Note Text: This note was created using [employer]. Subjective Pura Laguerre is a 62 year old female. HPI Presents with a chief complaint of cough over the past 12 days. She was seen at another urgent care through [facility] and tested negative for COVID. She [...] state (HCC) Hypertension Hypothyroidism Iron deficiency anemia director long term care current use of anticoagulant Mixed hyperlipidemia Seasonal [...] order an x-ray if (more content not included)...[facility]12-16-2023 History of Present illness Narrative* Graeme Easton PA-C - 03/15/2023 2:47 PM EST Images from the original note were not included. This note was created using [employer]. Subjective Pura Laguerre is a 62 year old female. HPI Presents with a chief complaint of cough over the past 12 days. She was [facility] at another [facility] and tested negative for COVID. She was given Tessalon Perles which has helped with the cough it just has not gone away. No chest pain or shortness of breath. She does have a history of heart failure and A-fib. She also is complaining of right ear pain. She states s he had a pimple on the outside of the ear and was given Cortisporin drops. She states that is not helping at all. It has gotten worse and her whole ear is red now. No fever. Review of Systems Constitutional: Negative. HENT: Positive for ear pain. Negative for congestion, ear discharge, sinus pressure, sinus pain andsore throat. Respiratory: Positive for cough. Negative for shortness of breath and wheezing. Cardiovascular: Negative. Gastrointestinal: Negative. Genitourinary: Negative. Musculoskeletal: Negative. All other systems reviewed and are negative. PAST MEDICAL HISTORY Diagnosis Date Acquired atrophy of thyroid Acute respiratory failure with hypoxia ([facility]) 08/03/2020 Anxiety B12 deficiency Blood clot associated with vein wall inflammation Complete heart block ([facility]) 10/2019 Depression Diabetes ([facility]) History of pulmonary embolism Hypercholesterolemia Hypercoagulable state ([facility]) Hypertension Hypothyroidism Iron deficiency anemia director long term care current use of anticoagulant Mixed hyperlipidemia Seasonal [...] clearance was calculated from recent labs from [facility] and was 71. Discussed however if this is not improving or getting worse she really needs to be seen in the emergency department or PCP. Patient agreeable. Graeme Easton PA-C [facility] NoteHNO ID: [id number] Author: Graeme Easton PA-C Service: ? Author Type: Physician Housing Specialist Type: Progress Notes Filed: 10/21/2022 6:21 PM Note Text: This note was created using [employer]. Subjective Pura Laguerre is a 62 year [...] state (HCC) Hypertension Hypothyroidism Iron deficiency anemia halfway current use of anticoagulant Mixed hyperlipidemia Seasonal [...] - Supportive care with fluids and rest MARGARITA Garcia-[facility]04-24-2022 History of Present illness Narrative* Emily Rosas APRN.SKIN SPECIALIST - 07/22/2021 2:41 PM EDT CC: Patient presents with: Nasal Congestion: drainage, [...] state (HCC) Hypertension Hypothyroidism Iron deficiency anemia halfway current use of anticoagulant Mixed hyperlipidemia Seasonal allergies Status cardiac pacemaker 10/2019 Thyroid activity decreased PAST SURGICAL HISTORY Procedure Laterality Date ANESTH,PACEMAKER INSERTION 10/2019 COLONOSCOPY FLX DX W/COLLJ SPEC WHEN PFRMD 11/06/2020 COLONOSCOPY GEN ANES 1999 HYSTERECTOMY & VAGINA REPAIR ENTEROCELE KNEE SURGERY HX Right 1987 ACL repair ALLERGIES Poison Mel, Red Dye, and Sulfa (Sulfonamide Antibiotics) MEDICATIONS [...] plan. Emily Rosas APRN.FREEDOM [facility] note Future Appointments Appointment Date:06/10/2023 03:00:00 PM Scheduled Provider: Location:[facility] Appointment Type:CV Incision Check Appointment Date:06/10/2023 03:15:00 PM Scheduled Provider: Location:[facility] Appointment Type:CV OV [facility] Appointment Date:08/26/2023 03:00:00 PM Scheduled Provider: Location:[facility] Appointment Type:CV Office Procedure ICD Appointment Date:11/26/2023 08:15:00 AM Scheduled Provider: Location:[facility] Appointment Type:CV Remote Procedure HM Diagnostic Tests Pending * Urinalysis w/ C&S if Indicated 05/29/23 [facility] Evaluation + Plan note Future Appointments Appointment Date:03/04/2024 06:15:00 PM Scheduled Provider: Location:[facility] Appointment Type:CV Remote Procedure HM Appointment Date:12/07/2024 03:00:00 PM Scheduled Provider: Location:[facility] Appointment Type:CV OV [facility] Evaluation note* Diagnosis Cough- Primary documented in this encounter [facility] note* Diagnosis Acute cough- Primary Bacterial external ear infection, right documented in this encounter [facility] course Narrative No data available for this section [facility] Hospital Discharge instructions No data available for this section [facility] Progress note No data available for this section [facility] Summary Purpose Family History No Family History Records FoundNo Family History Records FoundNo Family History Records FoundNo Family History Records Found No data available for this section No data available for this section No Family History Records FoundNo Family History Records Found Advance Directives No Advanced Directives Records FoundDocuments on File Type Date Recorded Patient Project Management Director Expl anation Advance Directives and Livin g Will 12/15/2019 8:08 PM Latest Code Status on File Code Status Date Activated Date Inactivated Comments Full Code - Unverified 12/03/2019 4:41 PM 12/09/2019 2:44 PM Full Code - Unverified 11/29/2019 11:19 PM 12/03/2019 4:4 1 PM Documents on File Type Date Recorded Patient Project Management Director Expl anation Advance Directives and Livin g Will 03/09/2020 8:08 PM Latest Code Status on File Code Status Date Activated Date Inactivated Comments Full Code - Unverified 12/03/2019 4:41 PM 12/09/2019 2:44 PM Full Code - Unverified 11/29/2019 11:19 PM 12/03/2019 4:4 1 PM Documents on File Type Date Recorded Patient Project Management Director Expl anation Advance Directives and Livin g Will 11/29/2019 8:08 PM Documents on File Type Date Recorded Patient Project Management Director Expl anation Advance Directive(s) 11/06/2020 7:01 AM Advance Directive(s) 10/10/2020 9:30 AM Reason for Referral Status Reason Specialty Diagnoses / Procedures Referred By Contact Referred To Contact Pending Review Cardiology Diagnoses Pacemaker Procedures Outpatient Device Clinic Referral Lois Reinoso MD [address] [place] [address] Assessments Diagnosis Pacemaker Cardiac pacemaker in situ Diagnosis Sinus bradycardia- Primary Other specified cardiac dysrhythmias Acute UTI Urinary tract infection, site not specified Bradycardia, unspecified Hospital Course * Geovanni, Antonio Pfeiffer MD - 12/09/2019 11:35 AM EDT HOSPITALIST DISCHARGE SUMMARY Patient: Pura Laguerre Account: [id number] Admitted: 11/29/2019 Discharge Date/Time: 12/09/2019 Clinical Summary [...] Your Medications These medications were sent to [facility] [address] [address] loratadine 10 mg tablet losartan 50 MG tablet Physician(s) Family: Andrews Garcia MD, , Address: [facility] [address] [facility] / [place] [id number] Follow Up: Andrews Garcia MD [address] [id number] Follow up in 1 week(s) Delta Downey MD [address] [place], [place] [id number] Follow up in 1 week(s) Patient instructions, including activity, were given to the patient/family at discharge. Please seethe After Visit Summary in the medical record for details. Time spent on discharge: > 30 minutes Completed by: Antonio Galarza on 12/09/19, 11:35 AM documented in [...] hold pressure and call the office at [phone]. Call the office if you notice pain, [...] for pt to review going home. * Geovanni, Antonio Pfeiffer MD - 12/08/2019 3:55 PM EDT [facility] Medicine Inpatient Follow-up 12/08/2019 Antonio Galarza MD [facility] Patient: Pura [...] Results from last 7 days Lab Units 12/08/1945612/07/19 04512/06/19 0550 SODIUM mmol/L 141 142 141 POTASSIUM mmol/L 4.1 4.2 3.8 CHLORIDE mmol/L 109* 108 109* BUN mg/dL 18 17 16 CREATININE mg/dL 0.97 0.95 0.92 GLUCOSE mg/dL 136* 131* 132* CALCIUM mg/dL 8.8 8.8 8.9 Results from last 7 days Lab Units 12/08/1945612/07/1944912/06/19 0550 WBC K/mcL 3.39* 5.94 3.68* HGB g/dL 12.7 13.0 12.5 HCT % 41.4 43.7 41.7 PLT K/mcL 175 208 195 Results from last 7 days Lab Units 12/07/19 0450 ALK PHOS U/L 96 BILIRUBIN TOTAL mg/dL 0.5 TOTAL PROTEIN g/dL 7.0 ALTR U/L 66* AST U/L 34 CULTURES: Reviewed 3:55 PM IMAGING: Reviewed 3:55 PM * Geovanni, Antonio Pfeiffer MD - 12/07/2019 1:53 PM EDT [facility] Medicine Inpatient Follow-up 12/07/2019 Antonio Galarza MD [facility] Patient: Pura Laguerre Date of : 1960 (59 y.o.) PCP: Adnrews Garcia MD ASSESSMENT/PLAN: Pura Lgauerre 59 y.o. female presented with Third-degree AV [...] PM IMAGING: Reviewed 1:53 PM * Conchita Zapata RN - 12/07/2019 9:39 AM EDT Care Management [...] Estimated Energy Needs Total Energy Estimated Needs: 0628-5442 kcal Method for Estimating Needs: MSJ Total Protein Estimated Needs: 60-70 g Method for Estimating Needs: 1.0 g/kg AdjBW Will follow-up , as needed while in-house. Juliet Lynn RDN, * Geovanni, Antonio Pfeiffer MD - 12/06/2019 4:49 PM EDT [facility] Medicine Inpatient Follow-up 12/06/2019 Antonio Galarza MD [facility] Patient: Pura [...] : 1960 Site: [facility] Provider: Yael Venegas, CIGARETTE PAPER TESTER ASSESSMENT/PLAN: Diabetes Hypertension Previously diagnosed, currently treated [...] PRN, Amado Rod MD, 650 mg at 12/05/194 atorvastatin (LIPITOR) tablet 10 mg, 10 mg, [...] mL, 0.5 mL, Intramuscular, Prior To Discharge, Seamus Mcfarland MD rivaroxaban (XARELTO) tablet 20 mg, [...] findings. ST/ges Workstation ID: [id number] CCTA Heart (Messaging Architect read) Final Result 1. Total calcium score: [...] modifications noted below. Pito Shore MD, FCCP, [facility] Diplomate: [place] Board of Sleep Medicine Grease Worker: [facility] * Amado Pierre MD - 12/05/2019 1:29 PM EDT Hospital Medicine Inpatient Follow-up 12/05/2019 Amado Rod [...] Pierre MD - 12/04/2019 2:42 PM EDT [facility] Medicine Inpatient Follow-up 12/04/2019 Amado [...] Pulse (!) 45 Temp 98.3 F (36.8 C) (Oral) Resp 16 Ht 5' 3 Wt 109.7 [...] EDT Electrophysiology Inpatient Follow-up Heart & Vascular [facility] 12/03/2019 Belkis Ruiz CNP [...] at hs Plan: 12/01/2019 (reviewed with Dr Downey) - continue to hold all HR limiting meds-holding metoprolol suc 50 mg daily -Will discuss timing of the left sided dual chamber pacemaker with Dr Downey. She currently has a UTI on Ceftriaxone. [...] the emergency room by daniel on 11/28 guera after feeling shortness of breath, especially with [...] at times as she was in the [place]. Today 12/03/2019 Patient is feeling well, no complaints ECG 12 Lead Final Result by Interface, [facility] (12/01/2019 1553) Echocardiogram complete w contrast Final [...] mL, 0.5 mL, Intramuscular, Prior To Discharge, Seamus Mcfarland MD rivaroxaban (XARELTO) tablet 20 mg, [...] injection 1 mg, 1 mg, Intravenous, PRN, Kareyl King MD cefTRIAXone (ROCEPHIN) IVPB 1 g (premix), 1,000 mg, Intravenous, Q24H LYNNETTE, Robby Chaudhary CNP, Last Rate:100 mL/hr at 12/02/194, 1,000 mg at 12/02/19 2134 levothyroxine (SYNTHROID, [...] mL, 0.5 mL, Intramuscular, Prior To Discharge, Seamus Mcfarland MD rivaroxaban (XARELTO) tablet 20 mg, [...] to separate report for dedicated cardiac findings. ST/Glow Workstation ID: [id number] CCTA Heart (Messaging Architect read) Final Result 1. Total calcium score: [...] Pierre MD - 12/02/2019 4:51 PM EDT [facility] Medicine Inpatient Follow-up 12/02/2019 Amado [...] 4:51 PM IMAGING: Reviewed 4:51 PM * Sabnie Echevarria RD - 12/02/2019 2:15 PM EDT Nutrition [...] Estimated Energy Needs Total Energy Estimated Needs: 6385-9264 kcal Method for Estimating Needs: MSJ Total Protein Estimated Needs: 60-70 g Method for Estimating Needs: 1.0 g/kg AdjBW Will continue to follow while in-house. Sabine Echevarria RDN, LD Dietitian Office * Amado Pierre MD - 12/01/2019 3:11 PM EDT [facility] Medicine Inpatient Follow-up 12/01/2019 Amado [...] Pierre MD - 11/30/2019 3:43 PM EDT [facility] Medicine Inpatient Follow-up 11/30/2019 Amado [...] 7 days Lab Units 11/30/19 0128 11/29/19 192 SODIUM mmol/L 142 141 POTASSIUM mmol/L 3.9 [...] ized section and content) DATE CREATED AUTHOR 11/07/2018 [facility] DATE CREATED AUTHOR AUTHOR'S ORGANIZ ATION 05/07/2020 [facility] DATE CREATED AUTHOR AUTHOR'S ORGANIZ ATION 11/06/[address] [facility] DATE CREATED AUTHOR AUTHOR'S ORGANIZ ATION 03/17/2023 [facility] DATE CREATED AUTHOR AUTHOR'S ORGANIZ ATION 12/06/2023 [facility] DATE CREATED AUTHOR AUTHOR'S ORGANIZ ATION 12/16/2023 [facility] Reason for Visit (unrecogniz ed section and content) Status Reason Specialty Diagnoses / Procedures Referred By Contact Referred To Contact Pending Review Cardiology Diagnoses Pacemaker Procedures Outpatient Device Clinic Referral Lois Reinoso MD [address] [place] [address] Reason Comments Fatigue Shortness of Breath Status Reason Specialty Diagnoses / Procedures Referre d By Contact Referred To Contact Diagnoses Sinus bradycardia Acute UTI Bradycardia, unspecified Reason Comments Nasal Congestion drainage, cough and sore throat x 5 days Reason Comments Cough Congestion x12 days, R ear pimple in ear causing pain Lois Reinoso MD - 12/07/2019 11:29 AM EDT [...] Yael Venegas CNS - 12/01/2019 3:41 PM Belkis Urrutia CNP - 12/01/2019 12:56 PM Belkis Urrutia CNP - 12/01/2019 9:13 AM BHANUTBKarely alegre MD - 11/30/2019 8:56 AM EDT Consult Notes (unrecognized section and content) Associated Order(s): IP CONSULT TO SLEEP LAB PULMONOLOGY CONSULT 12/01/2019 Patient: Pura Laguerre Date of : 1960 Site: [facility] Referring Provider: Refer to consult order in electronic medical record Provider: Yael Venegas, CIGARETTE PAPER TESTER ASSESSMENT Diabetes Hypertension Hypothyroidism Previously diagnosed currently [...] 6 Effects of caffeine nicotine alcohol and duuy-wcm-cqatgyc medications effect on sleep discussed with patient. [...] enjoy her work. She is a retired [employer], plans to have her right knee [...] mL, 0.5 mL, Intramuscular, Prior To Discharge, Seamus Mcfarland MD rivaroxaban (XARELTO) tablet 20 mg, [...] findings. ST/ges Workstation ID: [id number] CCTA Heart (Messaging Architect read) Final Result 1. Total calcium score: [...] I discussed with my clinical nurse specialist Yaeladri Venegas DNP and agree with her evaluation and recommendation for treatment plan. I have reviewed patient's clinical information, list of medications and laboratory investigations We will also review her previous sleep studies if available We will continue follow-up after her discharge in our clinic Pito Shore MD, [facility], [facility] Diplomate: [place] Board of Sleep Medicine Grease Worker: [facility] Associated Order(s): IP CONSULT TO CARDIOLOGY Please see other consult note, this was a second consult for same problem Associated attestation - Delta Downey MD - 12/02/2019 12:38 PM EDT I [...] Name: Pura Laguerre Admit Date: MR #: [id number] : 1960 Assessment: Pura Laguerre is a [...] at hs Plan: 12/01/2019 (reviewed with Dr Downey) - continue to hold all HR limiting meds-holding metoprolol suc 50 mg daily -Will discuss timing of the left sided dual chamber pacemaker with Dr Downey. She currently has a UTI on Ceftriaxone. [...] to the emergency room by squad on 11/28ion after feeling shortness of breath, especially with [...] at times as she was in the [place]. Current Facility-Administered Medications Medication Dose Route Frequency [...] 1 g (premix) 1,000 mg Intravenous Q24H [facility] Robby Chaudhary CNP Stopped at 11/30/19 2156 levothyroxine (SYNTHROID, LEVOTHROID) tablet 88 mcg 88 mcg Oral Daily Robby Chaudhary CNP 88 mcg at 12/01/19 0643 losartan (COZAAR) tablet 50 mg 50 mg Oral Daily with lunch Robby Chaudhary CNP metFORMIN (GLUCOPHAGE) tablet 1,000 mg 1,000 mg Oral Daily with breakfast Robby Chaudhary CNP 1,000 mg at 12/01/19 0824 perflutren lipid microspheres (DEFINITY) 0.143 mg/mL solution 0-10 mL of mixture 0-10 mL of mixture Intravenous Once in imaging Robby Chaudhary SKIN SPECIALIST 1 mL of mixture at 11/30/19 1447 pneumococcal vaccine (PNU-IMMUNE 23) injection 0.5 mL 0.5 mL Intramuscular Prior To Discharge Seamus Mcfarland MD rivaroxaban (XARELTO) tablet 20 mg 20 mg Oral Daily Robby Tonya SKIN SPECIALIST 20 mg at 11/30/19 182 Current Facility-Administered Medications Medication Dose Route Frequency [...] 1 g (premix) 1,000 mg Intravenous Q24H [facility] Robby Chaudhary CNP Stopped at 11/30/19 2156 levothyroxine (SYNTHROID, LEVOTHROID) tablet 88 mcg 88 mcg Oral Daily Robby Chaudhary CNP 88 mcg at 12/01/19 0643 losartan (COZAAR) tablet 50 mg 50 mg Oral Daily with lunch Robby Chaudhary CNP metFORMIN (GLUCOPHAGE) tablet 1,000 mg 1,000 mg Oral Daily with breakfast Robby Chaudhary CNP 1,000 mg at 12/01/19 0824 perflutren lipid microspheres (DEFINITY) 0.143 mg/mL solution 0-10 mL of mixture 0-10 mL of mixture Intravenous Once in imaging Robby Chaudhary CNP 1 mL of mixture at 11/30/19 1447 pneumococcal vaccine (PNU-IMMUNE 23) injection 0.5 mL 0.5 mL Intramuscular Prior To Discharge Seamus Mcfarland MD rivaroxaban (XARELTO) tablet 20 mg 20 mg Oral Daily Robby Chaudhary SKIN SPECIALIST 20 mg at 11/30/19 1823 Past History: [...] file Gets together: Not on file Attends moravian service: Not on file Active member of [...] heart rate 42, QRS 92 Telemetry: Reviewed [facility] for Dr Downey [phone] (mobile) Associated attestation - Delta Downey MD - 12/02/2019 12:38 PM EDT I [...] General Cardiology Inpatient Consult Heart & Vascular [facility] 11/30/2019 Karely King MD [...] she gets [place] medical [place] through [place]. She has a history of DVT on [...] mL 0.5 mL Intramuscular Prior To Discharge Seamus Mcfarland MD rivaroxaban (XARELTO) tablet 20 mg [...] Nataliia Walton MD - 11/29/2019 7:33 PM BHANUTBDaniel snyder RN - 11/29/2019 7:18 PM Marsha Belle RN - 11/29/2019 7:14 PM EDT ED Notes (unrecognized secti on and content) ED PROVIDER NOTE [facility] EMERGENCY DEPARTMENT NAME: Pura Laguerre AGE: 59 y.o. : 1960 VISIT DATE: 11/29/2019 CSN: [id number] PCP: Andrews Garcia MD Chief Complaint Patient [...] the EMS. She denies previous history of [place] PE pneumothorax denies any recent bowel or [...] file Gets together: Not on file Attends moravian service: Not on file Active member of [...] 11/29/19 2200 142/89 (!) 39 98 % 11/29/19 2105 135/63 (!) 40 16 98 % 11/29/191999 (!) 112/53 (!) 48 90 % 11/29/19 194 (!) 112/53 (!) 40 96 % 11/29/19 1920 (!) 135/47 98.4 F (36.9 C) Oral [...] Yellow Clarity, Urine Cloudy (A) Clear Specific [place] 1.015 1.005 - 1.025 pH, Urine 5.0 [...] findings. Mild cardiomegaly. Workstation ID: [id number] Procedures MDM Patient is a 59-year-old female multiple medical [...] not been specified. Nataliia Walton MD 11/29/19 0700 Bed: 07 Expected date: Expected time: Means of arrival: Comments: KHUSHI hb Pt arrived to room 7 via [facility] C/C- Lethargic/Dyspnea Pt states she has [...] (unrecog nized section and content) Seen by Dozier to Home post discharge and reviewed AVS. [...] heart block, pacer insertion Cardiology Progress Note [facility] Heart and Vascular Physicians Cardiology Sign-Off [...] at hs Plan: 12/01/2019 (reviewed with Dr Downey) - continue to hold all HR limiting meds-holding metoprolol suc 50 mg daily -Will discuss timing of the left sided dual chamber pacemaker with Dr Downey. She currently has a UTI on Ceftriaxone. (E Coli >100K on urine culture) -Pt must remain afebrile and no leukocytosis x 24 hours after antibiotics are complete prior to the pacmaker placement -Pt is aware of risks, benefits and alternatives of pacemaker -Continue CPAP-pt wants a consult to Bladimir Shore as needs updated CPAP/mask at home 12/09/2019 (Dr Downey saw pt with me this AM) -Micra [...] left sided dual chamber pacemaker with Dr Downey. She currently has a UTI on Ceftriaxone. (E Coli >100K on urine culture) -Pt must remain afebrile and no leukocytosis x 24 hours after antibiotics are complete prior to the pacmaker placement -Pt is aware of risks, benefits and alternatives of pacemaker -Continue CPAP-pt wants a consult to Bladimir Shore as needs updated CPAP/mask at home MEDS [...] or prosecute any alcohol or drug abuse patient.[facility] Hospital[facility] the event this information is protected by the Federal Confidentiality of Alcohol and Drug Abuse Patient Records regulations: The Federal rules restrict any use of the information to criminally investigate or prosecute any alcohol or drug abuse patient.[facility] Care Teams (unrecognized sec tion and content) Aluminum Polisher Relationship Specialty Start Date End Date Beena Burgos MD [address] [place], [place] [id number] PCP - General Internal Medicine 09/04/20 Aluminum Polisher Relationship Specialty Start Date End Date Beena Burgos MD [address] [place], [place] [id number] PCP - General Internal Medicine 09/04/20 FOR [...] BE BASED ON THE PRIMARY CLINICAL RECORDS. [facility]. provides no warranty or guarantee of the accuracy or completeness of information in this document.
== END | disposition home or self-care (01) ==
LOC: OPBI 15:04
PROVIDERS: PCP Internal Medicine; Referring Provider Internal Medicine; Visit Provider Internal Medicine
DX: Z12.31 Encounter for screening mammogram for malignant neoplasm of breast (principal)
CPT/HCPCS: 77063; 77067

== ENCOUNTER → 2024-05-19 | Outpatient (CLI) | payer OTHER, SELFPAY ==
--- NOTE | 2024-05-19 16:25 | BD_ITS ---
PROCEDURE: DEXA BONE DENSITY STUDY REASON FOR EXAM: F, age 63 y/o . Postmenopausal. TECHNIQUE: DEXA scan of the lumbar spine and both hips. COMPARISON: None. FINDINGS: T-SCORES Lumbar spine: Total bone mineral density of the lumbar spine measures 0.905 grams/centimeter squared. T-score measures -1.0 and Z-score measures 0.7. Left hip: Total bone mineral density of the left hip measures 0.909 grams/ cm2. T-score measures -0.3 and Z-score measures 0.9. Left femoral neck bone mineral density measures 0.560 grams/centimeter squared. T-score measures -2.6 and Z-score measures -1.1 Right hip: Total bone mineral density of the right hip measures 0.831 grams/ cm2. T-score measures -0.9 and Z-score measures 0.3. Right femoral neck bone mineral density measures 0.573 grams/centimeter squared. T-score measures -2.5 and Z-score measures -1.0) Patient demonstrates osteoporosis of both hips and osteopenia of the lumbar spine FRAX* Results: 10 Year Probability of Fracture: Hip Fracture(1): 21% Major Osteoporotic Fracture(2): 2.3% *FRAX is a trademark of the [employer]'s [place] for Metabolic Bone Disease, World Health Organization (WHO) Collaborating [place]. 1-The 10-year probability of fracture may be lower than reported if the patient has received treatment. 2-Major Osteoporotic Fracture: Clinical Spine, Forearm, Hip or Shoulder. The T-scores are also available for review on the [facility] PACS or by accessing the [facility] electronic medical record. BD/Dexa Bone Density Study IMPRESSION: Osteoporosis Reading Location: [id number]
== END | disposition home or self-care (01) ==
LOC: OPBD 16:20
PROVIDERS: PCP Internal Medicine; Referring Provider Internal Medicine; Visit Provider Internal Medicine
DX: Z78.0 Asymptomatic menopausal state (principal)
CPT/HCPCS: 77080

== ENCOUNTER → 2024-07-13 | Outpatient (CLI) | payer OTHER, SELFPAY ==
[2024-07-13 17:36] LABS: ALB/GLOB Ratio 1.2 RATIO (0.9-2.4); AST(SGOT) 24 U/L (<=31); Alanine Aminotransfer ALT/SGPT 29 U/L (<=34); Albumin, Serum 4.2 g/dL (3.4-4.8); Alkaline Phosphatase 110 U/L (35-104); Anion Gap 12 (5-15); BUN 24 mg/dL (4-19); BUN/Creat Ratio 23.5 RATIO (10-20); Calcium,Total 9.5 mg/dL (7.6-11.0); Carbon Dioxide 25.8 mmol/L (21.0-32.0); Chloride 103 mmol/L (98-108); Creatinine, Serum 1.04 mg/dL (0.70-1.20); EST Glomerular Filtration Rate 60 (>60); Globulin 3.4 g/dL (2.2-4.2); Glucose 130 mg/dL (70-99); Potassium 4.1 mmol/L (3.3-5.1); Protein, Total 7.6 g/dL (5.9-8.4); Sodium Level 140 mmol/L (133-145); Total Bilirubin 0.38 mg/dL (0.00-1.30)
[2024-07-16 16:37] LABS: Hemoglobin A1c 7.1 % (<=5.6)
[2024-07-16 16:55] LABS: Vitamin D,25 Hydroxy 35.8 ng/mL (30-100)
== END | disposition home or self-care (01) ==
LOC: BIMLAB 14:58
PROVIDERS: PCP Internal Medicine; Referring Provider Internal Medicine; Visit Provider Internal Medicine
DX: E11.69 Type 2 diabetes mellitus with other specified complication (principal); E03.9 Hypothyroidism, unspecified; M81.0 Age-related osteoporosis without current pathological fracture
CPT/HCPCS: 36415; 80053; 82306; 83036; 84443

== ENCOUNTER → 2024-07-16 | Outpatient (CLI) | payer OTHER, SELFPAY ==
[2024-07-16 17:22] LABS: Microalbumin,Random Urine 15.7 mg/L (NO RANGE EST.); Microalbumin:Creatinine Ratio 138.9 mg/g CRE
== END | disposition home or self-care (01) ==
LOC: LABSPEC 15:34
PROVIDERS: PCP Internal Medicine; Visit Provider Internal Medicine
DX: E11.69 Type 2 diabetes mellitus with other specified complication (principal)
CPT/HCPCS: 82043; 82570